=== PATIENT | female | born 1950 | race Hispanic/Latino ===

== ENCOUNTER 2019-12-21 13:13 | Emergency (ER) | payer OTHER ==
[2019-12-21 13:43] LABS: BASOPHILS % (AUTO) 0.3 % (0.0-5.0); EOSINOPHILS % (AUTO) 0.8 % (0.0-8.0); HEMATOCRIT 42.6 % (36-48); LYMPHOCYTES % (AUTO) 12.9 % (21.0-51.0); MEAN CORPUSCULAR HEMOGLOBIN 29.6 pg (27.0-33.0); MEAN CORPUSCULAR HGB CONC 33.1 g/dL (32.0-36.0); MEAN CORPUSCULAR VOLUME 89.3 fL (79-99); MONOCYTES % (AUTO) 6.1 % (3.0-13.0); NEUTROPHILS % (AUTO) 79.5 % (40.0-77.0); PLATELET COUNT (AUTO) 191 K/uL (130-400); RED BLOOD CELL COUNT(AUTO) 4.77 MIL/uL (4.00-5.50); RED CELL DISTRIBUTION WIDTH 12.8 % (11.0-15.5); WHITE BLOOD COUNT (AUTO) 11.4 K/uL (4.8-10.8)
[2019-12-21 13:52] LABS: CREATININE 0.8 mg/dL (0.5-1.5)
[2019-12-21 13:53] LABS: INR 0.89 (0.85-1.15); PARTIAL THROMBOPLASTIN TIME 23.1 SEC (26.3-35.5); PROTHROMBIN TIME 9.7 SEC (9.6-11.6)
[2019-12-21 13:57] LABS: BILIRUBIN,TOTAL 0.7 mg/dL (0.2-1.0); TOTAL PROTEIN, SERUM 7.8 g/dL (6.0-8.3)
[2019-12-21 14:17] LABS: B-TYPE NATRIURETIC PEPTIDE 102 pg/mL (0-100)
[2019-12-21 14:26] LABS: APPEARANCE,URINE Clear (CLEAR); BILIRUBIN,URINE Negative (NEGATIVE); COLOR,URINE Yellow (YELLOW); GLUCOSE, URINE (UA) Negative (NEGATIVE); KETONES,URINE Negative (NEGATIVE); LEUKOCYTE ESTERASE ,URINE Trace (NEGATIVE); NITRATE,URINE Negative (NEGATIVE); OCCULT BLOOD,URINE Negative (NEGATIVE); PROTEIN,URINE Negative (NEGATIVE)
[2019-12-21 14:52] LABS: BACTERIA,URINE Few /HPF (None Seen); MUCUS,URINE Few LPF (None Seen); RBC,URINE 0-1 /HPF (0-1); SQUAMOUS EPITHELIAL CELL,UR Few /HPF (0-2)
== END 2019-12-21 16:17 | disposition home or self-care (01) ==
LOC: EDH 13:13
DX: M79.10 Myalgia, unspecified site (principal); R06.00 Dyspnea, unspecified; F41.9 Anxiety disorder, unspecified; E78.00 Pure hypercholesterolemia, unspecified; I10 Essential (primary) hypertension
CPT/HCPCS: 36415; 71045; 80053; 81001; 82550; 83880; 85025; 85610; 85730; 93005

== ENCOUNTER 2020-05-06 19:05 | Emergency (ER) | payer OTHER ==
[2020-05-06 19:31] LABS: APPEARANCE,URINE Cloudy (CLEAR); BILIRUBIN,URINE Negative (NEGATIVE); COLOR,URINE Yellow (YELLOW); GLUCOSE, URINE (UA) Negative (NEGATIVE); KETONES,URINE Negative (NEGATIVE); LEUKOCYTE ESTERASE ,URINE Small (NEGATIVE); NITRATE,URINE Negative (NEGATIVE); OCCULT BLOOD,URINE Trace (NEGATIVE); PROTEIN,URINE Negative (NEGATIVE)
[2020-05-06 19:46] LABS: BASOPHILS % (AUTO) 0.3 % (0.0-5.0); EOSINOPHILS % (AUTO) 1.5 % (0.0-8.0); HEMATOCRIT 43.2 % (36-48); LYMPHOCYTES % (AUTO) 12.5 % (21.0-51.0); MEAN CORPUSCULAR HGB CONC 32.6 g/dL (32.0-36.0); MEAN CORPUSCULAR VOLUME 88.9 fL (79-99); NEUTROPHILS % (AUTO) 80.4 % (40.0-77.0); PLATELET COUNT (AUTO) 233 K/uL (130-400); RED BLOOD CELL COUNT(AUTO) 4.86 MIL/uL (4.00-5.50); RED CELL DISTRIBUTION WIDTH 12.9 % (11.0-15.5); WHITE BLOOD COUNT (AUTO) 11.5 K/uL (4.8-10.8)
[2020-05-06 19:48] LABS: BACTERIA,URINE Few /HPF (None Seen)
[2020-05-06 19:49] LABS: MUCUS,URINE Few LPF (None Seen); SQUAMOUS EPITHELIAL CELL,UR Few /HPF (0-2)
[2020-05-06 19:51] LABS: CALCIUM OXALATE CRYSTALS,UR Few /LPF (None Seen)
[2020-05-06 20:01] LABS: CREATININE 0.9 mg/dL (0.5-1.5); POTASSIUM 4.6 mmol/L (3.5-5.1)
[2020-05-06 20:06] LABS: ALBUMIN 4.2 g/dL (3.5-5.0); BILIRUBIN,TOTAL 0.5 mg/dL (0.2-1.0)
[2020-05-06] MEDS ORDERED: FAMOTIDINE 20MG TAB ONE (20:26)
[2020-05-06] MEDS ORDERED: METOPROLOL TARTRATE 25 MG TAB ONE (20:27)
[2020-05-06] MEDS ORDERED: LEVOFLOXACIN 500 MG TABLET ONE (20:50)
== END 2020-05-06 21:28 | disposition home or self-care (01) ==
LOC: EDH 19:05
DX: N39.0 Urinary tract infection, site not specified (principal); K59.00 Constipation, unspecified; I10 Essential (primary) hypertension; E78.00 Pure hypercholesterolemia, unspecified; E11.9 Type 2 diabetes mellitus without complications
CPT/HCPCS: 36415; 74176; 80053; 81001; 85025

== ENCOUNTER 2021-06-18 19:48 | Inpatient (IN) | payer OTHER ==
[~2021-06-18] VITALS: Ht 152.4 cm; Wt 90.3 kg
[2021-06-18 20:28] LABS: BASOPHILS % (AUTO) 0.2 % (0.0-5.0); EOSINOPHILS % (AUTO) 2.7 % (0.0-8.0); HEMATOCRIT 47.1 % (36-48); LYMPHOCYTES % (AUTO) 13.7 % (21.0-51.0); MEAN CORPUSCULAR HEMOGLOBIN 28.9 pg (27.0-33.0); MEAN CORPUSCULAR HGB CONC 32.5 g/dL (32.0-36.0); MEAN CORPUSCULAR VOLUME 88.9 fL (79-99); MONOCYTES % (AUTO) 4.7 % (3.0-13.0); NEUTROPHILS % (AUTO) 78.3 % (40.0-77.0); PLATELET COUNT (AUTO) 273 K/uL (130-400); RED CELL DISTRIBUTION WIDTH 13.5 % (11.0-15.5)
[2021-06-18 20:35] LABS: APPEARANCE,URINE CLOUDY (CLEAR); BILIRUBIN,URINE NEGATIVE (NEGATIVE); COLOR,URINE YELLOW (YELLOW); GLUCOSE, URINE (UA) NEGATIVE (NEGATIVE); KETONES,URINE 5 mg/dL (NEGATIVE); LEUKOCYTE ESTERASE ,URINE TRACE (NEGATIVE); NITRATE,URINE NEGATIVE (NEGATIVE); OCCULT BLOOD,URINE SMALL (NEGATIVE); PROTEIN,URINE NEGATIVE (NEGATIVE); UROBILINOGEN,URINE 0.2 mg/dL (0.2-1.0)
[2021-06-18 20:39] LABS: CREATININE 0.7 mg/dL (0.5-1.5); POTASSIUM 4.1 mmol/L (3.5-5.1)
[2021-06-18 20:48] LABS: ALBUMIN 4.3 g/dL (3.5-5.0); BILIRUBIN,TOTAL 0.5 mg/dL (0.2-1.0); TOTAL PROTEIN, SERUM 8.5 g/dL (6.0-8.3)
[2021-06-18 21:02] LABS: BACTERIA,URINE Few /HPF (None Seen); MUCUS,URINE Few LPF (None Seen); RBC,URINE 0-1 /HPF (0-1); SQUAMOUS EPITHELIAL CELL,UR Few /HPF (0-2)
[2021-06-18] MEDS ORDERED: PANTOPRAZOLE 40 MG/VIAL IVP ONE (22:00)
[2021-06-18] MEDS ORDERED: ONDANSETRON 4MG INJ IVP ONE (22:00)
[2021-06-18] MEDS ORDERED: 0.9%NACL 1000ML 1,000 ML IV ONE (22:00)
[2021-06-18] MEDS ORDERED: FAMOTIDINE 20MG VIAL IV ONE (22:00)
[2021-06-18] MEDS ORDERED: KETOROLAC 15MG/ML VIAL (15MG/ML) IV ONE (22:00)
[2021-06-18] MEDS ORDERED: METOCLOPRAMIDE 10 MG/2 ML VIAL IVP ONE (22:00)
[2021-06-18] MEDS ORDERED: MORPHINE 2 MG SYG ONE (22:52)
[2021-06-18] MEDS ORDERED: MORPHINE 2 MG SYG IVP ONE (23:00)
[2021-06-19] VITALS (7 sets, daily range): BP systolic 130–144; BP diastolic 64–79
[2021-06-19] MEDS ORDERED: 0.9%NACL 1000ML 1,000 ML IV ONE
[2021-06-19] MEDS ORDERED: ZOSYN 3.375GM +NS 50ML IV ONE
[2021-06-19] MEDS ORDERED: ZOSYN 3.375GM+NS 50ML 50 ML ONE (01:07)
[2021-06-19] MEDS: 0.9%NACL 1000ML 1,000 ML IV SCH ×2 (02:12→14:05)
[2021-06-19] MEDS: ZOSYN 3.375GM+NS 50ML 50 ML IV SCH ×3 (05:17→20:49)
[2021-06-19] MEDS ORDERED: 0.9%NACL 50ML 50 ML IV ONE (05:18)
[2021-06-19 05:26] LABS: PROTHROMBIN TIME 10.9 SEC (9.6-11.6)
[2021-06-19 05:27] LABS: HEMOGLOBIN A1C 6.1 % (4.0-6.0); PARTIAL THROMBOPLASTIN TIME 21.3 SEC (26.3-35.5)
[2021-06-19] MEDS: MORPHINE 2 MG SYG IV PRN (06:12)
[2021-06-19] MEDS ORDERED: PRAV20TA4 PO (06:33)
[2021-06-19] MEDS ORDERED: BAYER ASPIRIN PO (06:33)
[2021-06-19] MEDS ORDERED: OMEP20CA12 PO (06:33)
[2021-06-19] MEDS ORDERED: LOSARTAN PO (06:33)
[2021-06-19] MEDS: FAMOTIDINE 20MG VIAL IV SCH ×2 (08:44→20:45)
[2021-06-20 03:29] VITALS: BP 126/72
[2021-06-20] MEDS: 0.9%NACL 1000ML 1,000 ML IV SCH ×2 (05:00→18:16)
[2021-06-20] MEDS: ZOSYN 3.375GM+NS 50ML 50 ML IV SCH ×3 (05:00→20:08)
[2021-06-20 05:35] LABS: HEMATOCRIT 40.9 % (36-48); MEAN CORPUSCULAR HEMOGLOBIN 28.2 pg (27.0-33.0); MEAN CORPUSCULAR HGB CONC 31.1 g/dL (32.0-36.0); MEAN CORPUSCULAR VOLUME 90.9 fL (79-99); RED BLOOD CELL COUNT(AUTO) 4.5 MIL/uL (4.00-5.50); WHITE BLOOD COUNT (AUTO) 11.2 K/uL (4.8-10.8)
[2021-06-20 05:51] LABS: BILIRUBIN,TOTAL 0.9 mg/dL (0.2-1.0); CREATININE 0.8 mg/dL (0.5-1.5)
[2021-06-20] MEDS: PANTOPRAZOLE 40 MG TAB DR PO SCH (07:30)
[2021-06-20] MEDS ORDERED: IOHEXOL-350 75 ML VIAL IV ONE (08:16)
[2021-06-20] MEDS ORDERED: DIATR MEGLU/DIATRIZOATE SODIUM 30 ML BOTTLE ONE (08:16)
[2021-06-20] MEDS: ASPIRIN 81MG CHEW TAB PO SCH (09:00)
[2021-06-20] MEDS: Pravastatin Sodium 20 MG PO SCH (09:00)
[2021-06-20] MEDS: LOSARTAN 50 MG TABLET PO SCH (09:00)
[2021-06-20 12:05] VITALS: BP 117/70
[2021-06-20 15:58] VITALS: BP 115/71
[2021-06-20 18:30] VITALS: BP 133/77
[2021-06-20 19:00] VITALS: BP 132/76
[2021-06-21] VITALS (26 sets, daily range): BP systolic 100–157; BP diastolic 60–93
[2021-06-21] MEDS: ZOSYN 3.375GM+NS 50ML 50 ML IV SCH ×3 (04:24→19:42)
[2021-06-21 05:16] LABS: HEMATOCRIT 37.7 % (36-48); MEAN CORPUSCULAR HEMOGLOBIN 28.8 pg (27.0-33.0); MEAN CORPUSCULAR HGB CONC 32.1 g/dL (32.0-36.0); MEAN CORPUSCULAR VOLUME 89.8 fL (79-99); RED BLOOD CELL COUNT(AUTO) 4.2 MIL/uL (4.00-5.50); RED CELL DISTRIBUTION WIDTH 13.8 % (11.0-15.5); WHITE BLOOD COUNT (AUTO) 8.1 K/uL (4.8-10.8)
[2021-06-21 05:29] LABS: ALBUMIN 2.7 g/dL (3.5-5.0); BILIRUBIN,TOTAL 0.5 mg/dL (0.2-1.0); CREATININE 0.6 mg/dL (0.5-1.5); POTASSIUM 3.5 mmol/L (3.5-5.1); TOTAL PROTEIN, SERUM 6.9 g/dL (6.0-8.3)
[2021-06-21] MEDS: 0.9%NACL 1000ML 1,000 ML IV SCH ×3 (06:22→19:39)
[2021-06-21] MEDS: PANTOPRAZOLE 40 MG TAB DR PO SCH (06:32)
[2021-06-21] MEDS: Pravastatin Sodium 20 MG PO SCH (09:00)
[2021-06-21] MEDS: LOSARTAN 50 MG TABLET PO SCH (09:00)
[2021-06-21] MEDS: ASPIRIN 81MG CHEW TAB PO SCH (09:00)
[2021-06-21] MEDS ORDERED: PROPOFOL 10 MG/ML 20ML VIAL IV ONE (09:30)
[2021-06-21] MEDS ORDERED: LIDOCAINE HCL 400MG/20ML VIAL ONE (09:30)
[2021-06-21] MEDS ORDERED: FENTANYL CITRATE PF 50 MCG/1 ML 2ML VIAL ONE (09:30)
[2021-06-21] MEDS ORDERED: IOHEXOL-350 50ML VIAL IV ONE (09:58)
[2021-06-21] MEDS ORDERED: IPRATROPIUM/ALBUTEROL SULFATE 3 ML SOLUTION IH ONE (11:18)
[2021-06-21] MEDS: ONDANSETRON 4MG INJ IV PRN (11:48)
[2021-06-22] VITALS (7 sets, daily range): BP systolic 107–149; BP diastolic 55–81
[2021-06-22] MEDS: ZOSYN 3.375GM+NS 50ML 50 ML IV SCH ×3 (04:01→21:19)
[2021-06-22 04:55] LABS: HEMATOCRIT 35.5 % (36-48); MEAN CORPUSCULAR HEMOGLOBIN 28.1 pg (27.0-33.0); MEAN CORPUSCULAR HGB CONC 31.5 g/dL (32.0-36.0); RED BLOOD CELL COUNT(AUTO) 3.99 MIL/uL (4.00-5.50); WHITE BLOOD COUNT (AUTO) 4.6 K/uL (4.8-10.8)
[2021-06-22 05:13] LABS: ALBUMIN 2.4 g/dL (3.5-5.0); CREATININE 0.6 mg/dL (0.5-1.5); POTASSIUM 3.4 mmol/L (3.5-5.1); TOTAL PROTEIN, SERUM 6.3 g/dL (6.0-8.3)
[2021-06-22] MEDS: 0.9%NACL 1000ML 1,000 ML IV SCH ×3 (06:01→20:55)
[2021-06-22] MEDS: PANTOPRAZOLE 40 MG TAB DR PO SCH (07:30)
[2021-06-22] MEDS: Pravastatin Sodium 20 MG PO SCH (09:00)
[2021-06-22] MEDS: ASPIRIN 81MG CHEW TAB PO SCH (09:43)
[2021-06-22] MEDS: LOSARTAN 50 MG TABLET PO SCH (09:43)
[2021-06-22] MEDS: HYDROMORPHONE 1 MG INJ IVP PRN (10:02)
[2021-06-22] MEDS ORDERED: LIDOCAINE HCL-MPF 1% 2ML VIAL IV PRN (14:00)
[2021-06-23] VITALS (25 sets, daily range): BP systolic 103–157; BP diastolic 55–104
[2021-06-23] MEDS: ONDANSETRON 4MG INJ IV PRN (00:55)
[2021-06-23] MEDS: HYDROMORPHONE 1 MG INJ IVP PRN (00:56)
[2021-06-23] MEDS: POTASSIUM CHLORIDE 20MEQ/100ML 100 ML IV PRN (01:01)
[2021-06-23 04:54] LABS: BASOPHILS % (AUTO) 0.3 % (0.0-5.0); EOSINOPHILS % (AUTO) 3.9 % (0.0-8.0); HEMATOCRIT 38.5 % (36-48); LYMPHOCYTES % (AUTO) 13.4 % (21.0-51.0); MEAN CORPUSCULAR HEMOGLOBIN 28.5 pg (27.0-33.0); MEAN CORPUSCULAR HGB CONC 30.9 g/dL (32.0-36.0); MEAN CORPUSCULAR VOLUME 92.1 fL (79-99); MONOCYTES % (AUTO) 10.5 % (3.0-13.0); NEUTROPHILS % (AUTO) 71.2 % (40.0-77.0); PLATELET COUNT (AUTO) 219 K/uL (130-400); RED BLOOD CELL COUNT(AUTO) 4.18 MIL/uL (4.00-5.50); RED CELL DISTRIBUTION WIDTH 14.6 % (11.0-15.5); WHITE BLOOD COUNT (AUTO) 7.2 K/uL (4.8-10.8)
[2021-06-23] MEDS: ZOSYN 3.375GM+NS 50ML 50 ML IV SCH ×3 (04:59→21:14)
[2021-06-23] MEDS: 0.9%NACL 1000ML 1,000 ML IV SCH ×2 (05:03→16:08)
[2021-06-23 05:07] LABS: ALBUMIN 2.5 g/dL (3.5-5.0); BILIRUBIN,TOTAL 1.1 mg/dL (0.2-1.0); CREATININE 0.5 mg/dL (0.5-1.5); POTASSIUM 3.5 mmol/L (3.5-5.1); TOTAL PROTEIN, SERUM 6.5 g/dL (6.0-8.3)
[2021-06-23] MEDS: PANTOPRAZOLE 40 MG TAB DR PO SCH (06:25)
[2021-06-23] MEDS: MORPHINE 2 MG SYG IV PRN (06:44)
[2021-06-23] MEDS: Pravastatin Sodium 20 MG PO SCH (09:00)
[2021-06-23] MEDS: LOSARTAN 50 MG TABLET PO SCH (09:00)
[2021-06-23] MEDS: ASPIRIN 81MG CHEW TAB PO SCH (09:00)
[2021-06-23] MEDS ORDERED: LACTATED RINGERS 1000ML 1,000 ML IV ONE (09:42)
[2021-06-23] MEDS ORDERED: CEFAZOLIN SODIUM 1 GM VIAL ONE (10:02)
[2021-06-23] MEDS ORDERED: LIDOCAINE 1%-EPI 1:100,000 20 ML VIAL IJ ONE (10:02)
[2021-06-23] MEDS ORDERED: BUPIVACAINE/PF 0.25% 30ML VIAL IJ ONE (10:02)
[2021-06-23] MEDS ORDERED: MIDAZOLAM HCL 1 MG/ML 2ML VIAL ONE (10:13)
[2021-06-23] MEDS ORDERED: PROPOFOL 10 MG/ML 20ML VIAL IV ONE (10:15)
[2021-06-23] MEDS ORDERED: LIDOCAINE PF 100MG/5ML (2%) SYRINGE 5ML ONE (10:15)
[2021-06-23] MEDS ORDERED: ROCURONIUM 10MG/1ML SYR 10 MG/ML ML ONE (10:15)
[2021-06-23] MEDS ORDERED: PHENYLEPHRINE HCL 10 MG/ML 1ML VIAL IV ONE (10:35)
[2021-06-23] MEDS ORDERED: FENTANYL CITRATE PF 50 MCG/1 ML 2ML VIAL ONE (10:40)
[2021-06-23] MEDS ORDERED: GLYCOPYRROLATE 1 MG/5 ML SYRINGE ONE (11:33)
[2021-06-23] MEDS ORDERED: NEOSTIGMINE 5MG/5ML SYR IV ONE (11:34)
[2021-06-23] MEDS ORDERED: ONDANSETRON 4MG INJ ONE (11:34)
[2021-06-23] MEDS ORDERED: OXYCODONE/ACETAMIN 5/325MG TAB PO PRN (15:30)
[2021-06-23] MEDS: KETOROLAC 15MG/ML VIAL (15MG/ML) IV PRN (21:13)
[2021-06-24] MEDS: 0.9%NACL 1000ML 1,000 ML IV SCH ×2 (03:00→20:57)
[2021-06-24] MEDS: KETOROLAC 15MG/ML VIAL (15MG/ML) IV PRN (03:01)
[2021-06-24] MEDS: MORPHINE 2 MG SYG IV PRN (03:47)
[2021-06-24 04:03] VITALS: BP 181/69
[2021-06-24] MEDS: ONDANSETRON 4MG INJ IV PRN ×2 (04:11→20:58)
[2021-06-24 05:41] LABS: BASOPHILS % (AUTO) 0.2 % (0.0-5.0); HEMATOCRIT 39.5 % (36-48); LYMPHOCYTES % (AUTO) 16.7 % (21.0-51.0); MEAN CORPUSCULAR HEMOGLOBIN 27.9 pg (27.0-33.0); MEAN CORPUSCULAR HGB CONC 31.6 g/dL (32.0-36.0); MEAN CORPUSCULAR VOLUME 88.2 fL (79-99); MONOCYTES % (AUTO) 6.5 % (3.0-13.0); NEUTROPHILS % (AUTO) 73.4 % (40.0-77.0); PLATELET COUNT (AUTO) 225 K/uL (130-400); RED BLOOD CELL COUNT(AUTO) 4.48 MIL/uL (4.00-5.50); RED CELL DISTRIBUTION WIDTH 14.4 % (11.0-15.5)
[2021-06-24] MEDS: ZOSYN 3.375GM+NS 50ML 50 ML IV SCH ×3 (05:58→20:58)
[2021-06-24] MEDS: PANTOPRAZOLE 40 MG TAB DR PO SCH (06:01)
[2021-06-24] MEDS: METOCLOPRAMIDE 10 MG/2 ML VIAL IVP SCH ×3 (06:01→19:26)
[2021-06-24 06:02] LABS: ALBUMIN 2.4 g/dL (3.5-5.0); BILIRUBIN,TOTAL 0.9 mg/dL (0.2-1.0); CREATININE 0.5 mg/dL (0.5-1.5); POTASSIUM 3.1 mmol/L (3.5-5.1); TOTAL PROTEIN, SERUM 6.2 g/dL (6.0-8.3)
[2021-06-24] MEDS ORDERED: ACETAMINOPHEN 325 MG TAB PO PRN ×2 (07:00)
[2021-06-24 08:00] VITALS: BP 147/74
[2021-06-24] MEDS: POLYETHYLENE GLYCOL 3350 17 GM POWD.PACK PO SCH ×2 (09:00→19:33)
[2021-06-24] MEDS: Pravastatin Sodium 20 MG PO SCH (09:00)
[2021-06-24] MEDS: LOSARTAN 50 MG TABLET PO SCH (09:43)
[2021-06-24] MEDS: LACTULOSE 20 GM/30 ML UDCUP PO SCH (09:43)
[2021-06-24] MEDS: ASPIRIN 81MG CHEW TAB PO SCH (09:43)
[2021-06-24 16:00] VITALS: BP 140/76
[2021-06-24] MEDS ORDERED: BISACODYL 10 MG SUPP.RECT RC ONE ×2 (18:00→19:24)
[2021-06-24 20:00] VITALS: BP 147/82
[2021-06-24] MEDS: HYDROMORPHONE 1 MG INJ IVP PRN (23:27)
[2021-06-25] VITALS: BP 139/73
[2021-06-25 04:00] VITALS: BP 117/75
[2021-06-25] MEDS: ZOSYN 3.375GM+NS 50ML 50 ML IV SCH ×3 (04:23→23:00)
[2021-06-25] MEDS: HYDROMORPHONE 1 MG INJ IVP PRN ×2 (04:33→20:25)
[2021-06-25 04:38] LABS: BASOPHILS % (AUTO) 0.2 % (0.0-5.0); EOSINOPHILS % (AUTO) 0.1 % (0.0-8.0); HEMATOCRIT 42.2 % (36-48); LYMPHOCYTES % (AUTO) 5.5 % (21.0-51.0); MEAN CORPUSCULAR HEMOGLOBIN 28.5 pg (27.0-33.0); MONOCYTES % (AUTO) 4.7 % (3.0-13.0); NEUTROPHILS % (AUTO) 88.6 % (40.0-77.0); PLATELET COUNT (AUTO) 257 K/uL (130-400); RED BLOOD CELL COUNT(AUTO) 4.74 MIL/uL (4.00-5.50); RED CELL DISTRIBUTION WIDTH 14.7 % (11.0-15.5); WHITE BLOOD COUNT (AUTO) 15.6 K/uL (4.8-10.8)
[2021-06-25 05:07] LABS: ALBUMIN 2.4 g/dL (3.5-5.0); BILIRUBIN,TOTAL 1.8 mg/dL (0.2-1.0); TOTAL PROTEIN, SERUM 6.6 g/dL (6.0-8.3)
[2021-06-25 05:25] LABS: POTASSIUM 2.9 mmol/L (3.5-5.1)
[2021-06-25] MEDS: POTASSIUM CHLORIDE 20MEQ/100ML 100 ML IV PRN ×2 (05:47→22:58)
[2021-06-25] MEDS: METOCLOPRAMIDE 10 MG/2 ML VIAL IVP SCH ×3 (06:30→17:00)
[2021-06-25] MEDS: PANTOPRAZOLE 40 MG TAB DR PO SCH (06:30)
[2021-06-25] MEDS: LACTULOSE 20 GM/30 ML UDCUP PO SCH ×2 (06:30→11:10)
[2021-06-25 08:00] VITALS: BP 90/62
[2021-06-25] MEDS: 0.9%NACL 1000ML 1,000 ML IV SCH (08:00)
[2021-06-25] MEDS: Pravastatin Sodium 20 MG PO SCH (09:00)
[2021-06-25] MEDS: LOSARTAN 50 MG TABLET PO SCH (09:00)
[2021-06-25 09:56] LABS: ABG BASE EXCESS -2.4 mmol/L (-2.0-3.0); ABG HCO3 23.5 mmol/L (21.0-28.0); ABG OXYGEN SATURATION 95.3 % (95.0-99.0); ABG PCO2 45 mmHg (32-45)
[2021-06-25] MEDS: IPRATROPIUM/ALBUTEROL SULFATE 3 ML SOLUTION IH SCH ×5 (10:00→21:52)
[2021-06-25] MEDS: ASPIRIN 81MG CHEW TAB PO SCH (11:11)
[2021-06-25] MEDS: POLYETHYLENE GLYCOL 3350 17 GM POWD.PACK PO SCH (11:11)
[2021-06-25 12:00] VITALS: BP 104/40
[2021-06-25 16:00] VITALS: BP 126/65
[2021-06-25 19:50] VITALS: BP 153/64
[2021-06-25] MEDS: ONDANSETRON 4MG INJ IV PRN (20:25)
[2021-06-26] VITALS (8 sets, daily range): BP systolic 90–125; BP diastolic 52–68
[2021-06-26] MEDS ORDERED: NALOXONE HCL 0.4 MG/1 ML ML IVP ONE
[2021-06-26] MEDS: HYDROMORPHONE 1 MG INJ IVP PRN ×2 (01:25→21:05)
[2021-06-26] MEDS: IPRATROPIUM/ALBUTEROL SULFATE 3 ML SOLUTION IH SCH ×6 (01:48→23:30)
[2021-06-26 05:06] LABS: BASOPHILS % (AUTO) 0.4 % (0.0-5.0); LYMPHOCYTES % (AUTO) 3.4 % (21.0-51.0); MEAN CORPUSCULAR HEMOGLOBIN 28.3 pg (27.0-33.0); MEAN CORPUSCULAR HGB CONC 31.8 g/dL (32.0-36.0); MONOCYTES % (AUTO) 4.2 % (3.0-13.0); NEUTROPHILS % (AUTO) 91.1 % (40.0-77.0); PLATELET COUNT (AUTO) 262 K/uL (130-400); RED BLOOD CELL COUNT(AUTO) 4.27 MIL/uL (4.00-5.50); RED CELL DISTRIBUTION WIDTH 15.6 % (11.0-15.5); WHITE BLOOD COUNT (AUTO) 20.5 K/uL (4.8-10.8)
[2021-06-26 05:28] LABS: ALBUMIN 2.1 g/dL (3.5-5.0); CREATININE 2.8 mg/dL (0.5-1.5); POTASSIUM 3.5 mmol/L (3.5-5.1); TOTAL PROTEIN, SERUM 6.9 g/dL (6.0-8.3)
[2021-06-26] MEDS: METOCLOPRAMIDE 10 MG/2 ML VIAL IVP SCH ×3 (06:56→17:00)
[2021-06-26] MEDS: ZOSYN 3.375GM+NS 50ML 50 ML IV SCH ×3 (06:56→20:07)
[2021-06-26] MEDS: PANTOPRAZOLE 40 MG TAB DR PO SCH (06:57)
[2021-06-26] MEDS: 0.9%NACL 1000ML 1,000 ML IV SCH ×3 (07:00→20:08)
[2021-06-26] MEDS: LACTULOSE 20 GM/30 ML UDCUP PO SCH ×2 (08:00)
[2021-06-26] MEDS: LOSARTAN 50 MG TABLET PO SCH (08:21)
[2021-06-26] MEDS: Pravastatin Sodium 20 MG PO SCH (08:23)
[2021-06-26] MEDS: ASPIRIN 81MG CHEW TAB PO SCH (08:25)
[2021-06-26] MEDS: POLYETHYLENE GLYCOL 3350 17 GM POWD.PACK PO SCH (08:26)
[2021-06-26] MEDS ORDERED: LACTULOSE 20 GM/30 ML UDCUP PO SCH (11:00)
[2021-06-26] MEDS: FLUCONAZOLE 200 MG/NS 100 ML 100 ML IV SCH (11:42)
[2021-06-26] MEDS ORDERED: SODIUM CHLORIDE 3% FOR INHALATION 4 ML/AMP VIAL.NEB IH ONE (14:03)
[2021-06-26] MEDS ORDERED: METOPROLOL TARTRATE 1 MG/ML 5ML VIAL IV ONE ×3 (21:47→22:00)
[2021-06-26 22:28] LABS: ABG BASE EXCESS -2.4 mmol/L (-2.0-3.0); ABG HCO3 24.5 mmol/L (21.0-28.0); ABG OXYGEN SATURATION 96.1 % (95.0-99.0); ABG PCO2 50 mmHg (32-45)
[2021-06-26] MEDS ORDERED: 0.9%NACL 1000ML 1,000 ML IV ONE (22:30)
[2021-06-26] MEDS ORDERED: BUDESONIDE 0.5 MG/2 ML INH IH ONE (22:30)
[2021-06-26 22:33] LABS: HEMATOCRIT 35.1 % (36-48); MEAN CORPUSCULAR HEMOGLOBIN 28.5 pg (27.0-33.0); MEAN CORPUSCULAR HGB CONC 31.6 g/dL (32.0-36.0); RED BLOOD CELL COUNT(AUTO) 3.9 MIL/uL (4.00-5.50); RED CELL DISTRIBUTION WIDTH 15.9 % (11.0-15.5); WHITE BLOOD COUNT (AUTO) 19.7 K/uL (4.8-10.8)
[2021-06-26] MEDS: MEROPENEM 1 GM VIAL IVP SCH (22:46)
[2021-06-26 22:47] LABS: POTASSIUM 3.2 mmol/L (3.5-5.1)
[2021-06-26 22:51] LABS: ALBUMIN 1.8 g/dL (3.5-5.0); BILIRUBIN,TOTAL 0.9 mg/dL (0.2-1.0); MAGNESIUM 2.1 mg/dL (1.80-2.40); PHOSPHORUS 4.5 mg/dL (2.5-4.9); TOTAL PROTEIN, SERUM 6.2 g/dL (6.0-8.3)
[2021-06-26] MEDS ORDERED: HYDROMORPHONE 1 MG INJ IVP PRN (23:00)
[2021-06-26] MEDS ORDERED: METOPROLOL TARTRATE 1 MG/ML 5ML VIAL IV PRN (23:00)
[2021-06-26] MEDS ORDERED: NALOXONE HCL 0.4 MG/1 ML ML ONE (23:45)
[2021-06-27] VITALS (29 sets, daily range): BP systolic 74–145; BP diastolic 42–86
[2021-06-27] MEDS: POTASSIUM CHLORIDE 10MEQ/100ML 10 MEQ/100 ML ML IV SCH ×4 (00:23→09:30)
[2021-06-27] MEDS: IPRATROPIUM/ALBUTEROL SULFATE 3 ML SOLUTION IH SCH ×5 (02:19→22:00)
[2021-06-27 02:26] LABS: ABG BASE EXCESS -0.2 mmol/L (-2.0-3.0); ABG HCO3 26.5 mmol/L (21.0-28.0); ABG OXYGEN SATURATION 94.4 % (95.0-99.0); ABG PCO2 51 mmHg (32-45)
[2021-06-27] MEDS: LINEZOLID 600 MG/ISO-OSM 300 ML IV SCH ×2 (03:09→15:39)
[2021-06-27 04:20] LABS: BASOPHILS % (AUTO) 0.4 % (0.0-5.0); EOSINOPHILS % (AUTO) 0.4 % (0.0-8.0); HEMATOCRIT 32.6 % (36-48); LYMPHOCYTES % (AUTO) 3.2 % (21.0-51.0); MEAN CORPUSCULAR HEMOGLOBIN 28.1 pg (27.0-33.0); MEAN CORPUSCULAR HGB CONC 31.6 g/dL (32.0-36.0); MEAN CORPUSCULAR VOLUME 88.8 fL (79-99); NEUTROPHILS % (AUTO) 91.2 % (40.0-77.0); PLATELET COUNT (AUTO) 237 K/uL (130-400); RED BLOOD CELL COUNT(AUTO) 3.67 MIL/uL (4.00-5.50); RED CELL DISTRIBUTION WIDTH 15.8 % (11.0-15.5); WHITE BLOOD COUNT (AUTO) 17.6 K/uL (4.8-10.8)
[2021-06-27 04:38] LABS: ALBUMIN 1.5 g/dL (3.5-5.0); BILIRUBIN,TOTAL 0.9 mg/dL (0.2-1.0); CREATININE 4.4 mg/dL (0.5-1.5); POTASSIUM 3.2 mmol/L (3.5-5.1); TOTAL PROTEIN, SERUM 5.8 g/dL (6.0-8.3)
[2021-06-27] MEDS: PANTOPRAZOLE 40 MG/VIAL IVP SCH (07:53)
[2021-06-27] MEDS: LACTULOSE 20 GM/30 ML UDCUP PO SCH ×2 (08:00→08:47)
[2021-06-27] MEDS: ASPIRIN 81MG CHEW TAB PO SCH (08:48)
[2021-06-27] MEDS: FLUCONAZOLE 200 MG/NS 100 ML 100 ML IV SCH (08:49)
[2021-06-27] MEDS: POLYETHYLENE GLYCOL 3350 17 GM POWD.PACK PO SCH (08:49)
[2021-06-27] MEDS: Pravastatin Sodium 20 MG PO SCH (08:50)
[2021-06-27] MEDS: DIGOXIN 250 MCG/ML 2ML AMP IV SCH ×3 (11:40→20:56)
[2021-06-27] MEDS: METOPROLOL TARTRATE 1 MG/ML 5ML VIAL IV PRN ×4 (11:41→22:20)
[2021-06-27] MEDS: MEROPENEM 1 GM VIAL IVP SCH ×2 (11:41→21:15)
[2021-06-27] MEDS ORDERED: ALBUMIN (HUMAN) 5% 250 ML IV SCH (12:30)
[2021-06-27] MEDS: POTASSIUM CHLORIDE 20MEQ/100ML 100 ML IV PRN (17:29)
[2021-06-27] MEDS: 0.9%NACL 1000ML 1,000 ML IV SCH (17:36)
[2021-06-27] MEDS: BUDESONIDE 0.5 MG/2 ML INH IH SCH (20:44)
[2021-06-27] MEDS ORDERED: AMIODARONE 900MG VIAL IV ONE (22:48)
[2021-06-27] MEDS ORDERED: 0.9% NACL 500ML IV.SOLN 500 ML IV ONE (22:49)
[2021-06-27] MEDS ORDERED: AMIODARONE 900MG VIAL 360 MG in DEXTROSE 5%-WATER 200 ML IV SCH (23:00)
[2021-06-28] VITALS (48 sets, daily range): BP systolic 91–161; BP diastolic 47–93
[2021-06-28] MEDS: IPRATROPIUM/ALBUTEROL SULFATE 3 ML SOLUTION IH SCH ×3 (02:00→21:17)
[2021-06-28] MEDS: LINEZOLID 600 MG/ISO-OSM 300 ML IV SCH ×2 (02:30→17:30)
[2021-06-28] MEDS: 0.9%NACL 1000ML 1,000 ML IV SCH ×4 (02:30→22:56)
[2021-06-28 03:52] LABS: BASOPHILS % (AUTO) 0.2 % (0.0-5.0); EOSINOPHILS % (AUTO) 1.4 % (0.0-8.0); HEMATOCRIT 36.8 % (36-48); LYMPHOCYTES % (AUTO) 3.2 % (21.0-51.0); MEAN CORPUSCULAR VOLUME 90.4 fL (79-99); MONOCYTES % (AUTO) 4.8 % (3.0-13.0); NEUTROPHILS % (AUTO) 87.6 % (40.0-77.0); PLATELET COUNT (AUTO) 205 K/uL (130-400); RED BLOOD CELL COUNT(AUTO) 4.07 MIL/uL (4.00-5.50); RED CELL DISTRIBUTION WIDTH 16.1 % (11.0-15.5); WHITE BLOOD COUNT (AUTO) 17.6 K/uL (4.8-10.8)
[2021-06-28 04:14] LABS: ALBUMIN 1.6 g/dL (3.5-5.0); CREATININE 5.1 mg/dL (0.5-1.5); POTASSIUM 3.7 mmol/L (3.5-5.1); TOTAL PROTEIN, SERUM 5.8 g/dL (6.0-8.3)
[2021-06-28] MEDS ORDERED: IOHEXOL-350 50ML VIAL IV ONE ×3 (07:29→14:50)
[2021-06-28] MEDS: LACTULOSE 20 GM/30 ML UDCUP PO SCH ×2 (08:00→09:30)
[2021-06-28] MEDS: ASPIRIN 81MG CHEW TAB PO SCH (09:00)
[2021-06-28] MEDS: POLYETHYLENE GLYCOL 3350 17 GM POWD.PACK PO SCH (09:00)
[2021-06-28] MEDS: Pravastatin Sodium 20 MG PO SCH (09:00)
[2021-06-28] MEDS: PANTOPRAZOLE 40 MG/VIAL IVP SCH (09:18)
[2021-06-28] MEDS: FLUCONAZOLE 200 MG/NS 100 ML 100 ML IV SCH (09:18)
[2021-06-28] MEDS: METOPROLOL TARTRATE 1 MG/ML 5ML VIAL IV SCH ×2 (10:00→18:00)
[2021-06-28] MEDS: MEROPENEM 1 GM VIAL IVP SCH ×2 (10:30→22:52)
[2021-06-28] MEDS: DIGOXIN 250 MCG/ML 2ML AMP IV SCH (11:30)
[2021-06-28 12:31] LABS: ABG BASE EXCESS -4.2 mmol/L (-2.0-3.0); ABG HCO3 21.7 mmol/L (21.0-28.0); ABG OXYGEN SATURATION 95.8 % (95.0-99.0); ABG PCO2 43 mmHg (32-45)
[2021-06-28] MEDS ORDERED: KCL 20 MEQ ERTAB PO ONE (12:31)
[2021-06-28] MEDS ORDERED: MIDAZOLAM HCL 1 MG/ML 2ML VIAL ONE (15:33)
[2021-06-28] MEDS ORDERED: PROPOFOL 10 MG/ML 20ML VIAL IV ONE (15:37)
[2021-06-28] MEDS ORDERED: SUCCINYLCHOLINE 200MG/10ML SYR ONE (15:37)
[2021-06-28] MEDS ORDERED: EPHEDRINE SULFATE 50 MG/ML AMPULE ONE (15:51)
[2021-06-28] MEDS ORDERED: PHENYLEPHRINE HCL 10 MG/ML 1ML VIAL IV ONE (15:51)
[2021-06-28 15:56] LABS: ABG BASE EXCESS -6.4 mmol/L (-2.0-3.0); ABG OXYGEN SATURATION 88.5 % (95.0-99.0); ABG PCO2 44 mmHg (32-45)
[2021-06-28] MEDS ORDERED: ROCURONIUM 10MG/1ML SYR 10 MG/ML ML ONE (16:24)
[2021-06-28] MEDS ORDERED: FENTANYL 2500MCG+NS 250ML 250 ML IV ONE (16:49)
[2021-06-28 17:46] LABS: ABG BASE EXCESS -7.6 mmol/L (-2.0-3.0); ABG HCO3 16.5 mmol/L (21.0-28.0); ABG OXYGEN SATURATION 99.1 % (95.0-99.0); ABG PCO2 30 mmHg (32-45)
[2021-06-28] MEDS ORDERED: MIDAZOLAM 100MG-0.9% NS 100ML 100ML BAG IV ONE (19:00)
[2021-06-28] MEDS ORDERED: PHARMACY COMMUNICATION MISC SCH (19:00)
[2021-06-28] MEDS: AMIODARONE 540 MG/D5W 300ML (0.5MG/MIN) IV SCH ×2 (20:13)
[2021-06-28] MEDS: BUDESONIDE 0.5 MG/2 ML INH IH SCH (21:00)
[2021-06-28 21:03] LABS: INR 1.16 (0.85-1.15)
[2021-06-28] MEDS: PHENYLEPHRINE HCL 10 MG in 0.9% NACL 250ML 250 ML IV PRN (22:55)
[2021-06-29] VITALS (40 sets, daily range): BP systolic 85–141; BP diastolic 42–72
[2021-06-29] MEDS: IPRATROPIUM/ALBUTEROL SULFATE 3 ML SOLUTION IH SCH ×3 (02:00→10:00)
[2021-06-29] MEDS: METOPROLOL TARTRATE 1 MG/ML 5ML VIAL IV SCH ×3 (02:00→18:00)
[2021-06-29] MEDS: LINEZOLID 600 MG/ISO-OSM 300 ML IV SCH ×2 (03:52→14:19)
[2021-06-29] MEDS: 0.9%NACL 1000ML 1,000 ML IV SCH ×2 (05:03→19:42)
[2021-06-29 05:19] LABS: BASOPHILS % (AUTO) 0.3 % (0.0-5.0); EOSINOPHILS % (AUTO) 2.4 % (0.0-8.0); HEMATOCRIT 36.1 % (36-48); LYMPHOCYTES % (AUTO) 5.3 % (21.0-51.0); MEAN CORPUSCULAR HEMOGLOBIN 28.1 pg (27.0-33.0); MEAN CORPUSCULAR HGB CONC 31.3 g/dL (32.0-36.0); MEAN CORPUSCULAR VOLUME 89.8 fL (79-99); MONOCYTES % (AUTO) 7.9 % (3.0-13.0); NEUTROPHILS % (AUTO) 81.5 % (40.0-77.0); PLATELET COUNT (AUTO) 275 K/uL (130-400); RED BLOOD CELL COUNT(AUTO) 4.02 MIL/uL (4.00-5.50); RED CELL DISTRIBUTION WIDTH 16.6 % (11.0-15.5); WHITE BLOOD COUNT (AUTO) 15.2 K/uL (4.8-10.8)
[2021-06-29 05:33] LABS: ALBUMIN 1.3 g/dL (3.5-5.0); BILIRUBIN,TOTAL 0.8 mg/dL (0.2-1.0); CREATININE 4.6 mg/dL (0.5-1.5); POTASSIUM 3.9 mmol/L (3.5-5.1); TOTAL PROTEIN, SERUM 5.4 g/dL (6.0-8.3)
[2021-06-29] MEDS: BUDESONIDE 0.5 MG/2 ML INH IH SCH ×2 (06:18→18:28)
[2021-06-29 06:30] LABS: ABG HCO3 19.6 mmol/L (21.0-28.0); ABG PCO2 43 mmHg (32-45)
[2021-06-29] MEDS: PANTOPRAZOLE 40 MG/VIAL IVP SCH (06:36)
[2021-06-29] MEDS: PHENYLEPHRINE HCL 10 MG in 0.9% NACL 250ML 250 ML IV PRN ×2 (06:38→14:43)
[2021-06-29] MEDS: LACTULOSE 20 GM/30 ML UDCUP PO SCH ×2 (07:38→08:41)
[2021-06-29] MEDS: MIDAZOLAM 100MG-0.9% NS 100ML 50 ML IV PRN (07:39)
[2021-06-29] MEDS ORDERED: PHARMACY COMMUNICATION MISC SCH (08:00)
[2021-06-29] MEDS: ASPIRIN 81MG CHEW TAB PO SCH (08:41)
[2021-06-29] MEDS: POLYETHYLENE GLYCOL 3350 17 GM POWD.PACK PO SCH (08:41)
[2021-06-29] MEDS: FLUCONAZOLE 200 MG/NS 100 ML 100 ML IV SCH (08:41)
[2021-06-29] MEDS: Pravastatin Sodium 20 MG PO SCH (08:42)
[2021-06-29] MEDS ORDERED: METOCLOPRAMIDE 10 MG/2 ML VIAL IVP SCH (09:44)
[2021-06-29] MEDS: DIGOXIN 250 MCG/ML 2ML AMP IV SCH (09:48)
[2021-06-29] MEDS ORDERED: METOCLOPRAMIDE 5 MG TABLET PO SCH ×2 (10:00→11:30)
[2021-06-29] MEDS: MEROPENEM 1 GM VIAL IVP SCH ×2 (10:15→21:33)
[2021-06-29] MEDS: METOCLOPRAMIDE 10 MG/2 ML VIAL IVP SCH ×2 (11:30→16:33)
[2021-06-29] MEDS ORDERED: SODIUM BICARB 8.4% 50ML SYRINGE IVP SCH (14:00)
[2021-06-29] MEDS: HEPARIN 5,000 UNIT VIAL SQ SCH (14:20)
[2021-06-29] MEDS ORDERED: SODIUM BICARB 50MEQ 50ML VIAL IV SCH (14:30)
[2021-06-29] MEDS: SODIUM BICARB 8.4% 50ML SYRING 150 MEQ in DEXTROSE 5%-WATER 1,000 ML IVP SCH (14:35)
[2021-06-29] MEDS: FENTANYL 2500MCG+NS 250ML IV.SOLN IV SCH (18:23)
[2021-06-29] MEDS: AMIODARONE 540 MG/D5W 300ML (0.5MG/MIN) IV SCH ×2 (18:25)
[2021-06-30] VITALS (22 sets, daily range): BP systolic 93–131; BP diastolic 41–62
[2021-06-30] MEDS: LINEZOLID 600 MG/ISO-OSM 300 ML IV SCH ×2 (02:00→15:21)
[2021-06-30] MEDS: HEPARIN 5,000 UNIT VIAL SQ SCH ×2 (02:00→14:00)
[2021-06-30] MEDS: METOPROLOL TARTRATE 1 MG/ML 5ML VIAL IV SCH ×3 (02:00→18:00)
[2021-06-30] MEDS: MIDAZOLAM 100MG-0.9% NS 100ML 50 ML IV PRN (02:00)
[2021-06-30] MEDS ORDERED: PHENYLEPHRINE HCL 50 MG in 0.9% NACL 250ML 250 ML IV PRN (03:00)
[2021-06-30 04:25] LABS: BASOPHILS % (AUTO) 0.3 % (0.0-5.0); EOSINOPHILS % (AUTO) 3.7 % (0.0-8.0); LYMPHOCYTES % (AUTO) 9.9 % (21.0-51.0); MEAN CORPUSCULAR HEMOGLOBIN 29.3 pg (27.0-33.0); MEAN CORPUSCULAR HGB CONC 33.5 g/dL (32.0-36.0); MEAN CORPUSCULAR VOLUME 87.3 fL (79-99); MONOCYTES % (AUTO) 6.4 % (3.0-13.0); NEUTROPHILS % (AUTO) 74.1 % (40.0-77.0); PLATELET COUNT (AUTO) 273 K/uL (130-400); RED BLOOD CELL COUNT(AUTO) 3.55 MIL/uL (4.00-5.50); RED CELL DISTRIBUTION WIDTH 16.1 % (11.0-15.5); WHITE BLOOD COUNT (AUTO) 10.9 K/uL (4.8-10.8)
[2021-06-30 04:37] LABS: CREATININE 4.2 mg/dL (0.5-1.5); MAGNESIUM 1.8 mg/dL (1.80-2.40); PHOSPHORUS 2.9 mg/dL (2.5-4.9); POTASSIUM 3.4 mmol/L (3.5-5.1)
[2021-06-30] MEDS ORDERED: PHARMACY COMMUNICATION MISC SCH (06:00)
[2021-06-30 06:23] LABS: ABG BASE EXCESS -2.6 mmol/L (-2.0-3.0); ABG HCO3 20.8 mmol/L (21.0-28.0); ABG OXYGEN SATURATION 97.6 % (95.0-99.0); ABG PCO2 33 mmHg (32-45)
[2021-06-30] MEDS: BUDESONIDE 0.5 MG/2 ML INH IH SCH ×2 (06:25→22:28)
[2021-06-30] MEDS: PANTOPRAZOLE 40 MG/VIAL IVP SCH (06:26)
[2021-06-30] MEDS: METOCLOPRAMIDE 10 MG/2 ML VIAL IVP SCH ×3 (06:26→17:15)
[2021-06-30] MEDS: POLYETHYLENE GLYCOL 3350 17 GM POWD.PACK PO SCH (08:05)
[2021-06-30] MEDS: ASPIRIN 81MG CHEW TAB PO SCH (08:05)
[2021-06-30] MEDS: FLUCONAZOLE 200 MG/NS 100 ML 100 ML IV SCH (08:05)
[2021-06-30] MEDS: Pravastatin Sodium 20 MG PO SCH (08:06)
[2021-06-30] MEDS ORDERED: POTASSIUM CHLORIDE 20 MEQ/100 ML BAG IV SCH (09:32)
[2021-06-30] MEDS: SODIUM BICARB 8.4% 50ML SYRING 150 MEQ in DEXTROSE 5%-WATER 1,000 ML IVP SCH (09:37)
[2021-06-30] MEDS: IPRATROPIUM/ALBUTEROL SULFATE 3 ML SOLUTION IH SCH ×2 (10:00→13:59)
[2021-06-30] MEDS: MEROPENEM 1 GM VIAL IVP SCH (10:07)
[2021-06-30] MEDS: 0.9%NACL 1000ML 1,000 ML IV SCH (11:33)
[2021-06-30] MEDS: MAGNESIUM 2GM PREMIX 50ML 50 ML IV SCH (11:44)
[2021-06-30] MEDS: AMIODARONE 540 MG/D5W 300ML (0.5MG/MIN) IV SCH ×2 (12:30)
[2021-06-30] MEDS: ARTIFICAL TEARS SOL 15 ML OU SCH ×2 (15:21→21:00)
[2021-06-30] MEDS ORDERED: MULTITRACE-4 ADULT 10ML VIAL 3 ML, M.V.I. IV [ADULT] 10 ML in CLINIMIX-E 5%AA /D15%W 2... IV ONE (16:30)
[2021-06-30] MEDS: INSULIN HUMULIN R 100 UNIT/ML 3ML SQ SCH (18:00)
[2021-06-30] MEDS: IPRATROPIUM 0.5 MG/2.5 ML INH IH SCH ×2 (18:40→22:29)
[2021-06-30] MEDS ORDERED: CHLORHEXIDINE GLUCONATE 473 ML MOUTHWASH MM SCH (21:00)
[2021-07-01] VITALS (74 sets, daily range): BP systolic 72–126; BP diastolic 39–80
[2021-07-01] MEDS: MEROPENEM 1 GM VIAL IVP SCH ×3 (00:10→22:29)
[2021-07-01] MEDS: FENTANYL 2500MCG+NS 250ML IV.SOLN IV SCH (00:11)
[2021-07-01] MEDS: METOPROLOL TARTRATE 1 MG/ML 5ML VIAL IV SCH ×3 (02:00→18:00)
[2021-07-01] MEDS: ARTIFICAL TEARS SOL 15 ML OU SCH ×4 (03:16→20:09)
[2021-07-01 03:24] LABS: ABG BASE EXCESS -5.7 mmol/L (-2.0-3.0); ABG HCO3 18.6 mmol/L (21.0-28.0); ABG OXYGEN SATURATION 94.3 % (95.0-99.0); ABG PCO2 33 mmHg (32-45)
[2021-07-01] MEDS: LINEZOLID 600 MG/ISO-OSM 300 ML IV SCH ×2 (03:46→16:47)
[2021-07-01] MEDS: HEPARIN 5,000 UNIT VIAL SQ SCH ×2 (03:47→16:44)
[2021-07-01 04:02] LABS: BASOPHILS % (AUTO) 0.2 % (0.0-5.0); EOSINOPHILS % (AUTO) 3.3 % (0.0-8.0); HEMATOCRIT 29.1 % (36-48); LYMPHOCYTES % (AUTO) 9.9 % (21.0-51.0); MEAN CORPUSCULAR HEMOGLOBIN 27.9 pg (27.0-33.0); MEAN CORPUSCULAR HGB CONC 31.3 g/dL (32.0-36.0); MEAN CORPUSCULAR VOLUME 89.3 fL (79-99); PLATELET COUNT (AUTO) 216 K/uL (130-400); RED BLOOD CELL COUNT(AUTO) 3.26 MIL/uL (4.00-5.50); RED CELL DISTRIBUTION WIDTH 16.6 % (11.0-15.5); WHITE BLOOD COUNT (AUTO) 9.1 K/uL (4.8-10.8)
[2021-07-01 04:30] LABS: ALBUMIN 0.9 g/dL (3.5-5.0); BILIRUBIN,DIRECT 0.2 mg/dL (0.0-0.3); BILIRUBIN,TOTAL 0.5 mg/dL (0.2-1.0); CREATININE 3.9 mg/dL (0.5-1.5); MAGNESIUM 2.3 mg/dL (1.80-2.40); TOTAL PROTEIN, SERUM 4.8 g/dL (6.0-8.3)
[2021-07-01] MEDS: IPRATROPIUM 0.5 MG/2.5 ML INH IH SCH ×4 (06:30→23:13)
[2021-07-01] MEDS: BUDESONIDE 0.5 MG/2 ML INH IH SCH ×2 (06:30→23:13)
[2021-07-01] MEDS: INSULIN HUMULIN R 100 UNIT/ML 3ML SQ SCH ×5 (06:35→23:52)
[2021-07-01] MEDS: FLUCONAZOLE 200 MG/NS 100 ML 100 ML IV SCH (08:50)
[2021-07-01] MEDS: PANTOPRAZOLE 40 MG/VIAL IVP SCH (08:50)
[2021-07-01] MEDS: METOCLOPRAMIDE 10 MG/2 ML VIAL IVP SCH ×3 (08:50→16:59)
[2021-07-01] MEDS: ASPIRIN 81MG CHEW TAB PO SCH (09:00)
[2021-07-01] MEDS: POLYETHYLENE GLYCOL 3350 17 GM POWD.PACK PO SCH (09:00)
[2021-07-01] MEDS: Pravastatin Sodium 20 MG PO SCH (09:00)
[2021-07-01] MEDS: CHLORHEXIDINE GLUCONATE 473 ML MOUTHWASH MM SCH ×2 (09:11→20:29)
[2021-07-01] MEDS: FAT EMULSIONS 20% 250ML 250 ML IV SCH (10:36)
[2021-07-01] MEDS ORDERED: LIDOCAINE HCL 400MG/20ML VIAL ONE (16:45)
[2021-07-01] MEDS ORDERED: MULTITRACE-4 ADULT 10ML VIAL 3 ML, M.V.I. IV [ADULT] 10 ML in CLINIMIX-E 5%AA /D15%W 2... IV ONE (19:00)
[2021-07-01] MEDS ORDERED: MIDAZOLAM HCL 1 MG/ML 2ML VIAL IVP PRN (19:30)
[2021-07-01] MEDS: FENTANYL CITRATE PF 50 MCG/1 ML 2ML VIAL IVP SCH (20:56)
[2021-07-02] VITALS (70 sets, daily range): BP systolic 90–178; BP diastolic 45–75
[2021-07-02] MEDS: FENTANYL CITRATE PF 50 MCG/1 ML 2ML VIAL IVP SCH ×8 (00:15→23:40)
[2021-07-02] MEDS: METOPROLOL TARTRATE 1 MG/ML 5ML VIAL IV SCH ×3 (01:38→18:00)
[2021-07-02] MEDS: ARTIFICAL TEARS SOL 15 ML OU SCH ×4 (01:40→20:17)
[2021-07-02] MEDS: HEPARIN 5,000 UNIT VIAL SQ SCH ×2 (01:47→14:13)
[2021-07-02] MEDS: LINEZOLID 600 MG/ISO-OSM 300 ML IV SCH ×2 (02:11→15:23)
[2021-07-02 03:43] LABS: RED BLOOD CELL COUNT(AUTO) 3.29 MIL/uL (4.00-5.50); WHITE BLOOD COUNT (AUTO) 12.3 K/uL (4.8-10.8)
[2021-07-02 03:44] LABS: BASOPHILS % (AUTO) 0.4 % (0.0-5.0); EOSINOPHILS % (AUTO) 3.1 % (0.0-8.0); HEMATOCRIT 29.6 % (36-48); LYMPHOCYTES % (AUTO) 7.4 % (21.0-51.0); MEAN CORPUSCULAR HEMOGLOBIN 28.9 pg (27.0-33.0); MEAN CORPUSCULAR HGB CONC 32.1 g/dL (32.0-36.0); MONOCYTES % (AUTO) 6.5 % (3.0-13.0); NEUTROPHILS % (AUTO) 75.6 % (40.0-77.0); PLATELET COUNT (AUTO) 239 K/uL (130-400); RED CELL DISTRIBUTION WIDTH 17.2 % (11.0-15.5)
[2021-07-02 04:07] LABS: ALBUMIN 0.9 g/dL (3.5-5.0); BILIRUBIN,TOTAL 0.4 mg/dL (0.2-1.0); CREATININE 3.5 mg/dL (0.5-1.5); MAGNESIUM 2.2 mg/dL (1.80-2.40); PHOSPHORUS 4.8 mg/dL (2.5-4.9); POTASSIUM 4.1 mmol/L (3.5-5.1); TOTAL PROTEIN, SERUM 5.2 g/dL (6.0-8.3)
[2021-07-02 04:55] LABS: ABG BASE EXCESS -8.2 mmol/L (-2.0-3.0); ABG HCO3 17.2 mmol/L (21.0-28.0); ABG OXYGEN SATURATION 94.6 % (95.0-99.0); ABG PCO2 35 mmHg (32-45)
[2021-07-02] MEDS: INSULIN HUMULIN R 100 UNIT/ML 3ML SQ SCH ×4 (06:00→23:47)
[2021-07-02] MEDS: IPRATROPIUM 0.5 MG/2.5 ML INH IH SCH ×4 (06:31→23:52)
[2021-07-02] MEDS: BUDESONIDE 0.5 MG/2 ML INH IH SCH ×2 (06:31→18:50)
[2021-07-02] MEDS: ASPIRIN 81MG CHEW TAB PO SCH (08:14)
[2021-07-02] MEDS: POLYETHYLENE GLYCOL 3350 17 GM POWD.PACK PO SCH (08:14)
[2021-07-02] MEDS: METOCLOPRAMIDE 10 MG/2 ML VIAL IVP SCH ×3 (08:14→16:28)
[2021-07-02] MEDS: FLUCONAZOLE 200 MG/NS 100 ML 100 ML IV SCH (08:14)
[2021-07-02] MEDS: PANTOPRAZOLE 40 MG/VIAL IVP SCH (08:22)
[2021-07-02] MEDS: CHLORHEXIDINE GLUCONATE 473 ML MOUTHWASH MM SCH ×2 (08:23→20:17)
[2021-07-02] MEDS: Pravastatin Sodium 20 MG PO SCH (08:32)
[2021-07-02] MEDS ORDERED: MULTITRACE-4 ADULT 10ML VIAL 3 ML, M.V.I. IV [ADULT] 10 ML in CLINIMIX-E 5%AA /D15%W 2... IV NR (09:00)
[2021-07-02] MEDS: MEROPENEM 1 GM VIAL IVP SCH ×2 (11:11→21:56)
[2021-07-02] MEDS ORDERED: MULTITRACE-4 ADULT 10ML VIAL 3 ML, M.V.I. IV [ADULT] 10 ML in CLINIMIX-E 5%AA /D15%W 2... IV ONE (18:00)
[2021-07-02] MEDS ORDERED: FUROSEMIDE 40MG VIAL IV ONE (23:00)
[2021-07-03] VITALS (25 sets, daily range): BP systolic 116–182; BP diastolic 57–77
[2021-07-03] MEDS: ARTIFICAL TEARS SOL 15 ML OU SCH ×4 (01:20→20:06)
[2021-07-03] MEDS: METOPROLOL TARTRATE 1 MG/ML 5ML VIAL IV SCH ×3 (01:28→17:28)
[2021-07-03] MEDS: HEPARIN 5,000 UNIT VIAL SQ SCH ×2 (01:29→13:33)
[2021-07-03] MEDS: FENTANYL CITRATE PF 50 MCG/1 ML 2ML VIAL IVP SCH ×4 (01:30→16:00)
[2021-07-03] MEDS: LINEZOLID 600 MG/ISO-OSM 300 ML IV SCH ×2 (02:00→13:32)
[2021-07-03 03:24] LABS: BASOPHILS % (AUTO) 0.2 % (0.0-5.0); EOSINOPHILS % (AUTO) 2.3 % (0.0-8.0); HEMATOCRIT 29.4 % (36-48); LYMPHOCYTES % (AUTO) 6.7 % (21.0-51.0); MEAN CORPUSCULAR HEMOGLOBIN 28.4 pg (27.0-33.0); MEAN CORPUSCULAR HGB CONC 31.6 g/dL (32.0-36.0); MEAN CORPUSCULAR VOLUME 89.9 fL (79-99); MONOCYTES % (AUTO) 7.7 % (3.0-13.0); NEUTROPHILS % (AUTO) 78.1 % (40.0-77.0); PLATELET COUNT (AUTO) 248 K/uL (130-400); RED BLOOD CELL COUNT(AUTO) 3.27 MIL/uL (4.00-5.50); RED CELL DISTRIBUTION WIDTH 17.3 % (11.0-15.5); WHITE BLOOD COUNT (AUTO) 10.5 K/uL (4.8-10.8)
[2021-07-03 03:39] LABS: BILIRUBIN,TOTAL 0.4 mg/dL (0.2-1.0); CREATININE 2.9 mg/dL (0.5-1.5); MAGNESIUM 2.3 mg/dL (1.80-2.40); PHOSPHORUS 5.6 mg/dL (2.5-4.9); POTASSIUM 4.3 mmol/L (3.5-5.1); TOTAL PROTEIN, SERUM 5.6 g/dL (6.0-8.3)
[2021-07-03 03:49] LABS: PLATELET MORPHOLOGY PLT CLUMPS PRESENT
[2021-07-03 04:23] LABS: ABG BASE EXCESS -1.4 mmol/L (-2.0-3.0); ABG HCO3 24.1 mmol/L (21.0-28.0); ABG OXYGEN SATURATION 97.6 % (95.0-99.0); ABG PCO2 43 mmHg (32-45)
[2021-07-03] MEDS: INSULIN HUMULIN R 100 UNIT/ML 3ML SQ SCH ×3 (05:13→17:05)
[2021-07-03] MEDS: BUDESONIDE 0.5 MG/2 ML INH IH SCH ×2 (06:50→23:10)
[2021-07-03] MEDS: IPRATROPIUM 0.5 MG/2.5 ML INH IH SCH ×4 (06:50→23:10)
[2021-07-03] MEDS: POLYETHYLENE GLYCOL 3350 17 GM POWD.PACK PO SCH (08:40)
[2021-07-03] MEDS: FLUCONAZOLE 200 MG/NS 100 ML 100 ML IV SCH (08:40)
[2021-07-03] MEDS: ASPIRIN 81MG CHEW TAB PO SCH (08:41)
[2021-07-03] MEDS: Pravastatin Sodium 20 MG PO SCH (08:42)
[2021-07-03] MEDS: METOCLOPRAMIDE 10 MG/2 ML VIAL IVP SCH ×3 (08:42→16:59)
[2021-07-03] MEDS: PANTOPRAZOLE 40 MG/VIAL IVP SCH (08:42)
[2021-07-03] MEDS: CHLORHEXIDINE GLUCONATE 473 ML MOUTHWASH MM SCH ×2 (08:43→20:52)
[2021-07-03] MEDS: MEROPENEM 1 GM VIAL IVP SCH ×2 (10:05→22:37)
[2021-07-03] MEDS: FAT EMULSIONS 20% 250ML 250 ML IV SCH (10:06)
[2021-07-03] MEDS ORDERED: M.V.I. IV [ADULT] 10 ML in CLINIMIX-E 5%AA /D15%W 2000ML 2,000 ML IV ONE (20:00)
[2021-07-04] VITALS (45 sets, daily range): BP systolic 113–173; BP diastolic 55–87
[2021-07-04] MEDS: INSULIN HUMULIN R 100 UNIT/ML 3ML SQ SCH ×5 (00:21→23:38)
[2021-07-04] MEDS: METOPROLOL TARTRATE 1 MG/ML 5ML VIAL IV SCH ×3 (02:10→17:20)
[2021-07-04] MEDS: HEPARIN 5,000 UNIT VIAL SQ SCH ×2 (02:11→13:13)
[2021-07-04] MEDS: LINEZOLID 600 MG/ISO-OSM 300 ML IV SCH ×2 (02:18→14:20)
[2021-07-04] MEDS: ARTIFICAL TEARS SOL 15 ML OU SCH ×4 (02:18→20:38)
[2021-07-04 03:46] LABS: BASOPHILS % (AUTO) 0.3 % (0.0-5.0); EOSINOPHILS % (AUTO) 1.7 % (0.0-8.0); HEMATOCRIT 29.9 % (36-48); LYMPHOCYTES % (AUTO) 6.8 % (21.0-51.0); MEAN CORPUSCULAR HEMOGLOBIN 27.6 pg (27.0-33.0); MEAN CORPUSCULAR HGB CONC 31.1 g/dL (32.0-36.0); MEAN CORPUSCULAR VOLUME 88.7 fL (79-99); MONOCYTES % (AUTO) 8.2 % (3.0-13.0); NEUTROPHILS % (AUTO) 79.9 % (40.0-77.0); PLATELET COUNT (AUTO) 270 K/uL (130-400); RED BLOOD CELL COUNT(AUTO) 3.37 MIL/uL (4.00-5.50); RED CELL DISTRIBUTION WIDTH 16.7 % (11.0-15.5)
[2021-07-04 04:07] LABS: BILIRUBIN,TOTAL 0.4 mg/dL (0.2-1.0); CREATININE 2.2 mg/dL (0.5-1.5); PHOSPHORUS 5.3 mg/dL (2.5-4.9); POTASSIUM 4.6 mmol/L (3.5-5.1); TOTAL PROTEIN, SERUM 6.1 g/dL (6.0-8.3)
[2021-07-04] MEDS: IPRATROPIUM 0.5 MG/2.5 ML INH IH SCH ×4 (06:27→23:20)
[2021-07-04] MEDS: BUDESONIDE 0.5 MG/2 ML INH IH SCH ×2 (06:27→21:41)
[2021-07-04 06:36] LABS: ABG HCO3 23.6 mmol/L (21.0-28.0); ABG OXYGEN SATURATION 96.1 % (95.0-99.0); ABG PCO2 39 mmHg (32-45)
[2021-07-04] MEDS: PANTOPRAZOLE 40 MG/VIAL IVP SCH (06:42)
[2021-07-04] MEDS: METOCLOPRAMIDE 10 MG/2 ML VIAL IVP SCH (06:42)
[2021-07-04] MEDS: POLYETHYLENE GLYCOL 3350 17 GM POWD.PACK PO SCH (07:41)
[2021-07-04] MEDS: FLUCONAZOLE 200 MG/NS 100 ML 100 ML IV SCH (08:27)
[2021-07-04] MEDS: ASPIRIN 81MG CHEW TAB PO SCH (08:28)
[2021-07-04] MEDS: Pravastatin Sodium 20 MG PO SCH (08:28)
[2021-07-04] MEDS: CHLORHEXIDINE GLUCONATE 473 ML MOUTHWASH MM SCH ×2 (08:28→20:38)
[2021-07-04] MEDS: MEROPENEM 1 GM VIAL IVP SCH ×2 (09:10→23:03)
[2021-07-04] MEDS: FUROSEMIDE 40MG VIAL IV SCH ×2 (09:10→20:38)
[2021-07-04] MEDS ORDERED: POLYETHYLENE GLYCOL 3350 17 GM POWD.PACK PO PRN (15:30)
[2021-07-05] VITALS (39 sets, daily range): BP systolic 109–152; BP diastolic 39–114
[2021-07-05] MEDS: METOPROLOL TARTRATE 1 MG/ML 5ML VIAL IV SCH ×3 (02:31→17:12)
[2021-07-05] MEDS: HEPARIN 5,000 UNIT VIAL SQ SCH ×2 (02:32→16:02)
[2021-07-05] MEDS: ARTIFICAL TEARS SOL 15 ML OU SCH ×4 (02:33→20:37)
[2021-07-05] MEDS: LINEZOLID 600 MG/ISO-OSM 300 ML IV SCH ×2 (02:34→16:01)
[2021-07-05 03:40] LABS: BASOPHILS % (AUTO) 0.2 % (0.0-5.0); EOSINOPHILS % (AUTO) 1.3 % (0.0-8.0); HEMATOCRIT 29.6 % (36-48); LYMPHOCYTES % (AUTO) 5.9 % (21.0-51.0); MEAN CORPUSCULAR HEMOGLOBIN 27.4 pg (27.0-33.0); MEAN CORPUSCULAR HGB CONC 31.1 g/dL (32.0-36.0); MEAN CORPUSCULAR VOLUME 88.1 fL (79-99); MONOCYTES % (AUTO) 8.2 % (3.0-13.0); NEUTROPHILS % (AUTO) 83.5 % (40.0-77.0); PLATELET COUNT (AUTO) 277 K/uL (130-400); RED BLOOD CELL COUNT(AUTO) 3.36 MIL/uL (4.00-5.50); RED CELL DISTRIBUTION WIDTH 16.3 % (11.0-15.5); WHITE BLOOD COUNT (AUTO) 12.8 K/uL (4.8-10.8)
[2021-07-05 04:03] LABS: ALBUMIN 1.2 g/dL (3.5-5.0); BILIRUBIN,TOTAL 0.3 mg/dL (0.2-1.0); CREATININE 1.6 mg/dL (0.5-1.5); MAGNESIUM 1.8 mg/dL (1.80-2.40); PHOSPHORUS 4.8 mg/dL (2.5-4.9); POTASSIUM 4.1 mmol/L (3.5-5.1); TOTAL PROTEIN, SERUM 6.5 g/dL (6.0-8.3)
[2021-07-05 04:06] LABS: ABG BASE EXCESS 6.8 mmol/L (-2.0-3.0); ABG HCO3 31.7 mmol/L (21.0-28.0); ABG OXYGEN SATURATION 98.1 % (95.0-99.0); ABG PCO2 46 mmHg (32-45)
[2021-07-05] MEDS: PANTOPRAZOLE 40 MG/VIAL IVP SCH (06:30)
[2021-07-05] MEDS: INSULIN HUMULIN R 100 UNIT/ML 3ML SQ SCH ×3 (06:30→17:13)
[2021-07-05] MEDS: IPRATROPIUM 0.5 MG/2.5 ML INH IH SCH ×4 (06:32→23:56)
[2021-07-05] MEDS: BUDESONIDE 0.5 MG/2 ML INH IH SCH ×2 (06:33→18:44)
[2021-07-05 08:20] LABS: ABG BASE EXCESS 6.1 mmol/L (-2.0-3.0); ABG HCO3 31.5 mmol/L (21.0-28.0); ABG OXYGEN SATURATION 97.7 % (95.0-99.0); ABG PCO2 48 mmHg (32-45)
[2021-07-05] MEDS ORDERED: PERMETHRIN LOTION 1% 59ML BOTTLE TP NR (09:00)
[2021-07-05] MEDS: MAGNESIUM 2GM PREMIX 50ML 50 ML IV SCH (09:10)
[2021-07-05] MEDS: MEROPENEM 1 GM VIAL IVP SCH ×2 (09:10→22:41)
[2021-07-05] MEDS: FLUCONAZOLE 200 MG/NS 100 ML 100 ML IV SCH (09:10)
[2021-07-05] MEDS: FUROSEMIDE 40MG VIAL IV SCH ×2 (09:10→20:37)
[2021-07-05] MEDS: ASPIRIN 81MG CHEW TAB PO SCH (09:11)
[2021-07-05] MEDS: CHLORHEXIDINE GLUCONATE 473 ML MOUTHWASH MM SCH ×2 (09:11→20:37)
[2021-07-05] MEDS: Pravastatin Sodium 20 MG PO SCH (09:12)
[2021-07-05] MEDS: M.V.I. IV [ADULT] 10 ML in CLINIMIX-E 5%AA /D15%W 2000ML 2,000 ML IV ONE (19:00)
[2021-07-06] VITALS (37 sets, daily range): BP systolic 112–170; BP diastolic 54–89
[2021-07-06] MEDS: HEPARIN 5,000 UNIT VIAL SQ SCH ×2 (02:07→14:23)
[2021-07-06] MEDS: METOPROLOL TARTRATE 1 MG/ML 5ML VIAL IV SCH ×3 (02:09→18:08)
[2021-07-06] MEDS: ARTIFICAL TEARS SOL 15 ML OU SCH ×3 (02:09→14:28)
[2021-07-06] MEDS: LINEZOLID 600 MG/ISO-OSM 300 ML IV SCH ×2 (02:21→14:27)
[2021-07-06] MEDS: M.V.I. IV [ADULT] 10 ML in CLINIMIX-E 5%AA /D15%W 2000ML 2,000 ML IV ONE (02:57)
[2021-07-06 03:43] LABS: BASOPHILS % (AUTO) 0.4 % (0.0-5.0); EOSINOPHILS % (AUTO) 1.2 % (0.0-8.0); HEMATOCRIT 30.5 % (36-48); LYMPHOCYTES % (AUTO) 7.4 % (21.0-51.0); MEAN CORPUSCULAR HEMOGLOBIN 28.3 pg (27.0-33.0); MEAN CORPUSCULAR HGB CONC 32.1 g/dL (32.0-36.0); MEAN CORPUSCULAR VOLUME 88.2 fL (79-99); MONOCYTES % (AUTO) 7.7 % (3.0-13.0); NEUTROPHILS % (AUTO) 82.5 % (40.0-77.0); PLATELET COUNT (AUTO) 195 K/uL (130-400); RED BLOOD CELL COUNT(AUTO) 3.46 MIL/uL (4.00-5.50); RED CELL DISTRIBUTION WIDTH 16.1 % (11.0-15.5); WHITE BLOOD COUNT (AUTO) 12.3 K/uL (4.8-10.8)
[2021-07-06 03:59] LABS: ALBUMIN 1.3 g/dL (3.5-5.0); BILIRUBIN,TOTAL 0.5 mg/dL (0.2-1.0); CREATININE 1.3 mg/dL (0.5-1.5); MAGNESIUM 1.8 mg/dL (1.80-2.40); PHOSPHORUS 4.4 mg/dL (2.5-4.9); POTASSIUM 4.2 mmol/L (3.5-5.1)
[2021-07-06] MEDS: PANTOPRAZOLE 40 MG/VIAL IVP SCH (06:16)
[2021-07-06] MEDS: INSULIN HUMULIN R 100 UNIT/ML 3ML SQ SCH ×4 (06:18→18:00)
[2021-07-06] MEDS: BUDESONIDE 0.5 MG/2 ML INH IH SCH ×2 (06:29→18:42)
[2021-07-06] MEDS: IPRATROPIUM 0.5 MG/2.5 ML INH IH SCH ×4 (06:30→23:53)
[2021-07-06] MEDS: FUROSEMIDE 40MG VIAL IV SCH (07:48)
[2021-07-06] MEDS: FLUCONAZOLE 200 MG/NS 100 ML 100 ML IV SCH (09:05)
[2021-07-06] MEDS: CHLORHEXIDINE GLUCONATE 473 ML MOUTHWASH MM SCH (09:08)
[2021-07-06] MEDS: ASPIRIN 81MG CHEW TAB PO SCH (09:09)
[2021-07-06] MEDS: Pravastatin Sodium 20 MG PO SCH (09:09)
[2021-07-06] MEDS: MEROPENEM 1 GM VIAL IVP SCH ×2 (11:19→22:30)
[2021-07-07] VITALS (34 sets, daily range): BP systolic 104–165; BP diastolic 56–110
[2021-07-07 03:51] LABS: BASOPHILS % (AUTO) 0.3 % (0.0-5.0); EOSINOPHILS % (AUTO) 0.9 % (0.0-8.0); HEMATOCRIT 32.3 % (36-48); LYMPHOCYTES % (AUTO) 7.6 % (21.0-51.0); MEAN CORPUSCULAR HEMOGLOBIN 27.5 pg (27.0-33.0); MEAN CORPUSCULAR VOLUME 88.7 fL (79-99); MONOCYTES % (AUTO) 7.3 % (3.0-13.0); NEUTROPHILS % (AUTO) 83.1 % (40.0-77.0); PLATELET COUNT (AUTO) 309 K/uL (130-400); RED BLOOD CELL COUNT(AUTO) 3.64 MIL/uL (4.00-5.50); RED CELL DISTRIBUTION WIDTH 15.9 % (11.0-15.5); WHITE BLOOD COUNT (AUTO) 15.3 K/uL (4.8-10.8)
[2021-07-07] MEDS: METOPROLOL TARTRATE 1 MG/ML 5ML VIAL IV SCH ×3 (03:59→18:34)
[2021-07-07] MEDS: HEPARIN 5,000 UNIT VIAL SQ SCH ×2 (04:00→14:28)
[2021-07-07] MEDS: LINEZOLID 600 MG/ISO-OSM 300 ML IV SCH ×2 (04:01→14:18)
[2021-07-07 04:12] LABS: ALBUMIN 1.6 g/dL (3.5-5.0); BILIRUBIN,TOTAL 0.6 mg/dL (0.2-1.0); CREATININE 1.2 mg/dL (0.5-1.5); MAGNESIUM 1.8 mg/dL (1.80-2.40); POTASSIUM 4.2 mmol/L (3.5-5.1); TOTAL PROTEIN, SERUM 7.6 g/dL (6.0-8.3)
[2021-07-07] MEDS: PANTOPRAZOLE 40 MG/VIAL IVP SCH (06:03)
[2021-07-07] MEDS: INSULIN HUMULIN R 100 UNIT/ML 3ML SQ SCH ×4 (06:08→18:40)
[2021-07-07] MEDS: BUDESONIDE 0.5 MG/2 ML INH IH SCH ×2 (06:36→18:54)
[2021-07-07] MEDS: IPRATROPIUM 0.5 MG/2.5 ML INH IH SCH ×4 (06:36→23:31)
[2021-07-07] MEDS: FLUCONAZOLE 200 MG/NS 100 ML 100 ML IV SCH (08:41)
[2021-07-07] MEDS: ASPIRIN 81MG CHEW TAB PO SCH (08:43)
[2021-07-07] MEDS: Pravastatin Sodium 20 MG PO SCH (08:45)
[2021-07-07] MEDS ORDERED: M.V.I. IV [ADULT] 10 ML in CLINIMIX-E 5%AA /D15%W 2000ML 2,000 ML IV ONE (10:25)
[2021-07-07] MEDS: MEROPENEM 1 GM VIAL IVP SCH ×2 (10:26→20:56)
[2021-07-07] MEDS: METOCLOPRAMIDE 10 MG/2 ML VIAL IVP SCH ×2 (14:18→20:56)
[2021-07-08] VITALS (39 sets, daily range): BP systolic 122–160; BP diastolic 50–100
[2021-07-08] MEDS: INSULIN HUMULIN R 100 UNIT/ML 3ML SQ SCH ×4 (00:45→18:21)
[2021-07-08] MEDS: METOPROLOL TARTRATE 1 MG/ML 5ML VIAL IV SCH ×3 (01:06→20:51)
[2021-07-08] MEDS: HEPARIN 5,000 UNIT VIAL SQ SCH ×2 (01:07→14:54)
[2021-07-08] MEDS: LINEZOLID 600 MG/ISO-OSM 300 ML IV SCH ×2 (03:11→14:54)
[2021-07-08 04:26] LABS: BASOPHILS % (AUTO) 0.4 % (0.0-5.0); EOSINOPHILS % (AUTO) 1.7 % (0.0-8.0); HEMATOCRIT 29.5 % (36-48); LYMPHOCYTES % (AUTO) 11.3 % (21.0-51.0); MEAN CORPUSCULAR HEMOGLOBIN 28.6 pg (27.0-33.0); MEAN CORPUSCULAR HGB CONC 31.5 g/dL (32.0-36.0); MEAN CORPUSCULAR VOLUME 90.8 fL (79-99); MONOCYTES % (AUTO) 7.1 % (3.0-13.0); NEUTROPHILS % (AUTO) 79.1 % (40.0-77.0); PLATELET COUNT (AUTO) 313 K/uL (130-400); RED BLOOD CELL COUNT(AUTO) 3.25 MIL/uL (4.00-5.50); RED CELL DISTRIBUTION WIDTH 15.9 % (11.0-15.5); WHITE BLOOD COUNT (AUTO) 11.5 K/uL (4.8-10.8)
[2021-07-08 04:36] LABS: ALBUMIN 1.5 g/dL (3.5-5.0); BILIRUBIN,TOTAL 0.4 mg/dL (0.2-1.0); POTASSIUM 3.8 mmol/L (3.5-5.1); TOTAL PROTEIN, SERUM 7.3 g/dL (6.0-8.3)
[2021-07-08] MEDS: PANTOPRAZOLE 40 MG/VIAL IVP SCH (05:53)
[2021-07-08] MEDS: IPRATROPIUM 0.5 MG/2.5 ML INH IH SCH ×4 (06:43→23:41)
[2021-07-08] MEDS: BUDESONIDE 0.5 MG/2 ML INH IH SCH ×2 (06:43→18:48)
[2021-07-08] MEDS: FLUCONAZOLE 200 MG/NS 100 ML 100 ML IV SCH (09:12)
[2021-07-08] MEDS: METOCLOPRAMIDE 10 MG/2 ML VIAL IVP SCH ×3 (09:13→20:51)
[2021-07-08] MEDS: ASPIRIN 81MG CHEW TAB PO SCH (09:13)
[2021-07-08] MEDS: Pravastatin Sodium 20 MG PO SCH (09:14)
[2021-07-08] MEDS: MEROPENEM 1 GM VIAL IVP SCH ×2 (09:16→20:51)
[2021-07-08] MEDS ORDERED: M.V.I. IV [ADULT] 10 ML in CLINIMIX-E 5%AA /D15%W 2000ML 2,000 ML IV SCH (09:30)
[2021-07-09] VITALS (13 sets, daily range): BP systolic 142–165; BP diastolic 65–85
[2021-07-09] MEDS: HEPARIN 5,000 UNIT VIAL SQ SCH ×2 (02:00→20:15)
[2021-07-09] MEDS: LINEZOLID 600 MG/ISO-OSM 300 ML IV SCH ×3 (03:00→20:14)
[2021-07-09] MEDS: METOPROLOL TARTRATE 1 MG/ML 5ML VIAL IV SCH ×3 (04:00→22:00)
[2021-07-09 05:05] LABS: BASOPHILS % (AUTO) 0.4 % (0.0-5.0); EOSINOPHILS % (AUTO) 2.5 % (0.0-8.0); HEMATOCRIT 29.3 % (36-48); MEAN CORPUSCULAR HEMOGLOBIN 28.3 pg (27.0-33.0); MEAN CORPUSCULAR HGB CONC 31.1 g/dL (32.0-36.0); MONOCYTES % (AUTO) 5.3 % (3.0-13.0); NEUTROPHILS % (AUTO) 80.3 % (40.0-77.0); PLATELET COUNT (AUTO) 272 K/uL (130-400); RED BLOOD CELL COUNT(AUTO) 3.22 MIL/uL (4.00-5.50); RED CELL DISTRIBUTION WIDTH 15.7 % (11.0-15.5); WHITE BLOOD COUNT (AUTO) 10.4 K/uL (4.8-10.8)
[2021-07-09 05:18] LABS: ALBUMIN 1.5 g/dL (3.5-5.0); BILIRUBIN,TOTAL 0.4 mg/dL (0.2-1.0); CREATININE 0.9 mg/dL (0.5-1.5); POTASSIUM 4.1 mmol/L (3.5-5.1); TOTAL PROTEIN, SERUM 7.4 g/dL (6.0-8.3)
[2021-07-09] MEDS: INSULIN HUMULIN R 100 UNIT/ML 3ML SQ SCH ×4 (06:00→17:03)
[2021-07-09] MEDS: IPRATROPIUM 0.5 MG/2.5 ML INH IH SCH ×4 (06:47→23:32)
[2021-07-09] MEDS: BUDESONIDE 0.5 MG/2 ML INH IH SCH ×2 (06:48→18:50)
[2021-07-09] MEDS: METOCLOPRAMIDE 10 MG/2 ML VIAL IVP SCH ×3 (08:38→20:18)
[2021-07-09] MEDS: MEROPENEM 1 GM VIAL IVP SCH ×2 (08:38→20:16)
[2021-07-09] MEDS: PANTOPRAZOLE 40 MG/VIAL IVP SCH (08:38)
[2021-07-09] MEDS: FLUCONAZOLE 200 MG/NS 100 ML 100 ML IV SCH (08:38)
[2021-07-09] MEDS ORDERED: DIATR MEGLU/DIATRIZOATE SODIUM 30 ML BOTTLE ONE ×2 (08:49→11:08)
[2021-07-09] MEDS: Pravastatin Sodium 20 MG PO SCH (09:00)
[2021-07-09] MEDS: ASPIRIN 81MG CHEW TAB PO SCH (09:00)
[2021-07-09] MEDS ORDERED: FAT EMULSIONS 20% 250ML 250 ML IV SCH (10:30)
[2021-07-09] MEDS ORDERED: PHARMACY COMMUNICATION MISC SCH (10:30)
[2021-07-09] MEDS ORDERED: M.V.I. IV [ADULT] 10 ML in CLINIMIX-E 5%AA /D15%W 2000ML 2,000 ML IV SCH (10:30)
[2021-07-09] MEDS ORDERED: LINEZOLID 600 MG/ISO-OSM 300 ML IV ONE (10:45)
[2021-07-09] MEDS: BALSAM PERU/CASTOR OIL 60 GM TUBE TP SCH ×2 (14:19→20:15)
[2021-07-10] VITALS (10 sets, daily range): BP systolic 128–168; BP diastolic 61–83
[2021-07-10 03:40] LABS: BASOPHILS % (AUTO) 0.5 % (0.0-5.0); EOSINOPHILS % (AUTO) 3.6 % (0.0-8.0); HEMATOCRIT 29.9 % (36-48); LYMPHOCYTES % (AUTO) 9.9 % (21.0-51.0); MEAN CORPUSCULAR HEMOGLOBIN 28.5 pg (27.0-33.0); MEAN CORPUSCULAR HGB CONC 31.1 g/dL (32.0-36.0); MEAN CORPUSCULAR VOLUME 91.7 fL (79-99); MONOCYTES % (AUTO) 3.8 % (3.0-13.0); NEUTROPHILS % (AUTO) 81.7 % (40.0-77.0); PLATELET COUNT (AUTO) 279 K/uL (130-400); RED BLOOD CELL COUNT(AUTO) 3.26 MIL/uL (4.00-5.50); RED CELL DISTRIBUTION WIDTH 15.9 % (11.0-15.5); WHITE BLOOD COUNT (AUTO) 11.1 K/uL (4.8-10.8)
[2021-07-10 03:54] LABS: ALBUMIN 1.6 g/dL (3.5-5.0); BILIRUBIN,TOTAL 0.4 mg/dL (0.2-1.0); CREATININE 0.9 mg/dL (0.5-1.5); POTASSIUM 4.3 mmol/L (3.5-5.1); TOTAL PROTEIN, SERUM 7.9 g/dL (6.0-8.3)
[2021-07-10] MEDS: METOPROLOL TARTRATE 1 MG/ML 5ML VIAL IV SCH ×3 (06:00→22:12)
[2021-07-10] MEDS: INSULIN HUMULIN R 100 UNIT/ML 3ML SQ SCH ×4 (06:00→18:00)
[2021-07-10] MEDS: PANTOPRAZOLE 40 MG/VIAL IVP SCH (06:49)
[2021-07-10] MEDS: IPRATROPIUM 0.5 MG/2.5 ML INH IH SCH ×3 (07:13→18:41)
[2021-07-10] MEDS: BUDESONIDE 0.5 MG/2 ML INH IH SCH ×2 (07:13→18:41)
[2021-07-10] MEDS: METOCLOPRAMIDE 10 MG/2 ML VIAL IVP SCH ×3 (09:00→22:11)
[2021-07-10] MEDS: FLUCONAZOLE 200 MG/NS 100 ML 100 ML IV SCH (09:00)
[2021-07-10] MEDS: LINEZOLID 600 MG/ISO-OSM 300 ML IV SCH ×2 (09:00→22:11)
[2021-07-10] MEDS: MEROPENEM 1 GM VIAL IVP SCH ×2 (09:00→22:10)
[2021-07-10] MEDS: BALSAM PERU/CASTOR OIL 60 GM TUBE TP SCH ×3 (09:01→22:19)
[2021-07-10] MEDS: HEPARIN 5,000 UNIT VIAL SQ SCH ×2 (09:02→22:39)
[2021-07-10] MEDS ORDERED: FAT EMULSIONS 20% 250ML 250 ML IV SCH (10:00)
[2021-07-10] MEDS ORDERED: M.V.I. IV [ADULT] 10 ML in CLINIMIX-E 5%AA /D15%W 2000ML 2,000 ML IV SCH (10:30)
[2021-07-10] MEDS: ASPIRIN 81MG CHEW TAB PO SCH (11:34)
[2021-07-10] MEDS: Pravastatin Sodium 20 MG PO SCH (11:34)
[2021-07-11] MEDS: IPRATROPIUM 0.5 MG/2.5 ML INH IH SCH ×3 (00:04→11:11)
[2021-07-11 05:03] LABS: BASOPHILS % (AUTO) 0.3 % (0.0-5.0); EOSINOPHILS % (AUTO) 3.6 % (0.0-8.0); HEMATOCRIT 29.1 % (36-48); LYMPHOCYTES % (AUTO) 15.1 % (21.0-51.0); MEAN CORPUSCULAR HEMOGLOBIN 27.3 pg (27.0-33.0); MEAN CORPUSCULAR HGB CONC 29.2 g/dL (32.0-36.0); MEAN CORPUSCULAR VOLUME 93.6 fL (79-99); MONOCYTES % (AUTO) 4.3 % (3.0-13.0); NEUTROPHILS % (AUTO) 76.2 % (40.0-77.0); PLATELET COUNT (AUTO) 236 K/uL (130-400); RED BLOOD CELL COUNT(AUTO) 3.11 MIL/uL (4.00-5.50); RED CELL DISTRIBUTION WIDTH 15.7 % (11.0-15.5); WHITE BLOOD COUNT (AUTO) 8.7 K/uL (4.8-10.8)
[2021-07-11 05:09] VITALS: BP 132/64
[2021-07-11 05:21] LABS: ALBUMIN 1.6 g/dL (3.5-5.0); BILIRUBIN,TOTAL 0.3 mg/dL (0.2-1.0); CREATININE 0.7 mg/dL (0.5-1.5); POTASSIUM 4.5 mmol/L (3.5-5.1); TOTAL PROTEIN, SERUM 7.7 g/dL (6.0-8.3)
[2021-07-11] MEDS: METOPROLOL TARTRATE 1 MG/ML 5ML VIAL IV SCH ×2 (06:00→14:28)
[2021-07-11] MEDS: INSULIN HUMULIN R 100 UNIT/ML 3ML SQ SCH ×3 (06:00→12:00)
[2021-07-11] MEDS: BUDESONIDE 0.5 MG/2 ML INH IH SCH (06:52)
[2021-07-11 07:40] VITALS: BP 143/70
[2021-07-11] MEDS: Pravastatin Sodium 20 MG PO SCH (09:00)
[2021-07-11] MEDS: ASPIRIN 81MG CHEW TAB PO SCH (09:41)
[2021-07-11] MEDS: FLUCONAZOLE 200 MG/NS 100 ML 100 ML IV SCH (09:41)
[2021-07-11] MEDS: MEROPENEM 1 GM VIAL IVP SCH (09:42)
[2021-07-11] MEDS: METOCLOPRAMIDE 10 MG/2 ML VIAL IVP SCH ×2 (09:42→14:28)
[2021-07-11] MEDS: HEPARIN 5,000 UNIT VIAL SQ SCH (09:43)
[2021-07-11] MEDS: PANTOPRAZOLE 40 MG/VIAL IVP SCH (09:46)
[2021-07-11] MEDS: BALSAM PERU/CASTOR OIL 60 GM TUBE TP SCH (09:47)
[2021-07-11 11:40] VITALS: BP 154/68
[2021-07-11 14:28] VITALS: BP 154/68
== END 2021-07-11 16:05 | DRG 417 ==
LOC: EDH 19:48 → EDHIP 06-19 01:09 → UNDOADMOB 06-19 01:09 → OBSVTOIN 06-19 01:37 → INTOOBSV 06-19 01:37 → EDHIP 06-19 01:37 → WSH 06-19 05:33 → 3CH 06-20 18:20 → 4DH 06-26 20:30 → 2BH 06-27 11:18 → 3BH 07-10 20:03
PROVIDERS: ADMIT Internal Medicine Pulmonary Disease; ATTEND Internal Medicine Pulmonary Disease
PROC: 0FC98ZZ Extirpation of Matter from Common Bile Duct, Via Natural or Artificial Opening Endoscopic (ICD-10-PCS; 2021-06-21)
PROC: 0FT44ZZ Resection of Gallbladder, Percutaneous Endoscopic Approach (ICD-10-PCS; principal; 2021-06-23 10:00)
PROC: 5A09357 Assistance with Respiratory Ventilation, Less than 24 Consecutive Hours, Continuous Positive Airway Pressure (ICD-10-PCS; 2021-06-26)
PROC: 5A09357 Assistance with Respiratory Ventilation, Less than 24 Consecutive Hours, Continuous Positive Airway Pressure (ICD-10-PCS; 2021-06-27)
PROC: 5A1955Z Respiratory Ventilation, Greater than 96 Consecutive Hours (ICD-10-PCS; 2021-06-28)
PROC: 0BH17EZ Insertion of Endotracheal Airway into Trachea, Via Natural or Artificial Opening (ICD-10-PCS; 2021-06-28)
PROC: 02H633Z Insertion of Infusion Device into Right Atrium, Percutaneous Approach (ICD-10-PCS; 2021-06-28)
PROC: 0F798DZ Dilation of Common Bile Duct with Intraluminal Device, Via Natural or Artificial Opening Endoscopic (ICD-10-PCS; 2021-06-28)
PROC: 5A09357 Assistance with Respiratory Ventilation, Less than 24 Consecutive Hours, Continuous Positive Airway Pressure (ICD-10-PCS; 2021-06-28)
PROC: 0W9F30Z Drainage of Abdominal Wall with Drainage Device, Percutaneous Approach (ICD-10-PCS; 2021-07-01)
PROC: 5A09357 Assistance with Respiratory Ventilation, Less than 24 Consecutive Hours, Continuous Positive Airway Pressure (ICD-10-PCS; 2021-07-03)
PROC: 5A09357 Assistance with Respiratory Ventilation, Less than 24 Consecutive Hours, Continuous Positive Airway Pressure (ICD-10-PCS; 2021-07-04)
DX: K80.62 Calculus of gallbladder and bile duct with acute cholecystitis without obstruction (principal); A41.9 Sepsis, unspecified organism; R65.21 Severe sepsis with septic shock; G92.8 Other toxic encephalopathy; J18.9 Pneumonia, unspecified organism; J96.01 Acute respiratory failure with hypoxia; N39.0 Urinary tract infection, site not specified; N17.9 Acute kidney failure, unspecified; K56.609 Unspecified intestinal obstruction, unspecified as to partial versus complete obstruction; L02.211 Cutaneous abscess of abdominal wall; J95.89 Other postprocedural complications and disorders of respiratory system, not elsewhere classified; Z20.822 Contact with and (suspected) exposure to COVID-19; E78.00 Pure hypercholesterolemia, unspecified; Z90.710 Acquired absence of both cervix and uterus; K21.9 Gastro-esophageal reflux disease without esophagitis; Z82.49 Family history of ischemic heart disease and other diseases of the circulatory system; E11.9 Type 2 diabetes mellitus without complications; E78.5 Hyperlipidemia, unspecified; I10 Essential (primary) hypertension; Z80.9 Family history of malignant neoplasm, unspecified; E66.01 Morbid (severe) obesity due to excess calories; Z68.38 Body mass index [BMI] 38.0-38.9, adult; B85.0 Pediculosis due to Pediculus humanus capitis; I48.0 Paroxysmal atrial fibrillation; K82.8 Other specified diseases of gallbladder
CPT/HCPCS: 10030; 36415; 36600; 43262; 43264; 43274; 71045; 74018; 74176; 74177; 74181; 74250; 74328; 74330; 76705; 76770; 76942; 78226; 78227; 80048; 80053; 80061; 81001; 82150; 82248; 82435; 82803; 82947; 82948; 83036; 83605; 83690; 83735; 84100; 84132; 84145; 84295; 84484; 85018; 85025; 85027; 85610; 85730; 86850; 86900; 86901; 87040; 87071; 87088; 87205; 87635; 88304; 92610; 93005; 94002; 94003; 94640; 94660; 94664; 97039; A4606; A9537; C1751; C1769; C1773; C1874; C1894; C9113; G0378; J0282; J0330; J0690; J1160; J1170; J1450; J1644; J1815; J1885; J1940; J2001; J2020; J2185; J2250; J2310; J2370; J2405; J2543; J2704; J2710; J2765; J3010; J3475; J3480; J3490; J7030; J7040; J7050; J7060; J7070; J7120; P9045; Q9963; Q9967

== ENCOUNTER 2021-07-16 17:51 | Inpatient (IN) | payer OTHER ==
[~2021-07-16] VITALS: Ht 152.4 cm; Wt 70.9 kg
[~2021-07-16 17:51] MED LIST: BAYER ASPIRIN PO; LOSARTAN PO; OMEP20CA12 PO; PRAV20TA4 PO
[2021-07-16 18:34] LABS: APPEARANCE,URINE CLEAR (CLEAR); BILIRUBIN,URINE SMALL (NEGATIVE); COLOR,URINE YELLOW (YELLOW); GLUCOSE, URINE (UA) NEGATIVE (NEGATIVE); KETONES,URINE 15 mg/dL (NEGATIVE); LEUKOCYTE ESTERASE ,URINE NEGATIVE (NEGATIVE); NITRATE,URINE NEGATIVE (NEGATIVE); OCCULT BLOOD,URINE TRACE-INTACT (NEGATIVE); PROTEIN,URINE TRACE mg/dL (NEGATIVE); UROBILINOGEN,URINE 0.2 mg/dL (0.2-1.0)
[2021-07-16 18:40] LABS: BACTERIA,URINE Few /HPF (None Seen); MUCUS,URINE Few LPF (None Seen); SQUAMOUS EPITHELIAL CELL,UR Rare /HPF (0-2)
[2021-07-16 18:42] LABS: HYALINE CASTS, URINE 0-1 /LPF (0-1 /LPF); OTHER CASTS, URINE WBC CASTS 1+ /LPF (None Seen)
[2021-07-16 18:48] LABS: BASOPHILS % (AUTO) 0.3 % (0.0-5.0); EOSINOPHILS % (AUTO) 1.6 % (0.0-8.0); HEMATOCRIT 31.5 % (36-48); LYMPHOCYTES % (AUTO) 17.3 % (21.0-51.0); MEAN CORPUSCULAR HEMOGLOBIN 28.1 pg (27.0-33.0); MEAN CORPUSCULAR HGB CONC 30.5 g/dL (32.0-36.0); MEAN CORPUSCULAR VOLUME 92.1 fL (79-99); MONOCYTES % (AUTO) 8.4 % (3.0-13.0); NEUTROPHILS % (AUTO) 71.9 % (40.0-77.0); PLATELET COUNT (AUTO) 245 K/uL (130-400); RED BLOOD CELL COUNT(AUTO) 3.42 MIL/uL (4.00-5.50); RED CELL DISTRIBUTION WIDTH 15.9 % (11.0-15.5); WHITE BLOOD COUNT (AUTO) 7.4 K/uL (4.8-10.8)
[2021-07-16 19:04] LABS: CREATININE 0.8 mg/dL (0.5-1.5); POTASSIUM 4.2 mmol/L (3.5-5.1)
[2021-07-16 19:14] LABS: ALBUMIN 2.2 g/dL (3.5-5.0); BILIRUBIN,TOTAL 0.4 mg/dL (0.2-1.0); TOTAL PROTEIN, SERUM 8.5 g/dL (6.0-8.3)
[2021-07-16] MEDS ORDERED: IOHEXOL-350 75 ML VIAL IV ONE (19:28)
[2021-07-16] MEDS ORDERED: 0.9%NACL 1000ML 1,000 ML IV ONE (20:00)
[2021-07-16] MEDS ORDERED: ZOSYN 3.375GM +NS 50ML IV SCH (21:00)
[2021-07-16] MEDS ORDERED: ONDANSETRON 4MG INJ IVP PRN (22:00)
[2021-07-16] MEDS ORDERED: MORPHINE 4 MG SYG IM PRN (22:00)
[2021-07-16] MEDS: DEXTROSE 5%-LACTATED RINGERS 1,000 ML IV SCH (22:42)
[2021-07-17 02:15] VITALS: BP 125/67
[2021-07-17] MEDS: ZOSYN 3.375GM+NS 50ML 50 ML IV SCH ×4 (06:17→20:34)
[2021-07-17 06:27] LABS: MAGNESIUM 1.8 mg/dL (1.80-2.40); PHOSPHORUS 2.8 mg/dL (2.5-4.9)
[2021-07-17] MEDS ORDERED: FAMOTIDINE 20MG VIAL IV SCH (09:00)
[2021-07-17 09:52] VITALS: BP 136/71
[2021-07-17] MEDS: FAMOTIDINE 20MG VIAL IV SCH ×2 (10:43→20:33)
[2021-07-17] MEDS: DEXTROSE 5%-LACTATED RINGERS 1,000 ML IV SCH ×2 (11:20→22:31)
[2021-07-17 11:41] VITALS: BP 144/76
[2021-07-17 16:31] VITALS: BP 135/85
[2021-07-17 20:00] VITALS: BP 136/68
[2021-07-17 23:45] VITALS: BP 142/72
[2021-07-18 03:51] LABS: BASOPHILS % (AUTO) 0.6 % (0.0-5.0); EOSINOPHILS % (AUTO) 8.2 % (0.0-8.0); HEMATOCRIT 28.8 % (36-48); LYMPHOCYTES % (AUTO) 17.6 % (21.0-51.0); MEAN CORPUSCULAR HGB CONC 30.9 g/dL (32.0-36.0); MEAN CORPUSCULAR VOLUME 93.8 fL (79-99); MONOCYTES % (AUTO) 9.9 % (3.0-13.0); NEUTROPHILS % (AUTO) 63.3 % (40.0-77.0); PLATELET COUNT (AUTO) 207 K/uL (130-400); RED BLOOD CELL COUNT(AUTO) 3.07 MIL/uL (4.00-5.50); WHITE BLOOD COUNT (AUTO) 5.3 K/uL (4.8-10.8)
[2021-07-18 04:00] VITALS: BP 138/64
[2021-07-18 04:02] LABS: BILIRUBIN,TOTAL 0.3 mg/dL (0.2-1.0); CREATININE 0.7 mg/dL (0.5-1.5); MAGNESIUM 1.6 mg/dL (1.80-2.40); PHOSPHORUS 2.5 mg/dL (2.5-4.9); POTASSIUM 3.6 mmol/L (3.5-5.1); TOTAL PROTEIN, SERUM 7.4 g/dL (6.0-8.3)
[2021-07-18] MEDS: MAGNESIUM 2GM PREMIX 50ML 50 ML IV PRN (04:29)
[2021-07-18] MEDS: ZOSYN 3.375GM+NS 50ML 50 ML IV SCH ×3 (04:30→20:16)
[2021-07-18 08:00] VITALS: BP 135/69
[2021-07-18] MEDS: FAMOTIDINE 20MG VIAL IV SCH ×2 (09:08→20:16)
[2021-07-18 12:00] VITALS: BP_SYST 143; BP_SYST 160; BP_DIAS 74; BP_DIAS 81
[2021-07-18] MEDS: DEXTROSE 5%-LACTATED RINGERS 1,000 ML IV SCH (14:00)
[2021-07-18 16:00] VITALS: BP 132/69
[2021-07-18 20:00] VITALS: BP 136/72
[2021-07-19] VITALS (7 sets, daily range): BP systolic 134–163; BP diastolic 68–89
[2021-07-19] MEDS: ZOSYN 3.375GM+NS 50ML 50 ML IV SCH ×3 (03:30→22:23)
[2021-07-19] MEDS: DEXTROSE 5%-LACTATED RINGERS 1,000 ML IV SCH (03:30)
[2021-07-19 04:59] LABS: BASOPHILS % (AUTO) 0.4 % (0.0-5.0); EOSINOPHILS % (AUTO) 8.6 % (0.0-8.0); HEMATOCRIT 28.1 % (36-48); LYMPHOCYTES % (AUTO) 18.6 % (21.0-51.0); MEAN CORPUSCULAR HEMOGLOBIN 28.3 pg (27.0-33.0); MEAN CORPUSCULAR HGB CONC 30.2 g/dL (32.0-36.0); MEAN CORPUSCULAR VOLUME 93.7 fL (79-99); MONOCYTES % (AUTO) 7.8 % (3.0-13.0); NEUTROPHILS % (AUTO) 64.2 % (40.0-77.0); PLATELET COUNT (AUTO) 187 K/uL (130-400); RED CELL DISTRIBUTION WIDTH 16.3 % (11.0-15.5); WHITE BLOOD COUNT (AUTO) 4.6 K/uL (4.8-10.8)
[2021-07-19 05:20] LABS: ALBUMIN 1.9 g/dL (3.5-5.0); BILIRUBIN,TOTAL 0.3 mg/dL (0.2-1.0); CREATININE 0.6 mg/dL (0.5-1.5); MAGNESIUM 1.7 mg/dL (1.80-2.40); PHOSPHORUS 2.6 mg/dL (2.5-4.9); POTASSIUM 3.5 mmol/L (3.5-5.1); TOTAL PROTEIN, SERUM 6.9 g/dL (6.0-8.3)
[2021-07-19] MEDS: MAGNESIUM 2GM PREMIX 50ML 50 ML IV PRN (06:01)
[2021-07-19] MEDS: FAMOTIDINE 20MG VIAL IV SCH ×2 (08:56→22:23)
[2021-07-19] MEDS: DEXTROSE 5%-WATER 1,000 ML IV SCH (15:01)
[2021-07-20 03:44] VITALS: BP 152/82
[2021-07-20] MEDS: DEXTROSE 5%-WATER 1,000 ML IV SCH ×2 (03:50→22:43)
[2021-07-20 05:04] LABS: BASOPHILS % (AUTO) 0.4 % (0.0-5.0); EOSINOPHILS % (AUTO) 7.5 % (0.0-8.0); HEMATOCRIT 29.2 % (36-48); LYMPHOCYTES % (AUTO) 19.2 % (21.0-51.0); MEAN CORPUSCULAR HEMOGLOBIN 28.8 pg (27.0-33.0); MEAN CORPUSCULAR HGB CONC 30.8 g/dL (32.0-36.0); MEAN CORPUSCULAR VOLUME 93.6 fL (79-99); MONOCYTES % (AUTO) 8.1 % (3.0-13.0); NEUTROPHILS % (AUTO) 64.4 % (40.0-77.0); PLATELET COUNT (AUTO) 188 K/uL (130-400); RED BLOOD CELL COUNT(AUTO) 3.12 MIL/uL (4.00-5.50); WHITE BLOOD COUNT (AUTO) 5.5 K/uL (4.8-10.8)
[2021-07-20 05:21] LABS: BILIRUBIN,TOTAL 0.3 mg/dL (0.2-1.0); CREATININE 0.7 mg/dL (0.5-1.5); MAGNESIUM 1.9 mg/dL (1.80-2.40); PHOSPHORUS 2.6 mg/dL (2.5-4.9); POTASSIUM 3.4 mmol/L (3.5-5.1); TOTAL PROTEIN, SERUM 7.2 g/dL (6.0-8.3)
[2021-07-20] MEDS: ZOSYN 3.375GM+NS 50ML 50 ML IV SCH ×3 (05:41→20:49)
[2021-07-20 07:30] VITALS: BP 115/67
[2021-07-20] MEDS: FAMOTIDINE 20MG VIAL IV SCH ×2 (10:29→20:49)
[2021-07-20 11:00] VITALS: BP 149/78
[2021-07-20 15:30] VITALS: BP 151/76
[2021-07-20] MEDS ORDERED: MORPHINE 2 MG SYG IM PRN (18:00)
[2021-07-20 20:21] VITALS: BP 131/75
[2021-07-21 00:01] VITALS: BP 140/77
[2021-07-21 03:49] VITALS: BP 151/79
[2021-07-21 05:08] LABS: HEMATOCRIT 28.4 % (36-48); MEAN CORPUSCULAR HEMOGLOBIN 28.1 pg (27.0-33.0); MEAN CORPUSCULAR VOLUME 90.7 fL (79-99); RED BLOOD CELL COUNT(AUTO) 3.13 MIL/uL (4.00-5.50); RED CELL DISTRIBUTION WIDTH 15.7 % (11.0-15.5); WHITE BLOOD COUNT (AUTO) 5.5 K/uL (4.8-10.8)
[2021-07-21] MEDS: ZOSYN 3.375GM+NS 50ML 50 ML IV SCH ×3 (05:24→21:07)
[2021-07-21 05:31] LABS: CREATININE 0.6 mg/dL (0.5-1.5); MAGNESIUM 1.4 mg/dL (1.80-2.40); PHOSPHORUS 2.7 mg/dL (2.5-4.9); POTASSIUM 3.1 mmol/L (3.5-5.1)
[2021-07-21 07:30] VITALS: BP 149/72
[2021-07-21] MEDS: ENOXAPARIN SODIUM 40 MG/0.4 ML SYRINGE SQ SCH (10:10)
[2021-07-21] MEDS: FAMOTIDINE 20MG VIAL IV SCH ×2 (10:10→21:07)
[2021-07-21] MEDS: MAGNESIUM 2GM PREMIX 50ML 50 ML IV PRN (10:11)
[2021-07-21] MEDS: POTASSIUM CHLORIDE 20MEQ/100ML 100 ML IV PRN ×2 (10:12→12:58)
[2021-07-21 11:00] VITALS: BP 129/75
[2021-07-21] MEDS ORDERED: DIATR MEGLU/DIATRIZOATE SODIUM 30 ML BOTTLE ONE ×2 (14:12→18:59)
[2021-07-21 20:14] VITALS: BP 150/76
[2021-07-21] MEDS ORDERED: POTASSIUM CHLORIDE 20MEQ/100ML 100 ML IV PRN (20:30)
[2021-07-21] MEDS ORDERED: MAGNESIUM 2GM PREMIX 50ML 50 ML IV PRN (20:30)
[2021-07-21] MEDS: DEXTROSE 5%-WATER 1,000 ML IV SCH (22:30)
[2021-07-21 23:47] VITALS: BP 143/78
[2021-07-22 04:00] VITALS: BP 145/74
[2021-07-22] MEDS: ZOSYN 3.375GM+NS 50ML 50 ML IV SCH ×3 (05:10→22:09)
[2021-07-22] MEDS ORDERED: METOCLOPRAMIDE 10 MG/2 ML VIAL ONE (06:10)
[2021-07-22] MEDS: METOCLOPRAMIDE 10 MG/2 ML VIAL IVP SCH ×3 (06:11→17:00)
[2021-07-22 06:27] LABS: BASOPHILS % (AUTO) 0.3 % (0.0-5.0); EOSINOPHILS % (AUTO) 4.5 % (0.0-8.0); HEMATOCRIT 33.9 % (36-48); LYMPHOCYTES % (AUTO) 14.9 % (21.0-51.0); MEAN CORPUSCULAR HEMOGLOBIN 29.2 pg (27.0-33.0); MEAN CORPUSCULAR HGB CONC 32.4 g/dL (32.0-36.0); MEAN CORPUSCULAR VOLUME 89.9 fL (79-99); MONOCYTES % (AUTO) 6.1 % (3.0-13.0); NEUTROPHILS % (AUTO) 73.6 % (40.0-77.0); PLATELET COUNT (AUTO) 250 K/uL (130-400); RED BLOOD CELL COUNT(AUTO) 3.77 MIL/uL (4.00-5.50); WHITE BLOOD COUNT (AUTO) 9.6 K/uL (4.8-10.8)
[2021-07-22 06:46] LABS: ALBUMIN 2.4 g/dL (3.5-5.0); BILIRUBIN,TOTAL 0.7 mg/dL (0.2-1.0); CREATININE 0.8 mg/dL (0.5-1.5); MAGNESIUM 1.9 mg/dL (1.80-2.40); POTASSIUM 3.7 mmol/L (3.5-5.1); TOTAL PROTEIN, SERUM 8.2 g/dL (6.0-8.3)
[2021-07-22 08:00] VITALS: BP 138/88
[2021-07-22] MEDS: FAMOTIDINE 20MG VIAL IV SCH ×2 (10:30→22:09)
[2021-07-22] MEDS: ENOXAPARIN SODIUM 40 MG/0.4 ML SYRINGE SQ SCH (10:30)
[2021-07-22 12:00] VITALS: BP 135/71
[2021-07-22] MEDS: DEXTROSE 5%-WATER 1,000 ML IV SCH ×2 (13:27→22:09)
[2021-07-22 16:00] VITALS: BP 148/74
[2021-07-22 20:00] VITALS: BP 102/63
[2021-07-23] VITALS: BP 140/78
[2021-07-23 04:00] VITALS: BP 126/84
[2021-07-23] MEDS: ZOSYN 3.375GM+NS 50ML 50 ML IV SCH ×3 (05:01→20:41)
[2021-07-23 05:13] LABS: BASOPHILS % (AUTO) 0.4 % (0.0-5.0); EOSINOPHILS % (AUTO) 3.9 % (0.0-8.0); LYMPHOCYTES % (AUTO) 16.6 % (21.0-51.0); MEAN CORPUSCULAR HEMOGLOBIN 28.1 pg (27.0-33.0); MEAN CORPUSCULAR HGB CONC 31.6 g/dL (32.0-36.0); MEAN CORPUSCULAR VOLUME 88.9 fL (79-99); MONOCYTES % (AUTO) 8.2 % (3.0-13.0); NEUTROPHILS % (AUTO) 70.4 % (40.0-77.0); PLATELET COUNT (AUTO) 196 K/uL (130-400); RED CELL DISTRIBUTION WIDTH 15.7 % (11.0-15.5); WHITE BLOOD COUNT (AUTO) 7.6 K/uL (4.8-10.8)
[2021-07-23 05:24] LABS: ALBUMIN 2.2 g/dL (3.5-5.0); BILIRUBIN,TOTAL 0.6 mg/dL (0.2-1.0); CREATININE 0.7 mg/dL (0.5-1.5); POTASSIUM 3.2 mmol/L (3.5-5.1); TOTAL PROTEIN, SERUM 7.7 g/dL (6.0-8.3)
[2021-07-23 08:00] VITALS: BP 136/76
[2021-07-23] MEDS: DEXTROSE 5%-WATER 1,000 ML IV SCH ×2 (09:24→22:18)
[2021-07-23] MEDS: METOCLOPRAMIDE 10 MG/2 ML VIAL IVP SCH ×3 (09:24→19:53)
[2021-07-23] MEDS: FAMOTIDINE 20MG VIAL IV SCH ×2 (09:24→20:41)
[2021-07-23] MEDS: ENOXAPARIN SODIUM 40 MG/0.4 ML SYRINGE SQ SCH (09:25)
[2021-07-23] MEDS: MAGNESIUM 2GM PREMIX 50ML 50 ML IV PRN (09:26)
[2021-07-23 12:00] VITALS: BP 116/73
[2021-07-23] MEDS ORDERED: BISACODYL 10 MG SUPP.RECT RC SCH (12:00)
[2021-07-23] MEDS: POTASSIUM CHLORIDE 20MEQ/100ML 100 ML IV PRN ×2 (13:14→19:50)
[2021-07-23 16:00] VITALS: BP 134/71
[2021-07-23 20:00] VITALS: BP 129/64
[2021-07-24] VITALS (7 sets, daily range): BP systolic 125–152; BP diastolic 68–76
[2021-07-24] MEDS: ZOSYN 3.375GM+NS 50ML 50 ML IV SCH ×3 (05:00→21:24)
[2021-07-24 05:21] LABS: BASOPHILS % (AUTO) 0.5 % (0.0-5.0); EOSINOPHILS % (AUTO) 5.5 % (0.0-8.0); HEMATOCRIT 28.7 % (36-48); LYMPHOCYTES % (AUTO) 19.5 % (21.0-51.0); MEAN CORPUSCULAR HEMOGLOBIN 28.9 pg (27.0-33.0); MEAN CORPUSCULAR HGB CONC 33.1 g/dL (32.0-36.0); MEAN CORPUSCULAR VOLUME 87.2 fL (79-99); NEUTROPHILS % (AUTO) 66.8 % (40.0-77.0); PLATELET COUNT (AUTO) 192 K/uL (130-400); RED BLOOD CELL COUNT(AUTO) 3.29 MIL/uL (4.00-5.50); RED CELL DISTRIBUTION WIDTH 15.6 % (11.0-15.5); WHITE BLOOD COUNT (AUTO) 5.7 K/uL (4.8-10.8)
[2021-07-24 05:34] LABS: BILIRUBIN,TOTAL 0.5 mg/dL (0.2-1.0); CREATININE 0.6 mg/dL (0.5-1.5); POTASSIUM 3.3 mmol/L (3.5-5.1); TOTAL PROTEIN, SERUM 7.2 g/dL (6.0-8.3)
[2021-07-24] MEDS: FAMOTIDINE 20MG VIAL IV SCH ×2 (08:46→21:24)
[2021-07-24] MEDS: ENOXAPARIN SODIUM 40 MG/0.4 ML SYRINGE SQ SCH (08:46)
[2021-07-24] MEDS: METOCLOPRAMIDE 10 MG/2 ML VIAL IVP SCH ×3 (08:49→16:41)
[2021-07-24] MEDS: POTASSIUM CHLORIDE 20MEQ/100ML 100 ML IV PRN (16:41)
[2021-07-25 03:27] VITALS: BP 120/73
[2021-07-25] MEDS: ZOSYN 3.375GM+NS 50ML 50 ML IV SCH ×3 (05:42→21:15)
[2021-07-25 06:17] LABS: BASOPHILS % (AUTO) 0.4 % (0.0-5.0); EOSINOPHILS % (AUTO) 5.6 % (0.0-8.0); HEMATOCRIT 30.1 % (36-48); LYMPHOCYTES % (AUTO) 22.4 % (21.0-51.0); MEAN CORPUSCULAR HEMOGLOBIN 28.1 pg (27.0-33.0); MEAN CORPUSCULAR HGB CONC 31.9 g/dL (32.0-36.0); MONOCYTES % (AUTO) 9.1 % (3.0-13.0); NEUTROPHILS % (AUTO) 61.9 % (40.0-77.0); PLATELET COUNT (AUTO) 206 K/uL (130-400); RED BLOOD CELL COUNT(AUTO) 3.42 MIL/uL (4.00-5.50); RED CELL DISTRIBUTION WIDTH 15.8 % (11.0-15.5); WHITE BLOOD COUNT (AUTO) 5.2 K/uL (4.8-10.8)
[2021-07-25 06:35] LABS: ALBUMIN 2.2 g/dL (3.5-5.0); BILIRUBIN,TOTAL 0.4 mg/dL (0.2-1.0); CREATININE 0.6 mg/dL (0.5-1.5); POTASSIUM 3.4 mmol/L (3.5-5.1); TOTAL PROTEIN, SERUM 7.4 g/dL (6.0-8.3)
[2021-07-25 07:30] VITALS: BP 128/75
[2021-07-25] MEDS: FAMOTIDINE 20MG VIAL IV SCH ×2 (08:21→21:15)
[2021-07-25] MEDS: METOCLOPRAMIDE 10 MG/2 ML VIAL IVP SCH ×3 (08:22→17:02)
[2021-07-25] MEDS: ENOXAPARIN SODIUM 40 MG/0.4 ML SYRINGE SQ SCH (08:23)
[2021-07-25 11:00] VITALS: BP 144/84
[2021-07-25] MEDS: DEXTROSE 5 %-0.45 % NACL 1,000 ML IV SCH (13:06)
[2021-07-25 16:00] VITALS: BP 124/86
[2021-07-25] MEDS: POTASSIUM CHLORIDE 20MEQ/100ML 100 ML IV PRN (17:33)
[2021-07-25 19:30] VITALS: BP 131/72
[2021-07-26] VITALS: BP 131/70
[2021-07-26 04:00] VITALS: BP 133/75
[2021-07-26] MEDS: ZOSYN 3.375GM+NS 50ML 50 ML IV SCH ×3 (05:14→20:47)
[2021-07-26 05:38] LABS: HEMATOCRIT 27.6 % (36-48); MEAN CORPUSCULAR HEMOGLOBIN 28.7 pg (27.0-33.0); MEAN CORPUSCULAR HGB CONC 32.2 g/dL (32.0-36.0); RED BLOOD CELL COUNT(AUTO) 3.1 MIL/uL (4.00-5.50); WHITE BLOOD COUNT (AUTO) 4.5 K/uL (4.8-10.8)
[2021-07-26 05:48] LABS: CREATININE 0.5 mg/dL (0.5-1.5); MAGNESIUM 1.4 mg/dL (1.80-2.40); POTASSIUM 3.2 mmol/L (3.5-5.1)
[2021-07-26] MEDS: FAMOTIDINE 20MG VIAL IV SCH ×2 (07:53→20:47)
[2021-07-26] MEDS: METOCLOPRAMIDE 10 MG/2 ML VIAL IVP SCH ×3 (07:53→16:17)
[2021-07-26] MEDS: ENOXAPARIN SODIUM 40 MG/0.4 ML SYRINGE SQ SCH (07:53)
[2021-07-26] MEDS: POTASSIUM CHLORIDE 20MEQ/100ML 100 ML IV PRN ×2 (07:54→16:17)
[2021-07-26 08:00] VITALS: BP 129/68
[2021-07-26] MEDS: DEXTROSE 5 %-0.45 % NACL 1,000 ML IV SCH (11:34)
[2021-07-26 11:44] VITALS: BP 136/75
[2021-07-26 16:00] VITALS: BP 122/64
[2021-07-26 19:30] VITALS: BP 126/60
[2021-07-27 00:21] VITALS: BP 108/75
[2021-07-27 04:51] VITALS: BP 135/69
[2021-07-27] MEDS: ZOSYN 3.375GM+NS 50ML 50 ML IV SCH ×2 (05:01→12:21)
[2021-07-27] MEDS: DEXTROSE 5 %-0.45 % NACL 1,000 ML IV SCH ×2 (05:10→14:59)
[2021-07-27 05:46] LABS: HEMATOCRIT 28.8 % (36-48); MEAN CORPUSCULAR HEMOGLOBIN 29.2 pg (27.0-33.0); MEAN CORPUSCULAR HGB CONC 32.3 g/dL (32.0-36.0); MEAN CORPUSCULAR VOLUME 90.6 fL (79-99); RED BLOOD CELL COUNT(AUTO) 3.18 MIL/uL (4.00-5.50); WHITE BLOOD COUNT (AUTO) 5.4 K/uL (4.8-10.8)
[2021-07-27 06:05] LABS: CREATININE 0.6 mg/dL (0.5-1.5); MAGNESIUM 1.3 mg/dL (1.80-2.40); POTASSIUM 3.6 mmol/L (3.5-5.1)
[2021-07-27 08:00] VITALS: BP 138/77
[2021-07-27] MEDS: METOCLOPRAMIDE 10 MG/2 ML VIAL IVP SCH ×2 (09:14→12:21)
[2021-07-27] MEDS: FAMOTIDINE 20MG VIAL IV SCH (09:14)
[2021-07-27] MEDS: ENOXAPARIN SODIUM 40 MG/0.4 ML SYRINGE SQ SCH (09:15)
[2021-07-27 12:00] VITALS: BP 131/76
[2021-07-27 16:00] VITALS: BP 124/72
== END 2021-07-27 19:40 | DRG 871 ==
LOC: EDH 17:51 → EDHIP 21:38 → OBSVTOIN 21:38 → 3CH 07-17 01:43
PROVIDERS: ADMIT Internal Medicine; ATTEND Internal Medicine
DX: A41.9 Sepsis, unspecified organism (principal); J18.9 Pneumonia, unspecified organism; K85.90 Acute pancreatitis without necrosis or infection, unspecified; K56.609 Unspecified intestinal obstruction, unspecified as to partial versus complete obstruction; K80.00 Calculus of gallbladder with acute cholecystitis without obstruction; E87.0 Hyperosmolality and hypernatremia; N17.9 Acute kidney failure, unspecified; E86.0 Dehydration; E78.00 Pure hypercholesterolemia, unspecified; K21.9 Gastro-esophageal reflux disease without esophagitis; E11.22 Type 2 diabetes mellitus with diabetic chronic kidney disease; E78.5 Hyperlipidemia, unspecified; I12.9 Hypertensive chronic kidney disease with stage 1 through stage 4 chronic kidney disease, or unspecified chronic kidney disease; Z90.710 Acquired absence of both cervix and uterus; Z90.49 Acquired absence of other specified parts of digestive tract; Z82.49 Family history of ischemic heart disease and other diseases of the circulatory system; N18.9 Chronic kidney disease, unspecified; Y95 Nosocomial condition; R74.01 Elevation of levels of liver transaminase levels; I48.91 Unspecified atrial fibrillation; Z87.440 Personal history of urinary (tract) infections
CPT/HCPCS: 36415; 74018; 74177; 74250; 80048; 80053; 81001; 82308; 82948; 83690; 83735; 84100; 84145; 84478; 84484; 85025; 85027; 86900; 86901; 87040; 93005; 97039; G0378; J1650; J2543; J2765; J3475; J3480; J3490; J7042; J7070; Q9963; Q9967

== ENCOUNTER 2021-10-20 19:45 | Inpatient (IN) | payer OTHER, MEDICARE ==
[~2021-10-20] VITALS: Ht 152.4 cm; Wt 63.2 kg
[~2021-10-20 19:45] MED LIST changes: +ASPI-1005 PO; +ATOR10 PO; +ENOX40DI8 SQ; +LOSA50TA64 PO; +METO10L IVP; +PANT40TA PO; +SERT25TA PO; +VANC750F2 IV; +[UNRECOGNIZED DRUG - CODE] IV
[2021-10-20 22:49] VITALS: BP 118/67
[2021-10-20] MEDS ORDERED: DEXTROSE 50%-WATER 50 ML DISP.SYRIN IV ONE (22:50)
[2021-10-21] MEDS ORDERED: GLUCAGON 1MG KIT 1 MG ML IM PRN (01:30)
[2021-10-21 03:21] VITALS: BP 129/75
[2021-10-21] MEDS ORDERED: [UNRECOGNIZED DRUG - CODE] IV (03:52)
[2021-10-21] MEDS ORDERED: FURO20TA4 PO (03:52)
[2021-10-21] MEDS ORDERED: INSLAN SQ (03:52)
[2021-10-21] MEDS ORDERED: IPRA0.2S54 IH (03:52)
[2021-10-21] MEDS ORDERED: PIPE3.379 IV (03:52)
[2021-10-21] MEDS ORDERED: [UNRECOGNIZED DRUG - CODE] IV (03:52)
[2021-10-21] MEDS ORDERED: INSREG SQ (03:52)
[2021-10-21] MEDS ORDERED: ACET120S39 RC (03:52)
[2021-10-21] MEDS ORDERED: ACET650O3 PO (03:52)
[2021-10-21] MEDS ORDERED: ALPR0.255 PO (03:52)
[2021-10-21] MEDS ORDERED: MICA100V IV (03:52)
[2021-10-21] MEDS ORDERED: BALS60OI TP (03:52)
[2021-10-21] MEDS ORDERED: DEXT-24 IV (03:52)
[2021-10-21] MEDS ORDERED: PANT40VI IV (03:52)
[2021-10-21] MEDS ORDERED: DIGO0.12 PO (03:52)
[2021-10-21] MEDS: DEXTROSE 50%-WATER 50 ML DISP.SYRIN IV PRN ×3 (05:17→08:35)
[2021-10-21] MEDS ORDERED: DEXTROSE 10%-WATER 1,000 ML IV ONE (05:26)
[2021-10-21] MEDS ORDERED: DEXTROSE 10%-WATER 1,000 ML IV SCH (05:30)
[2021-10-21 07:54] LABS: HEMATOCRIT 22.6 % (36-48); MEAN CORPUSCULAR HEMOGLOBIN 30.2 pg (27.0-33.0); MEAN CORPUSCULAR HGB CONC 30.1 g/dL (32.0-36.0); MEAN CORPUSCULAR VOLUME 100.4 fL (79-99); PLATELET COUNT (AUTO) 184 K/uL (130-400); RED BLOOD CELL COUNT(AUTO) 2.25 MIL/uL (4.00-5.50); RED CELL DISTRIBUTION WIDTH 19.1 % (11.0-15.5); WHITE BLOOD COUNT (AUTO) 4.9 K/uL (4.8-10.8)
[2021-10-21 08:00] VITALS: BP 156/75
[2021-10-21 08:15] LABS: ALBUMIN 1.1 g/dL (3.5-5.0); CREATININE 0.4 mg/dL (0.5-1.5); MAGNESIUM 1.7 mg/dL (1.80-2.40); POTASSIUM 3.4 mmol/L (3.5-5.1); TOTAL PROTEIN, SERUM 4.8 g/dL (6.0-8.3)
[2021-10-21] MEDS ORDERED: ALTEPLASE 2MG VIAL 2 MG/VIAL VIAL IVCATH SCH (09:00)
[2021-10-21] MEDS ORDERED: PHARMACY COMMUNICATION MISC SCH (09:00)
[2021-10-21] MEDS ORDERED: CLINIMIX-E 5%AA /D15%W 2000ML 2,000 ML IV NR (09:33)
[2021-10-21] MEDS: FAT EMULSIONS 20% 250ML 250 ML IV SCH (10:20)
[2021-10-21] MEDS: AA 5 %/CALCIUM/LYTES/DEXT 20 % 1,000 ML IV NR (10:22)
[2021-10-21 12:00] VITALS: BP 156/75
[2021-10-21 15:17] LABS: HEMATOCRIT 26.6 % (36-48)
[2021-10-21 16:00] VITALS: BP 142/58
[2021-10-21] MEDS ORDERED: [UNRECOGNIZED DRUG - OTHER] IV SCH (17:00)
[2021-10-21] MEDS ORDERED: [UNRECOGNIZED DRUG - OTHER] IV SCH (17:00)
[2021-10-21] MEDS ORDERED: [UNRECOGNIZED DRUG - OTHER] IV SCH (17:00)
[2021-10-21] MEDS ORDERED: PHOSPHO IV SCH (17:00)
[2021-10-21] MEDS ORDERED: [UNRECOGNIZED DRUG - OTHER] IV SCH (17:00)
[2021-10-21] MEDS ORDERED: OLIVE IV SCH (17:00)
[2021-10-21] MEDS ORDERED: WATER IV SCH (17:00)
[2021-10-21] MEDS ORDERED: PIPERACILLIN TAZO DEXTROSE ISO IV SCH (17:00)
[2021-10-21] MEDS ORDERED: SOY IV SCH (17:00)
[2021-10-21] MEDS ORDERED: DEXTROSE 50% IV SCH (17:00)
[2021-10-21] MEDS ORDERED: ALPRAZOLAM 0.25 MG TABLET PO PRN (17:00)
[2021-10-21] MEDS ORDERED: DEXTROSE IV SCH (17:00)
[2021-10-21] MEDS ORDERED: ACETAMINOPHEN 120 MG SUPPOSITORY RC PRN (17:00)
[2021-10-21] MEDS ORDERED: AMINO ACIDS IV SCH (17:00)
[2021-10-21] MEDS ORDERED: FAT EMULSION IV SCH (17:00)
[2021-10-21] MEDS ORDERED: ACETAMINOPHEN 325 MG TAB PO PRN (17:00)
[2021-10-21] MEDS: IPRATROPIUM 0.5 MG/2.5 ML INH IH SCH ×2 (17:18→23:22)
[2021-10-21] MEDS ORDERED: 0.9%NACL 50ML 50 ML IV ONE (17:52)
[2021-10-21] MEDS: ZOSYN 3.375GM+NS 50ML 50 ML IV SCH (18:05)
[2021-10-21 20:00] VITALS: BP 135/69
[2021-10-21] MEDS: PANTOPRAZOLE 40 MG/VIAL IV SCH (20:12)
[2021-10-21] MEDS: ACETAMINOPHEN 650 MG SUPPOSITORY RC PRN (20:13)
[2021-10-22] VITALS: BP 130/71
[2021-10-22] MEDS: ZOSYN 3.375GM+NS 50ML 50 ML IV SCH ×3 (01:05→16:11)
[2021-10-22 04:16] VITALS: BP 131/68
[2021-10-22 04:50] LABS: HEMATOCRIT 25.4 % (36-48); MEAN CORPUSCULAR HEMOGLOBIN 29.5 pg (27.0-33.0); MEAN CORPUSCULAR HGB CONC 30.3 g/dL (32.0-36.0); MEAN CORPUSCULAR VOLUME 97.3 fL (79-99); NUCLEATED RED BLOOD CELLS 0.5 % (0.0-0.19); RED BLOOD CELL COUNT(AUTO) 2.61 MIL/uL (4.00-5.50); WHITE BLOOD COUNT (AUTO) 4.4 K/uL (4.8-10.8)
[2021-10-22 05:11] LABS: INR 0.96 (0.85-1.15); PROTHROMBIN TIME 10.5 SEC (9.6-11.6)
[2021-10-22 05:12] LABS: PARTIAL THROMBOPLASTIN TIME 23.6 SEC (26.3-35.5)
[2021-10-22] MEDS: IPRATROPIUM 0.5 MG/2.5 ML INH IH SCH ×4 (06:53→23:44)
[2021-10-22 07:08] LABS: ALBUMIN 1.1 g/dL (3.5-5.0); CREATININE 0.4 mg/dL (0.5-1.5); MAGNESIUM 1.5 mg/dL (1.80-2.40); POTASSIUM 3.7 mmol/L (3.5-5.1); TOTAL PROTEIN, SERUM 4.8 g/dL (6.0-8.3)
[2021-10-22 07:42] VITALS: BP 132/95
[2021-10-22] MEDS: BALSAM PERU/CASTOR OIL 60 GM TUBE TP SCH (07:58)
[2021-10-22] MEDS: MAGNESIUM 2GM PREMIX 50ML 50 ML IV PRN (08:44)
[2021-10-22] MEDS: PANTOPRAZOLE 40 MG/VIAL IV SCH ×2 (08:45→21:16)
[2021-10-22] MEDS: POTASSIUM CHLORIDE 20MEQ/100ML 100 ML IV PRN (08:45)
[2021-10-22] MEDS ORDERED: MICAFUNGIN SODIUM 100 MG IV SCH (09:00)
[2021-10-22] MEDS: FAT EMULSIONS 20% 250ML 250 ML IV SCH (09:43)
[2021-10-22] MEDS: MICAFUNGIN 100MG+NS 100ML 100 ML IV SCH (09:43)
[2021-10-22] MEDS: AA 5 %/CALCIUM/LYTES/DEXT 20 % 1,000 ML IV NR (10:18)
[2021-10-22 11:19] VITALS: BP 143/66
[2021-10-22] MEDS ORDERED: DIATR MEGLU/DIATRIZOATE SODIUM 30 ML BOTTLE ONE (12:01)
[2021-10-22] MEDS: INSULIN HUMULIN R 100 UNIT/ML 3ML SQ SCH ×2 (12:20→18:29)
[2021-10-22] MEDS: FUROSEMIDE 20MG VIAL IV SCH (12:31)
[2021-10-22] MEDS ORDERED: IOHEXOL 350 MG/ML 100ML INFUS..BTL IV ONE (14:06)
[2021-10-22 14:34] LABS: CHOLESTEROL 127 mg/dL (<200); HDL CHOLESTEROL 10 mg/dL (35-85); LDL DIRECT 77 mg/dL (0-99); TRIGLYCERIDES 218 mg/dL (30-200)
[2021-10-22 15:44] VITALS: BP 143/91
[2021-10-22 20:00] VITALS: BP 118/65
[2021-10-23] VITALS (7 sets, daily range): BP systolic 114–137; BP diastolic 60–80
[2021-10-23] MEDS: ZOSYN 3.375GM+NS 50ML 50 ML IV SCH ×3 (01:14→17:42)
[2021-10-23] MEDS: FUROSEMIDE 20MG VIAL IV SCH ×2 (01:14→17:42)
[2021-10-23] MEDS: POTASSIUM CHLORIDE 20MEQ/100ML 100 ML IV PRN (02:32)
[2021-10-23] MEDS: DEXTROSE 50%-WATER 50 ML DISP.SYRIN IV PRN (05:21)
[2021-10-23 05:54] LABS: HEMATOCRIT 28.3 % (36-48); MEAN CORPUSCULAR HEMOGLOBIN 29.2 pg (27.0-33.0); MEAN CORPUSCULAR HGB CONC 31.4 g/dL (32.0-36.0); MEAN CORPUSCULAR VOLUME 92.8 fL (79-99); RED BLOOD CELL COUNT(AUTO) 3.05 MIL/uL (4.00-5.50); RED CELL DISTRIBUTION WIDTH 19.9 % (11.0-15.5); WHITE BLOOD COUNT (AUTO) 4.5 K/uL (4.8-10.8)
[2021-10-23] MEDS: INSULIN HUMULIN R 100 UNIT/ML 3ML SQ SCH ×3 (06:00→17:55)
[2021-10-23 06:19] LABS: ALBUMIN 1.2 g/dL (3.5-5.0); CREATININE 0.4 mg/dL (0.5-1.5); MAGNESIUM 1.5 mg/dL (1.80-2.40); PHOSPHORUS 3.5 mg/dL (2.5-4.9); POTASSIUM 3.7 mmol/L (3.5-5.1); TOTAL PROTEIN, SERUM 5.1 g/dL (6.0-8.3)
[2021-10-23] MEDS: IPRATROPIUM 0.5 MG/2.5 ML INH IH SCH ×4 (06:30→23:44)
[2021-10-23] MEDS: FAT EMULSIONS 20% 250ML 250 ML IV SCH (08:04)
[2021-10-23] MEDS: PANTOPRAZOLE 40 MG/VIAL IV SCH ×2 (08:04→21:15)
[2021-10-23] MEDS: MICAFUNGIN 100MG+NS 100ML 100 ML IV SCH (08:04)
[2021-10-23] MEDS: MAGNESIUM 2GM PREMIX 50ML 50 ML IV PRN (08:05)
[2021-10-23] MEDS: AA 5 %/CALCIUM/LYTES/DEXT 20 % 1,000 ML IV NR (08:24)
[2021-10-23] MEDS ORDERED: CLINIMIX-E 5%AA /D15%W 2000ML 2,000 ML IV SCH (20:00)
[2021-10-24] MEDS: FUROSEMIDE 20MG VIAL IV SCH ×2 (00:18→12:41)
[2021-10-24] MEDS: ZOSYN 3.375GM+NS 50ML 50 ML IV SCH ×3 (00:26→17:06)
[2021-10-24 03:46] VITALS: BP 128/47
[2021-10-24] MEDS: INSULIN HUMULIN R 100 UNIT/ML 3ML SQ SCH ×4 (05:10→18:00)
[2021-10-24] MEDS: IPRATROPIUM 0.5 MG/2.5 ML INH IH SCH ×3 (06:21→18:29)
[2021-10-24 08:00] VITALS: BP 123/75
[2021-10-24] MEDS: PANTOPRAZOLE 40 MG/VIAL IV SCH ×2 (08:31→21:41)
[2021-10-24] MEDS: MICAFUNGIN 100MG+NS 100ML 100 ML IV SCH (08:31)
[2021-10-24] MEDS: FAT EMULSIONS 20% 250ML 250 ML IV SCH (08:31)
[2021-10-24 09:18] LABS: HEMATOCRIT 27.7 % (36-48); MEAN CORPUSCULAR HEMOGLOBIN 29.8 pg (27.0-33.0); MEAN CORPUSCULAR HGB CONC 31.8 g/dL (32.0-36.0); MEAN CORPUSCULAR VOLUME 93.9 fL (79-99); RED BLOOD CELL COUNT(AUTO) 2.95 MIL/uL (4.00-5.50); RED CELL DISTRIBUTION WIDTH 18.7 % (11.0-15.5); WHITE BLOOD COUNT (AUTO) 4.9 K/uL (4.8-10.8)
[2021-10-24 09:45] LABS: ALBUMIN 1.2 g/dL (3.5-5.0); CREATININE 0.4 mg/dL (0.5-1.5); POTASSIUM 3.3 mmol/L (3.5-5.1); TOTAL PROTEIN, SERUM 5.2 g/dL (6.0-8.3)
[2021-10-24 12:00] VITALS: BP 127/81
[2021-10-24 16:00] VITALS: BP 133/71
[2021-10-24] MEDS ORDERED: CLINIMIX-E 5%AA /D15%W 2000ML 2,000 ML IV SCH (18:00)
[2021-10-24] MEDS: POTASSIUM CHLORIDE 20MEQ/100ML 100 ML IV PRN (18:43)
[2021-10-24 19:33] VITALS: BP 128/66
[2021-10-25 00:28] VITALS: BP 143/72
[2021-10-25] MEDS ORDERED: 0.9%NACL 50ML 50 ML IV ONE ×2 (01:18→16:20)
[2021-10-25] MEDS: ZOSYN 3.375GM+NS 50ML 50 ML IV SCH ×3 (01:35→16:23)
[2021-10-25] MEDS: INSULIN HUMULIN R 100 UNIT/ML 3ML SQ SCH ×4 (01:46→16:29)
[2021-10-25 04:38] VITALS: BP 139/76
[2021-10-25 04:40] LABS: BASOPHILS % (AUTO) 0.4 % (0.0-5.0); EOSINOPHILS % (AUTO) 0.4 % (0.0-8.0); LYMPHOCYTES % (AUTO) 8.6 % (21.0-51.0); MEAN CORPUSCULAR HEMOGLOBIN 29.2 pg (27.0-33.0); MEAN CORPUSCULAR HGB CONC 31.1 g/dL (32.0-36.0); MEAN CORPUSCULAR VOLUME 93.8 fL (79-99); MONOCYTES % (AUTO) 4.5 % (3.0-13.0); PLATELET COUNT (AUTO) 168 K/uL (130-400); RED BLOOD CELL COUNT(AUTO) 2.88 MIL/uL (4.00-5.50); WHITE BLOOD COUNT (AUTO) 5.1 K/uL (4.8-10.8)
[2021-10-25 04:52] LABS: CREATININE 0.4 mg/dL (0.5-1.5); POTASSIUM 3.6 mmol/L (3.5-5.1)
[2021-10-25] MEDS: IPRATROPIUM 0.5 MG/2.5 ML INH IH SCH ×5 (06:20→23:18)
[2021-10-25 06:42] VITALS: BP 134/77
[2021-10-25] MEDS: PANTOPRAZOLE 40 MG/VIAL IV SCH ×2 (08:19→20:12)
[2021-10-25] MEDS: MICAFUNGIN 100MG+NS 100ML 100 ML IV SCH (08:20)
[2021-10-25] MEDS: POTASSIUM CHLORIDE 20MEQ/100ML 100 ML IV PRN (08:21)
[2021-10-25] MEDS: FAT EMULSIONS 20% 250ML 250 ML IV SCH (08:21)
[2021-10-25 12:00] VITALS: BP 128/72
[2021-10-25] MEDS ORDERED: CLINIMIX-E 5%AA /D15%W 2000ML 2,000 ML IV SCH (15:00)
[2021-10-25 16:39] VITALS: BP 138/62
[2021-10-25 20:47] VITALS: BP 140/75
[2021-10-26] VITALS (7 sets, daily range): BP systolic 133–154; BP diastolic 57–84
[2021-10-26] MEDS: ZOSYN 3.375GM+NS 50ML 50 ML IV SCH ×3 (01:11→17:28)
[2021-10-26] MEDS: INSULIN HUMULIN R 100 UNIT/ML 3ML SQ SCH ×4 (01:12→17:33)
[2021-10-26 04:06] LABS: BASOPHILS % (AUTO) 0.2 % (0.0-5.0); EOSINOPHILS % (AUTO) 0.6 % (0.0-8.0); HEMATOCRIT 26.4 % (36-48); LYMPHOCYTES % (AUTO) 8.8 % (21.0-51.0); MEAN CORPUSCULAR HEMOGLOBIN 29.3 pg (27.0-33.0); MEAN CORPUSCULAR HGB CONC 31.1 g/dL (32.0-36.0); MEAN CORPUSCULAR VOLUME 94.3 fL (79-99); MONOCYTES % (AUTO) 4.4 % (3.0-13.0); NEUTROPHILS % (AUTO) 83.3 % (40.0-77.0); PLATELET COUNT (AUTO) 171 K/uL (130-400); RED CELL DISTRIBUTION WIDTH 17.8 % (11.0-15.5); WHITE BLOOD COUNT (AUTO) 5.2 K/uL (4.8-10.8)
[2021-10-26 04:19] LABS: CREATININE 0.4 mg/dL (0.5-1.5); MAGNESIUM 1.7 mg/dL (1.80-2.40); POTASSIUM 3.9 mmol/L (3.5-5.1)
[2021-10-26] MEDS: MAGNESIUM 2GM PREMIX 50ML 50 ML IV PRN (04:43)
[2021-10-26] MEDS: IPRATROPIUM 0.5 MG/2.5 ML INH IH SCH ×4 (06:27→23:22)
[2021-10-26] MEDS: PANTOPRAZOLE 40 MG/VIAL IV SCH ×2 (09:45→20:57)
[2021-10-26] MEDS: MICAFUNGIN 100MG+NS 100ML 100 ML IV SCH (09:48)
[2021-10-26] MEDS: FAT EMULSIONS 20% 250ML 250 ML IV SCH (09:49)
[2021-10-26] MEDS ORDERED: CLINIMIX-E 5%AA /D15%W 2000ML 2,000 ML IV SCH (16:00)
[2021-10-26 16:33] LABS: CHOLESTEROL 139 mg/dL (<200); HDL CHOLESTEROL 16 mg/dL (35-85); LDL DIRECT 88 mg/dL (0-99); TRIGLYCERIDES 206 mg/dL (30-200)
[2021-10-26] MEDS: OCTREOTIDE ACETATE 100 MCG/ML AMP SQ SCH (20:57)
[2021-10-27] MEDS: ZOSYN 3.375GM+NS 50ML 50 ML IV SCH ×3 (01:00→16:37)
[2021-10-27] MEDS: INSULIN HUMULIN R 100 UNIT/ML 3ML SQ SCH ×4 (01:02→17:15)
[2021-10-27 04:48] VITALS: BP 142/58
[2021-10-27 05:18] LABS: BASOPHILS % (AUTO) 0.4 % (0.0-5.0); EOSINOPHILS % (AUTO) 0.6 % (0.0-8.0); LYMPHOCYTES % (AUTO) 7.7 % (21.0-51.0); MEAN CORPUSCULAR HEMOGLOBIN 29.2 pg (27.0-33.0); MEAN CORPUSCULAR HGB CONC 30.7 g/dL (32.0-36.0); MEAN CORPUSCULAR VOLUME 95.1 fL (79-99); MONOCYTES % (AUTO) 2.8 % (3.0-13.0); NEUTROPHILS % (AUTO) 83.4 % (40.0-77.0); PLATELET COUNT (AUTO) 214 K/uL (130-400); RED BLOOD CELL COUNT(AUTO) 3.05 MIL/uL (4.00-5.50); RED CELL DISTRIBUTION WIDTH 17.3 % (11.0-15.5); WHITE BLOOD COUNT (AUTO) 4.9 K/uL (4.8-10.8)
[2021-10-27 05:58] LABS: CREATININE 0.5 mg/dL (0.5-1.5); POTASSIUM 4.2 mmol/L (3.5-5.1)
[2021-10-27] MEDS: IPRATROPIUM 0.5 MG/2.5 ML INH IH SCH ×4 (06:28→23:50)
[2021-10-27 08:00] VITALS: BP 151/87
[2021-10-27] MEDS ORDERED: ONDANSETRON 4MG INJ IVP PRN (08:00)
[2021-10-27] MEDS: MICAFUNGIN 100MG+NS 100ML 100 ML IV SCH (08:25)
[2021-10-27] MEDS: PANTOPRAZOLE 40 MG/VIAL IV SCH ×2 (08:25→20:39)
[2021-10-27] MEDS: FAT EMULSIONS 20% 250ML 250 ML IV SCH (08:25)
[2021-10-27] MEDS: KETOROLAC 15MG/ML VIAL (15MG/ML) IM PRN ×2 (08:26→20:55)
[2021-10-27] MEDS: OCTREOTIDE ACETATE 100 MCG/ML AMP SQ SCH ×3 (08:27→20:40)
[2021-10-27 11:27] VITALS: BP_SYST 111
[2021-10-27] MEDS ORDERED: COMPOUND IV REFRIGERATED 1 EACH IVSOLN MISC PRN (15:30)
[2021-10-27 16:00] VITALS: BP 83/97
[2021-10-27] MEDS ORDERED: CLINIMIX-E 5%AA /D15%W 2000ML 2,000 ML IV ONE (16:00)
[2021-10-27] MEDS ORDERED: BENZOCAINE/MENTH/CETYLPYRD CL 1 EACH LOZENGE MM PRN (17:00)
[2021-10-27 20:02] VITALS: BP 128/64
[2021-10-27 23:51] VITALS: BP 127/74
[2021-10-28] MEDS: ZOSYN 3.375GM+NS 50ML 50 ML IV SCH ×3 (01:29→17:39)
[2021-10-28] MEDS: INSULIN HUMULIN R 100 UNIT/ML 3ML SQ SCH ×3 (01:36→18:04)
[2021-10-28 04:33] VITALS: BP 144/74
[2021-10-28] MEDS: IPRATROPIUM 0.5 MG/2.5 ML INH IH SCH ×4 (06:22→23:02)
[2021-10-28 08:00] VITALS: BP 169/83
[2021-10-28] MEDS: FLUCONAZOLE 200 MG/NS 100 ML 100 ML IV SCH (09:31)
[2021-10-28] MEDS: PANTOPRAZOLE 40 MG/VIAL IV SCH ×2 (09:31→21:12)
[2021-10-28] MEDS: OCTREOTIDE ACETATE 100 MCG/ML AMP SQ SCH ×3 (09:38→21:13)
[2021-10-28 11:41] VITALS: BP 132/54
[2021-10-28] MEDS: FAT EMULSIONS 20% 250ML 250 ML IV SCH (15:01)
[2021-10-28 16:00] VITALS: BP 153/73
[2021-10-28] MEDS ORDERED: M.V.I. IV [ADULT] 10 ML, MULTITRACE-4 ADULT 10ML VIAL 3 ML in CLINIMIX-E 5%AA /D15%W 2... IV SCH (18:00)
[2021-10-28 20:00] VITALS: BP 143/75
[2021-10-29] VITALS: BP 133/79
[2021-10-29] MEDS: INSULIN HUMULIN R 100 UNIT/ML 3ML SQ SCH ×4 (00:19→18:09)
[2021-10-29] MEDS: ZOSYN 3.375GM+NS 50ML 50 ML IV SCH ×3 (01:00→16:36)
[2021-10-29 04:00] VITALS: BP 130/76
[2021-10-29] MEDS: IPRATROPIUM 0.5 MG/2.5 ML INH IH SCH ×4 (06:29→23:23)
[2021-10-29 08:00] VITALS: BP 132/72
[2021-10-29] MEDS: OCTREOTIDE ACETATE 100 MCG/ML AMP SQ SCH ×3 (09:36→21:11)
[2021-10-29] MEDS: PANTOPRAZOLE 40 MG/VIAL IV SCH ×2 (09:36→21:11)
[2021-10-29] MEDS: FLUCONAZOLE 200 MG/NS 100 ML 100 ML IV SCH (09:36)
[2021-10-29] MEDS ORDERED: FAT EMULSIONS 20% 250ML 250 ML IV SCH (10:00)
[2021-10-29 11:19] VITALS: BP 140/73
[2021-10-29 16:00] VITALS: BP 154/79
[2021-10-29] MEDS ORDERED: M.V.I. IV [ADULT] 10 ML, MULTITRACE-4 ADULT 10ML VIAL 3 ML in CLINIMIX-E 5%AA /D15%W 2... IV SCH (19:30)
[2021-10-29 20:00] VITALS: BP 140/72
[2021-10-30] VITALS (7 sets, daily range): BP systolic 92–150; BP diastolic 45–77
[2021-10-30] MEDS: INSULIN HUMULIN R 100 UNIT/ML 3ML SQ SCH ×3 (00:55→12:57)
[2021-10-30] MEDS: ZOSYN 3.375GM+NS 50ML 50 ML IV SCH ×3 (01:01→16:23)
[2021-10-30 05:24] LABS: MEAN CORPUSCULAR HEMOGLOBIN 29.4 pg (27.0-33.0); MEAN CORPUSCULAR HGB CONC 28.2 g/dL (32.0-36.0); MEAN CORPUSCULAR VOLUME 104.1 fL (79-99); NUCLEATED RED BLOOD CELLS 0.7 % (0.0-0.19); PLATELET COUNT (AUTO) 221 K/uL (130-400); RED BLOOD CELL COUNT(AUTO) 2.69 MIL/uL (4.00-5.50)
[2021-10-30 06:19] LABS: CREATININE 0.4 mg/dL (0.5-1.5); MAGNESIUM 1.4 mg/dL (1.80-2.40); POTASSIUM 4.6 mmol/L (3.5-5.1)
[2021-10-30] MEDS: IPRATROPIUM 0.5 MG/2.5 ML INH IH SCH ×4 (06:51→23:25)
[2021-10-30] MEDS: KETOROLAC 15MG/ML VIAL (15MG/ML) IM PRN (07:58)
[2021-10-30] MEDS: PANTOPRAZOLE 40 MG/VIAL IV SCH ×2 (07:59→21:14)
[2021-10-30] MEDS: FLUCONAZOLE 200 MG/NS 100 ML 100 ML IV SCH (07:59)
[2021-10-30] MEDS: OCTREOTIDE ACETATE 100 MCG/ML AMP SQ SCH ×3 (08:54→21:15)
[2021-10-30] MEDS ORDERED: M.V.I. IV [ADULT] 10 ML, MULTITRACE-4 ADULT 10ML VIAL 3 ML in CLINIMIX-E 5%AA /D15%W 2... IV SCH (12:00)
[2021-10-30] MEDS ORDERED: INSULIN HUMULIN R 100 UNIT/ML 3ML SQ SCH (16:30)
[2021-10-31] MEDS: ZOSYN 3.375GM+NS 50ML 50 ML IV SCH ×3 (00:02→23:05)
[2021-10-31 03:31] VITALS: BP 108/61
[2021-10-31] MEDS: IPRATROPIUM 0.5 MG/2.5 ML INH IH SCH (06:20)
[2021-10-31] MEDS: INSULIN HUMULIN R 100 UNIT/ML 3ML SQ SCH ×5 (06:20→23:18)
[2021-10-31 07:15] VITALS: BP 118/59
[2021-10-31] MEDS: PANTOPRAZOLE 40 MG/VIAL IV SCH ×2 (08:35→23:04)
[2021-10-31] MEDS: FLUCONAZOLE 200 MG/NS 100 ML 100 ML IV SCH (08:35)
[2021-10-31] MEDS: KETOROLAC 15MG/ML VIAL (15MG/ML) IM PRN (09:56)
[2021-10-31 11:15] VITALS: BP 124/59
[2021-10-31 12:22] LABS: HEMATOCRIT 22.5 % (36-48); MEAN CORPUSCULAR HEMOGLOBIN 29.5 pg (27.0-33.0); MEAN CORPUSCULAR HGB CONC 30.7 g/dL (32.0-36.0); MEAN CORPUSCULAR VOLUME 96.2 fL (79-99); NUCLEATED RED BLOOD CELLS 0.5 % (0.0-0.19); RED BLOOD CELL COUNT(AUTO) 2.34 MIL/uL (4.00-5.50); RED CELL DISTRIBUTION WIDTH 17.5 % (11.0-15.5); WHITE BLOOD COUNT (AUTO) 5.7 K/uL (4.8-10.8)
[2021-10-31 13:24] LABS: ALBUMIN 1.1 g/dL (3.5-5.0); CREATININE 0.4 mg/dL (0.5-1.5); MAGNESIUM 1.4 mg/dL (1.80-2.40); PHOSPHORUS 3.1 mg/dL (2.5-4.9); POTASSIUM 4.3 mmol/L (3.5-5.1)
[2021-10-31] MEDS: OCTREOTIDE ACETATE 100 MCG/ML AMP SQ SCH ×2 (15:14→23:05)
[2021-10-31 15:20] VITALS: BP 133/68
[2021-10-31] MEDS ORDERED: M.V.I. IV [ADULT] 10 ML, MULTITRACE-4 ADULT 10ML VIAL 3 ML in CLINIMIX-E 5%AA /D15%W 2... IV SCH (16:00)
[2021-10-31] MEDS: MAGNESIUM 2GM PREMIX 50ML 50 ML IV SCH (18:14)
[2021-10-31 20:35] VITALS: BP 114/59
[2021-10-31 23:26] VITALS: BP_SYST 109; BP_SYST 129; BP_DIAS 64; BP_DIAS 80
[2021-11-01 04:29] VITALS: BP 135/65
[2021-11-01] MEDS: ZOSYN 3.375GM+NS 50ML 50 ML IV SCH ×3 (05:59→21:50)
[2021-11-01] MEDS: OCTREOTIDE ACETATE 100 MCG/ML AMP SQ SCH ×3 (06:11→21:50)
[2021-11-01] MEDS: BALSAM PERU/CASTOR OIL 60 GM TUBE TP SCH (06:11)
[2021-11-01] MEDS: INSULIN HUMULIN R 100 UNIT/ML 3ML SQ SCH ×3 (06:19→17:22)
[2021-11-01 06:28] LABS: HEMATOCRIT 23.3 % (36-48); MEAN CORPUSCULAR HGB CONC 30.9 g/dL (32.0-36.0); RED BLOOD CELL COUNT(AUTO) 2.48 MIL/uL (4.00-5.50); RED CELL DISTRIBUTION WIDTH 17.4 % (11.0-15.5)
[2021-11-01 06:40] LABS: CREATININE 0.4 mg/dL (0.5-1.5); MAGNESIUM 1.7 mg/dL (1.80-2.40); POTASSIUM 4.3 mmol/L (3.5-5.1)
[2021-11-01 07:05] VITALS: BP 136/69
[2021-11-01] MEDS: FLUCONAZOLE 200 MG/NS 100 ML 100 ML IV SCH (09:09)
[2021-11-01] MEDS: PANTOPRAZOLE 40 MG/VIAL IV SCH ×2 (09:09→21:50)
[2021-11-01 12:00] VITALS: BP 99/43
[2021-11-01] MEDS ORDERED: FUROSEMIDE 40MG VIAL IV SCH (12:00)
[2021-11-01] MEDS: MAGNESIUM 2GM PREMIX 50ML 50 ML IV SCH ×2 (13:04→21:51)
[2021-11-01] MEDS: IPRATROPIUM 0.5 MG/2.5 ML INH IH PRN ×3 (13:56→23:08)
[2021-11-01 15:15] VITALS: BP 123/67
[2021-11-01] MEDS ORDERED: M.V.I. IV [ADULT] 10 ML, MULTITRACE-4 ADULT 10ML VIAL 3 ML in CLINIMIX-E 5%AA /D15%W 2... IV SCH (17:30)
[2021-11-01] MEDS: ACETYLCYSTEINE 10% 100MG/ML 4ML VIAL IH SCH ×2 (18:47→23:08)
[2021-11-01 20:26] VITALS: BP 116/64
[2021-11-02 00:02] VITALS: BP 114/66
[2021-11-02] MEDS: INSULIN HUMULIN R 100 UNIT/ML 3ML SQ SCH ×4 (02:09→18:19)
[2021-11-02 04:51] VITALS: BP 126/66
[2021-11-02 05:44] LABS: CREATININE 0.4 mg/dL (0.5-1.5); MAGNESIUM 2.4 mg/dL (1.80-2.40); POTASSIUM 3.6 mmol/L (3.5-5.1)
[2021-11-02] MEDS: OCTREOTIDE ACETATE 100 MCG/ML AMP SQ SCH ×3 (05:45→22:43)
[2021-11-02] MEDS: ZOSYN 3.375GM+NS 50ML 50 ML IV SCH ×3 (05:46→22:33)
[2021-11-02] MEDS: ACETYLCYSTEINE 10% 100MG/ML 4ML VIAL IH SCH ×4 (06:11→23:16)
[2021-11-02] MEDS: IPRATROPIUM 0.5 MG/2.5 ML INH IH PRN ×4 (06:12→23:16)
[2021-11-02 08:00] VITALS: BP 111/57
[2021-11-02] MEDS: PANTOPRAZOLE 40 MG/VIAL IV SCH ×2 (08:19→22:33)
[2021-11-02] MEDS: FLUCONAZOLE 200 MG/NS 100 ML 100 ML IV SCH (08:19)
[2021-11-02 12:00] VITALS: BP 107/47
[2021-11-02] MEDS: FUROSEMIDE 20MG VIAL IV SCH ×2 (12:34→22:41)
[2021-11-02] MEDS: POTASSIUM CHLORIDE 20MEQ/100ML 100 ML IV PRN (12:44)
[2021-11-02 15:01] LABS: CHOLESTEROL 132 mg/dL (<200); HDL CHOLESTEROL 8 mg/dL (35-85); LDL DIRECT 54 mg/dL (0-99); TRIGLYCERIDES 324 mg/dL (30-200)
[2021-11-02 16:00] VITALS: BP 124/54
[2021-11-02] MEDS ORDERED: M.V.I. IV [ADULT] 10 ML, MULTITRACE-4 ADULT 10ML VIAL 3 ML in CLINIMIX-E 5%AA /D15%W 2... IV SCH (19:00)
[2021-11-02 20:00] VITALS: BP 127/75
[2021-11-03 00:15] VITALS: BP 119/60
[2021-11-03] MEDS: BALSAM PERU/CASTOR OIL 60 GM TUBE TP SCH (00:30)
[2021-11-03 04:09] VITALS: BP 116/67
[2021-11-03 05:15] LABS: CREATININE 0.5 mg/dL (0.5-1.5); MAGNESIUM 1.6 mg/dL (1.80-2.40); POTASSIUM 4.5 mmol/L (3.5-5.1)
[2021-11-03 05:27] LABS: HEMATOCRIT 30.5 % (36-48); MEAN CORPUSCULAR HEMOGLOBIN 29.5 pg (27.0-33.0); MEAN CORPUSCULAR HGB CONC 31.5 g/dL (32.0-36.0); MEAN CORPUSCULAR VOLUME 93.8 fL (79-99); RED BLOOD CELL COUNT(AUTO) 3.25 MIL/uL (4.00-5.50); RED CELL DISTRIBUTION WIDTH 17.3 % (11.0-15.5); WHITE BLOOD COUNT (AUTO) 6.9 K/uL (4.8-10.8)
[2021-11-03] MEDS: ACETYLCYSTEINE 10% 100MG/ML 4ML VIAL IH SCH ×4 (06:16→23:20)
[2021-11-03] MEDS: IPRATROPIUM 0.5 MG/2.5 ML INH IH PRN ×4 (06:17→23:20)
[2021-11-03] MEDS: ZOSYN 3.375GM+NS 50ML 50 ML IV SCH ×3 (06:33→20:07)
[2021-11-03] MEDS: OCTREOTIDE ACETATE 100 MCG/ML AMP SQ SCH ×3 (06:36→20:07)
[2021-11-03] MEDS: INSULIN HUMULIN R 100 UNIT/ML 3ML SQ SCH ×4 (06:36→18:37)
[2021-11-03 08:00] VITALS: BP 132/77
[2021-11-03] MEDS: FLUCONAZOLE 200 MG/NS 100 ML 100 ML IV SCH (09:29)
[2021-11-03] MEDS: PANTOPRAZOLE 40 MG/VIAL IV SCH ×2 (09:30→20:07)
[2021-11-03] MEDS: FAT EMULSIONS 20% 250ML 250 ML IV SCH (11:31)
[2021-11-03] MEDS: FUROSEMIDE 20MG VIAL IV SCH ×2 (11:32→23:32)
[2021-11-03] MEDS: MAGNESIUM 2GM PREMIX 50ML 50 ML IV SCH (11:40)
[2021-11-03 11:46] VITALS: BP 135/72
[2021-11-03] MEDS: HYDROMORPHONE 0.5 MG SYG (0.5MG/0.5ML) IVP PRN (14:43)
[2021-11-03 16:00] VITALS: BP 113/64
[2021-11-03 20:30] VITALS: BP 111/61
[2021-11-04 00:14] VITALS: BP 122/56
[2021-11-04] MEDS: INSULIN HUMULIN R 100 UNIT/ML 3ML SQ SCH ×4 (00:43→18:29)
[2021-11-04 04:52] VITALS: BP 116/55
[2021-11-04] MEDS: OCTREOTIDE ACETATE 100 MCG/ML AMP SQ SCH ×3 (05:38→21:24)
[2021-11-04] MEDS: ZOSYN 3.375GM+NS 50ML 50 ML IV SCH ×2 (05:38→14:00)
[2021-11-04] MEDS: IPRATROPIUM 0.5 MG/2.5 ML INH IH PRN ×2 (06:44→11:38)
[2021-11-04] MEDS: ACETYLCYSTEINE 10% 100MG/ML 4ML VIAL IH SCH ×2 (06:44→11:38)
[2021-11-04 08:00] VITALS: BP 144/72
[2021-11-04] MEDS: FLUCONAZOLE 200 MG/NS 100 ML 100 ML IV SCH (08:07)
[2021-11-04] MEDS: PANTOPRAZOLE 40 MG/VIAL IV SCH ×2 (08:07→21:20)
[2021-11-04] MEDS: HYDROMORPHONE 0.5 MG SYG (0.5MG/0.5ML) IVP PRN (08:08)
[2021-11-04] MEDS ORDERED: CLINIMIX-E 5%AA /D15%W 2000ML 2,000 ML IV NR (09:00)
[2021-11-04] MEDS: METOPROLOL TARTRATE 1 MG/ML 5ML VIAL IV SCH ×3 (09:19→19:55)
[2021-11-04] MEDS ORDERED: METOPROLOL TARTRATE 1 MG/ML 5ML VIAL IV PRN (09:30)
[2021-11-04] MEDS ORDERED: METOPROLOL TARTRATE 1 MG/ML 5ML VIAL IV ONE (09:30)
[2021-11-04] MEDS ORDERED: DILTIAZEM 25MG INJ IVP SCH ×2 (10:00→10:02)
[2021-11-04] MEDS ORDERED: DILTIAZEM 125 MG/25 ML INJ 125 MG in 0.9%NACL 100ML 100 ML IV SCH (10:00)
[2021-11-04] MEDS ORDERED: FAT EMULSIONS 20% 250ML 250 ML IV SCH (10:00)
[2021-11-04 10:04] LABS: HEMATOCRIT 29.2 % (36-48); MEAN CORPUSCULAR HEMOGLOBIN 29.7 pg (27.0-33.0); MEAN CORPUSCULAR HGB CONC 32.2 g/dL (32.0-36.0); MEAN CORPUSCULAR VOLUME 92.4 fL (79-99); RED BLOOD CELL COUNT(AUTO) 3.16 MIL/uL (4.00-5.50); RED CELL DISTRIBUTION WIDTH 17.3 % (11.0-15.5); WHITE BLOOD COUNT (AUTO) 7.3 K/uL (4.8-10.8)
[2021-11-04 10:27] LABS: CREATININE 0.4 mg/dL (0.5-1.5); MAGNESIUM 1.7 mg/dL (1.80-2.40); POTASSIUM 3.6 mmol/L (3.5-5.1); THYROID STIMULATING HORMONE 2.82 uIU/mL (0.36-3.74)
[2021-11-04 10:30] VITALS: BP 99/59
[2021-11-04] MEDS ORDERED: M.V.I. IV [ADULT] 10 ML, MULTITRACE-4 ADULT 10ML VIAL 3 ML in CLINIMIX-E 5%AA /D15%W 2... IV NR (10:30)
[2021-11-04] MEDS: FUROSEMIDE 20MG VIAL IV SCH ×2 (11:27→22:46)
[2021-11-04] MEDS: ENOXAPARIN SODIUM 60 MG/0.6 ML SQ SCH ×2 (12:28→21:21)
[2021-11-04 16:00] VITALS: BP 84/50
[2021-11-04 20:44] VITALS: BP 91/48
[2021-11-04] MEDS: POTASSIUM CHLORIDE 20MEQ/100ML 100 ML IV PRN (22:47)
[2021-11-05] VITALS (7 sets, daily range): BP systolic 99–120; BP diastolic 47–63
[2021-11-05] MEDS: INSULIN HUMULIN R 100 UNIT/ML 3ML SQ SCH ×5 (00:23→23:33)
[2021-11-05] MEDS: METOPROLOL TARTRATE 1 MG/ML 5ML VIAL IV SCH ×4 (03:07→21:00)
[2021-11-05] MEDS: OCTREOTIDE ACETATE 100 MCG/ML AMP SQ SCH ×3 (06:59→23:07)
[2021-11-05] MEDS: ENOXAPARIN SODIUM 60 MG/0.6 ML SQ SCH ×2 (07:57→20:59)
[2021-11-05] MEDS: FLUCONAZOLE 200 MG/NS 100 ML 100 ML IV SCH (07:58)
[2021-11-05] MEDS: PANTOPRAZOLE 40 MG/VIAL IV SCH ×2 (07:58→20:55)
[2021-11-05] MEDS: FAT EMULSIONS 20% 250ML 250 ML IV SCH (09:46)
[2021-11-05] MEDS ORDERED: ALTEPLASE 2MG VIAL 2 MG/VIAL VIAL IVCATH ONE ×3 (11:00→23:30)
[2021-11-05] MEDS: FUROSEMIDE 20MG VIAL IV SCH ×2 (11:29→23:22)
[2021-11-05] MEDS ORDERED: IOHEXOL 350 MG/ML 100ML INFUS..BTL IV ONE (18:03)
[2021-11-05] MEDS ORDERED: MULTITRACE IV ONE (21:00)
[2021-11-05] MEDS ORDERED: [UNRECOGNIZED DRUG - OTHER] IV ONE (21:00)
[2021-11-05] MEDS ORDERED: CLINIMIX E IV ONE (21:00)
[2021-11-06] MEDS: ACETAMINOPHEN 650 MG SUPPOSITORY RC PRN (02:43)
[2021-11-06 04:00] VITALS: BP 93/53
[2021-11-06] MEDS: METOPROLOL TARTRATE 1 MG/ML 5ML VIAL IV SCH ×4 (04:06→20:38)
[2021-11-06 04:51] LABS: HEMATOCRIT 26.9 % (36-48); MEAN CORPUSCULAR HEMOGLOBIN 28.9 pg (27.0-33.0); MEAN CORPUSCULAR HGB CONC 31.2 g/dL (32.0-36.0); MEAN CORPUSCULAR VOLUME 92.4 fL (79-99); NUCLEATED RED BLOOD CELLS 0.5 % (0.0-0.19); PLATELET COUNT (AUTO) 190 K/uL (130-400); RED BLOOD CELL COUNT(AUTO) 2.91 MIL/uL (4.00-5.50); RED CELL DISTRIBUTION WIDTH 17.1 % (11.0-15.5); WHITE BLOOD COUNT (AUTO) 5.6 K/uL (4.8-10.8)
[2021-11-06] MEDS: ZOSYN 3.375GM +NS 50ML IV SCH ×3 (04:51→20:34)
[2021-11-06 05:08] LABS: CREATININE 0.5 mg/dL (0.5-1.5); MAGNESIUM 1.6 mg/dL (1.80-2.40); POTASSIUM 3.7 mmol/L (3.5-5.1)
[2021-11-06 05:14] VITALS: BP 105/64
[2021-11-06 05:34] LABS: LYMPHOCYTES % (MANUAL) 11 % (22-44); MAN.DIFF COMMENT-IMPRESSION MANUAL DIFFERENTIAL; SEGMENTED NEUTROPHILS % 89 % (40-70)
[2021-11-06 05:35] LABS: PLATELET MORPHOLOGY COMMENT ADEQUATE
[2021-11-06] MEDS: OCTREOTIDE ACETATE 100 MCG/ML AMP SQ SCH ×3 (05:38→21:21)
[2021-11-06] MEDS: INSULIN HUMULIN R 100 UNIT/ML 3ML SQ SCH ×3 (05:38→16:48)
[2021-11-06] MEDS: POTASSIUM CHLORIDE 20MEQ/100ML 100 ML IV PRN (05:39)
[2021-11-06] MEDS: MAGNESIUM 2GM PREMIX 50ML 50 ML IV SCH (05:40)
[2021-11-06] MEDS: HYDROMORPHONE 0.5 MG SYG (0.5MG/0.5ML) IVP PRN (05:49)
[2021-11-06] MEDS ORDERED: METOPROLOL TARTRATE 1 MG/ML 5ML VIAL IV PRN (07:30)
[2021-11-06] MEDS: FLUCONAZOLE 200 MG/NS 100 ML 100 ML IV SCH (09:09)
[2021-11-06] MEDS: ENOXAPARIN SODIUM 60 MG/0.6 ML SQ SCH ×2 (09:10→20:34)
[2021-11-06] MEDS: PANTOPRAZOLE 40 MG/VIAL IV SCH ×2 (09:10→20:34)
[2021-11-06 11:43] VITALS: BP 111/63
[2021-11-06] MEDS: FUROSEMIDE 20MG VIAL IV SCH ×2 (12:13→23:42)
[2021-11-06 16:01] VITALS: BP 101/65
[2021-11-06 19:35] VITALS: BP 122/62
[2021-11-07] VITALS (7 sets, daily range): BP systolic 91–135; BP diastolic 50–68
[2021-11-07] MEDS: INSULIN HUMULIN R 100 UNIT/ML 3ML SQ SCH ×4 (00:42→17:21)
[2021-11-07] MEDS: HYDROMORPHONE 0.5 MG SYG (0.5MG/0.5ML) IVP PRN ×2 (01:47→22:09)
[2021-11-07] MEDS: ZOSYN 3.375GM +NS 50ML IV SCH ×3 (03:19→22:07)
[2021-11-07] MEDS: METOPROLOL TARTRATE 1 MG/ML 5ML VIAL IV SCH ×4 (03:27→22:09)
[2021-11-07] MEDS: DEXTROSE 10%-WATER 1,000 ML IV PRN (03:42)
[2021-11-07 04:10] LABS: BASOPHILS % (AUTO) 0.5 % (0.0-5.0); EOSINOPHILS % (AUTO) 0.7 % (0.0-8.0); HEMATOCRIT 29.1 % (36-48); LYMPHOCYTES % (AUTO) 11.5 % (21.0-51.0); MEAN CORPUSCULAR HEMOGLOBIN 28.5 pg (27.0-33.0); MEAN CORPUSCULAR HGB CONC 30.2 g/dL (32.0-36.0); MEAN CORPUSCULAR VOLUME 94.2 fL (79-99); MONOCYTES % (AUTO) 6.2 % (3.0-13.0); NEUTROPHILS % (AUTO) 76.4 % (40.0-77.0); PLATELET COUNT (AUTO) 184 K/uL (130-400); RED BLOOD CELL COUNT(AUTO) 3.09 MIL/uL (4.00-5.50); RED CELL DISTRIBUTION WIDTH 17.4 % (11.0-15.5)
[2021-11-07 04:18] LABS: CREATININE 0.6 mg/dL (0.5-1.5); POTASSIUM 3.9 mmol/L (3.5-5.1)
[2021-11-07] MEDS: OCTREOTIDE ACETATE 100 MCG/ML AMP SQ SCH ×3 (06:15→22:09)
[2021-11-07] MEDS: FLUCONAZOLE 200 MG/NS 100 ML 100 ML IV SCH (08:08)
[2021-11-07] MEDS: PANTOPRAZOLE 40 MG/VIAL IV SCH ×2 (08:09→22:07)
[2021-11-07] MEDS: ENOXAPARIN SODIUM 60 MG/0.6 ML SQ SCH ×2 (08:10→21:00)
[2021-11-07] MEDS ORDERED: M.V.I. IV [ADULT] 10 ML, MULTITRACE-4 ADULT 10ML VIAL 3 ML in CLINIMIX-E 5%AA /D15%W 2... IV NR (09:00)
[2021-11-07] MEDS ORDERED: PHARMACY COMMUNICATION MISC SCH (09:45)
[2021-11-07] MEDS: M.V.I. IV [ADULT] 10 ML, MULTITRACE-4 ADULT 10ML VIAL 3 ML in CLINIMIX-E4.25%AA/D5+LYT2... IV SCH (12:16)
[2021-11-07] MEDS: FUROSEMIDE 20MG VIAL IV SCH ×2 (12:16→23:30)
[2021-11-08] MEDS: INSULIN HUMULIN R 100 UNIT/ML 3ML SQ SCH ×4 (01:49→17:20)
[2021-11-08 04:19] LABS: BASOPHILS % (AUTO) 0.4 % (0.0-5.0); EOSINOPHILS % (AUTO) 0.5 % (0.0-8.0); HEMATOCRIT 24.5 % (36-48); MEAN CORPUSCULAR HEMOGLOBIN 28.8 pg (27.0-33.0); MEAN CORPUSCULAR VOLUME 92.8 fL (79-99); MONOCYTES % (AUTO) 5.8 % (3.0-13.0); NEUTROPHILS % (AUTO) 80.6 % (40.0-77.0); PLATELET COUNT (AUTO) 192 K/uL (130-400); RED BLOOD CELL COUNT(AUTO) 2.64 MIL/uL (4.00-5.50); RED CELL DISTRIBUTION WIDTH 16.8 % (11.0-15.5); WHITE BLOOD COUNT (AUTO) 7.6 K/uL (4.8-10.8)
[2021-11-08 04:39] LABS: CREATININE 0.5 mg/dL (0.5-1.5); POTASSIUM 4.4 mmol/L (3.5-5.1)
[2021-11-08 04:40] VITALS: BP 134/72
[2021-11-08] MEDS: OCTREOTIDE ACETATE 100 MCG/ML AMP SQ SCH ×3 (05:14→21:15)
[2021-11-08] MEDS: ZOSYN 3.375GM +NS 50ML IV SCH ×3 (05:15→21:15)
[2021-11-08] MEDS: METOPROLOL TARTRATE 1 MG/ML 5ML VIAL IV SCH ×4 (05:15→21:15)
[2021-11-08 06:38] VITALS: BP 115/68
[2021-11-08] MEDS: FLUCONAZOLE 200 MG/NS 100 ML 100 ML IV SCH (09:59)
[2021-11-08] MEDS: FAT EMULSIONS 20% 250ML 250 ML IV SCH (09:59)
[2021-11-08] MEDS: PANTOPRAZOLE 40 MG/VIAL IV SCH ×2 (09:59→21:15)
[2021-11-08] MEDS ORDERED: PHARMACY COMMUNICATION MISC SCH (11:30)
[2021-11-08 12:05] VITALS: BP 109/62
[2021-11-08] MEDS: FUROSEMIDE 20MG VIAL IV SCH (12:17)
[2021-11-08] MEDS: MICAFUNGIN 100MG+NS 100ML 100 ML IV SCH (12:22)
[2021-11-08] MEDS: M.V.I. IV [ADULT] 10 ML, MULTITRACE-4 ADULT 10ML VIAL 3 ML in CLINIMIX-E4.25%AA/D5+LYT2... IV SCH (12:23)
[2021-11-08 15:52] VITALS: BP 108/53
[2021-11-08 19:56] VITALS: BP 100/53
[2021-11-08] MEDS: ALPRAZOLAM 0.25 MG TABLET PO SCH (20:50)
[2021-11-08] MEDS: DULOXETINE HCL 30 MG CAP PO SCH (20:50)
[2021-11-08] MEDS ORDERED: 0.9%NACL 50ML 50 ML IV ONE (20:57)
[2021-11-08 23:54] VITALS: BP_DIAS 56
[2021-11-09] MEDS: INSULIN HUMULIN R 100 UNIT/ML 3ML SQ SCH ×4 (00:33→18:00)
[2021-11-09] MEDS: METOPROLOL TARTRATE 1 MG/ML 5ML VIAL IV SCH ×4 (03:29→20:34)
[2021-11-09 03:41] LABS: BASOPHILS % (AUTO) 0.3 % (0.0-5.0); EOSINOPHILS % (AUTO) 1.1 % (0.0-8.0); HEMATOCRIT 24.6 % (36-48); LYMPHOCYTES % (AUTO) 9.4 % (21.0-51.0); MEAN CORPUSCULAR HEMOGLOBIN 28.9 pg (27.0-33.0); MEAN CORPUSCULAR HGB CONC 31.3 g/dL (32.0-36.0); MEAN CORPUSCULAR VOLUME 92.5 fL (79-99); MONOCYTES % (AUTO) 5.1 % (3.0-13.0); NEUTROPHILS % (AUTO) 77.9 % (40.0-77.0); NUCLEATED RED BLOOD CELLS 0.2 % (0.0-0.19); PLATELET COUNT (AUTO) 235 K/uL (130-400); RED BLOOD CELL COUNT(AUTO) 2.66 MIL/uL (4.00-5.50); RED CELL DISTRIBUTION WIDTH 16.8 % (11.0-15.5); WHITE BLOOD COUNT (AUTO) 10.2 K/uL (4.8-10.8)
[2021-11-09 03:54] VITALS: BP 117/60
[2021-11-09 03:58] LABS: CREATININE 0.5 mg/dL (0.5-1.5); POTASSIUM 3.8 mmol/L (3.5-5.1)
[2021-11-09] MEDS: OCTREOTIDE ACETATE 100 MCG/ML AMP SQ SCH ×3 (05:26→20:33)
[2021-11-09] MEDS: ZOSYN 3.375GM +NS 50ML IV SCH ×3 (05:26→20:32)
[2021-11-09 08:34] VITALS: BP 113/61
[2021-11-09] MEDS: ALPRAZOLAM 0.25 MG TABLET PO SCH ×2 (09:00→20:24)
[2021-11-09] MEDS: FAT EMULSIONS 20% 250ML 250 ML IV SCH (10:00)
[2021-11-09] MEDS: PANTOPRAZOLE 40 MG/VIAL IV SCH ×2 (10:30→20:32)
[2021-11-09] MEDS: M.V.I. IV [ADULT] 10 ML, MULTITRACE-4 ADULT 10ML VIAL 3 ML in CLINIMIX-E4.25%AA/D5+LYT2... IV SCH (10:40)
[2021-11-09 12:02] VITALS: BP 104/57
[2021-11-09] MEDS: MICAFUNGIN 100MG+NS 100ML 100 ML IV SCH (12:04)
[2021-11-09] MEDS: FUROSEMIDE 20MG VIAL IV SCH ×3 (12:05→20:32)
[2021-11-09 12:51] LABS: CHOLESTEROL 141 mg/dL (<200); HDL CHOLESTEROL 8 mg/dL (35-85); LDL DIRECT 77 mg/dL (0-99); TRIGLYCERIDES 322 mg/dL (30-200)
[2021-11-09] MEDS: FLUCONAZOLE 400 MG/NS 200 ML 200 ML IV SCH (14:01)
[2021-11-09 16:00] VITALS: BP 86/46
[2021-11-09] MEDS ORDERED: 0.9%NACL 1000ML 1,000 ML IV ONE (17:11)
[2021-11-09] MEDS ORDERED: 0.9%NACL 1000ML 1,000 ML IV SCH (17:30)
[2021-11-09] MEDS ORDERED: 0.9%NACL 1000ML 500 ML IV SCH (17:45)
[2021-11-09 19:30] VITALS: BP 101/58
[2021-11-09] MEDS: DULOXETINE HCL 30 MG CAP PO SCH (20:33)
[2021-11-09 23:41] VITALS: BP 106/57
[2021-11-10] MEDS: DEXTROSE 10%-WATER 1,000 ML IV PRN (00:41)
[2021-11-10] MEDS: METOPROLOL TARTRATE 1 MG/ML 5ML VIAL IV SCH ×4 (03:30→21:10)
[2021-11-10 03:31] LABS: BASOPHILS % (AUTO) 0.2 % (0.0-5.0); EOSINOPHILS % (AUTO) 1.3 % (0.0-8.0); HEMATOCRIT 23.9 % (36-48); LYMPHOCYTES % (AUTO) 8.8 % (21.0-51.0); MEAN CORPUSCULAR HEMOGLOBIN 28.7 pg (27.0-33.0); MEAN CORPUSCULAR HGB CONC 30.5 g/dL (32.0-36.0); MEAN CORPUSCULAR VOLUME 94.1 fL (79-99); MONOCYTES % (AUTO) 5.7 % (3.0-13.0); NEUTROPHILS % (AUTO) 78.9 % (40.0-77.0); NUCLEATED RED BLOOD CELLS 0.2 % (0.0-0.19); PLATELET COUNT (AUTO) 248 K/uL (130-400); RED BLOOD CELL COUNT(AUTO) 2.54 MIL/uL (4.00-5.50); RED CELL DISTRIBUTION WIDTH 17.1 % (11.0-15.5); WHITE BLOOD COUNT (AUTO) 8.9 K/uL (4.8-10.8)
[2021-11-10 03:43] LABS: CREATININE 0.5 mg/dL (0.5-1.5); POTASSIUM 3.7 mmol/L (3.5-5.1)
[2021-11-10] MEDS: ZOSYN 3.375GM +NS 50ML IV SCH ×3 (03:49→21:08)
[2021-11-10 03:55] VITALS: BP 121/55
[2021-11-10] MEDS: INSULIN HUMULIN R 100 UNIT/ML 3ML SQ SCH ×4 (06:00→16:32)
[2021-11-10] MEDS: OCTREOTIDE ACETATE 100 MCG/ML AMP SQ SCH ×3 (06:13→21:11)
[2021-11-10 07:20] VITALS: BP 106/55
[2021-11-10] MEDS ORDERED: DIATR MEGLU/DIATRIZOATE SODIUM 30 ML BOTTLE ONE (07:56)
[2021-11-10] MEDS: FAT EMULSIONS 20% 250ML 250 ML IV SCH (08:41)
[2021-11-10] MEDS: ALPRAZOLAM 0.25 MG TABLET PO SCH ×2 (08:41→21:00)
[2021-11-10] MEDS: PANTOPRAZOLE 40 MG/VIAL IV SCH ×2 (08:45→21:11)
[2021-11-10 10:53] LABS: INR 0.94 (0.85-1.15); PROTHROMBIN TIME 10.3 SEC (9.6-11.6)
[2021-11-10] MEDS ORDERED: M.V.I. IV [ADULT] 10 ML, MULTITRACE-4 ADULT 10ML VIAL 3 ML in CLINIMIX-E 5%AA /D15%W 2... IV SCH (11:00)
[2021-11-10 11:05] VITALS: BP 118/65
[2021-11-10] MEDS: FUROSEMIDE 20MG VIAL IV SCH (11:27)
[2021-11-10] MEDS ORDERED: GLYCOPYRROLATE 1 MG/5 ML SYRINGE ONE (13:26)
[2021-11-10] MEDS ORDERED: DEXAMETHASONE SOD PHOSPHATE 10MG/ML 1ML VIAL ONE (13:26)
[2021-11-10] MEDS ORDERED: PROPOFOL 10 MG/ML 20ML VIAL IV ONE (13:26)
[2021-11-10] MEDS ORDERED: LIDOCAINE PF 100MG/5ML (2%) SYRINGE 5ML ONE (13:26)
[2021-11-10] MEDS ORDERED: SUCCINYLCHOLINE CHLORIDE 20 MG/ML 10 ML VIAL ONE (13:26)
[2021-11-10] MEDS ORDERED: MIDAZOLAM HCL 1 MG/ML 2ML VIAL ONE (13:27)
[2021-11-10] MEDS ORDERED: ROCURONIUM 10MG/1ML SYR 10 MG/ML ML ONE (13:27)
[2021-11-10] MEDS ORDERED: ONDANSETRON 4MG INJ ONE (13:27)
[2021-11-10] MEDS ORDERED: NEOSTIGMINE 5MG/5ML SYR IV ONE (13:27)
[2021-11-10] MEDS ORDERED: FENTANYL CITRATE PF 50 MCG/1 ML 2ML VIAL ONE (13:27)
[2021-11-10] MEDS: FLUCONAZOLE 400 MG/NS 200 ML 200 ML IV SCH (14:07)
[2021-11-10 16:00] VITALS: BP 110/53
[2021-11-10 19:28] VITALS: BP 88/44
[2021-11-10] MEDS: DULOXETINE HCL 30 MG CAP PO SCH (21:00)
[2021-11-10] MEDS ORDERED: M.V.I. IV [ADULT] 10 ML, MULTITRACE-4 ADULT 10ML VIAL 3 ML in CLINIMIX-E 5%AA /D15%W 2... IV ONE (22:00)
[2021-11-10] MEDS ORDERED: M.V.I. IV [ADULT] 10 ML, MULTITRACE-4 ADULT 10ML VIAL 3 ML in CLINIMIX-E4.25%AA/D5+LYT2... IV ONE (22:00)
[2021-11-10 23:43] VITALS: BP 123/69
[2021-11-11] MEDS: FUROSEMIDE 20MG VIAL IV SCH ×2 (00:15→12:08)
[2021-11-11] MEDS: INSULIN HUMULIN R 100 UNIT/ML 3ML SQ SCH ×4 (00:38→17:57)
[2021-11-11 03:55] LABS: ALBUMIN 1.2 g/dL (3.5-5.0); CREATININE 0.5 mg/dL (0.5-1.5); POTASSIUM 3.9 mmol/L (3.5-5.1)
[2021-11-11 04:03] VITALS: BP 118/58
[2021-11-11] MEDS: METOPROLOL TARTRATE 1 MG/ML 5ML VIAL IV SCH ×4 (04:42→21:54)
[2021-11-11] MEDS: ZOSYN 3.375GM +NS 50ML IV SCH ×3 (04:42→20:57)
[2021-11-11] MEDS: OCTREOTIDE ACETATE 100 MCG/ML AMP SQ SCH ×3 (04:59→21:55)
[2021-11-11 06:25] LABS: BASOPHILS % (AUTO) 0.5 % (0.0-5.0); EOSINOPHILS % (AUTO) 1.3 % (0.0-8.0); LYMPHOCYTES % (AUTO) 9.3 % (21.0-51.0); MEAN CORPUSCULAR HEMOGLOBIN 28.7 pg (27.0-33.0); MEAN CORPUSCULAR HGB CONC 30.4 g/dL (32.0-36.0); MEAN CORPUSCULAR VOLUME 94.5 fL (79-99); MONOCYTES % (AUTO) 6.2 % (3.0-13.0); NEUTROPHILS % (AUTO) 77.1 % (40.0-77.0); NUCLEATED RED BLOOD CELLS 0.3 % (0.0-0.19); PLATELET COUNT (AUTO) 315 K/uL (130-400); RED BLOOD CELL COUNT(AUTO) 2.75 MIL/uL (4.00-5.50); RED CELL DISTRIBUTION WIDTH 17.5 % (11.0-15.5); WHITE BLOOD COUNT (AUTO) 10.6 K/uL (4.8-10.8)
[2021-11-11 07:06] VITALS: BP 120/64
[2021-11-11] MEDS: PANTOPRAZOLE 40 MG/VIAL IV SCH ×2 (07:42→21:03)
[2021-11-11] MEDS: ALPRAZOLAM 0.25 MG TABLET PO SCH ×2 (08:47→20:54)
[2021-11-11] MEDS: FAT EMULSIONS 20% 250ML 250 ML IV SCH (10:26)
[2021-11-11 11:29] VITALS: BP 121/54
[2021-11-11] MEDS: FLUCONAZOLE 400 MG/NS 200 ML 200 ML IV SCH (14:09)
[2021-11-11 15:27] VITALS: BP 135/79
[2021-11-11 19:43] VITALS: BP 112/72
[2021-11-11] MEDS ORDERED: M.V.I. IV [ADULT] 10 ML in CLINIMIX-E4.25%AA/D5+LYT2000ML 2,000 ML IV SCH (20:00)
[2021-11-11] MEDS: DULOXETINE HCL 30 MG CAP PO SCH (20:54)
[2021-11-12] VITALS (8 sets, daily range): BP systolic 110–137; BP diastolic 55–75
[2021-11-12] MEDS: FUROSEMIDE 20MG VIAL IV SCH ×2 (00:29→11:47)
[2021-11-12] MEDS: INSULIN HUMULIN R 100 UNIT/ML 3ML SQ SCH ×4 (01:53→17:21)
[2021-11-12 04:02] LABS: BASOPHILS % (AUTO) 0.5 % (0.0-5.0); EOSINOPHILS % (AUTO) 1.8 % (0.0-8.0); LYMPHOCYTES % (AUTO) 11.3 % (21.0-51.0); MEAN CORPUSCULAR HEMOGLOBIN 28.8 pg (27.0-33.0); MEAN CORPUSCULAR HGB CONC 30.8 g/dL (32.0-36.0); MEAN CORPUSCULAR VOLUME 93.6 fL (79-99); MONOCYTES % (AUTO) 5.8 % (3.0-13.0); NEUTROPHILS % (AUTO) 74.1 % (40.0-77.0); NUCLEATED RED BLOOD CELLS 0.3 % (0.0-0.19); PLATELET COUNT (AUTO) 317 K/uL (130-400); RED BLOOD CELL COUNT(AUTO) 2.67 MIL/uL (4.00-5.50); RED CELL DISTRIBUTION WIDTH 17.6 % (11.0-15.5); WHITE BLOOD COUNT (AUTO) 10.1 K/uL (4.8-10.8)
[2021-11-12 04:17] LABS: ALBUMIN 1.2 g/dL (3.5-5.0); CREATININE 0.6 mg/dL (0.5-1.5); POTASSIUM 3.2 mmol/L (3.5-5.1); TOTAL PROTEIN, SERUM 5.7 g/dL (6.0-8.3)
[2021-11-12] MEDS: ZOSYN 3.375GM +NS 50ML IV SCH ×3 (04:29→20:55)
[2021-11-12] MEDS: METOPROLOL TARTRATE 1 MG/ML 5ML VIAL IV SCH ×4 (04:35→21:05)
[2021-11-12] MEDS: POTASSIUM CHLORIDE 20MEQ/100ML 100 ML IV PRN (04:44)
[2021-11-12] MEDS: OCTREOTIDE ACETATE 100 MCG/ML AMP SQ SCH ×3 (06:01→21:04)
[2021-11-12] MEDS: PANTOPRAZOLE 40 MG/VIAL IV SCH ×2 (08:32→20:55)
[2021-11-12] MEDS: ALPRAZOLAM 0.25 MG TABLET PO SCH ×2 (08:38→20:56)
[2021-11-12] MEDS: BALSAM PERU/CASTOR OIL 60 GM TUBE TP SCH (12:10)
[2021-11-12] MEDS: FLUCONAZOLE 400 MG/NS 200 ML 200 ML IV SCH (14:21)
[2021-11-12] MEDS ORDERED: IOHEXOL 350 MG/ML 100ML INFUS..BTL IV ONE (17:28)
[2021-11-12] MEDS: DULOXETINE HCL 30 MG CAP PO SCH (20:56)
[2021-11-12] MEDS: ACETAMINOPHEN 650 MG SUPPOSITORY RC PRN (20:57)
[2021-11-13] VITALS (24 sets, daily range): BP systolic 90–143; BP diastolic 33–75
[2021-11-13] MEDS: FUROSEMIDE 20MG VIAL IV SCH ×2 (01:12→14:45)
[2021-11-13] MEDS: INSULIN HUMULIN R 100 UNIT/ML 3ML SQ SCH ×4 (01:16→18:00)
[2021-11-13] MEDS: ZOSYN 3.375GM +NS 50ML IV SCH ×3 (03:30→21:30)
[2021-11-13] MEDS: METOPROLOL TARTRATE 1 MG/ML 5ML VIAL IV SCH ×4 (03:40→21:51)
[2021-11-13 03:49] LABS: BASOPHILS % (AUTO) 0.4 % (0.0-5.0); EOSINOPHILS % (AUTO) 2.4 % (0.0-8.0); LYMPHOCYTES % (AUTO) 9.7 % (21.0-51.0); MEAN CORPUSCULAR HGB CONC 31.2 g/dL (32.0-36.0); MEAN CORPUSCULAR VOLUME 92.9 fL (79-99); NEUTROPHILS % (AUTO) 76.1 % (40.0-77.0); PLATELET COUNT (AUTO) 331 K/uL (130-400); RED BLOOD CELL COUNT(AUTO) 2.69 MIL/uL (4.00-5.50); RED CELL DISTRIBUTION WIDTH 17.6 % (11.0-15.5); WHITE BLOOD COUNT (AUTO) 9.7 K/uL (4.8-10.8)
[2021-11-13 04:02] LABS: ALBUMIN 1.2 g/dL (3.5-5.0); CREATININE 0.5 mg/dL (0.5-1.5); POTASSIUM 3.3 mmol/L (3.5-5.1); TOTAL PROTEIN, SERUM 5.6 g/dL (6.0-8.3)
[2021-11-13] MEDS: OCTREOTIDE ACETATE 100 MCG/ML AMP SQ SCH ×3 (06:16→21:37)
[2021-11-13] MEDS: POTASSIUM CHLORIDE 20MEQ/100ML 100 ML IV PRN ×2 (06:16→08:40)
[2021-11-13] MEDS: ALPRAZOLAM 0.25 MG TABLET PO SCH ×2 (08:39→21:30)
[2021-11-13] MEDS: PANTOPRAZOLE 40 MG/VIAL IV SCH ×2 (08:39→21:30)
[2021-11-13] MEDS ORDERED: KETAMINE 50MG/ML SYRINGE 50 MG/ML DISP.SYRIN IV ONE (10:26)
[2021-11-13] MEDS ORDERED: PROPOFOL 10 MG/ML 20ML VIAL IV ONE (10:27)
[2021-11-13] MEDS ORDERED: ROCURONIUM 10MG/1ML SYR 10 MG/ML ML ONE (10:36)
[2021-11-13] MEDS ORDERED: BUPIVACAINE/PF 0.25% 30ML VIAL IJ ONE (11:13)
[2021-11-13] MEDS ORDERED: M.V.I. IV [ADULT] 10 ML in CLINIMIX-E4.25%AA/D5+LYT2000ML 2,000 ML IV SCH (14:00)
[2021-11-13] MEDS: FLUCONAZOLE 400 MG/NS 200 ML 200 ML IV SCH (14:46)
[2021-11-13] MEDS: DULOXETINE HCL 30 MG CAP PO SCH (21:00)
[2021-11-14] MEDS: FUROSEMIDE 20MG VIAL IV SCH ×3 (00:05→22:21)
[2021-11-14 00:11] VITALS: BP 106/55
[2021-11-14] MEDS: INSULIN HUMULIN R 100 UNIT/ML 3ML SQ SCH ×5 (00:47→23:47)
[2021-11-14] MEDS: METOPROLOL TARTRATE 1 MG/ML 5ML VIAL IV SCH ×4 (03:44→22:20)
[2021-11-14] MEDS: ZOSYN 3.375GM +NS 50ML IV SCH (03:44)
[2021-11-14 03:46] VITALS: BP 113/64
[2021-11-14 03:47] LABS: HEMATOCRIT 31.1 % (36-48); MEAN CORPUSCULAR HEMOGLOBIN 28.9 pg (27.0-33.0); MEAN CORPUSCULAR HGB CONC 31.5 g/dL (32.0-36.0); MEAN CORPUSCULAR VOLUME 91.7 fL (79-99); RED BLOOD CELL COUNT(AUTO) 3.39 MIL/uL (4.00-5.50); RED CELL DISTRIBUTION WIDTH 17.9 % (11.0-15.5); WHITE BLOOD COUNT (AUTO) 11.7 K/uL (4.8-10.8)
[2021-11-14 04:00] LABS: ALBUMIN 1.2 g/dL (3.5-5.0); CREATININE 0.5 mg/dL (0.5-1.5); PHOSPHORUS 3.4 mg/dL (2.5-4.9); POTASSIUM 3.4 mmol/L (3.5-5.1); TOTAL PROTEIN, SERUM 5.8 g/dL (6.0-8.3)
[2021-11-14] MEDS: OCTREOTIDE ACETATE 100 MCG/ML AMP SQ SCH ×3 (05:15→22:13)
[2021-11-14] MEDS: POTASSIUM CHLORIDE 20MEQ/100ML 100 ML IV PRN ×2 (06:29→09:19)
[2021-11-14 08:00] VITALS: BP 108/59
[2021-11-14] MEDS: PANTOPRAZOLE 40 MG/VIAL IV SCH ×2 (09:18→22:12)
[2021-11-14] MEDS: LEVOFLOXACIN 500 MG/D5W 100 ML 100 ML IV SCH (09:18)
[2021-11-14] MEDS: ALPRAZOLAM 0.25 MG TABLET PO SCH ×2 (09:18→22:12)
[2021-11-14 12:00] VITALS: BP 110/68
[2021-11-14] MEDS: FLUCONAZOLE 400 MG/NS 200 ML 200 ML IV SCH (14:03)
[2021-11-14 16:00] VITALS: BP 108/61
[2021-11-14] MEDS ORDERED: M.V.I. IV [ADULT] 10 ML in CLINIMIX-E4.25%AA/D5+LYT2000ML 2,000 ML IV SCH (16:00)
[2021-11-14 19:00] VITALS: BP 96/52
[2021-11-14] MEDS: DULOXETINE HCL 30 MG CAP PO SCH (21:00)
[2021-11-15] VITALS: BP 129/70
[2021-11-15 03:00] VITALS: BP 120/72
[2021-11-15] MEDS: METOPROLOL TARTRATE 1 MG/ML 5ML VIAL IV SCH ×4 (03:35→21:30)
[2021-11-15] MEDS: INSULIN HUMULIN R 100 UNIT/ML 3ML SQ SCH ×4 (05:58→23:45)
[2021-11-15] MEDS: OCTREOTIDE ACETATE 100 MCG/ML AMP SQ SCH ×3 (06:38→21:23)
[2021-11-15 07:00] VITALS: BP 124/65
[2021-11-15 07:47] LABS: HEMATOCRIT 30.7 % (36-48); MEAN CORPUSCULAR HGB CONC 32.2 g/dL (32.0-36.0); RED BLOOD CELL COUNT(AUTO) 3.41 MIL/uL (4.00-5.50); RED CELL DISTRIBUTION WIDTH 17.2 % (11.0-15.5); WHITE BLOOD COUNT (AUTO) 11.3 K/uL (4.8-10.8)
[2021-11-15 08:03] LABS: ALBUMIN 1.3 g/dL (3.5-5.0); CREATININE 0.5 mg/dL (0.5-1.5); MAGNESIUM 1.7 mg/dL (1.80-2.40); POTASSIUM 4.2 mmol/L (3.5-5.1); TOTAL PROTEIN, SERUM 5.8 g/dL (6.0-8.3)
[2021-11-15] MEDS: PANTOPRAZOLE 40 MG/VIAL IV SCH ×2 (09:25→21:22)
[2021-11-15] MEDS: ALPRAZOLAM 0.25 MG TABLET PO SCH ×2 (09:25→21:22)
[2021-11-15] MEDS: LEVOFLOXACIN 500 MG/D5W 100 ML 100 ML IV SCH (09:26)
[2021-11-15 11:00] VITALS: BP 130/77
[2021-11-15] MEDS ORDERED: VANCOMYCIN PROTOCOL PER PHARMACY IV SCH (13:00)
[2021-11-15] MEDS: FUROSEMIDE 20MG VIAL IV SCH ×2 (13:54→23:42)
[2021-11-15] MEDS: VANCOMYCIN 1G/250ML KIT 250 ML IV SCH (13:55)
[2021-11-15] MEDS: FLUCONAZOLE 400 MG/NS 200 ML 200 ML IV SCH (13:55)
[2021-11-15 16:00] VITALS: BP 112/67
[2021-11-15 19:00] VITALS: BP 119/73
[2021-11-15] MEDS ORDERED: CLINIMIX-E4.25%AA/D5+LYT2000ML 2,000 ML IV SCH (20:00)
[2021-11-15] MEDS: DULOXETINE HCL 30 MG CAP PO SCH (21:23)
[2021-11-16] VITALS (7 sets, daily range): BP systolic 117–147; BP diastolic 63–80
[2021-11-16] MEDS: VANCOMYCIN 1G/250ML KIT 250 ML IV SCH ×2 (01:08→13:59)
[2021-11-16] MEDS: METOPROLOL TARTRATE 1 MG/ML 5ML VIAL IV SCH ×4 (03:25→21:43)
[2021-11-16 04:24] LABS: BASOPHILS % (AUTO) 0.4 % (0.0-5.0); HEMATOCRIT 32.2 % (36-48); LYMPHOCYTES % (AUTO) 7.1 % (21.0-51.0); MEAN CORPUSCULAR HEMOGLOBIN 28.5 pg (27.0-33.0); MEAN CORPUSCULAR HGB CONC 31.4 g/dL (32.0-36.0); MEAN CORPUSCULAR VOLUME 90.7 fL (79-99); MONOCYTES % (AUTO) 4.4 % (3.0-13.0); PLATELET COUNT (AUTO) 353 K/uL (130-400); RED BLOOD CELL COUNT(AUTO) 3.55 MIL/uL (4.00-5.50); RED CELL DISTRIBUTION WIDTH 16.9 % (11.0-15.5); WHITE BLOOD COUNT (AUTO) 13.7 K/uL (4.8-10.8)
[2021-11-16 04:43] LABS: ALBUMIN 1.3 g/dL (3.5-5.0); CREATININE 0.5 mg/dL (0.5-1.5); TOTAL PROTEIN, SERUM 6.2 g/dL (6.0-8.3)
[2021-11-16] MEDS: OCTREOTIDE ACETATE 100 MCG/ML AMP SQ SCH ×3 (06:00→21:40)
[2021-11-16] MEDS: INSULIN HUMULIN R 100 UNIT/ML 3ML SQ SCH ×3 (06:41→17:33)
[2021-11-16] MEDS: ALPRAZOLAM 0.25 MG TABLET PO SCH ×2 (09:40→21:40)
[2021-11-16] MEDS: LEVOFLOXACIN 500 MG/D5W 100 ML 100 ML IV SCH (09:40)
[2021-11-16] MEDS: DULOXETINE HCL 30 MG CAP PO SCH ×2 (09:40→21:40)
[2021-11-16] MEDS: PANTOPRAZOLE 40 MG/VIAL IV SCH ×2 (09:40→21:40)
[2021-11-16] MEDS: FUROSEMIDE 20MG VIAL IV SCH (09:51)
[2021-11-16] MEDS ORDERED: FAT EMULSIONS 20% 250ML 250 ML IV SCH (10:00)
[2021-11-16] MEDS ORDERED: 0.9% NACL 250ML 250 ML ONE (13:58)
[2021-11-16] MEDS: FLUCONAZOLE 400 MG/NS 200 ML 200 ML IV SCH (14:01)
[2021-11-16 16:07] LABS: CHOLESTEROL 159 mg/dL (<200); HDL CHOLESTEROL 16 mg/dL (35-85); LDL DIRECT 92 mg/dL (0-99); TRIGLYCERIDES 297 mg/dL (30-200)
[2021-11-16] MEDS ORDERED: M.V.I. IV [ADULT] 10 ML in CLINIMIX-E4.25%AA/D5+LYT2000ML 2,000 ML IV SCH (18:00)
[2021-11-17] MEDS: VANCOMYCIN 1G/250ML KIT 250 ML IV SCH ×2 (00:33→13:00)
[2021-11-17] MEDS: BENZONATATE 100 MG CAPSULE PO PRN (00:33)
[2021-11-17] MEDS: INSULIN HUMULIN R 100 UNIT/ML 3ML SQ SCH ×4 (00:35→17:39)
[2021-11-17 03:31] VITALS: BP 123/65
[2021-11-17] MEDS: METOPROLOL TARTRATE 1 MG/ML 5ML VIAL IV SCH ×4 (03:31→21:19)
[2021-11-17 03:43] LABS: BASOPHILS % (AUTO) 0.4 % (0.0-5.0); EOSINOPHILS % (AUTO) 1.7 % (0.0-8.0); HEMATOCRIT 29.1 % (36-48); LYMPHOCYTES % (AUTO) 7.1 % (21.0-51.0); MEAN CORPUSCULAR HEMOGLOBIN 28.8 pg (27.0-33.0); MEAN CORPUSCULAR HGB CONC 32.3 g/dL (32.0-36.0); MEAN CORPUSCULAR VOLUME 89.3 fL (79-99); MONOCYTES % (AUTO) 5.5 % (3.0-13.0); NEUTROPHILS % (AUTO) 82.8 % (40.0-77.0); PLATELET COUNT (AUTO) 271 K/uL (130-400); RED BLOOD CELL COUNT(AUTO) 3.26 MIL/uL (4.00-5.50); RED CELL DISTRIBUTION WIDTH 16.3 % (11.0-15.5)
[2021-11-17 04:01] LABS: ALBUMIN 1.2 g/dL (3.5-5.0); CREATININE 0.4 mg/dL (0.5-1.5); MAGNESIUM 1.7 mg/dL (1.80-2.40); POTASSIUM 4.3 mmol/L (3.5-5.1); TOTAL PROTEIN, SERUM 5.8 g/dL (6.0-8.3)
[2021-11-17] MEDS: MAGNESIUM 2GM PREMIX 50ML 50 ML IV SCH (05:22)
[2021-11-17] MEDS: OCTREOTIDE ACETATE 100 MCG/ML AMP SQ SCH ×3 (06:00→21:19)
[2021-11-17 07:05] VITALS: BP 114/57
[2021-11-17] MEDS: LEVOFLOXACIN 500 MG/D5W 100 ML 100 ML IV SCH (08:20)
[2021-11-17] MEDS: PANTOPRAZOLE 40 MG/VIAL IV SCH ×2 (08:20→21:17)
[2021-11-17] MEDS: ALPRAZOLAM 0.25 MG TABLET PO SCH ×2 (08:21→21:17)
[2021-11-17] MEDS: DULOXETINE HCL 30 MG CAP PO SCH ×2 (08:21→21:18)
[2021-11-17 11:10] VITALS: BP 119/59
[2021-11-17] MEDS: FLUCONAZOLE 400 MG/NS 200 ML 200 ML IV SCH (14:50)
[2021-11-17 15:00] VITALS: BP 116/69
[2021-11-17] MEDS ORDERED: M.V.I. IV [ADULT] 10 ML, MULTITRACE-4 ADULT 10ML VIAL 3 ML in CLINIMIX-E4.25%AA/D5+LYT2... IV SCH (17:30)
[2021-11-17 18:45] VITALS: BP 129/62
[2021-11-17] MEDS ORDERED: 0.9%NACL 10ML VIAL ONE (19:41)
[2021-11-17 23:08] VITALS: BP 141/66
[2021-11-18] MEDS: VANCOMYCIN 1G/250ML KIT 250 ML IV SCH ×2 (00:20→11:54)
[2021-11-18] MEDS: INSULIN HUMULIN R 100 UNIT/ML 3ML SQ SCH ×4 (00:26→16:02)
[2021-11-18 02:58] VITALS: BP 130/76
[2021-11-18] MEDS: METOPROLOL TARTRATE 1 MG/ML 5ML VIAL IV SCH ×3 (03:08→14:22)
[2021-11-18 03:36] LABS: HEMATOCRIT 28.2 % (36-48); MEAN CORPUSCULAR HEMOGLOBIN 29.4 pg (27.0-33.0); MEAN CORPUSCULAR VOLUME 89.2 fL (79-99); RED BLOOD CELL COUNT(AUTO) 3.16 MIL/uL (4.00-5.50); RED CELL DISTRIBUTION WIDTH 16.1 % (11.0-15.5); WHITE BLOOD COUNT (AUTO) 13.1 K/uL (4.8-10.8)
[2021-11-18 03:43] LABS: CREATININE 0.5 mg/dL (0.5-1.5); PHOSPHORUS 4.3 mg/dL (2.5-4.9); POTASSIUM 4.8 mmol/L (3.5-5.1)
[2021-11-18 06:32] VITALS: BP 138/74
[2021-11-18] MEDS: OCTREOTIDE ACETATE 100 MCG/ML AMP SQ SCH ×3 (06:40→21:47)
[2021-11-18] MEDS: PANTOPRAZOLE 40 MG/VIAL IV SCH ×2 (08:21→20:41)
[2021-11-18] MEDS: DULOXETINE HCL 30 MG CAP PO SCH ×2 (08:21→20:41)
[2021-11-18] MEDS: ALPRAZOLAM 0.25 MG TABLET PO SCH ×2 (08:21→20:41)
[2021-11-18] MEDS: LEVOFLOXACIN 500 MG/D5W 100 ML 100 ML IV SCH (08:21)
[2021-11-18] MEDS ORDERED: FAT EMULSIONS 20% 250ML 250 ML IV SCH (10:00)
[2021-11-18 11:06] VITALS: BP 135/72
[2021-11-18] MEDS: FLUCONAZOLE 400 MG/NS 200 ML 200 ML IV SCH (13:58)
[2021-11-18 14:23] VITALS: BP 131/64
[2021-11-18 15:30] VITALS: BP 99/49
[2021-11-18] MEDS ORDERED: M.V.I. IV [ADULT] 10 ML, MULTITRACE-4 ADULT 10ML VIAL 3 ML in CLINIMIX-E4.25%AA/D5+LYT2... IV ONE (17:00)
[2021-11-18 20:00] VITALS: BP 131/72
[2021-11-19] VITALS: BP 119/70
[2021-11-19] MEDS: VANCOMYCIN 1G/250ML KIT 250 ML IV SCH ×2 (00:48→13:10)
[2021-11-19 03:35] LABS: HEMATOCRIT 27.2 % (36-48); MEAN CORPUSCULAR HGB CONC 32.7 g/dL (32.0-36.0); MEAN CORPUSCULAR VOLUME 88.6 fL (79-99); RED BLOOD CELL COUNT(AUTO) 3.07 MIL/uL (4.00-5.50); RED CELL DISTRIBUTION WIDTH 15.9 % (11.0-15.5); WHITE BLOOD COUNT (AUTO) 11.2 K/uL (4.8-10.8)
[2021-11-19 03:47] LABS: ALBUMIN 1.1 g/dL (3.5-5.0); CREATININE 0.4 mg/dL (0.5-1.5); MAGNESIUM 1.7 mg/dL (1.80-2.40); PHOSPHORUS 4.3 mg/dL (2.5-4.9); POTASSIUM 4.7 mmol/L (3.5-5.1); TOTAL PROTEIN, SERUM 5.5 g/dL (6.0-8.3)
[2021-11-19 04:00] VITALS: BP 126/69
[2021-11-19] MEDS: OCTREOTIDE ACETATE 100 MCG/ML AMP SQ SCH ×3 (05:59→21:03)
[2021-11-19] MEDS: MAGNESIUM 2GM PREMIX 50ML 50 ML IV SCH (06:00)
[2021-11-19] MEDS: INSULIN HUMULIN R 100 UNIT/ML 3ML SQ SCH ×4 (06:00→17:02)
[2021-11-19] MEDS ORDERED: DIATR MEGLU/DIATRIZOATE SODIUM 30 ML BOTTLE ONE (07:42)
[2021-11-19 08:00] VITALS: BP 144/71
[2021-11-19] MEDS: LEVOFLOXACIN 500 MG/D5W 100 ML 100 ML IV SCH (08:38)
[2021-11-19] MEDS: ALPRAZOLAM 0.25 MG TABLET PO SCH ×2 (08:39→21:03)
[2021-11-19] MEDS: DULOXETINE HCL 30 MG CAP PO SCH ×2 (08:40→21:03)
[2021-11-19] MEDS: PANTOPRAZOLE 40 MG/VIAL IV SCH ×2 (08:40→21:03)
[2021-11-19 12:03] VITALS: BP 118/68
[2021-11-19] MEDS ORDERED: IOHEXOL 350 MG/ML 100ML INFUS..BTL IV ONE (12:21)
[2021-11-19] MEDS: FLUCONAZOLE 400 MG/NS 200 ML 200 ML IV SCH (13:10)
[2021-11-19 15:54] VITALS: BP 128/70
[2021-11-19] MEDS ORDERED: M.V.I. IV [ADULT] 10 ML, MULTITRACE-4 ADULT 10ML VIAL 3 ML in CLINIMIX-E4.25%AA/D5+LYT2... IV ONE (18:00)
[2021-11-19 20:00] VITALS: BP 126/49
[2021-11-19] MEDS ORDERED: 0.9%NACL 10ML VIAL ONE (20:54)
[2021-11-20] VITALS (15 sets, daily range): BP systolic 116–154; BP diastolic 58–82
[2021-11-20] MEDS: VANCOMYCIN 1G/250ML KIT 250 ML IV SCH ×2 (00:38→12:38)
[2021-11-20 04:21] LABS: HEMATOCRIT 28.1 % (36-48); MEAN CORPUSCULAR HEMOGLOBIN 28.7 pg (27.0-33.0); MEAN CORPUSCULAR VOLUME 89.5 fL (79-99); RED BLOOD CELL COUNT(AUTO) 3.14 MIL/uL (4.00-5.50); RED CELL DISTRIBUTION WIDTH 16.2 % (11.0-15.5); WHITE BLOOD COUNT (AUTO) 9.2 K/uL (4.8-10.8)
[2021-11-20 04:35] LABS: CREATININE 0.5 mg/dL (0.5-1.5); PHOSPHORUS 5.1 mg/dL (2.5-4.9); POTASSIUM 4.6 mmol/L (3.5-5.1)
[2021-11-20] MEDS: INSULIN HUMULIN R 100 UNIT/ML 3ML SQ SCH ×5 (05:20→23:53)
[2021-11-20] MEDS: OCTREOTIDE ACETATE 100 MCG/ML AMP SQ SCH ×3 (05:36→22:02)
[2021-11-20 08:15] LABS: INR 0.94 (0.85-1.15); PROTHROMBIN TIME 10.3 SEC (9.6-11.6)
[2021-11-20 08:16] LABS: PARTIAL THROMBOPLASTIN TIME 25.4 SEC (26.3-35.5)
[2021-11-20] MEDS: LEVOFLOXACIN 500 MG/D5W 100 ML 100 ML IV SCH (09:15)
[2021-11-20] MEDS: DULOXETINE HCL 30 MG CAP PO SCH ×2 (09:16→20:14)
[2021-11-20] MEDS: ALPRAZOLAM 0.25 MG TABLET PO SCH ×2 (09:16→20:14)
[2021-11-20] MEDS: PANTOPRAZOLE 40 MG/VIAL IV SCH (09:16)
[2021-11-20] MEDS: FLUCONAZOLE 400 MG/NS 200 ML 200 ML IV SCH (12:35)
[2021-11-20] MEDS ORDERED: FENTANYL CITRATE PF 50 MCG/1 ML 2ML VIAL ONE (13:28)
[2021-11-20] MEDS ORDERED: M.V.I. IV [ADULT] 10 ML, MULTITRACE-4 ADULT 10ML VIAL 3 ML in CLINIMIX-E4.25%AA/D5+LYT2... IV ONE (19:00)
[2021-11-21] MEDS: VANCOMYCIN 1G/250ML KIT 250 ML IV SCH ×2 (01:01→13:00)
[2021-11-21 03:24] VITALS: BP 119/55
[2021-11-21 03:24] LABS: HEMATOCRIT 28.1 % (36-48); MEAN CORPUSCULAR HEMOGLOBIN 29.2 pg (27.0-33.0); MEAN CORPUSCULAR HGB CONC 33.1 g/dL (32.0-36.0); MEAN CORPUSCULAR VOLUME 88.4 fL (79-99); RED BLOOD CELL COUNT(AUTO) 3.18 MIL/uL (4.00-5.50); RED CELL DISTRIBUTION WIDTH 16.2 % (11.0-15.5); WHITE BLOOD COUNT (AUTO) 9.7 K/uL (4.8-10.8)
[2021-11-21 03:38] LABS: ALBUMIN 1.2 g/dL (3.5-5.0); CREATININE 0.5 mg/dL (0.5-1.5); MAGNESIUM 1.7 mg/dL (1.80-2.40); POTASSIUM 4.8 mmol/L (3.5-5.1); TOTAL PROTEIN, SERUM 5.8 g/dL (6.0-8.3)
[2021-11-21] MEDS: INSULIN HUMULIN R 100 UNIT/ML 3ML SQ SCH ×3 (05:25→18:28)
[2021-11-21] MEDS: OCTREOTIDE ACETATE 100 MCG/ML AMP SQ SCH ×3 (05:31→22:11)
[2021-11-21] MEDS: MAGNESIUM 2GM PREMIX 50ML 50 ML IV SCH (05:32)
[2021-11-21 08:43] VITALS: BP 112/61
[2021-11-21] MEDS: LEVOFLOXACIN 500 MG/D5W 100 ML 100 ML IV SCH (09:41)
[2021-11-21] MEDS: ALPRAZOLAM 0.25 MG TABLET PO SCH ×2 (09:41→20:12)
[2021-11-21] MEDS: DULOXETINE HCL 30 MG CAP PO SCH ×2 (09:41→20:12)
[2021-11-21 12:23] VITALS: BP 116/66
[2021-11-21] MEDS ORDERED: PHARMACY COMMUNICATION MISC SCH (14:30)
[2021-11-21] MEDS: FLUCONAZOLE 400 MG/NS 200 ML 200 ML IV SCH (14:41)
[2021-11-21 16:05] VITALS: BP 120/62
[2021-11-21] MEDS ORDERED: M.V.I. IV [ADULT] 10 ML, MULTITRACE-4 ADULT 10ML VIAL 3 ML in CLINIMIX-E4.25%AA/D5+LYT2... IV ONE (18:30)
[2021-11-21 20:00] VITALS: BP 122/71
[2021-11-22] VITALS (7 sets, daily range): BP systolic 112–136; BP diastolic 65–96
[2021-11-22 03:30] LABS: BASOPHILS % (AUTO) 0.3 % (0.0-5.0); EOSINOPHILS % (AUTO) 1.7 % (0.0-8.0); HEMATOCRIT 26.5 % (36-48); LYMPHOCYTES % (AUTO) 11.6 % (21.0-51.0); MEAN CORPUSCULAR HEMOGLOBIN 28.3 pg (27.0-33.0); MEAN CORPUSCULAR HGB CONC 32.5 g/dL (32.0-36.0); MEAN CORPUSCULAR VOLUME 87.2 fL (79-99); MONOCYTES % (AUTO) 9.1 % (3.0-13.0); NEUTROPHILS % (AUTO) 75.2 % (40.0-77.0); PLATELET COUNT (AUTO) 335 K/uL (130-400); RED BLOOD CELL COUNT(AUTO) 3.04 MIL/uL (4.00-5.50); WHITE BLOOD COUNT (AUTO) 9.5 K/uL (4.8-10.8)
[2021-11-22 03:47] LABS: CREATININE 0.5 mg/dL (0.5-1.5); POTASSIUM 4.7 mmol/L (3.5-5.1)
[2021-11-22] MEDS: OCTREOTIDE ACETATE 100 MCG/ML AMP SQ SCH ×3 (05:45→22:57)
[2021-11-22] MEDS: VANCOMYCIN 1G/250ML KIT 250 ML IV SCH (05:45)
[2021-11-22] MEDS: INSULIN HUMULIN R 100 UNIT/ML 3ML SQ SCH ×5 (06:00→22:00)
[2021-11-22] MEDS: DULOXETINE HCL 30 MG CAP PO SCH ×2 (07:49→20:13)
[2021-11-22] MEDS: ALPRAZOLAM 0.25 MG TABLET PO SCH ×2 (07:50→20:13)
[2021-11-22] MEDS: LEVOFLOXACIN 500 MG/D5W 100 ML 100 ML IV SCH (07:50)
[2021-11-22] MEDS: BENZONATATE 100 MG CAPSULE PO PRN (07:50)
[2021-11-22] MEDS: FLUCONAZOLE 400 MG/NS 200 ML 200 ML IV SCH (16:02)
[2021-11-22] MEDS ORDERED: M.V.I. IV [ADULT] 10 ML, MULTITRACE-4 ADULT 10ML VIAL 3 ML in CLINIMIX-E4.25%AA/D5+LYT2... IV ONE (18:30)
[2021-11-23 03:39] VITALS: BP 125/68
[2021-11-23 04:35] LABS: BASOPHILS % (AUTO) 0.4 % (0.0-5.0); HEMATOCRIT 28.5 % (36-48); LYMPHOCYTES % (AUTO) 8.4 % (21.0-51.0); MEAN CORPUSCULAR HEMOGLOBIN 28.6 pg (27.0-33.0); MEAN CORPUSCULAR HGB CONC 31.9 g/dL (32.0-36.0); MEAN CORPUSCULAR VOLUME 89.6 fL (79-99); NEUTROPHILS % (AUTO) 79.3 % (40.0-77.0); PLATELET COUNT (AUTO) 342 K/uL (130-400); RED BLOOD CELL COUNT(AUTO) 3.18 MIL/uL (4.00-5.50); RED CELL DISTRIBUTION WIDTH 15.9 % (11.0-15.5); WHITE BLOOD COUNT (AUTO) 9.2 K/uL (4.8-10.8)
[2021-11-23 04:50] LABS: CREATININE 0.5 mg/dL (0.5-1.5); POTASSIUM 4.8 mmol/L (3.5-5.1)
[2021-11-23] MEDS: VANCOMYCIN 1G/250ML KIT 250 ML IV SCH (07:10)
[2021-11-23] MEDS: INSULIN HUMULIN R 100 UNIT/ML 3ML SQ SCH ×4 (07:30→21:00)
[2021-11-23] MEDS: OCTREOTIDE ACETATE 100 MCG/ML AMP SQ SCH ×3 (07:49→21:15)
[2021-11-23 08:00] VITALS: BP 156/77
[2021-11-23] MEDS: DULOXETINE HCL 30 MG CAP PO SCH ×2 (08:51→21:15)
[2021-11-23] MEDS: ALPRAZOLAM 0.25 MG TABLET PO SCH ×2 (08:51→21:15)
[2021-11-23] MEDS: LEVOFLOXACIN 500 MG/D5W 100 ML 100 ML IV SCH (08:53)
[2021-11-23] MEDS ORDERED: FAT EMULSIONS 20% 250ML 250 ML IV SCH (10:00)
[2021-11-23 12:00] VITALS: BP 109/62
[2021-11-23] MEDS: FLUCONAZOLE 400 MG/NS 200 ML 200 ML IV SCH (14:37)
[2021-11-23 15:39] VITALS: BP 112/54
[2021-11-23] MEDS ORDERED: M.V.I. IV [ADULT] 10 ML, MULTITRACE-4 ADULT 10ML VIAL 3 ML in CLINIMIX-E4.25%AA/D5+LYT2... IV SCH (16:00)
[2021-11-23 20:04] VITALS: BP 152/98
[2021-11-24 00:23] VITALS: BP 140/71
[2021-11-24 04:52] VITALS: BP 137/77
[2021-11-24] MEDS: OCTREOTIDE ACETATE 100 MCG/ML AMP SQ SCH ×3 (05:40→22:21)
[2021-11-24] MEDS: INSULIN HUMULIN R 100 UNIT/ML 3ML SQ SCH ×4 (05:40→21:00)
[2021-11-24] MEDS: VANCOMYCIN 1G/250ML KIT 250 ML IV SCH (06:00)
[2021-11-24 06:57] LABS: BASOPHILS % (AUTO) 0.6 % (0.0-5.0); EOSINOPHILS % (AUTO) 2.1 % (0.0-8.0); HEMATOCRIT 27.5 % (36-48); LYMPHOCYTES % (AUTO) 9.5 % (21.0-51.0); MEAN CORPUSCULAR HEMOGLOBIN 28.3 pg (27.0-33.0); MEAN CORPUSCULAR VOLUME 88.4 fL (79-99); MONOCYTES % (AUTO) 6.6 % (3.0-13.0); NEUTROPHILS % (AUTO) 78.1 % (40.0-77.0); PLATELET COUNT (AUTO) 282 K/uL (130-400); RED BLOOD CELL COUNT(AUTO) 3.11 MIL/uL (4.00-5.50); RED CELL DISTRIBUTION WIDTH 15.8 % (11.0-15.5); WHITE BLOOD COUNT (AUTO) 10.9 K/uL (4.8-10.8)
[2021-11-24 08:00] VITALS: BP 108/61
[2021-11-24 08:12] LABS: CREATININE 0.5 mg/dL (0.5-1.5); MAGNESIUM 1.7 mg/dL (1.80-2.40); POTASSIUM 4.7 mmol/L (3.5-5.1)
[2021-11-24] MEDS: ALPRAZOLAM 0.25 MG TABLET PO SCH ×2 (09:01→22:21)
[2021-11-24] MEDS: DULOXETINE HCL 30 MG CAP PO SCH ×2 (09:01→22:21)
[2021-11-24] MEDS: LEVOFLOXACIN 500 MG/D5W 100 ML 100 ML IV SCH (09:01)
[2021-11-24] MEDS ORDERED: VANCOMYCIN 1G/250ML KIT 250 ML IV SCH (09:08)
[2021-11-24 12:00] VITALS: BP 116/67
[2021-11-24] MEDS: FLUCONAZOLE 400 MG/NS 200 ML 200 ML IV SCH (15:01)
[2021-11-24] MEDS: MAGNESIUM 2GM PREMIX 50ML 50 ML IV SCH (15:02)
[2021-11-24 16:00] VITALS: BP 120/62
[2021-11-24 20:00] VITALS: BP 127/68
[2021-11-24] MEDS ORDERED: PHARMACY COMMUNICATION MISC SCH (23:45)
[2021-11-25] VITALS (7 sets, daily range): BP systolic 103–151; BP diastolic 51–77
[2021-11-25] MEDS: VANCOMYCIN 1G/250ML KIT 250 ML IV SCH (05:18)
[2021-11-25] MEDS: OCTREOTIDE ACETATE 100 MCG/ML AMP SQ SCH ×2 (05:18→13:57)
[2021-11-25 05:31] LABS: MEAN CORPUSCULAR HEMOGLOBIN 28.7 pg (27.0-33.0); MEAN CORPUSCULAR HGB CONC 32.5 g/dL (32.0-36.0); MEAN CORPUSCULAR VOLUME 88.3 fL (79-99); RED BLOOD CELL COUNT(AUTO) 3.17 MIL/uL (4.00-5.50); RED CELL DISTRIBUTION WIDTH 15.8 % (11.0-15.5); WHITE BLOOD COUNT (AUTO) 10.5 K/uL (4.8-10.8)
[2021-11-25 05:49] LABS: ALBUMIN 1.3 g/dL (3.5-5.0); CREATININE 0.4 mg/dL (0.5-1.5); MAGNESIUM 2.1 mg/dL (1.80-2.40); POTASSIUM 5.1 mmol/L (3.5-5.1); TOTAL PROTEIN, SERUM 6.1 g/dL (6.0-8.3)
[2021-11-25] MEDS: INSULIN HUMULIN R 100 UNIT/ML 3ML SQ SCH ×4 (06:19→21:00)
[2021-11-25] MEDS ORDERED: M.V.I. IV [ADULT] 10 ML, MULTITRACE-4 ADULT 10ML VIAL 3 ML in CLINIMIX-E4.25%AA/D5+LYT2... IV SCH ×2 (06:30→17:30)
[2021-11-25] MEDS: FAT EMULSIONS 20% 250ML 250 ML IV SCH (09:17)
[2021-11-25] MEDS: DULOXETINE HCL 30 MG CAP PO SCH ×2 (09:17→21:14)
[2021-11-25] MEDS: LEVOFLOXACIN 500 MG/D5W 100 ML 100 ML IV SCH (09:17)
[2021-11-25] MEDS: ALPRAZOLAM 0.25 MG TABLET PO SCH ×2 (09:17→21:14)
[2021-11-25] MEDS: FLUCONAZOLE 400 MG/NS 200 ML 200 ML IV SCH (13:57)
[2021-11-26 04:24] VITALS: BP 116/68
[2021-11-26] MEDS: VANCOMYCIN 1G/250ML KIT 250 ML IV SCH (05:46)
[2021-11-26] MEDS: INSULIN HUMULIN R 100 UNIT/ML 3ML SQ SCH ×4 (07:30→21:00)
[2021-11-26 08:00] VITALS: BP 123/63
[2021-11-26] MEDS: LEVOFLOXACIN 500 MG/D5W 100 ML 100 ML IV SCH (09:04)
[2021-11-26] MEDS: ALPRAZOLAM 0.25 MG TABLET PO SCH ×2 (09:04→21:04)
[2021-11-26] MEDS: DULOXETINE HCL 30 MG CAP PO SCH ×2 (09:04→21:04)
[2021-11-26 11:44] VITALS: BP 121/71
[2021-11-26] MEDS: FLUCONAZOLE 400 MG/NS 200 ML 200 ML IV SCH (14:11)
[2021-11-26 16:00] VITALS: BP 124/67
[2021-11-26] MEDS ORDERED: M.V.I. IV [ADULT] 10 ML, MULTITRACE-4 ADULT 10ML VIAL 3 ML in CLINIMIX-E4.25%AA/D5+LYT2... IV SCH (18:30)
[2021-11-26] MEDS ORDERED: [UNRECOGNIZED DRUG - NUTRITION] IV SCH (19:30)
[2021-11-26 20:34] VITALS: BP 117/53
[2021-11-27 00:57] VITALS: BP 109/52
[2021-11-27 04:38] VITALS: BP 114/65
[2021-11-27 05:32] LABS: HEMATOCRIT 26.1 % (36-48); MEAN CORPUSCULAR HEMOGLOBIN 28.5 pg (27.0-33.0); MEAN CORPUSCULAR HGB CONC 32.6 g/dL (32.0-36.0); MEAN CORPUSCULAR VOLUME 87.6 fL (79-99); RED BLOOD CELL COUNT(AUTO) 2.98 MIL/uL (4.00-5.50); RED CELL DISTRIBUTION WIDTH 15.7 % (11.0-15.5); WHITE BLOOD COUNT (AUTO) 12.8 K/uL (4.8-10.8)
[2021-11-27 05:56] LABS: ALBUMIN 1.3 g/dL (3.5-5.0); CREATININE 0.5 mg/dL (0.5-1.5); MAGNESIUM 1.6 mg/dL (1.80-2.40); POTASSIUM 4.6 mmol/L (3.5-5.1)
[2021-11-27] MEDS: INSULIN HUMULIN R 100 UNIT/ML 3ML SQ SCH ×4 (06:26→21:00)
[2021-11-27] MEDS: VANCOMYCIN 1G/250ML KIT 250 ML IV SCH (06:29)
[2021-11-27 07:51] VITALS: BP 112/63
[2021-11-27] MEDS: DULOXETINE HCL 30 MG CAP PO SCH ×2 (08:52→21:42)
[2021-11-27] MEDS: LEVOFLOXACIN 500 MG/D5W 100 ML 100 ML IV SCH (08:52)
[2021-11-27] MEDS: ALPRAZOLAM 0.25 MG TABLET PO SCH ×2 (08:52→21:37)
[2021-11-27 11:00] VITALS: BP 121/62
[2021-11-27] MEDS: FLUCONAZOLE 400 MG/NS 200 ML 200 ML IV SCH (14:51)
[2021-11-27 16:00] VITALS: BP 121/55
[2021-11-27] MEDS: LOPERAMIDE HCL 2 MG CAP PO SCH ×2 (17:43→21:36)
[2021-11-27 19:57] VITALS: BP 102/57
[2021-11-27] MEDS ORDERED: [UNRECOGNIZED DRUG - NUTRITION] IV SCH (20:00)
[2021-11-27] MEDS: ACETAMINOPHEN WITH CODEINE 1 TAB TAB PO SCH (21:37)
[2021-11-27] MEDS: PSYLLIUM SEED 1 EACH PACKET PO SCH (21:42)
[2021-11-27] MEDS: GUAIFENESIN-DM 200/20 MG 10 ML PO PRN (22:27)
[2021-11-27] MEDS: ONDANSETRON 4MG INJ IVP PRN (23:32)
[2021-11-28 00:25] VITALS: BP 103/52
[2021-11-28 04:27] VITALS: BP 104/54
[2021-11-28 05:01] LABS: HEMATOCRIT 26.3 % (36-48); MEAN CORPUSCULAR HEMOGLOBIN 27.9 pg (27.0-33.0); MEAN CORPUSCULAR HGB CONC 31.9 g/dL (32.0-36.0); MEAN CORPUSCULAR VOLUME 87.4 fL (79-99); RED BLOOD CELL COUNT(AUTO) 3.01 MIL/uL (4.00-5.50); RED CELL DISTRIBUTION WIDTH 15.8 % (11.0-15.5); WHITE BLOOD COUNT (AUTO) 18.6 K/uL (4.8-10.8)
[2021-11-28 05:25] LABS: ALBUMIN 1.3 g/dL (3.5-5.0); CREATININE 0.6 mg/dL (0.5-1.5); MAGNESIUM 1.7 mg/dL (1.80-2.40); POTASSIUM 5.5 mmol/L (3.5-5.1)
[2021-11-28] MEDS: VANCOMYCIN 1G/250ML KIT 250 ML IV SCH (06:14)
[2021-11-28] MEDS: INSULIN HUMULIN R 100 UNIT/ML 3ML SQ SCH ×4 (06:16→20:39)
[2021-11-28 08:00] VITALS: BP 102/50
[2021-11-28] MEDS: DULOXETINE HCL 30 MG CAP PO SCH ×3 (09:12→21:38)
[2021-11-28] MEDS: PANTOPRAZOLE 40 MG TAB DR PO SCH (09:12)
[2021-11-28] MEDS: LOPERAMIDE HCL 2 MG CAP PO SCH ×5 (09:12→21:39)
[2021-11-28] MEDS: ALPRAZOLAM 0.25 MG TABLET PO SCH ×3 (09:13→21:38)
[2021-11-28] MEDS: PSYLLIUM SEED 1 EACH PACKET PO SCH ×3 (09:13→21:39)
[2021-11-28] MEDS: ACETAMINOPHEN WITH CODEINE 1 TAB TAB PO SCH ×3 (09:13→21:38)
[2021-11-28] MEDS ORDERED: PHARMACY COMMUNICATION MISC SCH (11:30)
[2021-11-28] MEDS: FLUCONAZOLE 400 MG/NS 200 ML 200 ML IV SCH (12:43)
[2021-11-28 13:00] VITALS: BP 105/54
[2021-11-28] MEDS ORDERED: DEXTROSE 50%-WATER 50 ML DISP.SYRIN IV SCH (13:30)
[2021-11-28] MEDS ORDERED: SODIUM BICARB 50MEQ 50ML VIAL IV SCH (13:30)
[2021-11-28] MEDS ORDERED: INSULIN HUMULIN R 100 UNIT/ML 3ML IV SCH (13:30)
[2021-11-28] MEDS: MEROPENEM 1 GM VIAL IVP SCH ×2 (15:08→22:36)
[2021-11-28 16:00] VITALS: BP 96/50
[2021-11-28 19:00] VITALS: BP 125/61
[2021-11-28] MEDS ORDERED: MULTITRACE-4 ADULT 10ML VIAL 3 ML, M.V.I. IV [ADULT] 10 ML in CLINIMIX-E4.25%AA/D5+LYT2... IV SCH (20:00)
[2021-11-28] MEDS: BALSAM PERU/CASTOR OIL 60 GM TUBE TP SCH (21:39)
[2021-11-29] VITALS (7 sets, daily range): BP systolic 102–134; BP diastolic 49–68
[2021-11-29 04:22] LABS: BASOPHILS % (AUTO) 0.7 % (0.0-5.0); EOSINOPHILS % (AUTO) 1.9 % (0.0-8.0); HEMATOCRIT 23.3 % (36-48); MEAN CORPUSCULAR HEMOGLOBIN 28.3 pg (27.0-33.0); MEAN CORPUSCULAR HGB CONC 32.2 g/dL (32.0-36.0); MEAN CORPUSCULAR VOLUME 87.9 fL (79-99); NEUTROPHILS % (AUTO) 75.3 % (40.0-77.0); PLATELET COUNT (AUTO) 401 K/uL (130-400); RED BLOOD CELL COUNT(AUTO) 2.65 MIL/uL (4.00-5.50); RED CELL DISTRIBUTION WIDTH 15.8 % (11.0-15.5); WHITE BLOOD COUNT (AUTO) 15.6 K/uL (4.8-10.8)
[2021-11-29 04:26] LABS: ALBUMIN 1.3 g/dL (3.5-5.0); CREATININE 0.6 mg/dL (0.5-1.5); POTASSIUM 5.2 mmol/L (3.5-5.1); TOTAL PROTEIN, SERUM 5.8 g/dL (6.0-8.3)
[2021-11-29] MEDS: INSULIN HUMULIN R 100 UNIT/ML 3ML SQ SCH ×2 (05:50→11:30)
[2021-11-29] MEDS: MEROPENEM 1 GM VIAL IVP SCH ×3 (06:01→22:38)
[2021-11-29] MEDS: VANCOMYCIN 1G/250ML KIT 250 ML IV SCH (06:01)
[2021-11-29] MEDS ORDERED: ALBUTEROL 0.042% 1.25MG/3ML IH SCH ×2 (07:30→10:30)
[2021-11-29] MEDS ORDERED: SODIUM BICARB 50MEQ 50ML VIAL IV SCH ×2 (07:30→19:30)
[2021-11-29] MEDS ORDERED: INSULIN HUMULIN R 100 UNIT/ML 3ML IV ONE ×2 (07:30→19:30)
[2021-11-29] MEDS ORDERED: DEXTROSE 50%-WATER 50 ML DISP.SYRIN IV ONE ×2 (07:30→19:30)
[2021-11-29] MEDS ORDERED: ALBUTEROL 0.083% 2.5 MG/3 ML INH IH ONE (10:03)
[2021-11-29] MEDS: ALPRAZOLAM 0.25 MG TABLET PO SCH ×2 (10:04→20:43)
[2021-11-29] MEDS: PANTOPRAZOLE 40 MG TAB DR PO SCH (10:04)
[2021-11-29] MEDS: PSYLLIUM SEED 1 EACH PACKET PO SCH ×2 (10:04→20:43)
[2021-11-29] MEDS: LOPERAMIDE HCL 2 MG CAP PO SCH ×4 (10:04→20:43)
[2021-11-29] MEDS: DULOXETINE HCL 30 MG CAP PO SCH ×2 (10:05→20:43)
[2021-11-29] MEDS: BALSAM PERU/CASTOR OIL 60 GM TUBE TP SCH ×3 (10:05→20:44)
[2021-11-29] MEDS: ACETAMINOPHEN WITH CODEINE 1 TAB TAB PO SCH ×2 (10:05→20:42)
[2021-11-29] MEDS ORDERED: ALBUTEROL 0.083% 2.5 MG/3 ML INH IH SCH (10:30)
[2021-11-29] MEDS: FLUCONAZOLE 400 MG/NS 200 ML 200 ML IV SCH (14:25)
[2021-11-29 16:24] LABS: CREATININE 0.6 mg/dL (0.5-1.5); POTASSIUM 5.6 mmol/L (3.5-5.1)
[2021-11-29] MEDS ORDERED: CALCIUM GLUC 1GM/10ML VIAL ONE (18:50)
[2021-11-29] MEDS ORDERED: CALCIUM GLUC 1GM/10ML VIAL IV ONE (19:00)
[2021-11-29] MEDS ORDERED: CALCIUM GLUC 1GM 1 GM in 0.9%NACL 100ML 100 ML IV ONE (19:30)
[2021-11-29] MEDS ORDERED: MULTITRACE-4 ADULT 10ML VIAL 3 ML, M.V.I. IV [ADULT] 10 ML in CLINIMIX-E4.25%AA/D5+LYT2... IV SCH (20:00)
[2021-11-30] VITALS (7 sets, daily range): BP systolic 91–122; BP diastolic 51–60
[2021-11-30] MEDS ORDERED: PHARMACY COMMUNICATION MISC SCH
[2021-11-30] MEDS ORDERED: 0.9% NACL 250ML 250 ML ONE (05:43)
[2021-11-30] MEDS: VANCOMYCIN 1G/250ML KIT 250 ML IV SCH (05:48)
[2021-11-30] MEDS: MEROPENEM 1 GM VIAL IVP SCH ×3 (05:48→22:30)
[2021-11-30 06:24] LABS: BASOPHILS % (AUTO) 0.4 % (0.0-5.0); EOSINOPHILS % (AUTO) 2.2 % (0.0-8.0); HEMATOCRIT 24.6 % (36-48); LYMPHOCYTES % (AUTO) 7.6 % (21.0-51.0); MEAN CORPUSCULAR HEMOGLOBIN 28.2 pg (27.0-33.0); MEAN CORPUSCULAR HGB CONC 31.3 g/dL (32.0-36.0); MEAN CORPUSCULAR VOLUME 90.1 fL (79-99); MONOCYTES % (AUTO) 8.4 % (3.0-13.0); NEUTROPHILS % (AUTO) 74.7 % (40.0-77.0); PLATELET COUNT (AUTO) 396 K/uL (130-400); RED BLOOD CELL COUNT(AUTO) 2.73 MIL/uL (4.00-5.50); RED CELL DISTRIBUTION WIDTH 15.9 % (11.0-15.5); WHITE BLOOD COUNT (AUTO) 14.9 K/uL (4.8-10.8)
[2021-11-30 06:30] LABS: ALBUMIN 1.3 g/dL (3.5-5.0); CREATININE 0.6 mg/dL (0.5-1.5); POTASSIUM 5.2 mmol/L (3.5-5.1); TOTAL PROTEIN, SERUM 5.6 g/dL (6.0-8.3)
[2021-11-30] MEDS: PANTOPRAZOLE 40 MG TAB DR PO SCH (08:29)
[2021-11-30] MEDS: ACETAMINOPHEN WITH CODEINE 1 TAB TAB PO SCH ×2 (08:29→20:11)
[2021-11-30] MEDS: ALPRAZOLAM 0.25 MG TABLET PO SCH ×2 (08:29→20:11)
[2021-11-30] MEDS: DULOXETINE HCL 30 MG CAP PO SCH ×2 (08:29→20:11)
[2021-11-30] MEDS: BALSAM PERU/CASTOR OIL 60 GM TUBE TP SCH ×3 (08:30→20:27)
[2021-11-30] MEDS: PSYLLIUM SEED 1 EACH PACKET PO SCH (08:30)
[2021-11-30] MEDS: LOPERAMIDE HCL 2 MG CAP PO SCH (08:30)
[2021-11-30] MEDS: FAT EMULSIONS 20% 250ML 250 ML IV SCH ×2 (09:40→09:56)
[2021-11-30] MEDS ORDERED: [UNRECOGNIZED DRUG - OTHER] IV SCH ×6 (10:00)
[2021-11-30] MEDS ORDERED: MAGNESIUM SULFATE IV SCH ×6 (10:00)
[2021-11-30] MEDS ORDERED: SODIUM CL IV SCH ×6 (10:00)
[2021-11-30] MEDS: INSULIN HUMULIN R 100 UNIT/ML 3ML SQ SCH ×3 (11:08→20:38)
[2021-11-30] MEDS: FLUCONAZOLE 400 MG/NS 200 ML 200 ML IV SCH (13:07)
[2021-11-30] MEDS: MAGNESIUM 2GM PREMIX 50ML 50 ML IV SCH (13:12)
[2021-12-01] VITALS (7 sets, daily range): BP systolic 103–124; BP diastolic 47–69
[2021-12-01] MEDS ORDERED: LIDOCAINE HCL-MPF 1% 2ML VIAL IV PRN (05:30)
[2021-12-01] MEDS ORDERED: MAGNESIUM 2GM PREMIX 50ML 50 ML IV PRN (05:30)
[2021-12-01] MEDS ORDERED: KCL 20 MEQ ERTAB PO PRN (05:30)
[2021-12-01] MEDS ORDERED: POTASSIUM CHLORIDE 10% ELIXIR 20 MEQ/15 ML UDCUP PO PRN (05:30)
[2021-12-01] MEDS ORDERED: POTASSIUM CHLORIDE 20MEQ/100ML 100 ML IV PRN (05:30)
[2021-12-01] MEDS: MEROPENEM 1 GM VIAL IVP SCH ×3 (05:51→22:30)
[2021-12-01] MEDS: INSULIN HUMULIN R 100 UNIT/ML 3ML SQ SCH ×4 (05:53→20:57)
[2021-12-01 06:50] LABS: BASOPHILS % (AUTO) 0.5 % (0.0-5.0); EOSINOPHILS % (AUTO) 3.1 % (0.0-8.0); HEMATOCRIT 25.1 % (36-48); MEAN CORPUSCULAR HEMOGLOBIN 28.4 pg (27.0-33.0); MEAN CORPUSCULAR HGB CONC 31.5 g/dL (32.0-36.0); MEAN CORPUSCULAR VOLUME 90.3 fL (79-99); MONOCYTES % (AUTO) 6.9 % (3.0-13.0); NEUTROPHILS % (AUTO) 75.5 % (40.0-77.0); PLATELET COUNT (AUTO) 354 K/uL (130-400); RED BLOOD CELL COUNT(AUTO) 2.78 MIL/uL (4.00-5.50); RED CELL DISTRIBUTION WIDTH 15.9 % (11.0-15.5); WHITE BLOOD COUNT (AUTO) 13.2 K/uL (4.8-10.8)
[2021-12-01 08:00] LABS: ALBUMIN 1.2 g/dL (3.5-5.0); CREATININE 0.6 mg/dL (0.5-1.5); MAGNESIUM 2.4 mg/dL (1.80-2.40); PHOSPHORUS 2.6 mg/dL (2.5-4.9); POTASSIUM 3.9 mmol/L (3.5-5.1); TOTAL PROTEIN, SERUM 5.7 g/dL (6.0-8.3)
[2021-12-01] MEDS: BALSAM PERU/CASTOR OIL 60 GM TUBE TP SCH ×3 (08:04→21:00)
[2021-12-01] MEDS: PANTOPRAZOLE 40 MG TAB DR PO SCH (08:04)
[2021-12-01] MEDS: DULOXETINE HCL 30 MG CAP PO SCH ×2 (08:04→21:00)
[2021-12-01] MEDS: ACETAMINOPHEN WITH CODEINE 1 TAB TAB PO SCH ×2 (08:04→21:00)
[2021-12-01] MEDS: ALPRAZOLAM 0.25 MG TABLET PO SCH ×2 (08:04→21:00)
[2021-12-01] MEDS: VANCOMYCIN 1G/250ML KIT 250 ML IV SCH (08:41)
[2021-12-01] MEDS ORDERED: VANCOMYCIN 1G/250ML KIT 250 ML IV SCH (09:00)
[2021-12-01] MEDS ORDERED: ENOXAPARIN SODIUM 30 MG/0.3 ML SQ SCH (09:00)
[2021-12-01] MEDS: MAGNESIUM SULFATE IV SCH ×6 (11:07)
[2021-12-01] MEDS: SODIUM CL IV SCH ×6 (11:07)
[2021-12-01] MEDS: [UNRECOGNIZED DRUG - OTHER] IV SCH ×6 (11:07)
[2021-12-01] MEDS: FLUCONAZOLE 400 MG/NS 200 ML 200 ML IV SCH (13:16)
[2021-12-02 03:48] VITALS: BP 94/47
[2021-12-02 04:09] LABS: BASOPHILS % (AUTO) 0.5 % (0.0-5.0); EOSINOPHILS % (AUTO) 2.3 % (0.0-8.0); HEMATOCRIT 25.3 % (36-48); LYMPHOCYTES % (AUTO) 8.3 % (21.0-51.0); MEAN CORPUSCULAR HGB CONC 31.2 g/dL (32.0-36.0); MEAN CORPUSCULAR VOLUME 89.7 fL (79-99); MONOCYTES % (AUTO) 6.7 % (3.0-13.0); NEUTROPHILS % (AUTO) 76.4 % (40.0-77.0); PLATELET COUNT (AUTO) 380 K/uL (130-400); RED BLOOD CELL COUNT(AUTO) 2.82 MIL/uL (4.00-5.50); RED CELL DISTRIBUTION WIDTH 15.9 % (11.0-15.5); WHITE BLOOD COUNT (AUTO) 14.5 K/uL (4.8-10.8)
[2021-12-02 04:33] LABS: ALBUMIN 1.2 g/dL (3.5-5.0); CREATININE 0.4 mg/dL (0.5-1.5); MAGNESIUM 2.2 mg/dL (1.80-2.40); POTASSIUM 3.4 mmol/L (3.5-5.1); TOTAL PROTEIN, SERUM 5.7 g/dL (6.0-8.3)
[2021-12-02] MEDS: MEROPENEM 1 GM VIAL IVP SCH ×3 (05:26→21:45)
[2021-12-02] MEDS: INSULIN HUMULIN R 100 UNIT/ML 3ML SQ SCH ×4 (07:18→21:00)
[2021-12-02 07:51] VITALS: BP 100/57
[2021-12-02] MEDS: M.V.I. IV [ADULT] 10 ML, MULTITRACE-4 ADULT 10ML VIAL 3 ML in CLINIMIX-E4.25%AA/D5+LYT2... IV NR (08:02)
[2021-12-02] MEDS: PANTOPRAZOLE 40 MG TAB DR PO SCH (08:03)
[2021-12-02] MEDS: ALPRAZOLAM 0.25 MG TABLET PO SCH ×2 (08:03→21:45)
[2021-12-02] MEDS: VANCOMYCIN 1G/250ML KIT 250 ML IV SCH (08:03)
[2021-12-02] MEDS: DULOXETINE HCL 30 MG CAP PO SCH ×2 (08:03→21:45)
[2021-12-02] MEDS: ACETAMINOPHEN WITH CODEINE 1 TAB TAB PO SCH ×2 (08:03→21:45)
[2021-12-02] MEDS: [UNRECOGNIZED DRUG - OTHER] IV SCH ×6 (08:04)
[2021-12-02] MEDS: SODIUM CL IV SCH ×6 (08:04)
[2021-12-02] MEDS: BALSAM PERU/CASTOR OIL 60 GM TUBE TP SCH ×3 (08:04→22:08)
[2021-12-02] MEDS: MAGNESIUM SULFATE IV SCH ×6 (08:04)
[2021-12-02] MEDS ORDERED: 0.9%NACL 1000ML 909 ML IV ONE (09:30)
[2021-12-02 10:33] LABS: APPEARANCE,URINE CLEAR (CLEAR); BILIRUBIN,URINE NEGATIVE (NEGATIVE); COLOR,URINE YELLOW (YELLOW); GLUCOSE, URINE (UA) NEGATIVE (NEGATIVE); KETONES,URINE NEGATIVE (NEGATIVE); LEUKOCYTE ESTERASE ,URINE NEGATIVE (NEGATIVE); NITRATE,URINE NEGATIVE (NEGATIVE); OCCULT BLOOD,URINE NEGATIVE (NEGATIVE); PROTEIN,URINE TRACE mg/dL (NEGATIVE); UROBILINOGEN,URINE 0.2 mg/dL (0.2-1.0)
[2021-12-02 11:41] LABS: BACTERIA,URINE Rare /HPF (None Seen); RBC,URINE 0-1 /HPF (0-1); SQUAMOUS EPITHELIAL CELL,UR Rare /HPF (0-2)
[2021-12-02 12:00] VITALS: BP 101/43
[2021-12-02] MEDS: FLUCONAZOLE 400 MG/NS 200 ML 200 ML IV SCH (13:36)
[2021-12-02 16:00] VITALS: BP 101/57
[2021-12-02 19:37] VITALS: BP 111/63
[2021-12-02 23:50] VITALS: BP 115/59
[2021-12-03 03:28] VITALS: BP 102/58
[2021-12-03 04:03] LABS: BASOPHILS % (AUTO) 0.5 % (0.0-5.0); HEMATOCRIT 23.2 % (36-48); LYMPHOCYTES % (AUTO) 8.8 % (21.0-51.0); MEAN CORPUSCULAR HGB CONC 31.5 g/dL (32.0-36.0); MEAN CORPUSCULAR VOLUME 88.9 fL (79-99); MONOCYTES % (AUTO) 5.3 % (3.0-13.0); NEUTROPHILS % (AUTO) 75.7 % (40.0-77.0); PLATELET COUNT (AUTO) 346 K/uL (130-400); RED BLOOD CELL COUNT(AUTO) 2.61 MIL/uL (4.00-5.50); RED CELL DISTRIBUTION WIDTH 15.9 % (11.0-15.5); WHITE BLOOD COUNT (AUTO) 13.2 K/uL (4.8-10.8)
[2021-12-03 04:15] LABS: ALBUMIN 1.1 g/dL (3.5-5.0); CREATININE 0.4 mg/dL (0.5-1.5); MAGNESIUM 1.9 mg/dL (1.80-2.40); PHOSPHORUS 3.4 mg/dL (2.5-4.9); POTASSIUM 4.2 mmol/L (3.5-5.1); TOTAL PROTEIN, SERUM 5.4 g/dL (6.0-8.3)
[2021-12-03] MEDS: MEROPENEM 1 GM VIAL IVP SCH (05:45)
[2021-12-03] MEDS: INSULIN HUMULIN R 100 UNIT/ML 3ML SQ SCH ×3 (06:15→21:00)
[2021-12-03] MEDS: ACETAMINOPHEN WITH CODEINE 1 TAB TAB PO SCH ×4 (06:37→21:03)
[2021-12-03 07:38] VITALS: BP 120/71
[2021-12-03] MEDS: DULOXETINE HCL 30 MG CAP PO SCH ×2 (08:42→21:03)
[2021-12-03] MEDS: PANTOPRAZOLE 40 MG TAB DR PO SCH (08:42)
[2021-12-03] MEDS: ALPRAZOLAM 0.25 MG TABLET PO SCH ×2 (08:42→21:03)
[2021-12-03] MEDS: VANCOMYCIN 1G/250ML KIT 250 ML IV SCH (08:42)
[2021-12-03] MEDS: BALSAM PERU/CASTOR OIL 60 GM TUBE TP SCH ×3 (08:43→21:04)
[2021-12-03] MEDS: M.V.I. IV [ADULT] 10 ML, MULTITRACE-4 ADULT 10ML VIAL 3 ML in CLINIMIX-E4.25%AA/D5+LYT2... IV NR (10:28)
[2021-12-03] MEDS ORDERED: DIATR MEGLU/DIATRIZOATE SODIUM 30 ML BOTTLE ONE (11:24)
[2021-12-03 12:00] VITALS: BP 113/57
[2021-12-03] MEDS: FLUCONAZOLE 400 MG/NS 200 ML 200 ML IV SCH (13:23)
[2021-12-03] MEDS: CEFTAZIDIME PENTAHYDRATE 1 GM/VIAL IVP SCH ×3 (13:23→21:03)
[2021-12-03] MEDS ORDERED: IOHEXOL 350 MG/ML 100ML INFUS..BTL IV ONE (15:22)
[2021-12-03 16:00] VITALS: BP 130/59
[2021-12-03] MEDS: 0.9%NACL 1000ML 1,000 ML IV SCH (16:03)
[2021-12-03 20:00] VITALS: BP 104/59
[2021-12-03 23:47] VITALS: BP 111/69
[2021-12-04 04:00] VITALS: BP 124/63
[2021-12-04] MEDS ORDERED: DEXTROSE 50%-WATER 50 ML DISP.SYRIN IV ONE ×2 (04:33→05:00)
[2021-12-04 05:28] LABS: BASOPHILS % (AUTO) 0.4 % (0.0-5.0); EOSINOPHILS % (AUTO) 2.5 % (0.0-8.0); LYMPHOCYTES % (AUTO) 8.9 % (21.0-51.0); MEAN CORPUSCULAR HEMOGLOBIN 27.7 pg (27.0-33.0); MEAN CORPUSCULAR HGB CONC 30.8 g/dL (32.0-36.0); MEAN CORPUSCULAR VOLUME 89.9 fL (79-99); MONOCYTES % (AUTO) 5.1 % (3.0-13.0); PLATELET COUNT (AUTO) 386 K/uL (130-400); RED BLOOD CELL COUNT(AUTO) 2.67 MIL/uL (4.00-5.50); RED CELL DISTRIBUTION WIDTH 16.2 % (11.0-15.5); WHITE BLOOD COUNT (AUTO) 10.2 K/uL (4.8-10.8)
[2021-12-04 05:54] LABS: CREATININE 0.4 mg/dL (0.5-1.5); MAGNESIUM 1.7 mg/dL (1.80-2.40); POTASSIUM 4.2 mmol/L (3.5-5.1)
[2021-12-04] MEDS: CEFTAZIDIME PENTAHYDRATE 1 GM/VIAL IVP SCH ×3 (06:08→22:09)
[2021-12-04] MEDS: INSULIN HUMULIN R 100 UNIT/ML 3ML SQ SCH ×4 (07:30→20:54)
[2021-12-04 08:09] VITALS: BP 125/54
[2021-12-04] MEDS: VANCOMYCIN 1G/250ML KIT 250 ML IV SCH (08:36)
[2021-12-04] MEDS: DULOXETINE HCL 30 MG CAP PO SCH ×2 (09:00→20:01)
[2021-12-04] MEDS: PANTOPRAZOLE 40 MG TAB DR PO SCH (09:00)
[2021-12-04] MEDS: ACETAMINOPHEN WITH CODEINE 1 TAB TAB PO SCH (09:00)
[2021-12-04] MEDS: ALPRAZOLAM 0.25 MG TABLET PO SCH (09:00)
[2021-12-04 12:13] VITALS: BP 137/66
[2021-12-04] MEDS: M.V.I. IV [ADULT] 10 ML, MULTITRACE-4 ADULT 10ML VIAL 3 ML in CLINIMIX-E4.25%AA/D5+LYT2... IV NR (13:05)
[2021-12-04] MEDS: BALSAM PERU/CASTOR OIL 60 GM TUBE TP SCH ×3 (13:25→20:07)
[2021-12-04] MEDS: FLUCONAZOLE 400 MG/NS 200 ML 200 ML IV SCH (13:25)
[2021-12-04] MEDS: 0.9%NACL 1000ML 1,000 ML IV SCH (13:25)
[2021-12-04] MEDS ORDERED: LORAZEPAM 2 MG/ML 1 ML VIAL IVP PRN (16:30)
[2021-12-04 16:51] VITALS: BP 136/66
[2021-12-04 18:58] VITALS: BP 113/68
[2021-12-04] MEDS: PANTOPRAZOLE 40 MG/VIAL IVP SCH (20:01)
[2021-12-04] MEDS: HYDROMORPHONE 0.5 MG SYG (0.5MG/0.5ML) IVP PRN (20:02)
[2021-12-04 23:32] VITALS: BP 116/66
[2021-12-05 03:23] VITALS: BP 144/68
[2021-12-05 03:47] LABS: BASOPHILS % (AUTO) 0.3 % (0.0-5.0); LYMPHOCYTES % (AUTO) 9.7 % (21.0-51.0); MEAN CORPUSCULAR HGB CONC 31.3 g/dL (32.0-36.0); MEAN CORPUSCULAR VOLUME 89.6 fL (79-99); MONOCYTES % (AUTO) 5.5 % (3.0-13.0); NEUTROPHILS % (AUTO) 77.9 % (40.0-77.0); PLATELET COUNT (AUTO) 446 K/uL (130-400); RED BLOOD CELL COUNT(AUTO) 2.68 MIL/uL (4.00-5.50); RED CELL DISTRIBUTION WIDTH 16.2 % (11.0-15.5); WHITE BLOOD COUNT (AUTO) 9.5 K/uL (4.8-10.8)
[2021-12-05 03:59] LABS: CREATININE 0.3 mg/dL (0.5-1.5); POTASSIUM 4.2 mmol/L (3.5-5.1)
[2021-12-05] MEDS: 0.9%NACL 1000ML 1,000 ML IV SCH (06:16)
[2021-12-05] MEDS: CEFTAZIDIME PENTAHYDRATE 1 GM/VIAL IVP SCH ×3 (06:16→22:03)
[2021-12-05] MEDS: INSULIN HUMULIN R 100 UNIT/ML 3ML SQ SCH ×4 (06:31→21:00)
[2021-12-05] MEDS: DULOXETINE HCL 30 MG CAP PO SCH ×2 (07:46→21:00)
[2021-12-05] MEDS: PANTOPRAZOLE 40 MG/VIAL IVP SCH ×2 (07:46→22:03)
[2021-12-05] MEDS: BALSAM PERU/CASTOR OIL 60 GM TUBE TP SCH ×3 (07:46→22:03)
[2021-12-05 08:45] VITALS: BP 133/74
[2021-12-05] MEDS: VANCOMYCIN 1G/250ML KIT 250 ML IV SCH (10:01)
[2021-12-05] MEDS: M.V.I. IV [ADULT] 10 ML, MULTITRACE-4 ADULT 10ML VIAL 3 ML in CLINIMIX-E4.25%AA/D5+LYT2... IV NR (11:16)
[2021-12-05 12:16] VITALS: BP 146/66
[2021-12-05] MEDS: FLUCONAZOLE 400 MG/NS 200 ML 200 ML IV SCH (12:54)
[2021-12-05 16:36] VITALS: BP 144/67
[2021-12-05 19:02] VITALS: BP 136/74
[2021-12-06] MEDS: 0.9%NACL 1000ML 1,000 ML IV SCH ×2 (01:56→22:35)
[2021-12-06 03:44] VITALS: BP 132/69
[2021-12-06 03:47] LABS: BASOPHILS % (AUTO) 0.3 % (0.0-5.0); EOSINOPHILS % (AUTO) 1.6 % (0.0-8.0); HEMATOCRIT 22.8 % (36-48); LYMPHOCYTES % (AUTO) 10.1 % (21.0-51.0); MEAN CORPUSCULAR HEMOGLOBIN 28.1 pg (27.0-33.0); MEAN CORPUSCULAR HGB CONC 32.5 g/dL (32.0-36.0); MEAN CORPUSCULAR VOLUME 86.7 fL (79-99); MONOCYTES % (AUTO) 4.8 % (3.0-13.0); PLATELET COUNT (AUTO) 423 K/uL (130-400); RED BLOOD CELL COUNT(AUTO) 2.63 MIL/uL (4.00-5.50); WHITE BLOOD COUNT (AUTO) 10.1 K/uL (4.8-10.8)
[2021-12-06 03:58] LABS: CREATININE 0.4 mg/dL (0.5-1.5); POTASSIUM 4.3 mmol/L (3.5-5.1)
[2021-12-06] MEDS: CEFTAZIDIME PENTAHYDRATE 1 GM/VIAL IVP SCH ×3 (05:09→21:48)
[2021-12-06] MEDS: INSULIN HUMULIN R 100 UNIT/ML 3ML SQ SCH ×4 (05:36→20:43)
[2021-12-06] MEDS: DULOXETINE HCL 30 MG CAP PO SCH ×2 (07:03→21:00)
[2021-12-06] MEDS: VANCOMYCIN 1G/250ML KIT 250 ML IV SCH (07:12)
[2021-12-06] MEDS: PANTOPRAZOLE 40 MG/VIAL IVP SCH ×2 (07:12→21:48)
[2021-12-06] MEDS: BALSAM PERU/CASTOR OIL 60 GM TUBE TP SCH ×3 (07:13→21:49)
[2021-12-06 08:41] VITALS: BP 139/75
[2021-12-06] MEDS: M.V.I. IV [ADULT] 10 ML, MULTITRACE-4 ADULT 10ML VIAL 3 ML in CLINIMIX-E4.25%AA/D5+LYT2... IV NR (09:38)
[2021-12-06 12:40] VITALS: BP 126/73
[2021-12-06] MEDS: FLUCONAZOLE 400 MG/NS 200 ML 200 ML IV SCH (13:11)
[2021-12-06 16:44] VITALS: BP 123/71
[2021-12-06 19:43] VITALS: BP 142/82
[2021-12-06 23:18] VITALS: BP 131/77
[2021-12-07] VITALS (24 sets, daily range): BP systolic 84–166; BP diastolic 42–105
[2021-12-07] MEDS: INSULIN HUMULIN R 100 UNIT/ML 3ML SQ SCH ×4 (06:05→21:00)
[2021-12-07] MEDS: CEFTAZIDIME PENTAHYDRATE 1 GM/VIAL IVP SCH ×3 (06:25→22:10)
[2021-12-07] MEDS: DULOXETINE HCL 30 MG CAP PO SCH ×2 (09:00→20:01)
[2021-12-07] MEDS: VANCOMYCIN 1G/250ML KIT 250 ML IV SCH (09:58)
[2021-12-07] MEDS: PANTOPRAZOLE 40 MG/VIAL IVP SCH ×2 (09:58→20:01)
[2021-12-07] MEDS: BALSAM PERU/CASTOR OIL 60 GM TUBE TP SCH ×3 (09:59→21:08)
[2021-12-07] MEDS: FAT EMULSIONS 20% 250ML 250 ML IV SCH (09:59)
[2021-12-07] MEDS: M.V.I. IV [ADULT] 10 ML, MULTITRACE-4 ADULT 10ML VIAL 3 ML in CLINIMIX-E4.25%AA/D5+LYT2... IV NR (11:46)
[2021-12-07] MEDS: HYDROMORPHONE 0.5 MG SYG (0.5MG/0.5ML) IVP PRN ×2 (11:53→13:17)
[2021-12-07] MEDS ORDERED: M.V.I. IV [ADULT] 10 ML, MULTITRACE-4 ADULT 10ML VIAL 3 ML in CLINIMIX-E4.25%AA/D5+LYT2... IV ONE (13:00)
[2021-12-07] MEDS: FLUCONAZOLE 400 MG/NS 200 ML 200 ML IV SCH (13:51)
[2021-12-07] MEDS: 0.9%NACL 1000ML 1,000 ML IV SCH (14:30)
[2021-12-07] MEDS ORDERED: PROPOFOL 10 MG/ML 20ML VIAL IV ONE (15:58)
[2021-12-07] MEDS ORDERED: ROCURONIUM 10MG/1ML SYR 10 MG/ML ML ONE ×2 (15:58→17:08)
[2021-12-07] MEDS ORDERED: FENTANYL CITRATE PF 50 MCG/1 ML 2ML VIAL ONE (15:58)
[2021-12-07] MEDS ORDERED: CEFAZOLIN SODIUM 1 GM VIAL ONE (16:28)
[2021-12-07] MEDS ORDERED: EPHEDRINE SULFATE 50 MG/ML AMPULE ONE (16:30)
[2021-12-07] MEDS ORDERED: PROPOFOL 1000 MG/100 ML 100 ML IV STA (17:36)
[2021-12-07] MEDS ORDERED: PROPOFOL 1000 MG/100 ML 100 ML IV ONE (17:39)
[2021-12-07] MEDS ORDERED: FENTANYL 2500MCG+NS 250ML IV.SOLN IV SCH (18:30)
[2021-12-07 18:43] LABS: ABG BASE EXCESS -5.8 mmol/L (-2.0-3.0); ABG HCO3 20.9 mmol/L (21.0-28.0); ABG OXYGEN SATURATION 98.8 % (95.0-99.0); ABG PCO2 47 mmHg (32-45)
[2021-12-07] MEDS ORDERED: SODIUM BICARB 50MEQ 50ML VIAL IV ONE (19:00)
[2021-12-08] VITALS (84 sets, daily range): BP systolic 77–144; BP diastolic 44–80
[2021-12-08] MEDS ORDERED: PROPOFOL 1000 MG/100 ML 100 ML IV ONE ×2 (00:08→12:28)
[2021-12-08 03:46] LABS: ABG BASE EXCESS 0.7 mmol/L (-2.0-3.0); ABG HCO3 22.9 mmol/L (21.0-28.0); ABG OXYGEN SATURATION 99.6 % (95.0-99.0); ABG PCO2 31 mmHg (32-45)
[2021-12-08 04:36] LABS: BASOPHILS % (AUTO) 0.3 % (0.0-5.0); EOSINOPHILS % (AUTO) 2.7 % (0.0-8.0); HEMATOCRIT 22.2 % (36-48); LYMPHOCYTES % (AUTO) 12.9 % (21.0-51.0); MEAN CORPUSCULAR HEMOGLOBIN 28.2 pg (27.0-33.0); MEAN CORPUSCULAR VOLUME 88.1 fL (79-99); MONOCYTES % (AUTO) 6.4 % (3.0-13.0); NEUTROPHILS % (AUTO) 74.6 % (40.0-77.0); PLATELET COUNT (AUTO) 397 K/uL (130-400); RED BLOOD CELL COUNT(AUTO) 2.52 MIL/uL (4.00-5.50); RED CELL DISTRIBUTION WIDTH 16.1 % (11.0-15.5); WHITE BLOOD COUNT (AUTO) 9.8 K/uL (4.8-10.8)
[2021-12-08 05:00] LABS: ALBUMIN 1.2 g/dL (3.5-5.0); CREATININE 0.3 mg/dL (0.5-1.5); POTASSIUM 4.3 mmol/L (3.5-5.1); TOTAL PROTEIN, SERUM 5.1 g/dL (6.0-8.3)
[2021-12-08] MEDS: CEFTAZIDIME PENTAHYDRATE 1 GM/VIAL IVP SCH ×3 (06:21→22:41)
[2021-12-08] MEDS: INSULIN HUMULIN R 100 UNIT/ML 3ML SQ SCH ×4 (06:21→20:18)
[2021-12-08] MEDS: DULOXETINE HCL 30 MG CAP PO SCH ×2 (09:00→20:18)
[2021-12-08] MEDS: PANTOPRAZOLE 40 MG/VIAL IVP SCH ×2 (09:09→20:18)
[2021-12-08] MEDS: VANCOMYCIN 1G/250ML KIT 250 ML IV SCH ×2 (09:09→09:21)
[2021-12-08] MEDS: BALSAM PERU/CASTOR OIL 60 GM TUBE TP SCH ×3 (09:10→20:18)
[2021-12-08] MEDS ORDERED: M.V.I. IV [ADULT] 10 ML, MULTITRACE-4 ADULT 10ML VIAL 3 ML in CLINIMIX-E4.25%AA/D5+LYT2... IV ONE (14:00)
[2021-12-08] MEDS: OCTREOTIDE ACETATE 100 MCG/ML AMP IV SCH ×2 (14:00→20:19)
[2021-12-08] MEDS: FLUCONAZOLE 400 MG/NS 200 ML 200 ML IV SCH (15:27)
[2021-12-08] MEDS: OCTREOTIDE ACETATE 200 MCG/ML 5 ML VIAL IV SCH ×2 (16:04→20:19)
[2021-12-08] MEDS: 0.9%NACL 1000ML 1,000 ML IV SCH (18:20)
[2021-12-08] MEDS ORDERED: ACETAMINOPHEN 325 MG TAB PO PRN (20:00)
[2021-12-08] MEDS ORDERED: IPRATROPIUM 0.5 MG/2.5 ML INH IH PRN (20:00)
[2021-12-08] MEDS ORDERED: VANCOMYCIN 1.25 GM/250 ML BAG 250 ML IV SCH (21:00)
[2021-12-09] VITALS (27 sets, daily range): BP systolic 102–147; BP diastolic 49–76
[2021-12-09] MEDS ORDERED: SODIUM CHLORIDE 3% FOR INHALATION 4 ML/AMP VIAL.NEB IH SCH
[2021-12-09 04:09] LABS: BASOPHILS % (AUTO) 0.4 % (0.0-5.0); EOSINOPHILS % (AUTO) 2.9 % (0.0-8.0); HEMATOCRIT 24.9 % (36-48); LYMPHOCYTES % (AUTO) 11.1 % (21.0-51.0); MEAN CORPUSCULAR HEMOGLOBIN 27.6 pg (27.0-33.0); MEAN CORPUSCULAR HGB CONC 30.9 g/dL (32.0-36.0); MEAN CORPUSCULAR VOLUME 89.2 fL (79-99); MONOCYTES % (AUTO) 6.7 % (3.0-13.0); NEUTROPHILS % (AUTO) 77.3 % (40.0-77.0); PLATELET COUNT (AUTO) 386 K/uL (130-400); RED BLOOD CELL COUNT(AUTO) 2.79 MIL/uL (4.00-5.50); RED CELL DISTRIBUTION WIDTH 16.3 % (11.0-15.5)
[2021-12-09 04:31] LABS: ALBUMIN 1.3 g/dL (3.5-5.0); CREATININE 0.4 mg/dL (0.5-1.5); POTASSIUM 4.9 mmol/L (3.5-5.1); TOTAL PROTEIN, SERUM 5.6 g/dL (6.0-8.3)
[2021-12-09] MEDS: OCTREOTIDE ACETATE 100 MCG/ML AMP IV SCH (06:00)
[2021-12-09] MEDS: OCTREOTIDE ACETATE 200 MCG/ML 5 ML VIAL IV SCH ×2 (06:24→21:11)
[2021-12-09] MEDS: CEFTAZIDIME PENTAHYDRATE 1 GM/VIAL IVP SCH ×3 (06:24→21:11)
[2021-12-09] MEDS: INSULIN HUMULIN R 100 UNIT/ML 3ML SQ SCH ×4 (06:25→20:50)
[2021-12-09] MEDS: PANTOPRAZOLE 40 MG/VIAL IVP SCH ×2 (08:51→21:11)
[2021-12-09] MEDS: VANCOMYCIN 1G/250ML KIT 250 ML IV SCH (08:51)
[2021-12-09] MEDS: BALSAM PERU/CASTOR OIL 60 GM TUBE TP SCH ×3 (08:52→21:19)
[2021-12-09] MEDS: DULOXETINE HCL 30 MG CAP PO SCH ×2 (08:52→21:11)
[2021-12-09] MEDS ORDERED: M.V.I. IV [ADULT] 10 ML, MULTITRACE-4 ADULT 10ML VIAL 3 ML in CLINIMIX-E4.25%AA/D5+LYT2... IV SCH (11:00)
[2021-12-09] MEDS: 0.9%NACL 1000ML 1,000 ML IV SCH (13:12)
[2021-12-09] MEDS: HYDROMORPHONE 0.5 MG SYG (0.5MG/0.5ML) IVP PRN (13:18)
[2021-12-09] MEDS: HONEY 1 APPL/ML TUBE TP SCH (17:41)
[2021-12-09] MEDS: ONDANSETRON 4MG INJ IVP PRN (21:50)
[2021-12-10] VITALS (24 sets, daily range): BP systolic 121–167; BP diastolic 52–84
[2021-12-10 04:40] LABS: BASOPHILS % (AUTO) 0.3 % (0.0-5.0); HEMATOCRIT 21.8 % (36-48); LYMPHOCYTES % (AUTO) 10.8 % (21.0-51.0); MEAN CORPUSCULAR VOLUME 87.9 fL (79-99); MONOCYTES % (AUTO) 6.1 % (3.0-13.0); NEUTROPHILS % (AUTO) 79.8 % (40.0-77.0); PLATELET COUNT (AUTO) 396 K/uL (130-400); RED BLOOD CELL COUNT(AUTO) 2.48 MIL/uL (4.00-5.50); RED CELL DISTRIBUTION WIDTH 16.2 % (11.0-15.5); WHITE BLOOD COUNT (AUTO) 9.3 K/uL (4.8-10.8)
[2021-12-10 05:12] LABS: ALBUMIN 1.2 g/dL (3.5-5.0); CREATININE 0.3 mg/dL (0.5-1.5); POTASSIUM 4.7 mmol/L (3.5-5.1); TOTAL PROTEIN, SERUM 5.4 g/dL (6.0-8.3)
[2021-12-10] MEDS: INSULIN HUMULIN R 100 UNIT/ML 3ML SQ SCH ×4 (06:35→20:14)
[2021-12-10] MEDS: CEFTAZIDIME PENTAHYDRATE 1 GM/VIAL IVP SCH ×3 (06:39→21:30)
[2021-12-10] MEDS: OCTREOTIDE ACETATE 200 MCG/ML 5 ML VIAL IV SCH ×3 (06:39→21:30)
[2021-12-10] MEDS: 0.9%NACL 1000ML 1,000 ML IV SCH (08:03)
[2021-12-10] MEDS: ONDANSETRON 4MG INJ IVP PRN (08:49)
[2021-12-10] MEDS: PANTOPRAZOLE 40 MG/VIAL IVP SCH ×2 (08:50→20:43)
[2021-12-10] MEDS: DULOXETINE HCL 30 MG CAP PO SCH ×2 (08:50→20:44)
[2021-12-10] MEDS: HONEY 1 APPL/ML TUBE TP SCH (08:51)
[2021-12-10] MEDS: BALSAM PERU/CASTOR OIL 60 GM TUBE TP SCH ×3 (08:52→20:47)
[2021-12-10] MEDS: VANCOMYCIN 1G/250ML KIT 250 ML IV SCH (10:03)
[2021-12-10] MEDS ORDERED: CLINIMIX-E4.25%AA/D5+LYT2000ML 2,000 ML IV SCH (12:30)
[2021-12-10] MEDS: FUROSEMIDE 40MG VIAL IV SCH (20:43)
[2021-12-11] VITALS (22 sets, daily range): BP systolic 122–156; BP diastolic 56–86
[2021-12-11 04:19] LABS: BASOPHILS % (AUTO) 0.2 % (0.0-5.0); EOSINOPHILS % (AUTO) 2.2 % (0.0-8.0); HEMATOCRIT 23.7 % (36-48); LYMPHOCYTES % (AUTO) 14.2 % (21.0-51.0); MEAN CORPUSCULAR HEMOGLOBIN 28.3 pg (27.0-33.0); MEAN CORPUSCULAR HGB CONC 32.1 g/dL (32.0-36.0); MEAN CORPUSCULAR VOLUME 88.1 fL (79-99); MONOCYTES % (AUTO) 6.6 % (3.0-13.0); NEUTROPHILS % (AUTO) 76.2 % (40.0-77.0); PLATELET COUNT (AUTO) 412 K/uL (130-400); RED BLOOD CELL COUNT(AUTO) 2.69 MIL/uL (4.00-5.50); RED CELL DISTRIBUTION WIDTH 16.5 % (11.0-15.5); WHITE BLOOD COUNT (AUTO) 8.2 K/uL (4.8-10.8)
[2021-12-11 04:44] LABS: ALBUMIN 1.4 g/dL (3.5-5.0); CREATININE 0.4 mg/dL (0.5-1.5); POTASSIUM 4.4 mmol/L (3.5-5.1); TOTAL PROTEIN, SERUM 5.8 g/dL (6.0-8.3)
[2021-12-11] MEDS: INSULIN HUMULIN R 100 UNIT/ML 3ML SQ SCH ×4 (06:26→20:18)
[2021-12-11] MEDS: FUROSEMIDE 40MG VIAL IV SCH ×2 (06:34→17:16)
[2021-12-11] MEDS: OCTREOTIDE ACETATE 200 MCG/ML 5 ML VIAL IV SCH ×3 (06:34→21:33)
[2021-12-11] MEDS: CEFTAZIDIME PENTAHYDRATE 1 GM/VIAL IVP SCH ×3 (06:34→21:34)
[2021-12-11] MEDS: DULOXETINE HCL 30 MG CAP PO SCH ×2 (07:35→20:18)
[2021-12-11] MEDS: VANCOMYCIN 1G/250ML KIT 250 ML IV SCH (08:22)
[2021-12-11] MEDS: PANTOPRAZOLE 40 MG/VIAL IVP SCH ×2 (08:22→21:34)
[2021-12-11] MEDS: HONEY 1 APPL/ML TUBE TP SCH (08:24)
[2021-12-11] MEDS: BALSAM PERU/CASTOR OIL 60 GM TUBE TP SCH ×3 (08:24→21:37)
[2021-12-11] MEDS ORDERED: M.V.I. IV [ADULT] 10 ML, MULTITRACE-4 ADULT 10ML VIAL 3 ML in CLINIMIX-E4.25%AA/D5+LYT2... IV SCH (13:00)
[2021-12-11] MEDS ORDERED: SODIUM CHLORIDE 3% FOR INHALATION 4 ML/AMP VIAL.NEB IH PRN (13:00)
[2021-12-12] VITALS (25 sets, daily range): BP systolic 67–167; BP diastolic 33–109
[2021-12-12 04:03] LABS: BASOPHILS % (AUTO) 0.4 % (0.0-5.0); HEMATOCRIT 23.6 % (36-48); LYMPHOCYTES % (AUTO) 12.8 % (21.0-51.0); MEAN CORPUSCULAR HEMOGLOBIN 28.6 pg (27.0-33.0); MEAN CORPUSCULAR HGB CONC 33.5 g/dL (32.0-36.0); MEAN CORPUSCULAR VOLUME 85.5 fL (79-99); MONOCYTES % (AUTO) 7.5 % (3.0-13.0); NEUTROPHILS % (AUTO) 76.7 % (40.0-77.0); PLATELET COUNT (AUTO) 420 K/uL (130-400); RED BLOOD CELL COUNT(AUTO) 2.76 MIL/uL (4.00-5.50); RED CELL DISTRIBUTION WIDTH 16.2 % (11.0-15.5); WHITE BLOOD COUNT (AUTO) 7.9 K/uL (4.8-10.8)
[2021-12-12 04:14] LABS: ALBUMIN 1.4 g/dL (3.5-5.0); CREATININE 0.5 mg/dL (0.5-1.5); POTASSIUM 4.4 mmol/L (3.5-5.1); TOTAL PROTEIN, SERUM 5.8 g/dL (6.0-8.3)
[2021-12-12] MEDS: OCTREOTIDE ACETATE 200 MCG/ML 5 ML VIAL IV SCH ×3 (05:24→21:38)
[2021-12-12] MEDS: FUROSEMIDE 40MG VIAL IV SCH (05:25)
[2021-12-12] MEDS: CEFTAZIDIME PENTAHYDRATE 1 GM/VIAL IVP SCH ×3 (05:25→21:23)
[2021-12-12] MEDS: INSULIN HUMULIN R 100 UNIT/ML 3ML SQ SCH ×4 (06:47→21:00)
[2021-12-12] MEDS: ONDANSETRON 4MG INJ IVP PRN (08:04)
[2021-12-12] MEDS: DULOXETINE HCL 30 MG CAP PO SCH ×2 (08:11→21:00)
[2021-12-12] MEDS: PANTOPRAZOLE 40 MG/VIAL IVP SCH ×2 (09:14→20:20)
[2021-12-12] MEDS: HONEY 1 APPL/ML TUBE TP SCH (09:15)
[2021-12-12] MEDS: BALSAM PERU/CASTOR OIL 60 GM TUBE TP SCH ×2 (09:15→14:22)
[2021-12-12] MEDS: VANCOMYCIN 1G/250ML KIT 250 ML IV SCH (09:15)
[2021-12-12] MEDS ORDERED: ACETAMINOPHEN 650 MG SUPPOSITORY RC ONE (16:38)
[2021-12-12] MEDS ORDERED: M.V.I. IV [ADULT] 10 ML, MULTITRACE-4 ADULT 10ML VIAL 3 ML in CLINIMIX-E4.25%AA/D5+LYT2... IV SCH (17:00)
[2021-12-12] MEDS: MEROPENEM 1 GM VIAL IVP SCH (17:55)
[2021-12-12] MEDS: KETOROLAC 15MG/ML VIAL (15MG/ML) IV PRN (20:21)
[2021-12-12] MEDS: METOPROLOL TARTRATE 1 MG/ML 5ML VIAL IV PRN (20:24)
[2021-12-12] MEDS: ACETAMINOPHEN 650 MG SUPPOSITORY RC PRN (21:25)
[2021-12-12] MEDS ORDERED: 0.9%NACL 1000ML 909 ML IV ONE (22:00)
[2021-12-12] MEDS ORDERED: 0.9%NACL 1000ML 1,000 ML IV ONE (22:02)
[2021-12-13] VITALS (32 sets, daily range): BP systolic 56–154; BP diastolic 21–79
[2021-12-13] MEDS: NOREPINEPHRIN 4MG/NS 250ML 250 ML IV SCH (01:25)
[2021-12-13] MEDS: BALSAM PERU/CASTOR OIL 60 GM TUBE TP SCH ×4 (01:26→21:40)
[2021-12-13 03:36] LABS: BASOPHILS % (AUTO) 0.2 % (0.0-5.0); HEMATOCRIT 24.8 % (36-48); LYMPHOCYTES % (AUTO) 1.3 % (21.0-51.0); MEAN CORPUSCULAR HEMOGLOBIN 28.4 pg (27.0-33.0); MEAN CORPUSCULAR HGB CONC 32.7 g/dL (32.0-36.0); NEUTROPHILS % (AUTO) 95.5 % (40.0-77.0); PLATELET COUNT (AUTO) 339 K/uL (130-400); RED BLOOD CELL COUNT(AUTO) 2.85 MIL/uL (4.00-5.50); RED CELL DISTRIBUTION WIDTH 16.7 % (11.0-15.5); WHITE BLOOD COUNT (AUTO) 15.1 K/uL (4.8-10.8)
[2021-12-13 03:52] LABS: ALBUMIN 1.4 g/dL (3.5-5.0); CREATININE 0.7 mg/dL (0.5-1.5); POTASSIUM 4.6 mmol/L (3.5-5.1); TOTAL PROTEIN, SERUM 5.7 g/dL (6.0-8.3)
[2021-12-13] MEDS: MEROPENEM 1 GM VIAL IVP SCH (05:45)
[2021-12-13] MEDS: CEFTAZIDIME PENTAHYDRATE 1 GM/VIAL IVP SCH ×3 (05:46→21:39)
[2021-12-13] MEDS: INSULIN HUMULIN R 100 UNIT/ML 3ML SQ SCH ×4 (06:47→21:00)
[2021-12-13] MEDS: OCTREOTIDE ACETATE 200 MCG/ML 5 ML VIAL IV SCH ×3 (07:15→21:39)
[2021-12-13] MEDS ORDERED: FUROSEMIDE 40MG VIAL IV SCH (09:00)
[2021-12-13] MEDS: DULOXETINE HCL 30 MG CAP PO SCH ×2 (09:00→21:00)
[2021-12-13] MEDS: VANCOMYCIN 1G/250ML KIT 250 ML IV SCH (09:24)
[2021-12-13] MEDS: PANTOPRAZOLE 40 MG/VIAL IVP SCH ×2 (09:24→21:39)
[2021-12-13] MEDS: ACETAMINOPHEN 650 MG SUPPOSITORY RC PRN ×2 (09:26→14:47)
[2021-12-13] MEDS: KETOROLAC 15MG/ML VIAL (15MG/ML) IV PRN (10:35)
[2021-12-13] MEDS: HONEY 1 APPL/ML TUBE TP SCH (11:22)
[2021-12-13] MEDS ORDERED: 0.9%NACL 1000ML 1,000 ML IV ONE (11:30)
[2021-12-13] MEDS ORDERED: M.V.I. IV [ADULT] 10 ML, MULTITRACE-4 ADULT 10ML VIAL 3 ML in CLINIMIX-E4.25%AA/D5+LYT2... IV SCH (12:30)
[2021-12-13] MEDS ORDERED: COMPOUND IV REFRIGERATED 1 EACH MISC ONE (21:36)
[2021-12-13] MEDS ORDERED: IOHEXOL 350 MG/ML 100ML INFUS..BTL IV ONE (21:36)
[2021-12-14] VITALS (21 sets, daily range): BP systolic 83–140; BP diastolic 32–81
[2021-12-14] MEDS: ACETAMINOPHEN 650 MG SUPPOSITORY RC PRN ×3 (00:44→19:38)
[2021-12-14] MEDS: ONDANSETRON 4MG INJ IVP PRN (03:48)
[2021-12-14 03:50] LABS: BASOPHILS % (AUTO) 0.3 % (0.0-5.0); HEMATOCRIT 21.8 % (36-48); MEAN CORPUSCULAR HEMOGLOBIN 28.2 pg (27.0-33.0); MEAN CORPUSCULAR HGB CONC 32.1 g/dL (32.0-36.0); MEAN CORPUSCULAR VOLUME 87.9 fL (79-99); MONOCYTES % (AUTO) 2.7 % (3.0-13.0); NEUTROPHILS % (AUTO) 92.5 % (40.0-77.0); NUCLEATED RED BLOOD CELLS 0.4 % (0.0-0.19); PLATELET COUNT (AUTO) 200 K/uL (130-400); RED BLOOD CELL COUNT(AUTO) 2.48 MIL/uL (4.00-5.50); RED CELL DISTRIBUTION WIDTH 16.9 % (11.0-15.5); WHITE BLOOD COUNT (AUTO) 9.3 K/uL (4.8-10.8)
[2021-12-14 04:09] LABS: ALBUMIN 1.2 g/dL (3.5-5.0); CREATININE 0.7 mg/dL (0.5-1.5); POTASSIUM 4.3 mmol/L (3.5-5.1); TOTAL PROTEIN, SERUM 5.2 g/dL (6.0-8.3)
[2021-12-14] MEDS: INSULIN HUMULIN R 100 UNIT/ML 3ML SQ SCH ×4 (04:40→20:36)
[2021-12-14] MEDS: CEFTAZIDIME PENTAHYDRATE 1 GM/VIAL IVP SCH ×3 (05:24→21:09)
[2021-12-14] MEDS: OCTREOTIDE ACETATE 200 MCG/ML 5 ML VIAL IV SCH ×3 (05:25→21:31)
[2021-12-14] MEDS: DULOXETINE HCL 30 MG CAP PO SCH ×2 (08:47→20:55)
[2021-12-14] MEDS: PANTOPRAZOLE 40 MG/VIAL IVP SCH ×2 (08:47→20:36)
[2021-12-14] MEDS: VANCOMYCIN 1G/250ML KIT 250 ML IV SCH (08:47)
[2021-12-14] MEDS: FAT EMULSIONS 20% 250ML 250 ML IV SCH (08:48)
[2021-12-14] MEDS: HONEY 1 APPL/ML TUBE TP SCH (08:48)
[2021-12-14] MEDS: BALSAM PERU/CASTOR OIL 60 GM TUBE TP SCH ×3 (08:48→21:09)
[2021-12-14] MEDS ORDERED: FLUCONAZOLE 400 MG/NS 200 ML 200 ML IV SCH (09:00)
[2021-12-14] MEDS ORDERED: M.V.I. IV [ADULT] 10 ML, MULTITRACE-4 ADULT 10ML VIAL 3 ML in CLINIMIX-E4.25%AA/D5+LYT2... IV SCH (12:00)
[2021-12-14] MEDS ORDERED: PHARMACY COMMUNICATION MISC SCH (13:00)
[2021-12-14] MEDS: MICAFUNGIN 100MG+NS 100ML 100 ML IV SCH ×2 (13:00→17:49)
[2021-12-14 18:08] LABS: HEMATOCRIT 23.6 % (36-48)
[2021-12-14] MEDS: FENTANYL 25 MCG/HR PATCH TD SCH (18:20)
[2021-12-14] MEDS: GUAIFENESIN-DM 200/20 MG 10 ML PO PRN (20:55)
[2021-12-15] VITALS (26 sets, daily range): BP systolic 94–147; BP diastolic 45–82
[2021-12-15 04:03] LABS: BASOPHILS % (AUTO) 0.2 % (0.0-5.0); EOSINOPHILS % (AUTO) 0.6 % (0.0-8.0); LYMPHOCYTES % (AUTO) 8.8 % (21.0-51.0); MEAN CORPUSCULAR HGB CONC 31.6 g/dL (32.0-36.0); MEAN CORPUSCULAR VOLUME 88.8 fL (79-99); MONOCYTES % (AUTO) 6.7 % (3.0-13.0); NEUTROPHILS % (AUTO) 82.9 % (40.0-77.0); PLATELET COUNT (AUTO) 136 K/uL (130-400); RED BLOOD CELL COUNT(AUTO) 2.32 MIL/uL (4.00-5.50); RED CELL DISTRIBUTION WIDTH 17.1 % (11.0-15.5); WHITE BLOOD COUNT (AUTO) 4.8 K/uL (4.8-10.8)
[2021-12-15 04:07] LABS: HEMATOCRIT 20.6 % (36-48)
[2021-12-15 04:17] LABS: ALBUMIN 1.2 g/dL (3.5-5.0); CREATININE 0.6 mg/dL (0.5-1.5); MAGNESIUM 1.7 mg/dL (1.80-2.40); POTASSIUM 3.9 mmol/L (3.5-5.1)
[2021-12-15] MEDS: CEFTAZIDIME PENTAHYDRATE 1 GM/VIAL IVP SCH ×3 (06:34→21:54)
[2021-12-15] MEDS: OCTREOTIDE ACETATE 200 MCG/ML 5 ML VIAL IV SCH ×3 (06:34→21:55)
[2021-12-15] MEDS: INSULIN HUMULIN R 100 UNIT/ML 3ML SQ SCH ×4 (06:37→21:00)
[2021-12-15] MEDS: DULOXETINE HCL 30 MG CAP PO SCH (09:00)
[2021-12-15] MEDS: PANTOPRAZOLE 40 MG/VIAL IVP SCH ×2 (09:05→21:01)
[2021-12-15] MEDS: HONEY 1 APPL/ML TUBE TP SCH (09:06)
[2021-12-15] MEDS: VANCOMYCIN 1G/250ML KIT 250 ML IV SCH (09:06)
[2021-12-15] MEDS: BALSAM PERU/CASTOR OIL 60 GM TUBE TP SCH ×3 (09:07→21:57)
[2021-12-15 15:00] LABS: HEMATOCRIT 25.6 % (36-48)
[2021-12-15] MEDS ORDERED: M.V.I. IV [ADULT] 10 ML, MULTITRACE-4 ADULT 10ML VIAL 3 ML in CLINIMIX-E4.25%AA/D5+LYT2... IV SCH (18:00)
[2021-12-16] VITALS (59 sets, daily range): BP systolic 77–140; BP diastolic 36–75
[2021-12-16] MEDS: ACETAMINOPHEN 650 MG SUPPOSITORY RC PRN (04:17)
[2021-12-16] MEDS: METOPROLOL TARTRATE 1 MG/ML 5ML VIAL IV PRN (04:26)
[2021-12-16] MEDS ORDERED: 0.9% NACL 500ML IV.SOLN 500 ML IV STA (06:02)
[2021-12-16] MEDS ORDERED: ALBUMIN (HUMAN) 25% 100 ML IV SCH (06:05)
[2021-12-16] MEDS: OCTREOTIDE ACETATE 200 MCG/ML 5 ML VIAL IV SCH ×3 (06:28→21:59)
[2021-12-16] MEDS: CEFTAZIDIME PENTAHYDRATE 1 GM/VIAL IVP SCH ×3 (06:28→22:00)
[2021-12-16] MEDS: INSULIN HUMULIN R 100 UNIT/ML 3ML SQ SCH ×4 (06:57→20:35)
[2021-12-16 07:42] LABS: BASOPHILS % (AUTO) 0.4 % (0.0-5.0); EOSINOPHILS % (AUTO) 1.2 % (0.0-8.0); HEMATOCRIT 26.1 % (36-48); LYMPHOCYTES % (AUTO) 13.7 % (21.0-51.0); MEAN CORPUSCULAR VOLUME 87.9 fL (79-99); MONOCYTES % (AUTO) 6.9 % (3.0-13.0); NEUTROPHILS % (AUTO) 76.8 % (40.0-77.0); PLATELET COUNT (AUTO) 76 K/uL (130-400); RED BLOOD CELL COUNT(AUTO) 2.97 MIL/uL (4.00-5.50); RED CELL DISTRIBUTION WIDTH 16.3 % (11.0-15.5)
[2021-12-16 08:09] LABS: CREATININE 0.5 mg/dL (0.5-1.5); POTASSIUM 4.3 mmol/L (3.5-5.1)
[2021-12-16] MEDS: NOREPINEPHRIN 4MG/NS 250ML 250 ML IV SCH (08:18)
[2021-12-16] MEDS: VANCOMYCIN 1G/250ML KIT 250 ML IV SCH (08:42)
[2021-12-16] MEDS: PANTOPRAZOLE 40 MG/VIAL IVP SCH ×2 (08:42→20:27)
[2021-12-16] MEDS: HONEY 1 APPL/ML TUBE TP SCH (08:43)
[2021-12-16] MEDS: BALSAM PERU/CASTOR OIL 60 GM TUBE TP SCH ×3 (08:43→20:27)
[2021-12-16] MEDS: MICAFUNGIN 100MG+NS 100ML 100 ML IV SCH (12:55)
[2021-12-16] MEDS ORDERED: M.V.I. IV [ADULT] 10 ML, MULTITRACE-4 ADULT 10ML VIAL 3 ML in CLINIMIX-E 5%AA /D15%W 2... IV ONE (20:00)
[2021-12-17] VITALS (24 sets, daily range): BP systolic 84–143; BP diastolic 45–77
[2021-12-17 04:27] LABS: BASOPHILS % (AUTO) 0.5 % (0.0-5.0); EOSINOPHILS % (AUTO) 3.2 % (0.0-8.0); HEMATOCRIT 27.1 % (36-48); LYMPHOCYTES % (AUTO) 15.5 % (21.0-51.0); MEAN CORPUSCULAR HEMOGLOBIN 28.4 pg (27.0-33.0); MEAN CORPUSCULAR HGB CONC 32.1 g/dL (32.0-36.0); MEAN CORPUSCULAR VOLUME 88.6 fL (79-99); MONOCYTES % (AUTO) 5.6 % (3.0-13.0); NEUTROPHILS % (AUTO) 73.4 % (40.0-77.0); PLATELET COUNT (AUTO) 55 K/uL (130-400); RED BLOOD CELL COUNT(AUTO) 3.06 MIL/uL (4.00-5.50); RED CELL DISTRIBUTION WIDTH 16.6 % (11.0-15.5); WHITE BLOOD COUNT (AUTO) 4.4 K/uL (4.8-10.8)
[2021-12-17 04:42] LABS: CREATININE 0.5 mg/dL (0.5-1.5)
[2021-12-17] MEDS: OCTREOTIDE ACETATE 200 MCG/ML 5 ML VIAL IV SCH ×3 (05:49→22:05)
[2021-12-17] MEDS: CEFTAZIDIME PENTAHYDRATE 1 GM/VIAL IVP SCH (05:49)
[2021-12-17] MEDS: INSULIN HUMULIN R 100 UNIT/ML 3ML SQ SCH ×4 (05:57→21:00)
[2021-12-17] MEDS ORDERED: PHARMACY COMMUNICATION MISC SCH ×2 (08:30→15:30)
[2021-12-17] MEDS: BALSAM PERU/CASTOR OIL 60 GM TUBE TP SCH ×3 (08:52→21:12)
[2021-12-17] MEDS: PANTOPRAZOLE 40 MG/VIAL IVP SCH ×2 (08:52→21:11)
[2021-12-17] MEDS: HONEY 1 APPL/ML TUBE TP SCH (08:52)
[2021-12-17] MEDS ORDERED: 0.9%NACL 100ML 100 ML ONE ×2 (09:25→20:56)
[2021-12-17] MEDS: VANCOMYCIN 500MG+NS 100ML 100 ML IV SCH ×2 (09:27→21:10)
[2021-12-17] MEDS: MICAFUNGIN 100MG+NS 100ML 100 ML IV SCH (12:09)
[2021-12-17] MEDS: METOPROLOL TARTRATE 1 MG/ML 5ML VIAL IV PRN (12:19)
[2021-12-17] MEDS: CEFTAZIDIME PENTAHYDRATE 2 GM/VIAL IVP SCH ×2 (16:55→22:04)
[2021-12-17] MEDS: FENTANYL 25 MCG/HR PATCH TD SCH (17:01)
[2021-12-17] MEDS ORDERED: M.V.I. IV [ADULT] 10 ML, MULTITRACE-4 ADULT 10ML VIAL 3 ML in CLINIMIX-E 5%AA /D15%W 2... IV ONE (20:00)
[2021-12-17] MEDS ORDERED: CEFTAZIDIME PENTAHYDRATE 1 GM/VIAL ONE (21:51)
[2021-12-18] VITALS (66 sets, daily range): BP systolic 77–175; BP diastolic 30–89
[2021-12-18 04:10] LABS: BASOPHILS % (AUTO) 0.4 % (0.0-5.0); EOSINOPHILS % (AUTO) 4.2 % (0.0-8.0); HEMATOCRIT 27.6 % (36-48); MEAN CORPUSCULAR HEMOGLOBIN 28.3 pg (27.0-33.0); MEAN CORPUSCULAR HGB CONC 32.2 g/dL (32.0-36.0); MEAN CORPUSCULAR VOLUME 87.9 fL (79-99); MONOCYTES % (AUTO) 6.9 % (3.0-13.0); NEUTROPHILS % (AUTO) 75.3 % (40.0-77.0); PLATELET COUNT (AUTO) 56 K/uL (130-400); RED BLOOD CELL COUNT(AUTO) 3.14 MIL/uL (4.00-5.50); RED CELL DISTRIBUTION WIDTH 16.7 % (11.0-15.5); WHITE BLOOD COUNT (AUTO) 5.5 K/uL (4.8-10.8)
[2021-12-18 04:27] LABS: CREATININE 0.4 mg/dL (0.5-1.5)
[2021-12-18] MEDS: OCTREOTIDE ACETATE 200 MCG/ML 5 ML VIAL IV SCH ×3 (06:03→21:32)
[2021-12-18] MEDS: CEFTAZIDIME PENTAHYDRATE 2 GM/VIAL IVP SCH ×3 (06:03→21:31)
[2021-12-18] MEDS: INSULIN HUMULIN R 100 UNIT/ML 3ML SQ SCH ×4 (06:06→21:00)
[2021-12-18] MEDS: METOPROLOL TARTRATE 1 MG/ML 5ML VIAL IV PRN ×2 (06:48→11:29)
[2021-12-18] MEDS ORDERED: 0.9%NACL 100ML 100 ML ONE (09:02)
[2021-12-18] MEDS: PANTOPRAZOLE 40 MG/VIAL IVP SCH ×2 (09:04→21:31)
[2021-12-18] MEDS: VANCOMYCIN 500MG+NS 100ML 100 ML IV SCH ×2 (09:04→21:32)
[2021-12-18] MEDS: BALSAM PERU/CASTOR OIL 60 GM TUBE TP SCH ×3 (09:05→21:34)
[2021-12-18] MEDS: HONEY 1 APPL/ML TUBE TP SCH (09:05)
[2021-12-18] MEDS: ACETAMINOPHEN 650 MG SUPPOSITORY RC PRN (09:15)
[2021-12-18] MEDS ORDERED: 0.9%NACL 1000ML 1,000 ML IV ONE (11:37)
[2021-12-18] MEDS ORDERED: DEXTROSE 10%-WATER 1,000 ML IV ONE (11:54)
[2021-12-18] MEDS: DEXTROSE 10%-WATER 1,000 ML IV SCH (12:00)
[2021-12-18] MEDS ORDERED: AMIODARONE 150MG VIAL 150 MG in DEXTROSE 5%-WATER 100 ML IV SCH (12:00)
[2021-12-18] MEDS ORDERED: PHENYLEPHRINE HCL 50 MG in 0.9% NACL 250ML 250 ML IV PRN (12:00)
[2021-12-18] MEDS ORDERED: AMIODARONE 900MG VIAL 360 MG in DEXTROSE 5%-WATER 200 ML IV SCH (12:00)
[2021-12-18] MEDS ORDERED: AMIODARONE 900MG VIAL 540 MG in DEXTROSE 5%-WATER 300 ML IV SCH (12:00)
[2021-12-18] MEDS ORDERED: 0.9%NACL 1000ML 909 ML IV ONE (12:00)
[2021-12-18 12:39] LABS: ABG HCO3 23.4 mmol/L (21.0-28.0); ABG OXYGEN SATURATION 97.6 % (95.0-99.0); ABG PCO2 42 mmHg (32-45)
[2021-12-18] MEDS ORDERED: 0.9% NACL 250ML 250 ML ONE (13:58)
[2021-12-18] MEDS: MICAFUNGIN 100MG+NS 100ML 100 ML IV SCH (14:06)
[2021-12-18] MEDS ORDERED: M.V.I. IV [ADULT] 10 ML in CLINIMIX-E4.25%AA/D5+LYT2000ML 2,000 ML IV SCH (16:30)
[2021-12-18] MEDS ORDERED: M.V.I. IV [ADULT] 10 ML, MULTITRACE-4 ADULT 10ML VIAL 3 ML in CLINIMIX-E 5%AA /D15%W 2... IV ONE (18:00)
[2021-12-18] MEDS: PHENYLEPHRINE HCL 10/NS 250ML IV PRN ×2 (22:53)
[2021-12-19] VITALS (86 sets, daily range): BP systolic 82–140; BP diastolic 32–109
[2021-12-19] MEDS: DEXTROSE 10%-WATER 1,000 ML IV SCH ×2 (00:03→11:28)
[2021-12-19] MEDS: PHENYLEPHRINE HCL 10/NS 250ML IV PRN ×4 (03:40→08:45)
[2021-12-19 04:39] LABS: BASOPHILS % (AUTO) 0.3 % (0.0-5.0); EOSINOPHILS % (AUTO) 4.2 % (0.0-8.0); LYMPHOCYTES % (AUTO) 18.2 % (21.0-51.0); MEAN CORPUSCULAR HEMOGLOBIN 28.3 pg (27.0-33.0); MEAN CORPUSCULAR HGB CONC 31.1 g/dL (32.0-36.0); MEAN CORPUSCULAR VOLUME 90.9 fL (79-99); MONOCYTES % (AUTO) 7.7 % (3.0-13.0); NEUTROPHILS % (AUTO) 65.7 % (40.0-77.0); PLATELET COUNT (AUTO) 77 K/uL (130-400); RED BLOOD CELL COUNT(AUTO) 2.97 MIL/uL (4.00-5.50); RED CELL DISTRIBUTION WIDTH 17.1 % (11.0-15.5); WHITE BLOOD COUNT (AUTO) 9.2 K/uL (4.8-10.8)
[2021-12-19 04:54] LABS: ALBUMIN 1.4 g/dL (3.5-5.0); CREATININE 0.4 mg/dL (0.5-1.5); POTASSIUM 4.3 mmol/L (3.5-5.1); TOTAL PROTEIN, SERUM 4.8 g/dL (6.0-8.3)
[2021-12-19] MEDS: INSULIN HUMULIN R 100 UNIT/ML 3ML SQ SCH ×3 (06:42→18:00)
[2021-12-19] MEDS: CEFTAZIDIME PENTAHYDRATE 2 GM/VIAL IVP SCH ×3 (06:57→21:45)
[2021-12-19] MEDS: OCTREOTIDE ACETATE 200 MCG/ML 5 ML VIAL IV SCH ×3 (06:58→21:05)
[2021-12-19 08:00] LABS: INR 1.27 (0.85-1.15); PROTHROMBIN TIME 13.7 SEC (9.6-11.6)
[2021-12-19 08:02] LABS: PARTIAL THROMBOPLASTIN TIME 37.5 SEC (26.3-35.5)
[2021-12-19] MEDS: PANTOPRAZOLE 40 MG/VIAL IVP SCH ×2 (08:37→21:04)
[2021-12-19] MEDS: VANCOMYCIN 500MG+NS 100ML 100 ML IV SCH ×2 (08:37→21:05)
[2021-12-19] MEDS: HONEY 1 APPL/ML TUBE TP SCH (08:41)
[2021-12-19] MEDS: BALSAM PERU/CASTOR OIL 60 GM TUBE TP SCH ×3 (08:41→21:06)
[2021-12-19] MEDS: ONDANSETRON 4MG INJ IVP PRN (10:14)
[2021-12-19] MEDS: MICAFUNGIN 100MG+NS 100ML 100 ML IV SCH (12:14)
[2021-12-19] MEDS ORDERED: M.V.I. IV [ADULT] 10 ML, MULTITRACE-4 ADULT 10ML VIAL 3 ML in CLINIMIX-E 5%AA /D15%W 2... IV ONE (15:00)
[2021-12-19] MEDS ORDERED: 0.9%NACL 100ML 100 ML ONE (20:18)
[2021-12-20] VITALS (34 sets, daily range): BP systolic 84–139; BP diastolic 36–71
[2021-12-20] MEDS: DEXTROSE 10%-WATER 1,000 ML IV SCH ×2 (00:09→11:47)
[2021-12-20] MEDS: INSULIN HUMULIN R 100 UNIT/ML 3ML SQ SCH ×4 (00:26→17:26)
[2021-12-20 03:50] LABS: BASOPHILS % (AUTO) 0.2 % (0.0-5.0); EOSINOPHILS % (AUTO) 5.3 % (0.0-8.0); HEMATOCRIT 26.6 % (36-48); LYMPHOCYTES % (AUTO) 17.9 % (21.0-51.0); MEAN CORPUSCULAR HEMOGLOBIN 27.8 pg (27.0-33.0); MEAN CORPUSCULAR HGB CONC 30.8 g/dL (32.0-36.0); MEAN CORPUSCULAR VOLUME 90.2 fL (79-99); MONOCYTES % (AUTO) 9.1 % (3.0-13.0); NEUTROPHILS % (AUTO) 63.9 % (40.0-77.0); PLATELET COUNT (AUTO) 84 K/uL (130-400); RED BLOOD CELL COUNT(AUTO) 2.95 MIL/uL (4.00-5.50); RED CELL DISTRIBUTION WIDTH 17.1 % (11.0-15.5); WHITE BLOOD COUNT (AUTO) 5.3 K/uL (4.8-10.8)
[2021-12-20 04:03] LABS: ALBUMIN 1.4 g/dL (3.5-5.0); CREATININE 0.4 mg/dL (0.5-1.5); POTASSIUM 4.2 mmol/L (3.5-5.1)
[2021-12-20] MEDS: OCTREOTIDE ACETATE 200 MCG/ML 5 ML VIAL IV SCH ×3 (06:47→21:38)
[2021-12-20] MEDS: CEFTAZIDIME PENTAHYDRATE 2 GM/VIAL IVP SCH ×3 (06:48→21:39)
[2021-12-20] MEDS ORDERED: 0.9%NACL 100ML 100 ML ONE ×2 (08:25→20:10)
[2021-12-20] MEDS: VANCOMYCIN 500MG+NS 100ML 100 ML IV SCH ×2 (09:01→20:38)
[2021-12-20] MEDS: HONEY 1 APPL/ML TUBE TP SCH (09:02)
[2021-12-20] MEDS: BALSAM PERU/CASTOR OIL 60 GM TUBE TP SCH ×3 (09:02→21:41)
[2021-12-20] MEDS: PANTOPRAZOLE 40 MG/VIAL IVP SCH ×2 (09:03→20:38)
[2021-12-20] MEDS: MICAFUNGIN 100MG+NS 100ML 100 ML IV SCH (13:01)
[2021-12-20] MEDS ORDERED: M.V.I. IV [ADULT] 10 ML, MULTITRACE-4 ADULT 10ML VIAL 3 ML in CLINIMIX-E 5%AA /D15%W 2... IV ONE (18:00)
[2021-12-21] VITALS (17 sets, daily range): BP systolic 121–148; BP diastolic 57–81
[2021-12-21] MEDS: INSULIN HUMULIN R 100 UNIT/ML 3ML SQ SCH ×4 (00:14→18:00)
[2021-12-21] MEDS: DEXTROSE 10%-WATER 1,000 ML IV SCH ×2 (00:15→11:05)
[2021-12-21 04:08] LABS: BASOPHILS % (AUTO) 0.3 % (0.0-5.0); EOSINOPHILS % (AUTO) 5.3 % (0.0-8.0); HEMATOCRIT 26.9 % (36-48); LYMPHOCYTES % (AUTO) 18.7 % (21.0-51.0); MEAN CORPUSCULAR HEMOGLOBIN 28.1 pg (27.0-33.0); MEAN CORPUSCULAR HGB CONC 31.6 g/dL (32.0-36.0); MEAN CORPUSCULAR VOLUME 89.1 fL (79-99); MONOCYTES % (AUTO) 8.7 % (3.0-13.0); PLATELET COUNT (AUTO) 108 K/uL (130-400); RED BLOOD CELL COUNT(AUTO) 3.02 MIL/uL (4.00-5.50); RED CELL DISTRIBUTION WIDTH 17.1 % (11.0-15.5); WHITE BLOOD COUNT (AUTO) 6.2 K/uL (4.8-10.8)
[2021-12-21 04:38] LABS: ALBUMIN 1.3 g/dL (3.5-5.0); CREATININE 0.4 mg/dL (0.5-1.5); POTASSIUM 4.2 mmol/L (3.5-5.1); TOTAL PROTEIN, SERUM 4.9 g/dL (6.0-8.3)
[2021-12-21] MEDS: CEFTAZIDIME PENTAHYDRATE 2 GM/VIAL IVP SCH (06:44)
[2021-12-21] MEDS: OCTREOTIDE ACETATE 200 MCG/ML 5 ML VIAL IV SCH ×3 (06:45→22:30)
[2021-12-21] MEDS: VANCOMYCIN 500MG+NS 100ML 100 ML IV SCH ×2 (08:26→22:22)
[2021-12-21] MEDS: PANTOPRAZOLE 40 MG/VIAL IVP SCH ×2 (08:26→22:24)
[2021-12-21] MEDS: BALSAM PERU/CASTOR OIL 60 GM TUBE TP SCH ×3 (08:31→22:26)
[2021-12-21] MEDS: HONEY 1 APPL/ML TUBE TP SCH (08:32)
[2021-12-21] MEDS: FAT EMULSIONS 20% 250ML 250 ML IV SCH (09:45)
[2021-12-21] MEDS: MICAFUNGIN 100MG+NS 100ML 100 ML IV SCH (12:44)
[2021-12-21] MEDS: CEFTAZIDIME PENTAHYDRATE 1 GM/VIAL IVP SCH (13:59)
[2021-12-21] MEDS ORDERED: M.V.I. IV [ADULT] 10 ML, MULTITRACE-4 ADULT 10ML VIAL 3 ML in CLINIMIX-E 5%AA /D15%W 2... IV ONE (19:00)
[2021-12-21] MEDS ORDERED: [UNRECOGNIZED DRUG - MIXTURE] IV ONE (19:00)
[2021-12-21] MEDS ORDERED: 0.9%NACL 100ML 100 ML ONE (22:12)
[2021-12-22 00:12] VITALS: BP_SYST 128; BP_SYST 150; BP_DIAS 69; BP_DIAS 78
[2021-12-22] MEDS: DEXTROSE 10%-WATER 1,000 ML IV SCH ×3 (00:21→23:57)
[2021-12-22] MEDS: CEFTAZIDIME PENTAHYDRATE 1 GM/VIAL IVP SCH ×4 (00:22→22:37)
[2021-12-22 03:47] LABS: BASOPHILS % (AUTO) 0.3 % (0.0-5.0); EOSINOPHILS % (AUTO) 3.4 % (0.0-8.0); HEMATOCRIT 29.2 % (36-48); LYMPHOCYTES % (AUTO) 12.8 % (21.0-51.0); MEAN CORPUSCULAR HGB CONC 31.5 g/dL (32.0-36.0); MONOCYTES % (AUTO) 6.7 % (3.0-13.0); NEUTROPHILS % (AUTO) 72.2 % (40.0-77.0); PLATELET COUNT (AUTO) 143 K/uL (130-400); RED BLOOD CELL COUNT(AUTO) 3.28 MIL/uL (4.00-5.50); RED CELL DISTRIBUTION WIDTH 17.2 % (11.0-15.5); WHITE BLOOD COUNT (AUTO) 10.4 K/uL (4.8-10.8)
[2021-12-22 04:01] LABS: ALBUMIN 1.3 g/dL (3.5-5.0); CREATININE 0.4 mg/dL (0.5-1.5); POTASSIUM 4.4 mmol/L (3.5-5.1); TOTAL PROTEIN, SERUM 5.3 g/dL (6.0-8.3)
[2021-12-22] MEDS: INSULIN HUMULIN R 100 UNIT/ML 3ML SQ SCH ×5 (06:33→23:57)
[2021-12-22 07:00] VITALS: BP 153/72
[2021-12-22] MEDS: PANTOPRAZOLE 40 MG/VIAL IVP SCH ×2 (09:10→22:36)
[2021-12-22] MEDS: VANCOMYCIN 500MG+NS 100ML 100 ML IV SCH ×2 (09:11→22:36)
[2021-12-22] MEDS: BALSAM PERU/CASTOR OIL 60 GM TUBE TP SCH ×3 (09:18→22:37)
[2021-12-22] MEDS: HONEY 1 APPL/ML TUBE TP SCH (09:19)
[2021-12-22 11:00] VITALS: BP 140/80
[2021-12-22] MEDS ORDERED: COMPOUND IV REFRIGERATED 1 EACH IVSOLN MISC PRN (12:00)
[2021-12-22] MEDS: MICAFUNGIN 100MG+NS 100ML 100 ML IV SCH (12:16)
[2021-12-22] MEDS: OCTREOTIDE ACETATE 200 MCG/ML 5 ML VIAL IV SCH ×2 (13:32→22:36)
[2021-12-22 16:00] VITALS: BP 162/92
[2021-12-22] MEDS ORDERED: M.V.I. IV [ADULT] 10 ML, MULTITRACE-4 ADULT 10ML VIAL 3 ML in CLINIMIX-E 5%AA /D15%W 2... IV ONE (17:00)
[2021-12-22 19:12] VITALS: BP 150/78
[2021-12-22] MEDS ORDERED: 0.9%NACL 100ML 100 ML ONE (22:43)
[2021-12-23 00:12] VITALS: BP 142/76
[2021-12-23 03:12] VITALS: BP 132/63
[2021-12-23] MEDS: INSULIN HUMULIN R 100 UNIT/ML 3ML SQ SCH ×3 (06:00→16:57)
[2021-12-23] MEDS: OCTREOTIDE ACETATE 200 MCG/ML 5 ML VIAL IV SCH ×3 (06:00→21:20)
[2021-12-23] MEDS: CEFTAZIDIME PENTAHYDRATE 1 GM/VIAL IVP SCH ×3 (06:54→21:19)
[2021-12-23 08:00] VITALS: BP 162/87
[2021-12-23] MEDS ORDERED: 0.9%NACL 100ML 100 ML ONE (08:41)
[2021-12-23] MEDS: BALSAM PERU/CASTOR OIL 60 GM TUBE TP SCH ×3 (08:47→21:21)
[2021-12-23] MEDS: PANTOPRAZOLE 40 MG/VIAL IVP SCH ×2 (08:47→21:19)
[2021-12-23] MEDS: HONEY 1 APPL/ML TUBE TP SCH (08:47)
[2021-12-23] MEDS: VANCOMYCIN 500MG+NS 100ML 100 ML IV SCH ×2 (10:43→21:19)
[2021-12-23 11:48] VITALS: BP 139/76
[2021-12-23] MEDS: DEXTROSE 10%-WATER 1,000 ML IV SCH (12:23)
[2021-12-23] MEDS: MICAFUNGIN 100MG+NS 100ML 100 ML IV SCH (12:28)
[2021-12-23 16:06] VITALS: BP 159/81
[2021-12-23] MEDS ORDERED: M.V.I. IV [ADULT] 10 ML, MULTITRACE-4 ADULT 10ML VIAL 3 ML in CLINIMIX-E 5%AA /D15%W 2... IV SCH (18:00)
[2021-12-23 19:49] VITALS: BP 147/74
[2021-12-24] VITALS (7 sets, daily range): BP systolic 117–144; BP diastolic 62–78
[2021-12-24] MEDS: DEXTROSE 10%-WATER 1,000 ML IV SCH ×2 (00:33→12:36)
[2021-12-24] MEDS: INSULIN HUMULIN R 100 UNIT/ML 3ML SQ SCH ×5 (01:00→23:59)
[2021-12-24] MEDS: CEFTAZIDIME PENTAHYDRATE 1 GM/VIAL IVP SCH ×3 (06:10→22:54)
[2021-12-24] MEDS: OCTREOTIDE ACETATE 200 MCG/ML 5 ML VIAL IV SCH ×3 (06:10→22:54)
[2021-12-24] MEDS: PANTOPRAZOLE 40 MG/VIAL IVP SCH ×2 (09:10→20:32)
[2021-12-24] MEDS: HONEY 1 APPL/ML TUBE TP SCH (09:10)
[2021-12-24] MEDS: BALSAM PERU/CASTOR OIL 60 GM TUBE TP SCH ×3 (09:11→20:35)
[2021-12-24] MEDS: VANCOMYCIN 500MG+NS 100ML 100 ML IV SCH ×2 (09:25→20:32)
[2021-12-24] MEDS: MICAFUNGIN 100MG+NS 100ML 100 ML IV SCH (13:16)
[2021-12-24] MEDS ORDERED: M.V.I. IV [ADULT] 10 ML, MULTITRACE-4 ADULT 10ML VIAL 3 ML in CLINIMIX-E 5%AA /D15%W 2... IV SCH (19:00)
[2021-12-25] MEDS: DEXTROSE 10%-WATER 1,000 ML IV SCH (00:39)
[2021-12-25 03:47] LABS: HEMATOCRIT 28.9 % (36-48); MEAN CORPUSCULAR HEMOGLOBIN 28.4 pg (27.0-33.0); MEAN CORPUSCULAR HGB CONC 31.8 g/dL (32.0-36.0); MEAN CORPUSCULAR VOLUME 89.2 fL (79-99); RED BLOOD CELL COUNT(AUTO) 3.24 MIL/uL (4.00-5.50); RED CELL DISTRIBUTION WIDTH 18.1 % (11.0-15.5); WHITE BLOOD COUNT (AUTO) 11.9 K/uL (4.8-10.8)
[2021-12-25 04:15] VITALS: BP 19/76
[2021-12-25 04:26] LABS: ALBUMIN 1.3 g/dL (3.5-5.0); CREATININE 0.4 mg/dL (0.5-1.5); MAGNESIUM 1.4 mg/dL (1.80-2.40); POTASSIUM 4.8 mmol/L (3.5-5.1); TOTAL PROTEIN, SERUM 5.4 g/dL (6.0-8.3)
[2021-12-25] MEDS: OCTREOTIDE ACETATE 200 MCG/ML 5 ML VIAL IV SCH (06:00)
[2021-12-25] MEDS: INSULIN HUMULIN R 100 UNIT/ML 3ML SQ SCH ×3 (06:00→18:00)
[2021-12-25] MEDS: CEFTAZIDIME PENTAHYDRATE 1 GM/VIAL IVP SCH ×3 (06:12→22:14)
[2021-12-25 07:00] VITALS: BP 133/61
[2021-12-25] MEDS ORDERED: 0.9% NACL 250ML 250 ML ONE (08:21)
[2021-12-25] MEDS: PANTOPRAZOLE 40 MG/VIAL IVP SCH ×2 (08:22→20:53)
[2021-12-25] MEDS: VANCOMYCIN 500MG+NS 100ML 100 ML IV SCH ×2 (08:22→20:54)
[2021-12-25] MEDS: BALSAM PERU/CASTOR OIL 60 GM TUBE TP SCH ×3 (08:24→20:57)
[2021-12-25] MEDS: HONEY 1 APPL/ML TUBE TP SCH (08:24)
[2021-12-25] MEDS ORDERED: M.V.I. IV [ADULT] 10 ML, MULTITRACE-4 ADULT 10ML VIAL 3 ML in CLINIMIX-E 5%AA /D15%W 2... IV SCH (10:30)
[2021-12-25 11:00] VITALS: BP 149/76
[2021-12-25] MEDS: MICAFUNGIN 100MG+NS 100ML 100 ML IV SCH (13:24)
[2021-12-25 16:00] VITALS: BP 139/76
[2021-12-25 19:06] VITALS: BP 146/73
[2021-12-25] MEDS: OCTREOTIDE ACETATE 100 MCG/ML AMP IVP SCH (22:14)
[2021-12-26 00:06] VITALS: BP 120/65
[2021-12-26 03:09] VITALS: BP 118/68
[2021-12-26] MEDS: OCTREOTIDE ACETATE 100 MCG/ML AMP IVP SCH ×3 (05:37→21:21)
[2021-12-26] MEDS: CEFTAZIDIME PENTAHYDRATE 1 GM/VIAL IVP SCH ×3 (05:37→21:21)
[2021-12-26] MEDS: INSULIN HUMULIN R 100 UNIT/ML 3ML SQ SCH ×4 (06:00→19:35)
[2021-12-26 07:00] VITALS: BP 137/83
[2021-12-26] MEDS: VANCOMYCIN 500MG+NS 100ML 100 ML IV SCH ×2 (09:22→21:21)
[2021-12-26] MEDS: PANTOPRAZOLE 40 MG/VIAL IVP SCH ×2 (09:22→21:21)
[2021-12-26] MEDS: HONEY 1 APPL/ML TUBE TP SCH (09:23)
[2021-12-26] MEDS: BALSAM PERU/CASTOR OIL 60 GM TUBE TP SCH ×3 (09:23→21:21)
[2021-12-26 11:00] VITALS: BP 97/67
[2021-12-26] MEDS ORDERED: M.V.I. IV [ADULT] 10 ML, MULTITRACE-4 ADULT 10ML VIAL 3 ML in CLINIMIX-E 5%AA /D15%W 2... IV SCH (12:30)
[2021-12-26] MEDS: MICAFUNGIN 100MG+NS 100ML 100 ML IV SCH (12:38)
[2021-12-26 14:36] LABS: CREATININE 0.4 mg/dL (0.5-1.5); POTASSIUM 4.7 mmol/L (3.5-5.1)
[2021-12-26 14:43] LABS: ALBUMIN 1.3 g/dL (3.5-5.0); MAGNESIUM 1.5 mg/dL (1.80-2.40); TOTAL PROTEIN, SERUM 5.7 g/dL (6.0-8.3)
[2021-12-26] MEDS ORDERED: MAGNESIUM 2GM PREMIX 50ML 50 ML IV PRN (15:00)
[2021-12-26 16:00] VITALS: BP 118/73
[2021-12-26] MEDS: MAGNESIUM 2GM PREMIX 50ML 50 ML IV PRN (17:27)
[2021-12-26 19:06] VITALS: BP 138/77
[2021-12-27 00:09] VITALS: BP_SYST 119; BP_DIAS 53; BP_DIAS 74
[2021-12-27 03:12] VITALS: BP 119/65
[2021-12-27 04:20] LABS: BASOPHILS % (AUTO) 0.2 % (0.0-5.0); EOSINOPHILS % (AUTO) 2.5 % (0.0-8.0); LYMPHOCYTES % (AUTO) 14.3 % (21.0-51.0); MEAN CORPUSCULAR HGB CONC 31.4 g/dL (32.0-36.0); MEAN CORPUSCULAR VOLUME 92.4 fL (79-99); MONOCYTES % (AUTO) 8.5 % (3.0-13.0); NEUTROPHILS % (AUTO) 73.7 % (40.0-77.0); PLATELET COUNT (AUTO) 222 K/uL (130-400); RED BLOOD CELL COUNT(AUTO) 3.14 MIL/uL (4.00-5.50); RED CELL DISTRIBUTION WIDTH 18.8 % (11.0-15.5); WHITE BLOOD COUNT (AUTO) 8.2 K/uL (4.8-10.8)
[2021-12-27 04:37] LABS: ALBUMIN 1.2 g/dL (3.5-5.0); CREATININE 0.5 mg/dL (0.5-1.5); MAGNESIUM 2.1 mg/dL (1.80-2.40); POTASSIUM 5.9 mmol/L (3.5-5.1); TOTAL PROTEIN, SERUM 5.3 g/dL (6.0-8.3)
[2021-12-27 05:02] LABS: B-TYPE NATRIURETIC PEPTIDE 60 pg/mL (0-100)
[2021-12-27] MEDS: INSULIN HUMULIN R 100 UNIT/ML 3ML SQ SCH ×5 (06:00→17:59)
[2021-12-27] MEDS: CEFTAZIDIME PENTAHYDRATE 1 GM/VIAL IVP SCH ×3 (06:02→21:27)
[2021-12-27 08:00] VITALS: BP 124/73
[2021-12-27] MEDS: OCTREOTIDE ACETATE 100 MCG/ML AMP IVP SCH ×3 (09:13→21:27)
[2021-12-27] MEDS: HONEY 1 APPL/ML TUBE TP SCH (09:24)
[2021-12-27] MEDS: BALSAM PERU/CASTOR OIL 60 GM TUBE TP SCH ×3 (09:24→21:25)
[2021-12-27] MEDS: PANTOPRAZOLE 40 MG/VIAL IVP SCH ×2 (09:24→21:26)
[2021-12-27] MEDS: VANCOMYCIN 500MG+NS 100ML 100 ML IV SCH ×2 (09:25→21:26)
[2021-12-27] MEDS ORDERED: DEXTROSE 50%-WATER 50 ML DISP.SYRIN IV PRN (09:30)
[2021-12-27] MEDS ORDERED: INSULIN HUMULIN R 100 UNIT/ML 3ML IV PRN (09:30)
[2021-12-27] MEDS ORDERED: ALBUTEROL 0.083% 2.5 MG/3 ML INH IH PRN (09:30)
[2021-12-27] MEDS ORDERED: CALCIUM GLUC 1GM 1 GM in 0.9%NACL 100ML 100 ML IV PRN (09:30)
[2021-12-27 09:57] LABS: CREATININE 0.6 mg/dL (0.5-1.5); POTASSIUM 5.7 mmol/L (3.5-5.1)
[2021-12-27] MEDS ORDERED: FAT EMULSIONS 20% 250ML 250 ML IV SCH (10:00)
[2021-12-27] MEDS ORDERED: M.V.I. IV [ADULT] 10 ML, MULTITRACE-4 ADULT 10ML VIAL 3 ML in CLINIMIX-E 5%AA /D15%W 2... IV SCH (12:00)
[2021-12-27 12:31] VITALS: BP 116/57
[2021-12-27] MEDS: MICAFUNGIN 100MG+NS 100ML 100 ML IV SCH (13:11)
[2021-12-27 16:00] VITALS: BP 138/79
[2021-12-27 19:12] VITALS: BP 132/57
[2021-12-27] MEDS ORDERED: 0.9%NACL 100ML 100 ML ONE (21:15)
[2021-12-28] VITALS (7 sets, daily range): BP systolic 109–155; BP diastolic 60–89
[2021-12-28 04:28] LABS: BASOPHILS % (AUTO) 0.5 % (0.0-5.0); EOSINOPHILS % (AUTO) 2.4 % (0.0-8.0); HEMATOCRIT 27.6 % (36-48); LYMPHOCYTES % (AUTO) 15.1 % (21.0-51.0); MEAN CORPUSCULAR HEMOGLOBIN 28.8 pg (27.0-33.0); MEAN CORPUSCULAR HGB CONC 31.9 g/dL (32.0-36.0); MEAN CORPUSCULAR VOLUME 90.2 fL (79-99); MONOCYTES % (AUTO) 8.8 % (3.0-13.0); NEUTROPHILS % (AUTO) 72.5 % (40.0-77.0); PLATELET COUNT (AUTO) 227 K/uL (130-400); RED BLOOD CELL COUNT(AUTO) 3.06 MIL/uL (4.00-5.50); RED CELL DISTRIBUTION WIDTH 18.6 % (11.0-15.5); WHITE BLOOD COUNT (AUTO) 8.8 K/uL (4.8-10.8)
[2021-12-28 04:47] LABS: ALBUMIN 1.3 g/dL (3.5-5.0); CREATININE 0.4 mg/dL (0.5-1.5); MAGNESIUM 1.6 mg/dL (1.80-2.40); POTASSIUM 4.6 mmol/L (3.5-5.1); TOTAL PROTEIN, SERUM 5.5 g/dL (6.0-8.3)
[2021-12-28] MEDS: INSULIN HUMULIN R 100 UNIT/ML 3ML SQ SCH ×4 (06:00→17:24)
[2021-12-28] MEDS: OCTREOTIDE ACETATE 100 MCG/ML AMP IVP SCH ×3 (06:00→22:00)
[2021-12-28] MEDS: MAGNESIUM 2GM PREMIX 50ML 50 ML IV PRN (06:07)
[2021-12-28] MEDS: CEFTAZIDIME PENTAHYDRATE 1 GM/VIAL IVP SCH ×3 (06:07→22:25)
[2021-12-28] MEDS: PANTOPRAZOLE 40 MG/VIAL IVP SCH ×2 (09:11→22:25)
[2021-12-28] MEDS: VANCOMYCIN 500MG+NS 100ML 100 ML IV SCH ×2 (09:11→22:24)
[2021-12-28] MEDS: BALSAM PERU/CASTOR OIL 60 GM TUBE TP SCH ×2 (09:12→14:24)
[2021-12-28] MEDS: HONEY 1 APPL/ML TUBE TP SCH (09:12)
[2021-12-28] MEDS: FAT EMULSIONS 20% 250ML 250 ML IV SCH (09:24)
[2021-12-28] MEDS ORDERED: M.V.I. IV [ADULT] 10 ML in CLINIMIX-E 5%AA /D15%W 2000ML 2,000 ML IV SCH (09:30)
[2021-12-28] MEDS: MICAFUNGIN 100MG+NS 100ML 100 ML IV SCH (12:42)
[2021-12-29 03:44] VITALS: BP 134/69
[2021-12-29] MEDS: INSULIN HUMULIN R 100 UNIT/ML 3ML SQ SCH ×4 (05:43→16:10)
[2021-12-29] MEDS: OCTREOTIDE ACETATE 100 MCG/ML AMP IVP SCH ×3 (06:00→21:11)
[2021-12-29] MEDS: CEFTAZIDIME PENTAHYDRATE 1 GM/VIAL IVP SCH ×3 (06:46→21:10)
[2021-12-29] MEDS ORDERED: 0.9%NACL 100ML 100 ML ONE (07:53)
[2021-12-29 08:00] VITALS: BP 128/73
[2021-12-29] MEDS: VANCOMYCIN 500MG+NS 100ML 100 ML IV SCH ×2 (09:03→21:39)
[2021-12-29] MEDS: PANTOPRAZOLE 40 MG/VIAL IVP SCH ×2 (09:03→21:10)
[2021-12-29] MEDS: HONEY 1 APPL/ML TUBE TP SCH (09:05)
[2021-12-29] MEDS ORDERED: M.V.I. IV [ADULT] 10 ML in CLINIMIX-E 5%AA /D15%W 2000ML 2,000 ML IV SCH (10:30)
[2021-12-29 12:00] VITALS: BP 125/72
[2021-12-29] MEDS: MICAFUNGIN 100MG+NS 100ML 100 ML IV SCH (13:08)
[2021-12-29 16:00] VITALS: BP 121/68
[2021-12-29 19:47] VITALS: BP 120/59
[2021-12-29 23:36] VITALS: BP 126/71
[2021-12-30 03:45] VITALS: BP 135/65
[2021-12-30] MEDS: CEFTAZIDIME PENTAHYDRATE 1 GM/VIAL IVP SCH ×3 (05:54→21:13)
[2021-12-30] MEDS: OCTREOTIDE ACETATE 100 MCG/ML AMP IVP SCH ×2 (05:55→15:29)
[2021-12-30] MEDS: INSULIN HUMULIN R 100 UNIT/ML 3ML SQ SCH ×2 (06:00)
[2021-12-30 08:45] VITALS: BP 128/64
[2021-12-30] MEDS ORDERED: 0.9%NACL 100ML 100 ML ONE (10:10)
[2021-12-30] MEDS: PANTOPRAZOLE 40 MG/VIAL IVP SCH ×2 (11:16→21:14)
[2021-12-30] MEDS: FAT EMULSIONS 20% 250ML 250 ML IV SCH (11:16)
[2021-12-30] MEDS: VANCOMYCIN 500MG+NS 100ML 100 ML IV SCH ×2 (11:16→21:14)
[2021-12-30] MEDS: HONEY 1 APPL/ML TUBE TP SCH (11:17)
[2021-12-30 12:36] VITALS: BP 127/73
[2021-12-30] MEDS: MICAFUNGIN 100MG+NS 100ML 100 ML IV SCH (15:29)
[2021-12-30 16:39] VITALS: BP 135/66
[2021-12-30] MEDS ORDERED: [UNRECOGNIZED DRUG - NUTRITION] IV ONE (18:00)
[2021-12-30 19:09] VITALS: BP 131/72
[2021-12-30 19:21] VITALS: BP 129/69
[2021-12-30] MEDS: OCTREOTIDE ACETATE 100 MCG/ML AMP SQ SCH (21:14)
[2021-12-31 00:09] VITALS: BP 127/67
[2021-12-31 03:09] VITALS: BP 126/67
[2021-12-31 03:33] LABS: HEMATOCRIT 29.1 % (36-48); MEAN CORPUSCULAR HEMOGLOBIN 28.7 pg (27.0-33.0); MEAN CORPUSCULAR HGB CONC 31.6 g/dL (32.0-36.0); MEAN CORPUSCULAR VOLUME 90.7 fL (79-99); RED BLOOD CELL COUNT(AUTO) 3.21 MIL/uL (4.00-5.50); RED CELL DISTRIBUTION WIDTH 18.6 % (11.0-15.5); WHITE BLOOD COUNT (AUTO) 7.3 K/uL (4.8-10.8)
[2021-12-31 04:09] LABS: ALBUMIN 1.3 g/dL (3.5-5.0); BILIRUBIN,DIRECT 0.6 mg/dL (0.0-0.3); CREATININE 0.5 mg/dL (0.5-1.5); MAGNESIUM 1.4 mg/dL (1.80-2.40); POTASSIUM 4.3 mmol/L (3.5-5.1); TOTAL PROTEIN, SERUM 5.8 g/dL (6.0-8.3)
[2021-12-31] MEDS: CEFTAZIDIME PENTAHYDRATE 1 GM/VIAL IVP SCH ×3 (05:06→22:31)
[2021-12-31] MEDS: MAGNESIUM 2GM PREMIX 50ML 50 ML IV PRN (05:06)
[2021-12-31] MEDS: OCTREOTIDE ACETATE 100 MCG/ML AMP SQ SCH ×3 (05:07→22:31)
[2021-12-31 08:44] VITALS: BP 131/71
[2021-12-31] MEDS: PANTOPRAZOLE 40 MG/VIAL IVP SCH ×2 (09:49→20:14)
[2021-12-31] MEDS: 0.9%NACL 1000ML 1,000 ML IV SCH (09:51)
[2021-12-31] MEDS: HONEY 1 APPL/ML TUBE TP SCH (09:52)
[2021-12-31 12:25] VITALS: BP 128/63
[2021-12-31] MEDS: MICAFUNGIN 100MG+NS 100ML 100 ML IV SCH (14:20)
[2021-12-31 16:02] VITALS: BP 133/63
[2021-12-31] MEDS ORDERED: M.V.I. IV [ADULT] 10 ML in CLINIMIX-E 5%AA /D15%W 2000ML 2,000 ML IV SCH (18:30)
[2021-12-31 19:12] VITALS: BP 121/68
[2021-12-31] MEDS ORDERED: VANCOMYCIN 1G VIAL IVPB ONE (23:00)
[2021-12-31] MEDS ORDERED: VANCOMYCIN 1G/250ML KIT 250 ML IV ONE (23:00)
[2021-12-31] MEDS ORDERED: VANCOMYCIN PROTOCOL PER PHARMACY IV SCH (23:00)
[2022-01-01] VITALS (7 sets, daily range): BP systolic 120–143; BP diastolic 62–79
[2022-01-01 04:31] LABS: ALBUMIN 1.3 g/dL (3.5-5.0); CREATININE 0.4 mg/dL (0.5-1.5); MAGNESIUM 1.6 mg/dL (1.80-2.40); PHOSPHORUS 2.8 mg/dL (2.5-4.9); POTASSIUM 4.2 mmol/L (3.5-5.1); TOTAL PROTEIN, SERUM 5.8 g/dL (6.0-8.3)
[2022-01-01] MEDS: MAGNESIUM 2GM PREMIX 50ML 50 ML IV PRN (05:09)
[2022-01-01] MEDS: OCTREOTIDE ACETATE 100 MCG/ML AMP SQ SCH ×3 (06:02→22:11)
[2022-01-01] MEDS: CEFTAZIDIME PENTAHYDRATE 1 GM/VIAL IVP SCH ×3 (06:02→22:11)
[2022-01-01] MEDS: 0.9%NACL 1000ML 1,000 ML IV SCH (06:07)
[2022-01-01] MEDS: HONEY 1 APPL/ML TUBE TP SCH (10:05)
[2022-01-01] MEDS: PANTOPRAZOLE 40 MG/VIAL IVP SCH ×2 (10:05→20:19)
[2022-01-01] MEDS: FAT EMULSIONS 20% 250ML 250 ML IV SCH (10:05)
[2022-01-01] MEDS: MICAFUNGIN 100MG+NS 100ML 100 ML IV SCH (12:24)
[2022-01-01] MEDS ORDERED: M.V.I. IV [ADULT] 10 ML in CLINIMIX-E 5%AA /D15%W 2000ML 2,000 ML IV SCH (19:00)
[2022-01-01] MEDS ORDERED: M.V.I. IV [ADULT] 10 ML in CLINIMIX-E 5%AA /D15%W 2000ML 2,000 ML IV ONE (19:30)
[2022-01-01] MEDS: VANCOMYCIN 1G/250ML KIT 250 ML IV SCH (20:19)
[2022-01-02] MEDS: 0.9%NACL 1000ML 1,000 ML IV SCH ×2 (02:25→22:12)
[2022-01-02 03:25] VITALS: BP 141/66
[2022-01-02 04:02] LABS: HEMATOCRIT 27.7 % (36-48); MEAN CORPUSCULAR HEMOGLOBIN 28.5 pg (27.0-33.0); MEAN CORPUSCULAR HGB CONC 30.7 g/dL (32.0-36.0); RED BLOOD CELL COUNT(AUTO) 2.98 MIL/uL (4.00-5.50); RED CELL DISTRIBUTION WIDTH 18.8 % (11.0-15.5); WHITE BLOOD COUNT (AUTO) 5.2 K/uL (4.8-10.8)
[2022-01-02 04:09] LABS: CREATININE 0.4 mg/dL (0.5-1.5); MAGNESIUM 1.7 mg/dL (1.80-2.40)
[2022-01-02] MEDS: CEFTAZIDIME PENTAHYDRATE 1 GM/VIAL IVP SCH ×3 (06:10→22:12)
[2022-01-02] MEDS: OCTREOTIDE ACETATE 100 MCG/ML AMP SQ SCH ×3 (06:10→22:12)
[2022-01-02] MEDS: MAGNESIUM 2GM PREMIX 50ML 50 ML IV PRN (06:13)
[2022-01-02 07:57] VITALS: BP 146/61
[2022-01-02] MEDS: PANTOPRAZOLE 40 MG/VIAL IVP SCH ×2 (09:28→20:03)
[2022-01-02] MEDS: HONEY 1 APPL/ML TUBE TP SCH (09:29)
[2022-01-02 11:31] VITALS: BP 130/75
[2022-01-02] MEDS: MICAFUNGIN 100MG+NS 100ML 100 ML IV SCH (12:28)
[2022-01-02] MEDS: M.V.I. IV [ADULT] 10 ML in CLINIMIX-E 5%AA /D15%W 2000ML 2,000 ML IV NR (13:10)
[2022-01-02 16:08] VITALS: BP 134/81
[2022-01-02] MEDS: VANCOMYCIN 1G/250ML KIT 250 ML IV SCH (20:03)
[2022-01-02 20:13] VITALS: BP 108/65
[2022-01-02 23:11] VITALS: BP 144/76
[2022-01-03 04:32] VITALS: BP 130/75
[2022-01-03] MEDS: OCTREOTIDE ACETATE 100 MCG/ML AMP SQ SCH ×3 (05:30→21:22)
[2022-01-03] MEDS: CEFTAZIDIME PENTAHYDRATE 1 GM/VIAL IVP SCH ×3 (05:30→21:22)
[2022-01-03] MEDS: PANTOPRAZOLE 40 MG/VIAL IVP SCH (07:47)
[2022-01-03] MEDS: HONEY 1 APPL/ML TUBE TP SCH (07:47)
[2022-01-03 08:46] VITALS: BP 128/71
[2022-01-03] MEDS: M.V.I. IV [ADULT] 10 ML in CLINIMIX-E 5%AA /D15%W 2000ML 2,000 ML IV NR (11:43)
[2022-01-03] MEDS: MICAFUNGIN 100MG+NS 100ML 100 ML IV SCH (12:03)
[2022-01-03 12:19] VITALS: BP 158/80
[2022-01-03] MEDS: ALPRAZOLAM 0.25 MG TABLET PO PRN (12:48)
[2022-01-03] MEDS: 0.9%NACL 1000ML 1,000 ML IV SCH (14:12)
[2022-01-03 16:49] VITALS: BP 143/79
[2022-01-03 19:30] VITALS: BP 144/93
[2022-01-04] VITALS (7 sets, daily range): BP systolic 110–143; BP diastolic 57–76
[2022-01-04] MEDS: OCTREOTIDE ACETATE 100 MCG/ML AMP SQ SCH ×3 (05:36→21:08)
[2022-01-04] MEDS: CEFTAZIDIME PENTAHYDRATE 1 GM/VIAL IVP SCH (05:36)
[2022-01-04 06:18] LABS: HEMATOCRIT 29.6 % (36-48); MEAN CORPUSCULAR HEMOGLOBIN 29.3 pg (27.0-33.0); MEAN CORPUSCULAR HGB CONC 31.8 g/dL (32.0-36.0); MEAN CORPUSCULAR VOLUME 92.2 fL (79-99); PLATELET COUNT (AUTO) 197 K/uL (130-400); RED BLOOD CELL COUNT(AUTO) 3.21 MIL/uL (4.00-5.50); RED CELL DISTRIBUTION WIDTH 18.7 % (11.0-15.5); WHITE BLOOD COUNT (AUTO) 5.5 K/uL (4.8-10.8)
[2022-01-04 06:25] LABS: CREATININE 0.4 mg/dL (0.5-1.5); POTASSIUM 4.5 mmol/L (3.5-5.1)
[2022-01-04] MEDS: 0.9%NACL 1000ML 1,000 ML IV SCH (10:22)
[2022-01-04] MEDS: FAT EMULSIONS 20% 250ML 250 ML IV SCH (10:31)
[2022-01-04] MEDS: HONEY 1 APPL/ML TUBE TP SCH (10:38)
[2022-01-04] MEDS ORDERED: M.V.I. IV [ADULT] 10 ML, MULTITRACE-4 ADULT 10ML VIAL 3 ML in CLINIMIX-E 5%AA /D15%W 2... IV ONE (13:00)
[2022-01-04] MEDS: MICAFUNGIN 100MG+NS 100ML 100 ML IV SCH (13:43)
[2022-01-04 14:03] LABS: APPEARANCE,URINE CLOUDY (CLEAR); BILIRUBIN,URINE NEGATIVE (NEGATIVE); COLOR,URINE LIGHT-ORANGE (YELLOW); GLUCOSE, URINE (UA) NEGATIVE (NEGATIVE); KETONES,URINE NEGATIVE (NEGATIVE); LEUKOCYTE ESTERASE ,URINE 500 Leu/uL (NEGATIVE); NITRATE,URINE NEGATIVE (NEGATIVE); OCCULT BLOOD,URINE LARGE (NEGATIVE); PROTEIN,URINE 70 mg/dL (NEGATIVE); UROBILINOGEN,URINE 0.2 mg/dL (0.2-1.0)
[2022-01-04 14:23] LABS: BACTERIA,URINE FEW /HPF (None Seen); MUCUS,URINE RARE LPF (None Seen); OTHER CASTS, URINE 5 /LPF (None Seen); RBC,URINE TNTC /HPF (0-1); WBC,URINE TNTC /HPF (0-1); YEAST,URINE BUDDING MOD /HPF (None Seen)
[2022-01-04] MEDS ORDERED: HYDROMORPHONE 0.5 MG SYG (0.5MG/0.5ML) IVP ONE (19:30)
[2022-01-04] MEDS ORDERED: FAMOTIDINE 20MG VIAL IV ONE (21:02)
[2022-01-04] MEDS: VANCOMYCIN 1G/250ML KIT 250 ML IV SCH (21:10)
[2022-01-05 03:50] VITALS: BP 135/73
[2022-01-05] MEDS: OCTREOTIDE ACETATE 100 MCG/ML AMP SQ SCH ×3 (05:39→21:05)
[2022-01-05 08:00] VITALS: BP 139/54
[2022-01-05] MEDS: 0.9%NACL 1000ML 1,000 ML IV SCH (10:02)
[2022-01-05] MEDS: HONEY 1 APPL/ML TUBE TP SCH (10:02)
[2022-01-05 12:09] VITALS: BP 144/76
[2022-01-05] MEDS: MICAFUNGIN 100MG+NS 100ML 100 ML IV SCH (14:01)
[2022-01-05 16:00] VITALS: BP 144/69
[2022-01-05] MEDS ORDERED: DEXTROSE 10%-WATER 1,000 ML IV ONE (19:40)
[2022-01-05 20:00] VITALS: BP 126/82
[2022-01-05] MEDS: VANCOMYCIN 1G/250ML KIT 250 ML IV SCH (21:00)
[2022-01-05 23:41] VITALS: BP 130/67
[2022-01-06 03:41] VITALS: BP 121/65
[2022-01-06] MEDS: OCTREOTIDE ACETATE 100 MCG/ML AMP SQ SCH ×3 (05:06→21:59)
[2022-01-06] MEDS: 0.9%NACL 1000ML 1,000 ML IV SCH (06:00)
[2022-01-06 08:00] VITALS: BP 148/74
[2022-01-06] MEDS: FAMOTIDINE 20MG VIAL IV SCH ×2 (08:04→21:59)
[2022-01-06] MEDS: M.V.I. IV [ADULT] 10 ML, MULTITRACE-4 ADULT 10ML VIAL 3 ML in CLINIMIX-E 5%AA /D15%W 2... IV SCH (08:35)
[2022-01-06 11:55] VITALS: BP 172/94
[2022-01-06] MEDS: FAT EMULSIONS 20% 250ML 250 ML IV SCH (12:11)
[2022-01-06] MEDS: MICAFUNGIN 100MG+NS 100ML 100 ML IV SCH (12:12)
[2022-01-06] MEDS: HONEY 1 APPL/ML TUBE TP SCH (12:12)
[2022-01-06] MEDS ORDERED: HYDROMORPHONE 0.5 MG SYG (0.5MG/0.5ML) IVP SCH (15:37)
[2022-01-06 16:00] VITALS: BP 146/70
[2022-01-06 20:00] VITALS: BP 119/59
[2022-01-06] MEDS ORDERED: VANCOMYCIN 1G/250ML KIT 250 ML IV ONE (21:55)
[2022-01-06] MEDS: VANCOMYCIN 1G/250ML KIT 250 ML IV SCH (21:59)
[2022-01-07] VITALS: BP 159/63
[2022-01-07] MEDS: ACETAMINOPHEN 650 MG SUPPOSITORY RC PRN (03:52)
[2022-01-07 04:00] VITALS: BP 128/64
[2022-01-07] MEDS: OCTREOTIDE ACETATE 100 MCG/ML AMP SQ SCH ×3 (05:37→21:57)
[2022-01-07] MEDS: M.V.I. IV [ADULT] 10 ML, MULTITRACE-4 ADULT 10ML VIAL 3 ML in CLINIMIX-E 5%AA /D15%W 2... IV SCH (07:30)
[2022-01-07 08:00] VITALS: BP 128/70
[2022-01-07] MEDS: FAMOTIDINE 20MG VIAL IV SCH ×2 (09:02→20:19)
[2022-01-07] MEDS: HONEY 1 APPL/ML TUBE TP SCH (09:06)
[2022-01-07] MEDS ORDERED: M.V.I. IV [ADULT] 10 ML, MULTITRACE-4 ADULT 10ML VIAL 3 ML in CLINIMIX-E 5%AA /D15%W 2... IV SCH (09:30)
[2022-01-07] MEDS: FAT EMULSIONS 20% 250ML 250 ML IV SCH (10:00)
[2022-01-07 12:00] VITALS: BP 142/92
[2022-01-07] MEDS: MICAFUNGIN 100MG+NS 100ML 100 ML IV SCH (13:09)
[2022-01-07 16:00] VITALS: BP 135/77
[2022-01-07 20:40] VITALS: BP 131/72
[2022-01-07] MEDS: VANCOMYCIN 1G/250ML KIT 250 ML IV SCH (21:56)
[2022-01-07] MEDS: ALPRAZOLAM 0.25 MG TABLET PO PRN (21:57)
[2022-01-08 00:01] VITALS: BP 133/72
[2022-01-08 03:42] LABS: BASOPHILS % (AUTO) 0.5 % (0.0-5.0); EOSINOPHILS % (AUTO) 5.2 % (0.0-8.0); LYMPHOCYTES % (AUTO) 19.3 % (21.0-51.0); MEAN CORPUSCULAR HEMOGLOBIN 29.3 pg (27.0-33.0); MEAN CORPUSCULAR HGB CONC 32.1 g/dL (32.0-36.0); MEAN CORPUSCULAR VOLUME 91.2 fL (79-99); MONOCYTES % (AUTO) 9.3 % (3.0-13.0); NEUTROPHILS % (AUTO) 64.9 % (40.0-77.0); PLATELET COUNT (AUTO) 197 K/uL (130-400); RED BLOOD CELL COUNT(AUTO) 3.07 MIL/uL (4.00-5.50); RED CELL DISTRIBUTION WIDTH 18.7 % (11.0-15.5)
[2022-01-08 03:59] LABS: ALBUMIN 1.2 g/dL (3.5-5.0); CREATININE 0.4 mg/dL (0.5-1.5); POTASSIUM 4.1 mmol/L (3.5-5.1); TOTAL PROTEIN, SERUM 5.5 g/dL (6.0-8.3)
[2022-01-08 04:00] VITALS: BP 121/73
[2022-01-08] MEDS: OCTREOTIDE ACETATE 100 MCG/ML AMP SQ SCH ×3 (05:43→21:32)
[2022-01-08 08:30] VITALS: BP 135/72
[2022-01-08] MEDS: FAT EMULSIONS 20% 250ML 250 ML IV SCH (10:07)
[2022-01-08] MEDS: HYDROMORPHONE 0.5 MG SYG (0.5MG/0.5ML) IVP PRN (10:08)
[2022-01-08] MEDS: FAMOTIDINE 20MG VIAL IV SCH ×2 (10:08→21:32)
[2022-01-08] MEDS: HONEY 1 APPL/ML TUBE TP SCH (10:08)
[2022-01-08 11:55] VITALS: BP 144/73
[2022-01-08] MEDS: MICAFUNGIN 100MG+NS 100ML 100 ML IV SCH (12:28)
[2022-01-08] MEDS ORDERED: M.V.I. IV [ADULT] 10 ML, MULTITRACE-4 ADULT 10ML VIAL 3 ML in CLINIMIX-E 5%AA /D15%W 2... IV SCH (13:00)
[2022-01-08 16:19] VITALS: BP 133/66
[2022-01-08 20:19] VITALS: BP 134/73
[2022-01-08] MEDS: VANCOMYCIN 1G/250ML KIT 250 ML IV SCH (21:29)
[2022-01-09 00:43] VITALS: BP 140/75
[2022-01-09 04:39] VITALS: BP 145/72
[2022-01-09] MEDS: OCTREOTIDE ACETATE 100 MCG/ML AMP SQ SCH ×3 (06:35→21:59)
[2022-01-09 07:00] VITALS: BP 139/76
[2022-01-09] MEDS: FAMOTIDINE 20MG VIAL IV SCH ×2 (10:59→20:09)
[2022-01-09] MEDS: FAT EMULSIONS 20% 250ML 250 ML IV SCH (10:59)
[2022-01-09 11:00] VITALS: BP 126/65
[2022-01-09] MEDS: MICAFUNGIN 100MG+NS 100ML 100 ML IV SCH (15:06)
[2022-01-09] MEDS: HYDROMORPHONE 0.5 MG SYG (0.5MG/0.5ML) IVP PRN (15:56)
[2022-01-09] MEDS: M.V.I. IV [ADULT] 10 ML, MULTITRACE-4 ADULT 10ML VIAL 3 ML in CLINIMIX-E 5%AA /D15%W 2... IV SCH (15:58)
[2022-01-09 16:00] VITALS: BP 144/87
[2022-01-09 19:09] VITALS: BP 143/73
[2022-01-09] MEDS: VANCOMYCIN 1G/250ML KIT 250 ML IV SCH (20:09)
[2022-01-10 00:06] VITALS: BP 138/72
[2022-01-10 03:06] VITALS: BP 132/77
[2022-01-10] MEDS: OCTREOTIDE ACETATE 100 MCG/ML AMP SQ SCH ×3 (06:37→21:02)
[2022-01-10 07:00] VITALS: BP 137/66
[2022-01-10] MEDS: M.V.I. IV [ADULT] 10 ML, MULTITRACE-4 ADULT 10ML VIAL 3 ML in CLINIMIX-E 5%AA /D15%W 2... IV SCH (08:00)
[2022-01-10] MEDS: FAT EMULSIONS 20% 250ML 250 ML IV SCH (09:06)
[2022-01-10] MEDS: HYDROMORPHONE 0.5 MG SYG (0.5MG/0.5ML) IVP PRN (09:06)
[2022-01-10] MEDS: FAMOTIDINE 20MG VIAL IV SCH ×2 (09:06→20:50)
[2022-01-10] MEDS ORDERED: M.V.I. IV [ADULT] 10 ML, MULTITRACE-4 ADULT 10ML VIAL 3 ML in CLINIMIX-E 5%AA /D15%W 2... IV SCH (10:30)
[2022-01-10 11:00] VITALS: BP 151/71
[2022-01-10] MEDS: MICAFUNGIN 100MG+NS 100ML 100 ML IV SCH (13:20)
[2022-01-10 16:00] VITALS: BP 146/80
[2022-01-10] MEDS: ONDANSETRON 4MG INJ IVP PRN (18:52)
[2022-01-10 19:09] VITALS: BP_SYST 146; BP_DIAS 69; BP_DIAS 77
[2022-01-10] MEDS ORDERED: 0.9% NACL 250ML 250 ML ONE (20:37)
[2022-01-10] MEDS: VANCOMYCIN 1G/250ML KIT 250 ML IV SCH (20:50)
[2022-01-10] MEDS: ALPRAZOLAM 0.25 MG TABLET PO PRN ×2 (21:02→21:50)
[2022-01-11] VITALS (7 sets, daily range): BP systolic 121–139; BP diastolic 65–88
[2022-01-11] MEDS: OCTREOTIDE ACETATE 100 MCG/ML AMP SQ SCH ×3 (05:54→22:16)
[2022-01-11] MEDS: FAMOTIDINE 20MG VIAL IV SCH ×2 (07:26→22:16)
[2022-01-11] MEDS: FAT EMULSIONS 20% 250ML 250 ML IV SCH (14:07)
[2022-01-11] MEDS: M.V.I. IV [ADULT] 10 ML, MULTITRACE-4 ADULT 10ML VIAL 3 ML in CLINIMIX-E 5%AA /D15%W 2... IV SCH (14:10)
[2022-01-11] MEDS: MICAFUNGIN 100MG+NS 100ML 100 ML IV SCH (14:10)
[2022-01-11] MEDS: VANCOMYCIN 1G/250ML KIT 250 ML IV SCH (22:16)
[2022-01-12] MEDS: HYDROMORPHONE 0.5 MG SYG (0.5MG/0.5ML) IVP PRN (00:59)
[2022-01-12 04:22] VITALS: BP 138/57
[2022-01-12 04:23] LABS: HEMATOCRIT 28.3 % (36-48); MEAN CORPUSCULAR HEMOGLOBIN 29.8 pg (27.0-33.0); MEAN CORPUSCULAR HGB CONC 32.9 g/dL (32.0-36.0); MEAN CORPUSCULAR VOLUME 90.7 fL (79-99); RED BLOOD CELL COUNT(AUTO) 3.12 MIL/uL (4.00-5.50); RED CELL DISTRIBUTION WIDTH 17.8 % (11.0-15.5); WHITE BLOOD COUNT (AUTO) 8.2 K/uL (4.8-10.8)
[2022-01-12 05:40] LABS: CREATININE 0.4 mg/dL (0.5-1.5); POTASSIUM 4.2 mmol/L (3.5-5.1)
[2022-01-12] MEDS: OCTREOTIDE ACETATE 100 MCG/ML AMP SQ SCH ×3 (05:42→21:21)
[2022-01-12 05:43] LABS: ALBUMIN 1.3 g/dL (3.5-5.0); BILIRUBIN,DIRECT 0.6 mg/dL (0.0-0.3); MAGNESIUM 1.4 mg/dL (1.80-2.40); PHOSPHORUS 3.9 mg/dL (2.5-4.9); TOTAL PROTEIN, SERUM 5.6 g/dL (6.0-8.3)
[2022-01-12 07:39] VITALS: BP 128/66
[2022-01-12] MEDS: FAMOTIDINE 20MG VIAL IV SCH ×2 (10:37→21:21)
[2022-01-12] MEDS: FAT EMULSIONS 20% 250ML 250 ML IV SCH (10:37)
[2022-01-12] MEDS: MAGNESIUM 2GM PREMIX 50ML 50 ML IV PRN (10:38)
[2022-01-12] MEDS: M.V.I. IV [ADULT] 10 ML, MULTITRACE-4 ADULT 10ML VIAL 3 ML in CLINIMIX-E 5%AA /D15%W 2... IV SCH ×2 (11:00→13:00)
[2022-01-12 12:06] VITALS: BP 143/64
[2022-01-12] MEDS: MICAFUNGIN 100MG+NS 100ML 100 ML IV SCH (13:29)
[2022-01-12] MEDS: 0.9%NACL 1000ML 1,000 ML IV SCH (13:29)
[2022-01-12 16:59] VITALS: BP_SYST 110; BP_SYST 144; BP_SYST 148; BP_SYST 98; BP_DIAS 62; BP_DIAS 68; BP_DIAS 71; BP_DIAS 82
[2022-01-12 19:00] VITALS: BP 137/80
[2022-01-12] MEDS: VANCOMYCIN 1G/250ML KIT 250 ML IV SCH (21:21)
[2022-01-12] MEDS ORDERED: PHARMACY COMMUNICATION MISC SCH (21:30)
[2022-01-12 23:25] VITALS: BP 132/59
[2022-01-13 03:16] VITALS: BP 121/61
[2022-01-13] MEDS: OCTREOTIDE ACETATE 100 MCG/ML AMP SQ SCH ×3 (06:33→22:57)
[2022-01-13 07:39] VITALS: BP 121/62
[2022-01-13] MEDS: FAMOTIDINE 20MG VIAL IV SCH ×2 (10:27→21:18)
[2022-01-13] MEDS: FAT EMULSIONS 20% 250ML 250 ML IV SCH (10:28)
[2022-01-13] MEDS: 0.9%NACL 1000ML 1,000 ML IV SCH (10:29)
[2022-01-13 11:05] VITALS: BP 144/82
[2022-01-13] MEDS: M.V.I. IV [ADULT] 10 ML, MULTITRACE-4 ADULT 10ML VIAL 3 ML in CLINIMIX-E 5%AA /D15%W 2... IV SCH (13:00)
[2022-01-13] MEDS ORDERED: FAT EMULSIONS 20% 250ML 250 ML IV SCH (14:31)
[2022-01-13 16:00] VITALS: BP 136/89
[2022-01-13] MEDS: M.V.I. IV [ADULT] 10 ML, MULTITRACE-4 ADULT 10ML VIAL 3 ML in CLINIMIX-E 5%AA /D15%W 2... IV NR (16:37)
[2022-01-13] MEDS: MICAFUNGIN 100MG+NS 100ML 100 ML IV SCH (18:26)
[2022-01-13 19:12] VITALS: BP 135/76
[2022-01-13] MEDS ORDERED: 0.9% NACL 250ML 250 ML ONE (20:06)
[2022-01-13] MEDS: VANCOMYCIN 1.25 GM/250 ML BAG 250 ML IV SCH (21:19)
[2022-01-14 00:12] VITALS: BP 119/77
[2022-01-14 03:12] VITALS: BP 122/63
[2022-01-14] MEDS: 0.9%NACL 1000ML 1,000 ML IV SCH (05:49)
[2022-01-14] MEDS: OCTREOTIDE ACETATE 100 MCG/ML AMP SQ SCH ×3 (05:49→20:46)
[2022-01-14 07:00] VITALS: BP 134/73
[2022-01-14] MEDS: FAMOTIDINE 20MG VIAL IV SCH ×2 (10:21→20:45)
[2022-01-14] MEDS: FAT EMULSIONS 20% 250ML 250 ML IV SCH (10:37)
[2022-01-14 11:00] VITALS: BP 133/74
[2022-01-14 16:00] VITALS: BP 141/69
[2022-01-14] MEDS: MICAFUNGIN 100MG+NS 100ML 100 ML IV SCH (17:36)
[2022-01-14 19:12] VITALS: BP 137/75
[2022-01-14] MEDS: M.V.I. IV [ADULT] 10 ML, MULTITRACE-4 ADULT 10ML VIAL 3 ML in CLINIMIX-E 5%AA /D15%W 2... IV NR (19:32)
[2022-01-14] MEDS: VANCOMYCIN 1.25 GM/250 ML BAG 250 ML IV SCH (20:46)
[2022-01-15 00:12] VITALS: BP 152/78
[2022-01-15] MEDS: 0.9%NACL 1000ML 1,000 ML IV SCH ×2 (02:24→20:00)
[2022-01-15 03:12] VITALS: BP 153/75
[2022-01-15 04:33] LABS: HEMATOCRIT 29.2 % (36-48); MEAN CORPUSCULAR HEMOGLOBIN 29.6 pg (27.0-33.0); MEAN CORPUSCULAR HGB CONC 32.2 g/dL (32.0-36.0); MEAN CORPUSCULAR VOLUME 91.8 fL (79-99); RED BLOOD CELL COUNT(AUTO) 3.18 MIL/uL (4.00-5.50); RED CELL DISTRIBUTION WIDTH 17.8 % (11.0-15.5); WHITE BLOOD COUNT (AUTO) 7.9 K/uL (4.8-10.8)
[2022-01-15 04:40] LABS: CREATININE 0.5 mg/dL (0.5-1.5); MAGNESIUM 1.5 mg/dL (1.80-2.40); PHOSPHORUS 4.2 mg/dL (2.5-4.9); POTASSIUM 3.8 mmol/L (3.5-5.1)
[2022-01-15] MEDS: OCTREOTIDE ACETATE 100 MCG/ML AMP SQ SCH ×3 (05:38→21:32)
[2022-01-15 08:50] VITALS: BP 158/74
[2022-01-15] MEDS: FAMOTIDINE 20MG VIAL IV SCH ×2 (09:15→21:32)
[2022-01-15] MEDS: FAT EMULSIONS 20% 250ML 250 ML IV SCH (09:15)
[2022-01-15 12:08] VITALS: BP 142/76
[2022-01-15] MEDS: M.V.I. IV [ADULT] 10 ML, MULTITRACE-4 ADULT 10ML VIAL 3 ML in CLINIMIX-E 5%AA /D15%W 2... IV NR (15:24)
[2022-01-15 16:08] VITALS: BP 155/82
[2022-01-15 19:27] VITALS: BP 146/94
[2022-01-16] VITALS (7 sets, daily range): BP systolic 128–150; BP diastolic 49–76
[2022-01-16] MEDS: OCTREOTIDE ACETATE 100 MCG/ML AMP SQ SCH ×3 (05:51→21:44)
[2022-01-16] MEDS: FAMOTIDINE 20MG VIAL IV SCH ×2 (08:00→21:44)
[2022-01-16] MEDS: FAT EMULSIONS 20% 250ML 250 ML IV SCH (08:00)
[2022-01-16] MEDS: M.V.I. IV [ADULT] 10 ML, MULTITRACE-4 ADULT 10ML VIAL 3 ML in CLINIMIX-E 5%AA /D15%W 2... IV NR (09:00)
[2022-01-16] MEDS ORDERED: M.V.I. IV [ADULT] 10 ML in CLINIMIX-E 5%AA /D15%W 2000ML 2,000 ML IV ONE (15:00)
[2022-01-17 04:10] VITALS: BP 135/72
[2022-01-17] MEDS: OCTREOTIDE ACETATE 100 MCG/ML AMP SQ SCH ×3 (06:44→20:53)
[2022-01-17] MEDS: FAMOTIDINE 20MG VIAL IV SCH ×2 (07:45→20:53)
[2022-01-17 08:53] VITALS: BP 146/65
[2022-01-17 12:57] VITALS: BP 134/72
[2022-01-17 16:41] VITALS: BP 146/72
[2022-01-17 19:29] VITALS: BP 141/65
[2022-01-17] MEDS: ALPRAZOLAM 0.25 MG TABLET PO PRN (21:31)
[2022-01-17 23:31] VITALS: BP 153/85
[2022-01-18] VITALS (9 sets, daily range): BP systolic 103–141; BP diastolic 69–82
[2022-01-18] MEDS: ONDANSETRON 4MG INJ IVP PRN ×2 (03:51→22:00)
[2022-01-18 04:07] LABS: MEAN CORPUSCULAR HGB CONC 32.3 g/dL (32.0-36.0); MEAN CORPUSCULAR VOLUME 92.9 fL (79-99); RED BLOOD CELL COUNT(AUTO) 3.23 MIL/uL (4.00-5.50); RED CELL DISTRIBUTION WIDTH 17.7 % (11.0-15.5); WHITE BLOOD COUNT (AUTO) 7.8 K/uL (4.8-10.8)
[2022-01-18 04:14] LABS: CREATININE 0.5 mg/dL (0.5-1.5); MAGNESIUM 1.5 mg/dL (1.80-2.40); PHOSPHORUS 3.4 mg/dL (2.5-4.9); POTASSIUM 4.2 mmol/L (3.5-5.1)
[2022-01-18] MEDS: OCTREOTIDE ACETATE 100 MCG/ML AMP SQ SCH ×3 (05:44→22:27)
[2022-01-18] MEDS: MAGNESIUM 2GM PREMIX 50ML 50 ML IV PRN (05:44)
[2022-01-18] MEDS: FAMOTIDINE 20MG VIAL IV SCH ×2 (07:50→20:14)
[2022-01-18] MEDS: FAT EMULSIONS 20% 250ML 250 ML IV SCH (07:54)
[2022-01-18] MEDS ORDERED: AMIODARONE 900MG VIAL 150 MG in DEXTROSE 5%-WATER 100 ML IV SCH (11:30)
[2022-01-18] MEDS ORDERED: AMIODARONE 900MG VIAL 360 MG in DEXTROSE 5%-WATER 200 ML IV SCH (11:30)
[2022-01-18] MEDS: ALPRAZOLAM 0.25 MG TABLET PO PRN (17:03)
[2022-01-18] MEDS: AMIODARONE 900MG VIAL 540 MG in DEXTROSE 5%-WATER 300 ML IV SCH (18:34)
[2022-01-18] MEDS ORDERED: M.V.I. IV [ADULT] 10 ML in CLINIMIX-E4.25%AA/D5+LYT2000ML 2,000 ML IV ONE (18:50)
[2022-01-18] MEDS ORDERED: [UNRECOGNIZED DRUG - NUTRITION] IV ONE (20:00)
[2022-01-19 03:40] VITALS: BP 117/68
[2022-01-19 03:57] LABS: ALBUMIN 1.7 g/dL (3.5-5.0); BILIRUBIN,DIRECT 2.2 mg/dL (0.0-0.3); TOTAL PROTEIN, SERUM 6.5 g/dL (6.0-8.3)
[2022-01-19] MEDS: OCTREOTIDE ACETATE 100 MCG/ML AMP SQ SCH ×3 (06:41→20:49)
[2022-01-19 07:00] VITALS: BP 142/78
[2022-01-19] MEDS: FAMOTIDINE 20MG VIAL IV SCH ×2 (09:22→20:49)
[2022-01-19 11:00] VITALS: BP 123/73
[2022-01-19 16:00] VITALS: BP 120/69
[2022-01-19] MEDS: ALPRAZOLAM 0.25 MG TABLET PO PRN (17:03)
[2022-01-19] MEDS: AMIODARONE 200 MG TABLET PO SCH (20:48)
[2022-01-19] MEDS ORDERED: APIXABAN 5 MG TABLET PO SCH (21:00)
[2022-01-19 23:41] VITALS: BP 130/70
[2022-01-20] MEDS: AMIODARONE 900MG VIAL 540 MG in DEXTROSE 5%-WATER 300 ML IV SCH (01:24)
[2022-01-20 03:33] VITALS: BP 116/67
[2022-01-20] MEDS ORDERED: SIMETHICONE 80 MG TAB.CHEW PO PRN (04:30)
[2022-01-20] MEDS: OCTREOTIDE ACETATE 100 MCG/ML AMP SQ SCH ×3 (06:12→21:09)
[2022-01-20 08:00] VITALS: BP 124/63
[2022-01-20] MEDS: CEFEPIME HCL 2 GM VIAL IVP SCH ×2 (09:47→21:00)
[2022-01-20] MEDS: FAMOTIDINE 20MG VIAL IV SCH ×2 (09:47→21:00)
[2022-01-20] MEDS: FAT EMULSIONS 20% 250ML 250 ML IV SCH (09:47)
[2022-01-20] MEDS: AMIODARONE 200 MG TABLET PO SCH ×2 (09:48→20:59)
[2022-01-20] MEDS ORDERED: METOPROLOL TARTRATE 1 MG/ML 5ML VIAL IV ONE (11:08)
[2022-01-20] MEDS: MAGNESIUM 2GM PREMIX 50ML 50 ML IV PRN (11:09)
[2022-01-20] MEDS ORDERED: ACETAMINOPHEN 500 MG TABLET PO STA (11:10)
[2022-01-20 11:15] VITALS: BP 123/68
[2022-01-20 11:17] VITALS: BP 113/62
[2022-01-20] MEDS: ACETAMINOPHEN 650 MG SUPPOSITORY RC PRN (11:21)
[2022-01-20] MEDS ORDERED: METOPROLOL TARTRATE 1 MG/ML 5ML VIAL IV PRN (11:30)
[2022-01-20] MEDS ORDERED: [UNRECOGNIZED DRUG - NUTRITION] IV SCH (12:00)
[2022-01-20] MEDS: MEROPENEM 1 GM VIAL IVP SCH ×2 (14:14→21:09)
[2022-01-20 16:00] VITALS: BP 87/87
[2022-01-20 20:14] VITALS: BP 90/47
[2022-01-21 00:04] VITALS: BP 92/44
[2022-01-21] MEDS: ALPRAZOLAM 0.25 MG TABLET PO PRN (03:01)
[2022-01-21] MEDS: ACETAMINOPHEN 500 MG TABLET PO PRN ×2 (03:01→23:14)
[2022-01-21 03:59] VITALS: BP 71/48
[2022-01-21 04:38] LABS: BASOPHILS % (AUTO) 0.3 % (0.0-5.0); EOSINOPHILS % (AUTO) 2.4 % (0.0-8.0); LYMPHOCYTES % (AUTO) 8.6 % (21.0-51.0); MEAN CORPUSCULAR HEMOGLOBIN 29.7 pg (27.0-33.0); MEAN CORPUSCULAR HGB CONC 32.4 g/dL (32.0-36.0); MEAN CORPUSCULAR VOLUME 91.5 fL (79-99); MONOCYTES % (AUTO) 8.9 % (3.0-13.0); NEUTROPHILS % (AUTO) 78.8 % (40.0-77.0); PLATELET COUNT (AUTO) 107 K/uL (130-400); RED BLOOD CELL COUNT(AUTO) 3.17 MIL/uL (4.00-5.50); RED CELL DISTRIBUTION WIDTH 17.2 % (11.0-15.5); WHITE BLOOD COUNT (AUTO) 6.7 K/uL (4.8-10.8)
[2022-01-21 04:56] LABS: ALBUMIN 1.3 g/dL (3.5-5.0); CREATININE 0.7 mg/dL (0.5-1.5); MAGNESIUM 2.3 mg/dL (1.80-2.40); PHOSPHORUS 3.5 mg/dL (2.5-4.9); TOTAL PROTEIN, SERUM 5.7 g/dL (6.0-8.3)
[2022-01-21] MEDS ORDERED: AMIODARONE 900MG VIAL 150 MG in DEXTROSE 5%-WATER 100 ML IV SCH (05:00)
[2022-01-21] MEDS ORDERED: DIGOXIN 250MCG TABLET PO ONE (05:00)
[2022-01-21] MEDS ORDERED: AMIODARONE 900MG VIAL 360 MG in DEXTROSE 5%-WATER 200 ML IV SCH (05:10)
[2022-01-21] MEDS ORDERED: AMIODARONE 150MG VIAL 150 MG in DEXTROSE 5%-WATER 100 ML IV SCH (06:30)
[2022-01-21] MEDS ORDERED: PHARMACY COMMUNICATION MISC SCH (06:30)
[2022-01-21] MEDS: MEROPENEM 1 GM VIAL IVP SCH ×2 (06:33→13:26)
[2022-01-21] MEDS: OCTREOTIDE ACETATE 100 MCG/ML AMP SQ SCH ×3 (06:33→21:40)
[2022-01-21] MEDS: AMIODARONE 360MG/200ML D5W(1MG/MIN) IV SCH ×2 (07:33)
[2022-01-21 08:30] VITALS: BP 94/56
[2022-01-21] MEDS: AMIODARONE 200 MG TABLET PO SCH ×2 (09:00→21:00)
[2022-01-21] MEDS: CEFEPIME HCL 2 GM VIAL IVP SCH (09:35)
[2022-01-21] MEDS: FAMOTIDINE 20MG VIAL IV SCH ×2 (09:35→21:40)
[2022-01-21] MEDS ORDERED: AMIODARONE 900MG VIAL 540 MG in DEXTROSE 5%-WATER 300 ML IV SCH (11:10)
[2022-01-21] MEDS ORDERED: DIGOXIN 250MCG TABLET PO SCH (11:20)
[2022-01-21 12:19] VITALS: BP 101/57
[2022-01-21] MEDS: AMIODARONE 540 MG/D5W 300ML (0.5MG/MIN) IV SCH ×2 (13:54)
[2022-01-21] MEDS: LEVOFLOXACIN 750 MG/D5W 150ML BAG IVPB SCH (14:19)
[2022-01-21 16:30] VITALS: BP 89/47
[2022-01-21 20:29] VITALS: BP 113/47
[2022-01-21] MEDS: ENOXAPARIN SODIUM 60 MG/0.6 ML SQ SCH (21:40)
[2022-01-22 00:35] VITALS: BP 112/47
[2022-01-22] MEDS: ALPRAZOLAM 0.25 MG TABLET PO PRN (04:04)
[2022-01-22 04:49] VITALS: BP 83/51
[2022-01-22] MEDS: OCTREOTIDE ACETATE 100 MCG/ML AMP SQ SCH ×3 (06:26→21:05)
[2022-01-22 08:00] VITALS: BP_SYST 165; BP_SYST 83; BP_DIAS 100; BP_DIAS 61
[2022-01-22 09:12] LABS: HEMATOCRIT 27.6 % (36-48); MEAN CORPUSCULAR HEMOGLOBIN 29.9 pg (27.0-33.0); MEAN CORPUSCULAR VOLUME 90.8 fL (79-99); PLATELET COUNT (AUTO) 87 K/uL (130-400); RED BLOOD CELL COUNT(AUTO) 3.04 MIL/uL (4.00-5.50); WHITE BLOOD COUNT (AUTO) 7.2 K/uL (4.8-10.8)
[2022-01-22 09:26] LABS: CREATININE 0.8 mg/dL (0.5-1.5); POTASSIUM 3.9 mmol/L (3.5-5.1)
[2022-01-22 10:17] LABS: BAND NEUTROPHILS % (MANUAL) 3 % (0-2); EOSINOPHILS % (MANUAL) 1 % (1-6); LYMPHOCYTES % (MANUAL) 13 % (22-44); MAN.DIFF COMMENT-IMPRESSION MANUAL DIFFERENTIAL; MONOCYTES % (MANUAL) 4 % (2-9); SEGMENTED NEUTROPHILS % 79 % (40-70)
[2022-01-22 10:18] LABS: PLATELET MORPHOLOGY COMMENT DECREASED
[2022-01-22] MEDS: AMIODARONE 150MG VIAL 150 MG in DEXTROSE 5%-WATER 100 ML IV SCH (11:09)
[2022-01-22] MEDS: FAMOTIDINE 20MG VIAL IV SCH ×2 (11:09→19:54)
[2022-01-22] MEDS: DIGOXIN 125 MCG TABLET PO SCH (11:10)
[2022-01-22] MEDS: ENOXAPARIN SODIUM 60 MG/0.6 ML SQ SCH ×2 (11:12→19:53)
[2022-01-22] MEDS: AMIODARONE 360MG/200ML D5W(1MG/MIN) IV SCH ×2 (11:21)
[2022-01-22] MEDS: FAT EMULSIONS 20% 250ML 250 ML IV SCH (11:22)
[2022-01-22 11:30] VITALS: BP 93/57
[2022-01-22] MEDS: LEVOFLOXACIN 750 MG/D5W 150ML BAG IVPB SCH (13:22)
[2022-01-22 16:00] VITALS: BP 97/69
[2022-01-22] MEDS ORDERED: M.V.I. IV [ADULT] 10 ML in CLINIMIX-E 5%AA /D15%W 2000ML 2,000 ML IV SCH (19:00)
[2022-01-22 19:09] VITALS: BP 119/71
[2022-01-22] MEDS: METOPROLOL TARTRATE 25 MG TAB PO SCH (19:54)
[2022-01-23 00:09] VITALS: BP 102/53
[2022-01-23 03:09] VITALS: BP 95/56
[2022-01-23] MEDS: OCTREOTIDE ACETATE 100 MCG/ML AMP SQ SCH ×3 (05:17→21:35)
[2022-01-23 07:00] VITALS: BP 95/52
[2022-01-23] MEDS: METOPROLOL TARTRATE 25 MG TAB PO SCH ×2 (09:38→21:00)
[2022-01-23] MEDS: FAMOTIDINE 20MG VIAL IV SCH ×2 (09:39→21:35)
[2022-01-23] MEDS: ENOXAPARIN SODIUM 60 MG/0.6 ML SQ SCH ×2 (09:39→21:35)
[2022-01-23] MEDS: AMIODARONE 540 MG/D5W 300ML (0.5MG/MIN) IV SCH ×2 (09:41)
[2022-01-23] MEDS: DIGOXIN 125 MCG TABLET PO SCH (09:49)
[2022-01-23 11:00] VITALS: BP 106/51
[2022-01-23] MEDS: ACETAMINOPHEN 500 MG TABLET PO PRN (11:23)
[2022-01-23] MEDS: ALPRAZOLAM 0.25 MG TABLET PO PRN (11:23)
[2022-01-23] MEDS: INSULIN HUMULIN R 100 UNIT/ML 3ML SQ SCH ×3 (11:53→21:00)
[2022-01-23] MEDS: LEVOFLOXACIN 750 MG/D5W 150ML BAG IVPB SCH (14:51)
[2022-01-23] MEDS: GABAPENTIN 100 MG CAPSULE PO SCH ×2 (14:51→21:00)
[2022-01-23 16:00] VITALS: BP 95/46
[2022-01-23] MEDS ORDERED: M.V.I. IV [ADULT] 10 ML in CLINIMIX-E 5%AA /D15%W 2000ML 2,000 ML IV SCH (19:00)
[2022-01-23 19:12] VITALS: BP 97/57
[2022-01-23] MEDS ORDERED: PHARMACY COMMUNICATION MISC SCH (19:30)
[2022-01-24 00:12] VITALS: BP 95/55
[2022-01-24 03:12] VITALS: BP 107/54
[2022-01-24] MEDS: AMIODARONE 540 MG/D5W 300ML (0.5MG/MIN) IV SCH ×2 (03:40)
[2022-01-24 04:52] LABS: BASOPHILS % (AUTO) 0.2 % (0.0-5.0); EOSINOPHILS % (AUTO) 0.6 % (0.0-8.0); HEMATOCRIT 26.8 % (36-48); LYMPHOCYTES % (AUTO) 7.2 % (21.0-51.0); MEAN CORPUSCULAR HEMOGLOBIN 30.2 pg (27.0-33.0); MEAN CORPUSCULAR HGB CONC 33.2 g/dL (32.0-36.0); MEAN CORPUSCULAR VOLUME 90.8 fL (79-99); MONOCYTES % (AUTO) 4.5 % (3.0-13.0); NEUTROPHILS % (AUTO) 85.5 % (40.0-77.0); PLATELET COUNT (AUTO) 99 K/uL (130-400); RED BLOOD CELL COUNT(AUTO) 2.95 MIL/uL (4.00-5.50); RED CELL DISTRIBUTION WIDTH 16.7 % (11.0-15.5); WHITE BLOOD COUNT (AUTO) 9.3 K/uL (4.8-10.8)
[2022-01-24 05:09] LABS: CREATININE 0.7 mg/dL (0.5-1.5); POTASSIUM 4.6 mmol/L (3.5-5.1)
[2022-01-24] MEDS: OCTREOTIDE ACETATE 100 MCG/ML AMP SQ SCH ×3 (05:49→21:37)
[2022-01-24] MEDS: INSULIN HUMULIN R 100 UNIT/ML 3ML SQ SCH ×4 (06:56→21:00)
[2022-01-24 07:00] VITALS: BP 92/45
[2022-01-24] MEDS: DIGOXIN 125 MCG TABLET PO SCH (08:29)
[2022-01-24] MEDS: GABAPENTIN 100 MG CAPSULE PO SCH ×3 (08:29→21:00)
[2022-01-24] MEDS: METOPROLOL TARTRATE 25 MG TAB PO SCH ×2 (08:29→21:00)
[2022-01-24 08:53] LABS: HEMATOCRIT 25.9 % (36-48); MEAN CORPUSCULAR HEMOGLOBIN 30.2 pg (27.0-33.0); MEAN CORPUSCULAR HGB CONC 33.6 g/dL (32.0-36.0); MEAN CORPUSCULAR VOLUME 89.9 fL (79-99); PLATELET COUNT (AUTO) 97 K/uL (130-400); RED BLOOD CELL COUNT(AUTO) 2.88 MIL/uL (4.00-5.50); RED CELL DISTRIBUTION WIDTH 16.7 % (11.0-15.5); WHITE BLOOD COUNT (AUTO) 9.3 K/uL (4.8-10.8)
[2022-01-24] MEDS: 0.9%NACL 1000ML 1,000 ML IV SCH (08:59)
[2022-01-24] MEDS: FAMOTIDINE 20MG VIAL IV SCH ×2 (08:59→21:32)
[2022-01-24] MEDS: ENOXAPARIN SODIUM 60 MG/0.6 ML SQ SCH ×2 (09:00→21:34)
[2022-01-24 09:02] LABS: CREATININE 0.7 mg/dL (0.5-1.5); POTASSIUM 4.4 mmol/L (3.5-5.1)
[2022-01-24 09:55] LABS: BAND NEUTROPHILS % (MANUAL) 1 % (0-2); EOSINOPHILS % (MANUAL) 1 % (1-6); LYMPHOCYTES % (MANUAL) 6 % (22-44); MAN.DIFF COMMENT-IMPRESSION MANUAL DIFFERENTIAL; MONOCYTES % (MANUAL) 5 % (2-9); SEGMENTED NEUTROPHILS % 87 % (40-70)
[2022-01-24 09:56] LABS: PLATELET MORPHOLOGY COMMENT SLIGHTLY DECREASED
[2022-01-24] MEDS ORDERED: SODIUM CHLORIDE 3% FOR INHALATION 4 ML/AMP VIAL.NEB IH ONE ×2 (10:52→23:36)
[2022-01-24 11:00] VITALS: BP 94/57
[2022-01-24] MEDS: FLUCONAZOLE 400 MG/NS 200 ML 200 ML IV SCH (13:20)
[2022-01-24] MEDS: LEVOFLOXACIN 750 MG/D5W 150ML BAG IVPB SCH (15:12)
[2022-01-24 16:00] VITALS: BP 93/42
[2022-01-24] MEDS ORDERED: DEXTROSE 10%-WATER 1,000 ML IV SCH (17:30)
[2022-01-24 19:12] VITALS: BP 104/53
[2022-01-24] MEDS: AMIODARONE 150MG VIAL 150 MG in DEXTROSE 5%-WATER 100 ML IV SCH (19:51)
[2022-01-25] VITALS (8 sets, daily range): BP systolic 81–111; BP diastolic 44–59
[2022-01-25 04:00] LABS: BASOPHILS % (AUTO) 0.3 % (0.0-5.0); EOSINOPHILS % (AUTO) 1.9 % (0.0-8.0); HEMATOCRIT 23.3 % (36-48); LYMPHOCYTES % (AUTO) 13.5 % (21.0-51.0); MEAN CORPUSCULAR HEMOGLOBIN 30.2 pg (27.0-33.0); MEAN CORPUSCULAR HGB CONC 32.6 g/dL (32.0-36.0); MEAN CORPUSCULAR VOLUME 92.5 fL (79-99); MONOCYTES % (AUTO) 6.6 % (3.0-13.0); NEUTROPHILS % (AUTO) 72.3 % (40.0-77.0); PLATELET COUNT (AUTO) 92 K/uL (130-400); RED BLOOD CELL COUNT(AUTO) 2.52 MIL/uL (4.00-5.50); RED CELL DISTRIBUTION WIDTH 16.8 % (11.0-15.5); WHITE BLOOD COUNT (AUTO) 7.3 K/uL (4.8-10.8)
[2022-01-25 04:24] LABS: CREATININE 0.7 mg/dL (0.5-1.5); POTASSIUM 4.1 mmol/L (3.5-5.1)
[2022-01-25] MEDS: OCTREOTIDE ACETATE 100 MCG/ML AMP SQ SCH ×3 (05:50→22:56)
[2022-01-25] MEDS: INSULIN HUMULIN R 100 UNIT/ML 3ML SQ SCH ×4 (07:30→20:39)
[2022-01-25] MEDS: 0.9%NACL 1000ML 1,000 ML IV SCH (08:00)
[2022-01-25] MEDS: GABAPENTIN 100 MG CAPSULE PO SCH ×3 (08:07→22:56)
[2022-01-25] MEDS: DIGOXIN 125 MCG TABLET PO SCH (08:08)
[2022-01-25] MEDS: METOPROLOL TARTRATE 25 MG TAB PO SCH ×2 (08:08→22:56)
[2022-01-25] MEDS: ENOXAPARIN SODIUM 60 MG/0.6 ML SQ SCH ×2 (09:00→22:55)
[2022-01-25] MEDS: FAMOTIDINE 20MG VIAL IV SCH ×2 (09:32→22:56)
[2022-01-25] MEDS: FLUCONAZOLE 400 MG/NS 200 ML 200 ML IV SCH (12:42)
[2022-01-25] MEDS ORDERED: SODIUM CHLORIDE 3% FOR INHALATION 4 ML/AMP VIAL.NEB IH ONE (14:08)
[2022-01-25] MEDS: LEVOFLOXACIN 750 MG/D5W 150ML BAG IVPB SCH (15:15)
[2022-01-25] MEDS ORDERED: INSULIN GLARGINE 100 UNITS/ML 10 ML VIAL SQ SCH (21:00)
[2022-01-26] MEDS: 0.9%NACL 1000ML 1,000 ML IV SCH ×2 (01:03→21:49)
[2022-01-26 03:42] VITALS: BP 100/52
[2022-01-26 04:49] LABS: HEMATOCRIT 23.5 % (36-48); MEAN CORPUSCULAR HEMOGLOBIN 30.5 pg (27.0-33.0); MEAN CORPUSCULAR HGB CONC 33.2 g/dL (32.0-36.0); MEAN CORPUSCULAR VOLUME 91.8 fL (79-99); PLATELET COUNT (AUTO) 132 K/uL (130-400); RED BLOOD CELL COUNT(AUTO) 2.56 MIL/uL (4.00-5.50); RED CELL DISTRIBUTION WIDTH 17.2 % (11.0-15.5); WHITE BLOOD COUNT (AUTO) 8.5 K/uL (4.8-10.8)
[2022-01-26 05:28] LABS: CREATININE 0.5 mg/dL (0.5-1.5)
[2022-01-26] MEDS: INSULIN HUMULIN R 100 UNIT/ML 3ML SQ SCH ×4 (06:27→23:50)
[2022-01-26] MEDS: OCTREOTIDE ACETATE 100 MCG/ML AMP SQ SCH ×3 (07:07→21:01)
[2022-01-26 07:29] VITALS: BP 91/50
[2022-01-26 07:44] LABS: EOSINOPHILS % (MANUAL) 2 % (1-6); LYMPHOCYTES % (MANUAL) 9 % (22-44); MAN.DIFF COMMENT-IMPRESSION MANUAL DIFFERENTIAL; MONOCYTES % (MANUAL) 8 % (2-9); PLATELET MORPHOLOGY COMMENT ADEQUATE; SEGMENTED NEUTROPHILS % 81 % (40-70)
[2022-01-26] MEDS: DIGOXIN 125 MCG TABLET PO SCH (07:49)
[2022-01-26] MEDS: METOPROLOL TARTRATE 25 MG TAB PO SCH (07:49)
[2022-01-26] MEDS: GABAPENTIN 100 MG CAPSULE PO SCH (07:50)
[2022-01-26] MEDS: FAMOTIDINE 20MG VIAL IV SCH ×2 (07:53→21:00)
[2022-01-26] MEDS: ENOXAPARIN SODIUM 60 MG/0.6 ML SQ SCH ×2 (07:53→21:01)
[2022-01-26 10:58] VITALS: BP 103/58
[2022-01-26] MEDS: FLUCONAZOLE 400 MG/NS 200 ML 200 ML IV SCH (11:07)
[2022-01-26] MEDS: LEVOFLOXACIN 750 MG/D5W 150ML BAG IVPB SCH (13:08)
[2022-01-26 16:17] VITALS: BP 99/56
[2022-01-26] MEDS ORDERED: PHARMACY COMMUNICATION MISC SCH (16:30)
[2022-01-26] MEDS: AMIODARONE 540 MG/D5W 300ML (0.5MG/MIN) IV SCH ×2 (16:39)
[2022-01-26] MEDS ORDERED: M.V.I. IV [ADULT] 10 ML in CLINIMIX-E4.25%AA/D5+LYT2000ML 2,000 ML IV SCH (17:30)
[2022-01-26 19:53] VITALS: BP 139/57
[2022-01-26] MEDS ORDERED: AMIODARONE 200 MG TABLET PO SCH (21:00)
[2022-01-26] MEDS: ACETAMINOPHEN 650 MG SUPPOSITORY RC PRN (21:51)
[2022-01-26] MEDS: METRONIDAZOLE 500MG/100ML BAG 100 ML IVPB SCH (22:36)
[2022-01-26 23:39] VITALS: BP 134/61
[2022-01-27 04:12] LABS: BASOPHILS % (AUTO) 0.3 % (0.0-5.0); EOSINOPHILS % (AUTO) 1.8 % (0.0-8.0); LYMPHOCYTES % (AUTO) 16.2 % (21.0-51.0); MEAN CORPUSCULAR HEMOGLOBIN 30.2 pg (27.0-33.0); MEAN CORPUSCULAR HGB CONC 31.7 g/dL (32.0-36.0); MONOCYTES % (AUTO) 6.2 % (3.0-13.0); NEUTROPHILS % (AUTO) 68.3 % (40.0-77.0); PLATELET COUNT (AUTO) 163 K/uL (130-400); RED BLOOD CELL COUNT(AUTO) 2.42 MIL/uL (4.00-5.50); RED CELL DISTRIBUTION WIDTH 17.2 % (11.0-15.5); WHITE BLOOD COUNT (AUTO) 7.7 K/uL (4.8-10.8)
[2022-01-27 04:41] VITALS: BP 127/85
[2022-01-27] MEDS: OCTREOTIDE ACETATE 100 MCG/ML AMP SQ SCH ×3 (05:14→21:15)
[2022-01-27] MEDS: METRONIDAZOLE 500MG/100ML BAG 100 ML IVPB SCH ×3 (05:14→21:15)
[2022-01-27] MEDS: INSULIN HUMULIN R 100 UNIT/ML 3ML SQ SCH ×3 (06:00→18:26)
[2022-01-27 06:22] LABS: ALANINE AMINOTRANSFERASE 55 U/L (12-78); ALBUMIN 1.4 g/dL (3.5-5.0); ASPARTATE AMINOTRANSFERASE 39 U/L (10-37); CARBON DIOXIDE 25 mmol/L (21-32); CHLORIDE 102 mmol/L (101-111); CHOLESTEROL 106 mg/dL (<200); CREATININE 0.6 mg/dL (0.5-1.5); DIGOXIN < 0.20 ng/mL (0.50-2.00); GLOMERULAR FILTR. RATE CALC 105 mL/min (>60); GLUCOSE,RANDOM 181 mg/dL (70-105); HDL CHOLESTEROL 11 mg/dL (35-85); LDL DIRECT 64 mg/dL (0-99); SODIUM SERUM 132 mmol/L (136-145); TOTAL PROTEIN, SERUM 5.4 g/dL (6.0-8.3); TRIGLYCERIDES 201 mg/dL (30-200); UREA NITROGEN, BLOOD 24 mg/dL (7-18)
[2022-01-27 07:00] VITALS: BP 121/60
[2022-01-27] MEDS ORDERED: IOHEXOL 350 MG/ML 100ML INFUS..BTL IV ONE (08:57)
[2022-01-27 11:00] VITALS: BP 111/72
[2022-01-27] MEDS: ENOXAPARIN SODIUM 60 MG/0.6 ML SQ SCH ×2 (11:30→21:06)
[2022-01-27] MEDS: FAMOTIDINE 20MG VIAL IV SCH ×2 (11:30→21:05)
[2022-01-27] MEDS: FLUCONAZOLE 400 MG/NS 200 ML 200 ML IV SCH (15:12)
[2022-01-27] MEDS: AMIODARONE 540 MG/D5W 300ML (0.5MG/MIN) IV SCH ×2 (15:23)
[2022-01-27 16:00] VITALS: BP 107/67
[2022-01-27] MEDS: 0.9%NACL 1000ML 1,000 ML IV SCH (17:15)
[2022-01-27] MEDS: LEVOFLOXACIN 750 MG/D5W 150ML BAG IVPB SCH (18:18)
[2022-01-27 19:58] VITALS: BP 124/54
[2022-01-27 20:56] LABS: INR 1.08 (0.85-1.15); PROTHROMBIN TIME 11.7 SEC (9.6-11.6)
[2022-01-27] MEDS: ONDANSETRON 4MG INJ IVP PRN (21:07)
[2022-01-27] MEDS: M.V.I. IV [ADULT] 10 ML in CLINIMIX-E4.25%AA/D5+LYT2000ML 2,000 ML IV NR (21:17)
[2022-01-27 22:46] VITALS: BP 116/68
[2022-01-28] MEDS: 0.9%NACL 1000ML 1,000 ML IV SCH ×2 (01:10→23:41)
[2022-01-28 03:06] VITALS: BP 95/59
[2022-01-28 03:59] LABS: BASOPHILS % (AUTO) 0.5 % (0.0-5.0); EOSINOPHILS % (AUTO) 1.2 % (0.0-8.0); HEMATOCRIT 23.5 % (36-48); LYMPHOCYTES % (AUTO) 13.4 % (21.0-51.0); MEAN CORPUSCULAR HEMOGLOBIN 29.9 pg (27.0-33.0); MEAN CORPUSCULAR HGB CONC 30.6 g/dL (32.0-36.0); MEAN CORPUSCULAR VOLUME 97.5 fL (79-99); MONOCYTES % (AUTO) 6.2 % (3.0-13.0); NEUTROPHILS % (AUTO) 72.4 % (40.0-77.0); PLATELET COUNT (AUTO) 178 K/uL (130-400); RED BLOOD CELL COUNT(AUTO) 2.41 MIL/uL (4.00-5.50); RED CELL DISTRIBUTION WIDTH 17.2 % (11.0-15.5); WHITE BLOOD COUNT (AUTO) 8.2 K/uL (4.8-10.8)
[2022-01-28 04:04] LABS: INR 1.11 (0.85-1.15)
[2022-01-28 04:06] LABS: PARTIAL THROMBOPLASTIN TIME 38.9 SEC (26.3-35.5)
[2022-01-28] MEDS: METRONIDAZOLE 500MG/100ML BAG 100 ML IVPB SCH ×3 (05:13→20:54)
[2022-01-28] MEDS: OCTREOTIDE ACETATE 100 MCG/ML AMP SQ SCH ×3 (05:13→20:54)
[2022-01-28 05:38] LABS: CREATININE 0.5 mg/dL (0.5-1.5); MAGNESIUM 1.6 mg/dL (1.80-2.40); POTASSIUM 3.8 mmol/L (3.5-5.1)
[2022-01-28 05:54] VITALS: BP 110/45
[2022-01-28] MEDS: INSULIN HUMULIN R 100 UNIT/ML 3ML SQ SCH ×4 (06:25→16:14)
[2022-01-28 07:00] VITALS: BP 106/45
[2022-01-28] MEDS: FAMOTIDINE 20MG VIAL IV SCH ×2 (08:53→20:54)
[2022-01-28] MEDS: ENOXAPARIN SODIUM 60 MG/0.6 ML SQ SCH ×2 (08:53→20:53)
[2022-01-28 11:00] VITALS: BP 126/60
[2022-01-28] MEDS: FLUCONAZOLE 400 MG/NS 200 ML 200 ML IV SCH (13:14)
[2022-01-28] MEDS: LEVOFLOXACIN 750 MG/D5W 150ML BAG IVPB SCH (13:19)
[2022-01-28 16:00] VITALS: BP 143/58
[2022-01-28 19:12] VITALS: BP 120/70
[2022-01-28] MEDS: AMIODARONE 540 MG/D5W 300ML (0.5MG/MIN) IV SCH ×2 (20:56)
[2022-01-28] MEDS: METOPROLOL TARTRATE 1 MG/ML 5ML VIAL IV SCH (22:30)
[2022-01-29] VITALS (7 sets, daily range): BP systolic 105–145; BP diastolic 56–74
[2022-01-29] MEDS: ONDANSETRON 4MG INJ IVP PRN ×2 (01:54→19:40)
[2022-01-29 04:01] LABS: BASOPHILS % (AUTO) 0.3 % (0.0-5.0); EOSINOPHILS % (AUTO) 1.1 % (0.0-8.0); HEMATOCRIT 23.6 % (36-48); LYMPHOCYTES % (AUTO) 10.9 % (21.0-51.0); MEAN CORPUSCULAR HGB CONC 33.1 g/dL (32.0-36.0); MEAN CORPUSCULAR VOLUME 93.7 fL (79-99); MONOCYTES % (AUTO) 5.5 % (3.0-13.0); PLATELET COUNT (AUTO) 193 K/uL (130-400); RED BLOOD CELL COUNT(AUTO) 2.52 MIL/uL (4.00-5.50); RED CELL DISTRIBUTION WIDTH 17.2 % (11.0-15.5); WHITE BLOOD COUNT (AUTO) 10.2 K/uL (4.8-10.8)
[2022-01-29 04:17] LABS: ALBUMIN 1.4 g/dL (3.5-5.0); CREATININE 0.5 mg/dL (0.5-1.5); MAGNESIUM 1.4 mg/dL (1.80-2.40); PHOSPHORUS 3.2 mg/dL (2.5-4.9); POTASSIUM 3.7 mmol/L (3.5-5.1); TOTAL PROTEIN, SERUM 5.5 g/dL (6.0-8.3)
[2022-01-29] MEDS: OCTREOTIDE ACETATE 100 MCG/ML AMP SQ SCH ×2 (05:19→14:40)
[2022-01-29] MEDS: METRONIDAZOLE 500MG/100ML BAG 100 ML IVPB SCH ×3 (05:19→21:36)
[2022-01-29] MEDS: INSULIN HUMULIN R 100 UNIT/ML 3ML SQ SCH ×4 (06:00→16:49)
[2022-01-29] MEDS: METOPROLOL TARTRATE 1 MG/ML 5ML VIAL IV SCH ×4 (06:30→21:36)
[2022-01-29] MEDS: FAMOTIDINE 20MG VIAL IV SCH ×2 (09:47→21:35)
[2022-01-29] MEDS: ENOXAPARIN SODIUM 60 MG/0.6 ML SQ SCH ×2 (09:48→21:38)
[2022-01-29] MEDS: M.V.I. IV [ADULT] 10 ML in CLINIMIX-E4.25%AA/D5+LYT2000ML 2,000 ML IV NR (10:31)
[2022-01-29] MEDS: FLUCONAZOLE 400 MG/NS 200 ML 200 ML IV SCH (12:21)
[2022-01-29] MEDS: LEVOFLOXACIN 750 MG/D5W 150ML BAG IVPB SCH (14:39)
[2022-01-30 00:12] VITALS: BP 133/55
[2022-01-30 03:12] VITALS: BP 136/68
[2022-01-30 03:47] LABS: BASOPHILS % (AUTO) 0.3 % (0.0-5.0); EOSINOPHILS % (AUTO) 1.2 % (0.0-8.0); HEMATOCRIT 24.6 % (36-48); LYMPHOCYTES % (AUTO) 15.5 % (21.0-51.0); MEAN CORPUSCULAR HEMOGLOBIN 30.6 pg (27.0-33.0); MEAN CORPUSCULAR HGB CONC 32.1 g/dL (32.0-36.0); MEAN CORPUSCULAR VOLUME 95.3 fL (79-99); MONOCYTES % (AUTO) 6.1 % (3.0-13.0); NEUTROPHILS % (AUTO) 72.2 % (40.0-77.0); PLATELET COUNT (AUTO) 195 K/uL (130-400); RED BLOOD CELL COUNT(AUTO) 2.58 MIL/uL (4.00-5.50); RED CELL DISTRIBUTION WIDTH 17.8 % (11.0-15.5); WHITE BLOOD COUNT (AUTO) 9.8 K/uL (4.8-10.8)
[2022-01-30 04:04] LABS: POTASSIUM 3.6 mmol/L (3.5-5.1)
[2022-01-30 04:16] LABS: CREATININE 0.5 mg/dL (0.5-1.5)
[2022-01-30] MEDS: METOPROLOL TARTRATE 1 MG/ML 5ML VIAL IV SCH ×4 (04:20→22:13)
[2022-01-30] MEDS: 0.9%NACL 1000ML 1,000 ML IV SCH (04:55)
[2022-01-30] MEDS: INSULIN HUMULIN R 100 UNIT/ML 3ML SQ SCH ×4 (06:00→18:00)
[2022-01-30] MEDS: METRONIDAZOLE 500MG/100ML BAG 100 ML IVPB SCH ×3 (06:10→22:14)
[2022-01-30 08:06] VITALS: BP 133/65
[2022-01-30] MEDS: FAMOTIDINE 20MG VIAL IV SCH ×2 (08:40→22:14)
[2022-01-30] MEDS: ENOXAPARIN SODIUM 60 MG/0.6 ML SQ SCH ×2 (08:40→22:14)
[2022-01-30] MEDS ORDERED: FAT EMULSIONS 20% 250ML 250 ML IV SCH (09:00)
[2022-01-30] MEDS: ONDANSETRON 4MG INJ IVP PRN (09:33)
[2022-01-30] MEDS: FLUCONAZOLE 400 MG/NS 200 ML 200 ML IV SCH (11:07)
[2022-01-30 11:54] VITALS: BP 110/56
[2022-01-30] MEDS: LEVOFLOXACIN 750 MG/D5W 150ML BAG IVPB SCH (13:27)
[2022-01-30] MEDS: M.V.I. IV [ADULT] 10 ML in CLINIMIX-E4.25%AA/D5+LYT2000ML 2,000 ML IV NR (15:34)
[2022-01-30 16:34] VITALS: BP 127/69
[2022-01-30 20:42] VITALS: BP 117/63
[2022-01-31] VITALS (7 sets, daily range): BP systolic 102–130; BP diastolic 52–68
[2022-01-31] MEDS: 0.9%NACL 1000ML 1,000 ML IV SCH ×2 (01:00→20:56)
[2022-01-31] MEDS: METOPROLOL TARTRATE 1 MG/ML 5ML VIAL IV SCH ×3 (04:11→16:53)
[2022-01-31] MEDS: METRONIDAZOLE 500MG/100ML BAG 100 ML IVPB SCH ×3 (04:11→20:56)
[2022-01-31 04:22] LABS: BASOPHILS % (AUTO) 0.3 % (0.0-5.0); EOSINOPHILS % (AUTO) 1.2 % (0.0-8.0); LYMPHOCYTES % (AUTO) 15.5 % (21.0-51.0); MEAN CORPUSCULAR HEMOGLOBIN 30.7 pg (27.0-33.0); MEAN CORPUSCULAR HGB CONC 32.5 g/dL (32.0-36.0); MEAN CORPUSCULAR VOLUME 94.5 fL (79-99); MONOCYTES % (AUTO) 6.2 % (3.0-13.0); NEUTROPHILS % (AUTO) 74.5 % (40.0-77.0); PLATELET COUNT (AUTO) 201 K/uL (130-400); RED BLOOD CELL COUNT(AUTO) 2.54 MIL/uL (4.00-5.50); WHITE BLOOD COUNT (AUTO) 9.2 K/uL (4.8-10.8)
[2022-01-31 04:39] LABS: ALBUMIN 1.5 g/dL (3.5-5.0); CREATININE 0.5 mg/dL (0.5-1.5); MAGNESIUM 1.5 mg/dL (1.80-2.40); PHOSPHORUS 3.2 mg/dL (2.5-4.9); POTASSIUM 3.6 mmol/L (3.5-5.1); TOTAL PROTEIN, SERUM 5.5 g/dL (6.0-8.3)
[2022-01-31] MEDS: INSULIN HUMULIN R 100 UNIT/ML 3ML SQ SCH ×4 (06:00→20:00)
[2022-01-31] MEDS: ENOXAPARIN SODIUM 60 MG/0.6 ML SQ SCH ×2 (08:03→20:18)
[2022-01-31] MEDS: FAMOTIDINE 20MG VIAL IV SCH ×2 (08:03→20:18)
[2022-01-31] MEDS: FLUCONAZOLE 400 MG/NS 200 ML 200 ML IV SCH (11:20)
[2022-01-31] MEDS: LEVOFLOXACIN 750 MG/D5W 150ML BAG IVPB SCH (12:49)
[2022-01-31] MEDS: M.V.I. IV [ADULT] 10 ML in CLINIMIX-E4.25%AA/D5+LYT2000ML 2,000 ML IV NR (15:11)
[2022-02-01 04:11] LABS: BASOPHILS % (AUTO) 0.2 % (0.0-5.0); EOSINOPHILS % (AUTO) 1.4 % (0.0-8.0); HEMATOCRIT 25.5 % (36-48); LYMPHOCYTES % (AUTO) 17.1 % (21.0-51.0); MEAN CORPUSCULAR HEMOGLOBIN 30.5 pg (27.0-33.0); MEAN CORPUSCULAR HGB CONC 31.8 g/dL (32.0-36.0); MEAN CORPUSCULAR VOLUME 95.9 fL (79-99); MONOCYTES % (AUTO) 7.3 % (3.0-13.0); NEUTROPHILS % (AUTO) 72.4 % (40.0-77.0); PLATELET COUNT (AUTO) 193 K/uL (130-400); RED BLOOD CELL COUNT(AUTO) 2.66 MIL/uL (4.00-5.50); RED CELL DISTRIBUTION WIDTH 18.4 % (11.0-15.5)
[2022-02-01 04:16] VITALS: BP 120/68
[2022-02-01 04:23] LABS: CREATININE 0.5 mg/dL (0.5-1.5); POTASSIUM 3.6 mmol/L (3.5-5.1)
[2022-02-01] MEDS: INSULIN HUMULIN R 100 UNIT/ML 3ML SQ SCH ×3 (06:00→18:00)
[2022-02-01 07:00] VITALS: BP 110/63
[2022-02-01] MEDS: METRONIDAZOLE 500MG/100ML BAG 100 ML IVPB SCH ×3 (08:43→22:50)
[2022-02-01] MEDS: FAMOTIDINE 20MG VIAL IV SCH ×2 (08:43→21:21)
[2022-02-01] MEDS: ENOXAPARIN SODIUM 60 MG/0.6 ML SQ SCH ×2 (08:44→21:21)
[2022-02-01 11:00] VITALS: BP 154/75
[2022-02-01] MEDS ORDERED: METOPROLOL TARTRATE 1 MG/ML 5ML VIAL IV PRN (11:30)
[2022-02-01] MEDS: FLUCONAZOLE 400 MG/NS 200 ML 200 ML IV SCH (12:22)
[2022-02-01] MEDS: LEVOFLOXACIN 750 MG/D5W 150ML BAG IVPB SCH (14:05)
[2022-02-01] MEDS: M.V.I. IV [ADULT] 10 ML in CLINIMIX-E4.25%AA/D5+LYT2000ML 2,000 ML IV NR (14:19)
[2022-02-01 16:00] VITALS: BP 138/72
[2022-02-01] MEDS: 0.9%NACL 1000ML 1,000 ML IV SCH (17:09)
[2022-02-01 20:44] VITALS: BP 129/66
[2022-02-02] VITALS (7 sets, daily range): BP systolic 103–139; BP diastolic 52–72
[2022-02-02 03:47] LABS: BASOPHILS % (AUTO) 0.2 % (0.0-5.0); EOSINOPHILS % (AUTO) 1.1 % (0.0-8.0); HEMATOCRIT 27.5 % (36-48); LYMPHOCYTES % (AUTO) 13.1 % (21.0-51.0); MEAN CORPUSCULAR HGB CONC 32.4 g/dL (32.0-36.0); MEAN CORPUSCULAR VOLUME 95.8 fL (79-99); MONOCYTES % (AUTO) 5.2 % (3.0-13.0); NEUTROPHILS % (AUTO) 79.3 % (40.0-77.0); PLATELET COUNT (AUTO) 216 K/uL (130-400); RED BLOOD CELL COUNT(AUTO) 2.87 MIL/uL (4.00-5.50); RED CELL DISTRIBUTION WIDTH 18.6 % (11.0-15.5); WHITE BLOOD COUNT (AUTO) 9.3 K/uL (4.8-10.8)
[2022-02-02 03:58] LABS: ALBUMIN 1.9 g/dL (3.5-5.0); CREATININE 0.5 mg/dL (0.5-1.5); MAGNESIUM 1.8 mg/dL (1.80-2.40); PHOSPHORUS 3.9 mg/dL (2.5-4.9); POTASSIUM 4.1 mmol/L (3.5-5.1); TOTAL PROTEIN, SERUM 6.5 g/dL (6.0-8.3)
[2022-02-02] MEDS: INSULIN HUMULIN R 100 UNIT/ML 3ML SQ SCH ×5 (06:00→19:51)
[2022-02-02] MEDS: METRONIDAZOLE 500MG/100ML BAG 100 ML IVPB SCH ×3 (06:30→20:57)
[2022-02-02] MEDS: FAMOTIDINE 20MG VIAL IV SCH ×2 (09:36→20:57)
[2022-02-02] MEDS: ENOXAPARIN SODIUM 60 MG/0.6 ML SQ SCH ×2 (09:38→20:57)
[2022-02-02] MEDS: FLUCONAZOLE 400 MG/NS 200 ML 200 ML IV SCH (12:38)
[2022-02-02] MEDS: 0.9%NACL 1000ML 1,000 ML IV SCH (12:38)
[2022-02-02] MEDS: BALSAM PERU/CASTOR OIL 60 GM TUBE TP SCH ×2 (15:32→20:58)
[2022-02-02] MEDS: LEVOFLOXACIN 750 MG/D5W 150ML BAG IVPB SCH (15:49)
[2022-02-02] MEDS: ACETAMINOPHEN 500 MG TABLET PO PRN (16:52)
[2022-02-02] MEDS ORDERED: LIDOCAINE HCL-MPF 1% 2ML VIAL IV PRN (17:00)
[2022-02-02] MEDS ORDERED: POTASSIUM CHLORIDE 20MEQ/100ML 100 ML IV PRN (17:00)
[2022-02-02] MEDS: M.V.I. IV [ADULT] 10 ML in CLINIMIX-E4.25%AA/D5+LYT2000ML 2,000 ML IV NR (17:12)
[2022-02-02] MEDS: MAGNESIUM 2GM PREMIX 50ML 50 ML IV PRN (17:56)
[2022-02-02] MEDS ORDERED: HYDROMORPHONE 0.5 MG SYG (0.5MG/0.5ML) IVP PRN ×2 (18:00)
[2022-02-02] MEDS: ONDANSETRON 4MG INJ IVP PRN (23:28)
[2022-02-03 04:03] VITALS: BP 120/65
[2022-02-03 04:10] LABS: CHOLESTEROL 69 mg/dL (<200); HDL CHOLESTEROL 18 mg/dL (35-85); LDL DIRECT 37 mg/dL (0-99); TRIGLYCERIDES 93 mg/dL (30-200)
[2022-02-03] MEDS: INSULIN HUMULIN R 100 UNIT/ML 3ML SQ SCH ×3 (05:38→16:42)
[2022-02-03] MEDS: METRONIDAZOLE 500MG/100ML BAG 100 ML IVPB SCH ×3 (05:51→22:21)
[2022-02-03 08:55] VITALS: BP 83/49
[2022-02-03] MEDS: FAMOTIDINE 20MG VIAL IV SCH ×2 (09:15→22:20)
[2022-02-03] MEDS: ENOXAPARIN SODIUM 60 MG/0.6 ML SQ SCH ×2 (09:15→22:21)
[2022-02-03] MEDS: BALSAM PERU/CASTOR OIL 60 GM TUBE TP SCH ×2 (09:16→22:21)
[2022-02-03] MEDS: 0.9%NACL 1000ML 1,000 ML IV SCH ×2 (09:16→12:07)
[2022-02-03 09:24] VITALS: BP 95/54
[2022-02-03] MEDS: FLUCONAZOLE 400 MG/NS 200 ML 200 ML IV SCH (12:07)
[2022-02-03] MEDS ORDERED: CLINIMIX-E 5%AA /D15%W 2000ML 2,000 ML IV SCH (12:30)
[2022-02-03 12:45] VITALS: BP 129/38
[2022-02-03] MEDS: LEVOFLOXACIN 750 MG/D5W 150ML BAG IVPB SCH (13:41)
[2022-02-03] MEDS ORDERED: M.V.I. IV [ADULT] 10 ML in CLINIMIX-E 5%AA /D15%W 2000ML 2,000 ML IV SCH (14:00)
[2022-02-03 16:51] VITALS: BP 108/60
[2022-02-03 20:00] VITALS: BP 117/67
[2022-02-04] VITALS: BP 126/54
[2022-02-04] MEDS: INSULIN HUMULIN R 100 UNIT/ML 3ML SQ SCH ×4 (00:25→18:24)
[2022-02-04 03:54] LABS: BASOPHILS % (AUTO) 0.4 % (0.0-5.0); EOSINOPHILS % (AUTO) 0.7 % (0.0-8.0); HEMATOCRIT 27.6 % (36-48); MEAN CORPUSCULAR HEMOGLOBIN 31.4 pg (27.0-33.0); MEAN CORPUSCULAR HGB CONC 31.5 g/dL (32.0-36.0); MEAN CORPUSCULAR VOLUME 99.6 fL (79-99); MONOCYTES % (AUTO) 8.3 % (3.0-13.0); NEUTROPHILS % (AUTO) 79.8 % (40.0-77.0); PLATELET COUNT (AUTO) 184 K/uL (130-400); RED BLOOD CELL COUNT(AUTO) 2.77 MIL/uL (4.00-5.50); WHITE BLOOD COUNT (AUTO) 7.5 K/uL (4.8-10.8)
[2022-02-04 04:00] VITALS: BP 102/48
[2022-02-04] MEDS: 0.9%NACL 1000ML 1,000 ML IV SCH (05:00)
[2022-02-04 05:35] LABS: B-TYPE NATRIURETIC PEPTIDE 153 pg/mL (0-100)
[2022-02-04] MEDS: METRONIDAZOLE 500MG/100ML BAG 100 ML IVPB SCH ×3 (05:44→21:37)
[2022-02-04] MEDS ORDERED: M.V.I. IV [ADULT] 10 ML in CLINIMIX-E 5%AA /D15%W 2000ML 2,000 ML IV SCH (08:00)
[2022-02-04 08:50] VITALS: BP 129/67
[2022-02-04] MEDS: FAMOTIDINE 20MG VIAL IV SCH ×2 (09:11→21:37)
[2022-02-04] MEDS: BALSAM PERU/CASTOR OIL 60 GM TUBE TP SCH ×2 (09:11→21:37)
[2022-02-04] MEDS: ENOXAPARIN SODIUM 60 MG/0.6 ML SQ SCH ×2 (09:11→21:37)
[2022-02-04 11:29] LABS: CREATININE 0.5 mg/dL (0.5-1.5); POTASSIUM 4.2 mmol/L (3.5-5.1)
[2022-02-04 12:49] VITALS: BP 108/47
[2022-02-04] MEDS: FLUCONAZOLE 400 MG/NS 200 ML 200 ML IV SCH (13:43)
[2022-02-04 16:37] VITALS: BP 121/60
[2022-02-04 20:00] VITALS: BP 124/59
[2022-02-05] VITALS: BP 108/58
[2022-02-05] MEDS: INSULIN HUMULIN R 100 UNIT/ML 3ML SQ SCH ×4 (00:41→16:40)
[2022-02-05] MEDS: 0.9%NACL 1000ML 1,000 ML IV SCH ×2 (01:16→20:22)
[2022-02-05 04:00] VITALS: BP 118/65
[2022-02-05 04:34] LABS: BASOPHILS % (AUTO) 0.4 % (0.0-5.0); EOSINOPHILS % (AUTO) 1.1 % (0.0-8.0); HEMATOCRIT 25.2 % (36-48); LYMPHOCYTES % (AUTO) 17.8 % (21.0-51.0); MEAN CORPUSCULAR HEMOGLOBIN 31.9 pg (27.0-33.0); MEAN CORPUSCULAR HGB CONC 31.3 g/dL (32.0-36.0); MEAN CORPUSCULAR VOLUME 101.6 fL (79-99); MONOCYTES % (AUTO) 10.7 % (3.0-13.0); NEUTROPHILS % (AUTO) 69.6 % (40.0-77.0); PLATELET COUNT (AUTO) 168 K/uL (130-400); RED BLOOD CELL COUNT(AUTO) 2.48 MIL/uL (4.00-5.50); RED CELL DISTRIBUTION WIDTH 20.3 % (11.0-15.5); WHITE BLOOD COUNT (AUTO) 5.4 K/uL (4.8-10.8)
[2022-02-05 04:51] LABS: CREATININE 0.5 mg/dL (0.5-1.5); POTASSIUM 3.9 mmol/L (3.5-5.1)
[2022-02-05] MEDS: METRONIDAZOLE 500MG/100ML BAG 100 ML IVPB SCH ×3 (05:51→22:03)
[2022-02-05 08:30] VITALS: BP 96/60
[2022-02-05] MEDS ORDERED: M.V.I. IV [ADULT] 10 ML in CLINIMIX-E 5%AA /D15%W 2000ML 2,000 ML IV SCH (08:30)
[2022-02-05] MEDS: ENOXAPARIN SODIUM 60 MG/0.6 ML SQ SCH ×2 (09:58→20:20)
[2022-02-05] MEDS: BALSAM PERU/CASTOR OIL 60 GM TUBE TP SCH ×2 (10:00→20:22)
[2022-02-05] MEDS: FLUCONAZOLE 400 MG/NS 200 ML 200 ML IV SCH (12:15)
[2022-02-05 12:27] VITALS: BP 122/53
[2022-02-05 16:16] VITALS: BP 146/61
[2022-02-05 19:12] VITALS: BP 98/54
[2022-02-06 00:12] VITALS: BP 107/58
[2022-02-06] MEDS: INSULIN HUMULIN R 100 UNIT/ML 3ML SQ SCH ×4 (00:46→18:04)
[2022-02-06 03:12] VITALS: BP 107/56
[2022-02-06] MEDS: METRONIDAZOLE 500MG/100ML BAG 100 ML IVPB SCH ×3 (06:12→22:14)
[2022-02-06 07:00] VITALS: BP 121/63
[2022-02-06] MEDS ORDERED: M.V.I. IV [ADULT] 10 ML in CLINIMIX-E 5%AA /D15%W 2000ML 2,000 ML IV SCH (08:30)
[2022-02-06] MEDS: BALSAM PERU/CASTOR OIL 60 GM TUBE TP SCH ×2 (09:17→20:24)
[2022-02-06] MEDS: FAT EMULSIONS 20% 250ML 250 ML IV SCH (09:55)
[2022-02-06] MEDS: ENOXAPARIN SODIUM 60 MG/0.6 ML SQ SCH ×2 (09:56→20:24)
[2022-02-06 11:00] VITALS: BP 119/59
[2022-02-06] MEDS: FLUCONAZOLE 400 MG/NS 200 ML 200 ML IV SCH (12:16)
[2022-02-06 16:00] VITALS: BP 96/57
[2022-02-06 19:12] VITALS: BP 123/65
[2022-02-06] MEDS: 0.9%NACL 1000ML 1,000 ML IV SCH (20:24)
[2022-02-07] MEDS: INSULIN HUMULIN R 100 UNIT/ML 3ML SQ SCH ×4 (00:09→18:00)
[2022-02-07 00:12] VITALS: BP 113/64
[2022-02-07 03:12] VITALS: BP 97/54
[2022-02-07] MEDS: METRONIDAZOLE 500MG/100ML BAG 100 ML IVPB SCH ×3 (06:09→21:15)
[2022-02-07 07:00] VITALS: BP 108/56
[2022-02-07 07:13] LABS: HEMATOCRIT 23.8 % (36-48); MEAN CORPUSCULAR HEMOGLOBIN 31.9 pg (27.0-33.0); MEAN CORPUSCULAR HGB CONC 31.5 g/dL (32.0-36.0); MEAN CORPUSCULAR VOLUME 101.3 fL (79-99); RED BLOOD CELL COUNT(AUTO) 2.35 MIL/uL (4.00-5.50); RED CELL DISTRIBUTION WIDTH 20.8 % (11.0-15.5)
[2022-02-07 07:31] LABS: INR 1.01 (0.85-1.15)
[2022-02-07 07:33] LABS: PARTIAL THROMBOPLASTIN TIME 27.2 SEC (26.3-35.5)
[2022-02-07 07:45] LABS: ALBUMIN 1.6 g/dL (3.5-5.0); CREATININE 0.6 mg/dL (0.5-1.5); POTASSIUM 4.1 mmol/L (3.5-5.1); TOTAL PROTEIN, SERUM 6.1 g/dL (6.0-8.3)
[2022-02-07] MEDS: ENOXAPARIN SODIUM 60 MG/0.6 ML SQ SCH ×2 (09:00→21:16)
[2022-02-07] MEDS: BALSAM PERU/CASTOR OIL 60 GM TUBE TP SCH (09:17)
[2022-02-07 11:00] VITALS: BP 104/51
[2022-02-07] MEDS: FLUCONAZOLE 400 MG/NS 200 ML 200 ML IV SCH (11:54)
[2022-02-07] MEDS: 0.9%NACL 1000ML 1,000 ML IV SCH (12:00)
[2022-02-07] MEDS ORDERED: CLINIMIX-E 5%AA /D15%W 2000ML 2,000 ML IV SCH (13:00)
[2022-02-07 16:00] VITALS: BP 104/56
[2022-02-07 20:49] VITALS: BP 108/64
[2022-02-08] VITALS (7 sets, daily range): BP systolic 87–124; BP diastolic 47–66
[2022-02-08] MEDS: ONDANSETRON 4MG INJ IVP PRN (01:44)
[2022-02-08] MEDS: INSULIN HUMULIN R 100 UNIT/ML 3ML SQ SCH ×4 (01:50→16:15)
[2022-02-08] MEDS: BALSAM PERU/CASTOR OIL 60 GM TUBE TP SCH ×3 (05:00→21:13)
[2022-02-08] MEDS: METRONIDAZOLE 500MG/100ML BAG 100 ML IVPB SCH ×3 (05:02→21:13)
[2022-02-08] MEDS: ENOXAPARIN SODIUM 60 MG/0.6 ML SQ SCH ×2 (09:20→21:13)
[2022-02-08] MEDS: 0.9%NACL 1000ML 1,000 ML IV SCH (09:20)
[2022-02-08] MEDS ORDERED: SODIUM CHLORIDE 3% FOR INHALATION 4 ML/AMP VIAL.NEB IH ONE ×2 (10:52→18:40)
[2022-02-08] MEDS: FLUCONAZOLE 400 MG/NS 200 ML 200 ML IV SCH (13:00)
[2022-02-08] MEDS ORDERED: CLINIMIX-E 5%AA /D15%W 2000ML 2,000 ML IV SCH (14:00)
[2022-02-08] MEDS ORDERED: VANCOMYCIN PROTOCOL PER PHARMACY IV SCH (16:00)
[2022-02-08] MEDS: VANCOMYCIN 1G/250ML KIT 250 ML IV SCH (18:22)
[2022-02-08 18:39] LABS: APPEARANCE,URINE CLOUDY (CLEAR); BILIRUBIN,URINE NEGATIVE (NEGATIVE); COLOR,URINE YELLOW (YELLOW); GLUCOSE, URINE (UA) 50 mg/dL (NEGATIVE); KETONES,URINE NEGATIVE (NEGATIVE); LEUKOCYTE ESTERASE ,URINE 500 Leu/uL (NEGATIVE); NITRATE,URINE NEGATIVE (NEGATIVE); OCCULT BLOOD,URINE MODERATE (NEGATIVE); PROTEIN,URINE 10 mg/dL (NEGATIVE); UROBILINOGEN,URINE 0.2 mg/dL (0.2-1.0)
[2022-02-08 18:50] LABS: BACTERIA,URINE RARE /HPF (None Seen); MUCUS,URINE RARE LPF (None Seen); RBC,URINE 26-50 /HPF (0-1); WBC,URINE >100 /HPF (0-1); YEAST,URINE BUDDING MOD /HPF (None Seen)
[2022-02-09] MEDS: INSULIN HUMULIN R 100 UNIT/ML 3ML SQ SCH ×4 (00:34→17:13)
[2022-02-09 04:35] VITALS: BP 110/57
[2022-02-09 04:36] LABS: ALBUMIN 1.5 g/dL (3.5-5.0); CREATININE 0.5 mg/dL (0.5-1.5); MAGNESIUM 1.6 mg/dL (1.80-2.40); TOTAL PROTEIN, SERUM 5.9 g/dL (6.0-8.3)
[2022-02-09 04:56] LABS: BASOPHILS % (AUTO) 0.4 % (0.0-5.0); EOSINOPHILS % (AUTO) 2.5 % (0.0-8.0); HEMATOCRIT 21.6 % (36-48); LYMPHOCYTES % (AUTO) 23.3 % (21.0-51.0); MEAN CORPUSCULAR HEMOGLOBIN 32.9 pg (27.0-33.0); MEAN CORPUSCULAR HGB CONC 32.4 g/dL (32.0-36.0); MEAN CORPUSCULAR VOLUME 101.4 fL (79-99); MONOCYTES % (AUTO) 10.8 % (3.0-13.0); NEUTROPHILS % (AUTO) 61.9 % (40.0-77.0); PLATELET COUNT (AUTO) 168 K/uL (130-400); RED BLOOD CELL COUNT(AUTO) 2.13 MIL/uL (4.00-5.50); WHITE BLOOD COUNT (AUTO) 2.8 K/uL (4.8-10.8)
[2022-02-09] MEDS: 0.9%NACL 1000ML 1,000 ML IV SCH (05:35)
[2022-02-09 05:45] LABS: BAND NEUTROPHILS % (MANUAL) 6 % (0-2); EOSINOPHILS % (MANUAL) 6 % (1-6); LYMPHOCYTES % (MANUAL) 18 % (22-44); MAN.DIFF COMMENT-IMPRESSION MANUAL DIFFERENTIAL; MONOCYTES % (MANUAL) 4 % (2-9); PLATELET MORPHOLOGY COMMENT ADEQUATE; REACTIVE LYMPHOCYTES 4 % (0-0); SEGMENTED NEUTROPHILS % 62 % (40-70)
[2022-02-09 07:45] VITALS: BP 111/62
[2022-02-09] MEDS: METRONIDAZOLE 500MG/100ML BAG 100 ML IVPB SCH ×3 (07:56→20:47)
[2022-02-09] MEDS: VANCOMYCIN 1G/250ML KIT 250 ML IV SCH ×2 (07:57→20:47)
[2022-02-09] MEDS: ENOXAPARIN SODIUM 60 MG/0.6 ML SQ SCH ×2 (07:57→20:48)
[2022-02-09] MEDS: MAGNESIUM 2GM PREMIX 50ML 50 ML IV PRN (08:00)
[2022-02-09] MEDS: BALSAM PERU/CASTOR OIL 60 GM TUBE TP SCH ×2 (08:14→20:50)
[2022-02-09 12:01] VITALS: BP 109/57
[2022-02-09] MEDS: FLUCONAZOLE 400 MG/NS 200 ML 200 ML IV SCH (12:13)
[2022-02-09] MEDS ORDERED: CLINIMIX-E 5%AA /D15%W 2000ML 2,000 ML IV SCH (15:00)
[2022-02-09 15:46] VITALS: BP 99/49
[2022-02-09 19:25] VITALS: BP 112/51
[2022-02-10 00:05] VITALS: BP 134/103
[2022-02-10] MEDS: INSULIN HUMULIN R 100 UNIT/ML 3ML SQ SCH ×4 (00:29→17:48)
[2022-02-10 04:42] VITALS: BP 107/55
[2022-02-10] MEDS: 0.9%NACL 1000ML 1,000 ML IV SCH ×2 (05:14→20:37)
[2022-02-10 08:00] VITALS: BP 101/63
[2022-02-10] MEDS: BALSAM PERU/CASTOR OIL 60 GM TUBE TP SCH ×2 (09:21→20:36)
[2022-02-10] MEDS: ENOXAPARIN SODIUM 60 MG/0.6 ML SQ SCH ×2 (09:22→20:35)
[2022-02-10 11:25] LABS: BASOPHILS % (AUTO) 0.4 % (0.0-5.0); EOSINOPHILS % (AUTO) 2.2 % (0.0-8.0); HEMATOCRIT 22.6 % (36-48); LYMPHOCYTES % (AUTO) 22.4 % (21.0-51.0); MEAN CORPUSCULAR HEMOGLOBIN 32.4 pg (27.0-33.0); MEAN CORPUSCULAR VOLUME 104.6 fL (79-99); MONOCYTES % (AUTO) 10.5 % (3.0-13.0); NEUTROPHILS % (AUTO) 63.6 % (40.0-77.0); PLATELET COUNT (AUTO) 202 K/uL (130-400); RED BLOOD CELL COUNT(AUTO) 2.16 MIL/uL (4.00-5.50); RED CELL DISTRIBUTION WIDTH 19.9 % (11.0-15.5); WHITE BLOOD COUNT (AUTO) 2.3 K/uL (4.8-10.8)
[2022-02-10 11:32] LABS: INR 1.07 (0.85-1.15); PROTHROMBIN TIME 11.6 SEC (9.6-11.6)
[2022-02-10] MEDS: FLUCONAZOLE 400 MG/NS 200 ML 200 ML IV SCH (11:32)
[2022-02-10 11:33] VITALS: BP 108/58
[2022-02-10 11:36] LABS: CREATININE 0.5 mg/dL (0.5-1.5); POTASSIUM 3.9 mmol/L (3.5-5.1)
[2022-02-10 11:41] LABS: ALBUMIN 1.5 g/dL (3.5-5.0); TOTAL PROTEIN, SERUM 5.9 g/dL (6.0-8.3)
[2022-02-10 11:59] LABS: LYMPHOCYTES % (MANUAL) 31 % (22-44); MAN.DIFF COMMENT-IMPRESSION MANUAL DIFFERENTIAL; MONOCYTES % (MANUAL) 11 % (2-9); SEGMENTED NEUTROPHILS % 58 % (40-70)
[2022-02-10 12:01] LABS: PLATELET MORPHOLOGY COMMENT ADEQUATE
[2022-02-10] MEDS ORDERED: CLINIMIX-E 5%AA /D15%W 2000ML 2,000 ML IV ONE (13:00)
[2022-02-10 16:00] VITALS: BP 129/62
[2022-02-10] MEDS: VANCOMYCIN 750MG VIAL IVPB SCH (17:47)
[2022-02-10 19:59] VITALS: BP 113/61
[2022-02-11] VITALS: BP 120/58
[2022-02-11 04:00] VITALS: BP 111/50
[2022-02-11 04:07] LABS: BASOPHILS % (AUTO) 0.4 % (0.0-5.0); EOSINOPHILS % (AUTO) 1.2 % (0.0-8.0); HEMATOCRIT 22.5 % (36-48); LYMPHOCYTES % (AUTO) 26.1 % (21.0-51.0); MEAN CORPUSCULAR HEMOGLOBIN 32.4 pg (27.0-33.0); MEAN CORPUSCULAR VOLUME 101.4 fL (79-99); MONOCYTES % (AUTO) 11.6 % (3.0-13.0); NEUTROPHILS % (AUTO) 59.9 % (40.0-77.0); PLATELET COUNT (AUTO) 195 K/uL (130-400); RED BLOOD CELL COUNT(AUTO) 2.22 MIL/uL (4.00-5.50); RED CELL DISTRIBUTION WIDTH 19.4 % (11.0-15.5); WHITE BLOOD COUNT (AUTO) 2.5 K/uL (4.8-10.8)
[2022-02-11 04:21] LABS: ALBUMIN 1.5 g/dL (3.5-5.0); CREATININE 0.5 mg/dL (0.5-1.5); MAGNESIUM 1.7 mg/dL (1.80-2.40); TOTAL PROTEIN, SERUM 5.9 g/dL (6.0-8.3)
[2022-02-11] MEDS: VANCOMYCIN 750MG VIAL IVPB SCH ×2 (05:21→17:37)
[2022-02-11] MEDS: MAGNESIUM 2GM PREMIX 50ML 50 ML IV PRN (05:22)
[2022-02-11] MEDS: INSULIN HUMULIN R 100 UNIT/ML 3ML SQ SCH ×4 (06:54→16:14)
[2022-02-11 07:37] VITALS: BP 111/53
[2022-02-11] MEDS: ENOXAPARIN SODIUM 60 MG/0.6 ML SQ SCH ×2 (09:11→20:50)
[2022-02-11] MEDS: BALSAM PERU/CASTOR OIL 60 GM TUBE TP SCH ×2 (09:58→20:50)
[2022-02-11 12:15] VITALS: BP 97/59
[2022-02-11] MEDS: CLINIMIX-E 5%AA /D15%W 2000ML 2,000 ML IV NR (13:25)
[2022-02-11] MEDS: FLUCONAZOLE 400 MG/NS 200 ML 200 ML IV SCH (13:30)
[2022-02-11 15:32] VITALS: BP 103/55
[2022-02-11 19:12] VITALS: BP 117/63
[2022-02-12 00:12] VITALS: BP_SYST 115; BP_SYST 118; BP_DIAS 57; BP_DIAS 66
[2022-02-12] MEDS: INSULIN HUMULIN R 100 UNIT/ML 3ML SQ SCH ×4 (01:24→18:00)
[2022-02-12 03:12] VITALS: BP 115/57
[2022-02-12] MEDS: VANCOMYCIN 750MG VIAL IVPB SCH (06:00)
[2022-02-12] MEDS: 0.9%NACL 1000ML 1,000 ML IV SCH ×2 (06:08→13:00)
[2022-02-12 08:30] VITALS: BP 129/60
[2022-02-12] MEDS: ENOXAPARIN SODIUM 60 MG/0.6 ML SQ SCH ×2 (08:32→20:26)
[2022-02-12] MEDS: BALSAM PERU/CASTOR OIL 60 GM TUBE TP SCH ×2 (08:36→20:47)
[2022-02-12] MEDS: FLUCONAZOLE 400 MG/NS 200 ML 200 ML IV SCH (12:09)
[2022-02-12] MEDS: ACETAMINOPHEN 500 MG TABLET PO PRN (12:09)
[2022-02-12] MEDS: ACETAMINOPHEN 650 MG SUPPOSITORY RC PRN (12:10)
[2022-02-12 12:41] VITALS: BP 118/66
[2022-02-12] MEDS: CLINIMIX-E 5%AA /D15%W 2000ML 2,000 ML IV NR (14:48)
[2022-02-12 16:26] VITALS: BP 107/66
[2022-02-12] MEDS ORDERED: 0.9%NACL 100ML 100 ML ONE (18:23)
[2022-02-12] MEDS: VANCOMYCIN 500MG+NS 100ML 100 ML IV SCH (18:26)
[2022-02-12 19:12] VITALS: BP 156/81
[2022-02-12] MEDS: MEROPENEM 1 GM VIAL IVP SCH (20:25)
[2022-02-13 00:12] VITALS: BP 122/56
[2022-02-13] MEDS: INSULIN HUMULIN R 100 UNIT/ML 3ML SQ SCH ×4 (00:49→18:00)
[2022-02-13] MEDS: ACETAMINOPHEN 650 MG SUPPOSITORY RC PRN (00:53)
[2022-02-13 03:12] VITALS: BP 107/52
[2022-02-13] MEDS: MEROPENEM 1 GM VIAL IVP SCH ×3 (03:48→21:26)
[2022-02-13 03:59] LABS: BASOPHILS % (AUTO) 0.3 % (0.0-5.0); EOSINOPHILS % (AUTO) 0.3 % (0.0-8.0); HEMATOCRIT 24.2 % (36-48); LYMPHOCYTES % (AUTO) 21.6 % (21.0-51.0); MEAN CORPUSCULAR HEMOGLOBIN 32.5 pg (27.0-33.0); MEAN CORPUSCULAR HGB CONC 31.4 g/dL (32.0-36.0); MEAN CORPUSCULAR VOLUME 103.4 fL (79-99); MONOCYTES % (AUTO) 12.1 % (3.0-13.0); NEUTROPHILS % (AUTO) 64.8 % (40.0-77.0); PLATELET COUNT (AUTO) 231 K/uL (130-400); RED BLOOD CELL COUNT(AUTO) 2.34 MIL/uL (4.00-5.50); RED CELL DISTRIBUTION WIDTH 18.7 % (11.0-15.5); WHITE BLOOD COUNT (AUTO) 3.5 K/uL (4.8-10.8)
[2022-02-13 04:20] LABS: ALBUMIN 1.6 g/dL (3.5-5.0); CREATININE 0.7 mg/dL (0.5-1.5); MAGNESIUM 1.8 mg/dL (1.80-2.40); POTASSIUM 4.1 mmol/L (3.5-5.1); TOTAL PROTEIN, SERUM 6.4 g/dL (6.0-8.3)
[2022-02-13] MEDS: VANCOMYCIN 500MG+NS 100ML 100 ML IV SCH (06:40)
[2022-02-13 07:00] VITALS: BP 112/64
[2022-02-13] MEDS: FAT EMULSIONS 20% 250ML 250 ML IV SCH (08:44)
[2022-02-13] MEDS: BALSAM PERU/CASTOR OIL 60 GM TUBE TP SCH ×2 (08:44→21:26)
[2022-02-13] MEDS: ENOXAPARIN SODIUM 60 MG/0.6 ML SQ SCH ×2 (08:44→21:26)
[2022-02-13] MEDS: 0.9%NACL 1000ML 1,000 ML IV SCH ×2 (09:00→22:31)
[2022-02-13] MEDS: CLINIMIX-E 5%AA /D15%W 2000ML 2,000 ML IV NR (09:00)
[2022-02-13] MEDS: FLUCONAZOLE 400 MG/NS 200 ML 200 ML IV SCH (11:44)
[2022-02-13 11:51] VITALS: BP 121/51
[2022-02-13 15:52] VITALS: BP 104/57
[2022-02-13 20:00] VITALS: BP 110/57
[2022-02-13] MEDS ORDERED: VANCOMYCIN 500MG+NS 100ML 100 ML IV SCH (21:00)
[2022-02-14 00:39] VITALS: BP 116/51
[2022-02-14] MEDS: INSULIN HUMULIN R 100 UNIT/ML 3ML SQ SCH ×4 (01:10→18:50)
[2022-02-14 03:32] VITALS: BP 109/53
[2022-02-14] MEDS: MEROPENEM 1 GM VIAL IVP SCH ×3 (03:39→21:06)
[2022-02-14] MEDS ORDERED: 0.9%NACL 100ML 100 ML ONE ×2 (05:15→17:40)
[2022-02-14] MEDS: VANCOMYCIN 500MG+NS 100ML 100 ML IV SCH ×2 (06:05→17:52)
[2022-02-14 08:39] VITALS: BP 108/59
[2022-02-14] MEDS: ENOXAPARIN SODIUM 60 MG/0.6 ML SQ SCH ×2 (09:09→21:07)
[2022-02-14] MEDS: FLUCONAZOLE 400 MG/NS 200 ML 200 ML IV SCH (12:07)
[2022-02-14] MEDS: BALSAM PERU/CASTOR OIL 60 GM TUBE TP SCH ×2 (12:07→21:08)
[2022-02-14] MEDS: CLINIMIX-E 5%AA /D15%W 2000ML 2,000 ML IV NR (12:09)
[2022-02-14 12:52] VITALS: BP 112/69
[2022-02-14] MEDS: MICAFUNGIN 100MG+NS 100ML 100 ML IV SCH (14:56)
[2022-02-14] MEDS ORDERED: PHARMACY COMMUNICATION MISC SCH (15:00)
[2022-02-14 16:22] VITALS: BP 111/64
[2022-02-14 20:34] VITALS: BP 117/64
[2022-02-15 00:24] VITALS: BP 129/75
[2022-02-15] MEDS: 0.9%NACL 1000ML 1,000 ML IV SCH ×2 (01:40→21:00)
[2022-02-15] MEDS: INSULIN HUMULIN R 100 UNIT/ML 3ML SQ SCH ×4 (01:50→17:45)
[2022-02-15 04:01] VITALS: BP 113/95
[2022-02-15 04:07] LABS: BASOPHILS % (AUTO) 0.2 % (0.0-5.0); EOSINOPHILS % (AUTO) 2.1 % (0.0-8.0); HEMATOCRIT 27.2 % (36-48); LYMPHOCYTES % (AUTO) 14.3 % (21.0-51.0); MEAN CORPUSCULAR HEMOGLOBIN 32.2 pg (27.0-33.0); MEAN CORPUSCULAR HGB CONC 31.3 g/dL (32.0-36.0); MONOCYTES % (AUTO) 7.6 % (3.0-13.0); NEUTROPHILS % (AUTO) 74.6 % (40.0-77.0); PLATELET COUNT (AUTO) 265 K/uL (130-400); RED BLOOD CELL COUNT(AUTO) 2.64 MIL/uL (4.00-5.50); RED CELL DISTRIBUTION WIDTH 17.2 % (11.0-15.5); WHITE BLOOD COUNT (AUTO) 4.3 K/uL (4.8-10.8)
[2022-02-15 04:21] LABS: ALBUMIN 1.8 g/dL (3.5-5.0); CREATININE 0.6 mg/dL (0.5-1.5); MAGNESIUM 1.7 mg/dL (1.80-2.40); POTASSIUM 4.7 mmol/L (3.5-5.1); TOTAL PROTEIN, SERUM 7.1 g/dL (6.0-8.3)
[2022-02-15] MEDS: MEROPENEM 1 GM VIAL IVP SCH ×3 (04:27→21:00)
[2022-02-15] MEDS: VANCOMYCIN 500MG+NS 100ML 100 ML IV SCH ×2 (05:07→17:26)
[2022-02-15] MEDS: ACETAMINOPHEN 325 MG SUPPOSITORY RC PRN (05:59)
[2022-02-15 07:00] VITALS: BP 131/83
[2022-02-15] MEDS: MAGNESIUM 2GM PREMIX 50ML 50 ML IV PRN (09:11)
[2022-02-15] MEDS: BALSAM PERU/CASTOR OIL 60 GM TUBE TP SCH ×2 (09:11→20:53)
[2022-02-15] MEDS: ENOXAPARIN SODIUM 60 MG/0.6 ML SQ SCH ×2 (09:12→20:57)
[2022-02-15 11:00] VITALS: BP 95/55
[2022-02-15] MEDS: M.V.I. IV [ADULT] 10 ML in CLINIMIX-E 5%AA /D15%W 2000ML 2,000 ML IV NR (11:54)
[2022-02-15 16:00] VITALS: BP 123/64
[2022-02-15] MEDS: MICAFUNGIN 100MG+NS 100ML 100 ML IV SCH (16:06)
[2022-02-15] MEDS ORDERED: 0.9%NACL 100ML 100 ML ONE ×2 (17:20→20:58)
[2022-02-15 20:04] VITALS: BP 94/55
[2022-02-15] MEDS ORDERED: OCTREOTIDE ACETATE 100 MCG/ML AMP ONE (20:48)
[2022-02-15] MEDS: OCTREOTIDE ACETATE 100 MCG/ML AMP SQ SCH (20:51)
[2022-02-16] VITALS (7 sets, daily range): BP systolic 95–129; BP diastolic 44–66
[2022-02-16] MEDS: INSULIN HUMULIN R 100 UNIT/ML 3ML SQ SCH ×4 (01:30→17:14)
[2022-02-16] MEDS: OCTREOTIDE ACETATE 100 MCG/ML AMP SQ SCH ×3 (04:56→21:09)
[2022-02-16] MEDS: MEROPENEM 1 GM VIAL IVP SCH ×3 (04:58→21:10)
[2022-02-16] MEDS ORDERED: 0.9%NACL 100ML 100 ML ONE ×3 (06:27→18:12)
[2022-02-16] MEDS: VANCOMYCIN 500MG+NS 100ML 100 ML IV SCH ×2 (06:30→18:18)
[2022-02-16] MEDS: BALSAM PERU/CASTOR OIL 60 GM TUBE TP SCH ×2 (09:25→21:10)
[2022-02-16] MEDS: ENOXAPARIN SODIUM 60 MG/0.6 ML SQ SCH ×2 (09:25→21:08)
[2022-02-16] MEDS: ACETAMINOPHEN 325 MG SUPPOSITORY RC PRN (11:49)
[2022-02-16] MEDS: MICAFUNGIN 100MG+NS 100ML 100 ML IV SCH (14:08)
[2022-02-16] MEDS: D5 NS WITH 20 mEq KCl 1000ML 1,000 ML IV SCH (18:17)
[2022-02-16] MEDS: ACETAMINOPHEN 650 MG SUPPOSITORY RC PRN (21:04)
[2022-02-17] VITALS (7 sets, daily range): BP systolic 86–104; BP diastolic 48–63
[2022-02-17] MEDS: INSULIN HUMULIN R 100 UNIT/ML 3ML SQ SCH ×4 (01:53→17:38)
[2022-02-17 03:36] LABS: BASOPHILS % (AUTO) 0.3 % (0.0-5.0); EOSINOPHILS % (AUTO) 1.5 % (0.0-8.0); HEMATOCRIT 23.2 % (36-48); LYMPHOCYTES % (AUTO) 27.8 % (21.0-51.0); MEAN CORPUSCULAR HEMOGLOBIN 32.7 pg (27.0-33.0); MEAN CORPUSCULAR HGB CONC 31.9 g/dL (32.0-36.0); MEAN CORPUSCULAR VOLUME 102.7 fL (79-99); MONOCYTES % (AUTO) 12.1 % (3.0-13.0); NEUTROPHILS % (AUTO) 57.3 % (40.0-77.0); PLATELET COUNT (AUTO) 206 K/uL (130-400); RED BLOOD CELL COUNT(AUTO) 2.26 MIL/uL (4.00-5.50); RED CELL DISTRIBUTION WIDTH 17.1 % (11.0-15.5); WHITE BLOOD COUNT (AUTO) 3.9 K/uL (4.8-10.8)
[2022-02-17 03:51] LABS: INR 1.05 (0.85-1.15); PROTHROMBIN TIME 11.4 SEC (9.6-11.6)
[2022-02-17 03:53] LABS: PARTIAL THROMBOPLASTIN TIME 35.3 SEC (26.3-35.5)
[2022-02-17 03:58] LABS: ALBUMIN 1.5 g/dL (3.5-5.0); CREATININE 0.6 mg/dL (0.5-1.5); POTASSIUM 4.6 mmol/L (3.5-5.1); TOTAL PROTEIN, SERUM 5.8 g/dL (6.0-8.3)
[2022-02-17] MEDS: MEROPENEM 1 GM VIAL IVP SCH ×3 (04:19→20:58)
[2022-02-17] MEDS ORDERED: 0.9%NACL 100ML 100 ML ONE ×3 (05:18→20:51)
[2022-02-17] MEDS: OCTREOTIDE ACETATE 100 MCG/ML AMP SQ SCH ×3 (05:23→20:58)
[2022-02-17] MEDS: VANCOMYCIN 500MG+NS 100ML 100 ML IV SCH ×2 (05:24→17:31)
[2022-02-17] MEDS: ENOXAPARIN SODIUM 60 MG/0.6 ML SQ SCH (07:32)
[2022-02-17] MEDS: M.V.I. IV [ADULT] 10 ML in CLINIMIX-E 5%AA /D15%W 2000ML 2,000 ML IV NR (07:33)
[2022-02-17 09:16] LABS: HEMATOCRIT 27.5 % (36-48)
[2022-02-17] MEDS: BALSAM PERU/CASTOR OIL 60 GM TUBE TP SCH ×2 (09:20→21:01)
[2022-02-17 12:59] LABS: HEMATOCRIT 30.2 % (36-48)
[2022-02-17] MEDS: D5 NS WITH 20 mEq KCl 1000ML 1,000 ML IV SCH (13:36)
[2022-02-17] MEDS: MICAFUNGIN 100MG+NS 100ML 100 ML IV SCH (14:56)
[2022-02-17 20:50] LABS: HEMATOCRIT 29.2 % (36-48)
[2022-02-18 03:39] LABS: BASOPHILS % (AUTO) 0.3 % (0.0-5.0); EOSINOPHILS % (AUTO) 3.1 % (0.0-8.0); HEMATOCRIT 29.8 % (36-48); LYMPHOCYTES % (AUTO) 31.2 % (21.0-51.0); MEAN CORPUSCULAR HEMOGLOBIN 31.1 pg (27.0-33.0); MEAN CORPUSCULAR HGB CONC 31.9 g/dL (32.0-36.0); MEAN CORPUSCULAR VOLUME 97.7 fL (79-99); MONOCYTES % (AUTO) 12.8 % (3.0-13.0); NEUTROPHILS % (AUTO) 51.1 % (40.0-77.0); PLATELET COUNT (AUTO) 243 K/uL (130-400); RED BLOOD CELL COUNT(AUTO) 3.05 MIL/uL (4.00-5.50); RED CELL DISTRIBUTION WIDTH 20.6 % (11.0-15.5); WHITE BLOOD COUNT (AUTO) 3.3 K/uL (4.8-10.8)
[2022-02-18 04:05] LABS: CREATININE 0.6 mg/dL (0.5-1.5); POTASSIUM 4.4 mmol/L (3.5-5.1)
[2022-02-18 04:11] VITALS: BP 119/58
[2022-02-18] MEDS ORDERED: 0.9%NACL 100ML 100 ML ONE ×2 (05:00→05:01)
[2022-02-18] MEDS: MEROPENEM 1 GM VIAL IVP SCH ×3 (05:05→21:00)
[2022-02-18] MEDS: OCTREOTIDE ACETATE 100 MCG/ML AMP SQ SCH ×3 (05:06→21:00)
[2022-02-18] MEDS: D5 NS WITH 20 mEq KCl 1000ML 1,000 ML IV SCH ×3 (05:07→21:01)
[2022-02-18] MEDS: VANCOMYCIN 500MG+NS 100ML 100 ML IV SCH (05:48)
[2022-02-18] MEDS: INSULIN HUMULIN R 100 UNIT/ML 3ML SQ SCH ×5 (05:49→23:29)
[2022-02-18] MEDS: M.V.I. IV [ADULT] 10 ML in CLINIMIX-E 5%AA /D15%W 2000ML 2,000 ML IV NR (07:22)
[2022-02-18] MEDS: BALSAM PERU/CASTOR OIL 60 GM TUBE TP SCH ×2 (07:24→21:01)
[2022-02-18 07:55] VITALS: BP 118/62
[2022-02-18 11:53] VITALS: BP 109/62
[2022-02-18] MEDS: MICAFUNGIN 100MG+NS 100ML 100 ML IV SCH (14:21)
[2022-02-18 16:14] VITALS: BP 128/70
[2022-02-18 20:06] VITALS: BP 142/68
[2022-02-19] VITALS: BP 95/50
[2022-02-19] MEDS: MEROPENEM 1 GM VIAL IVP SCH ×3 (03:44→21:16)
[2022-02-19 04:47] VITALS: BP 119/68
[2022-02-19] MEDS: INSULIN HUMULIN R 100 UNIT/ML 3ML SQ SCH ×3 (06:00→18:00)
[2022-02-19] MEDS: OCTREOTIDE ACETATE 100 MCG/ML AMP SQ SCH ×3 (06:16→21:16)
[2022-02-19 07:20] VITALS: BP 102/61
[2022-02-19] MEDS ORDERED: 0.9%NACL 100ML 100 ML ONE (08:33)
[2022-02-19] MEDS: VANCOMYCIN 500MG+NS 100ML 100 ML IV SCH ×2 (08:42→21:16)
[2022-02-19] MEDS: BALSAM PERU/CASTOR OIL 60 GM TUBE TP SCH ×2 (08:47→21:17)
[2022-02-19] MEDS: D5 NS WITH 20 mEq KCl 1000ML 1,000 ML IV SCH (08:54)
[2022-02-19] MEDS: M.V.I. IV [ADULT] 10 ML in CLINIMIX-E 5%AA /D15%W 2000ML 2,000 ML IV NR (09:00)
[2022-02-19 11:20] VITALS: BP 132/65
[2022-02-19 15:15] VITALS: BP 133/77
[2022-02-19] MEDS: MICAFUNGIN 100MG+NS 100ML 100 ML IV SCH (16:54)
[2022-02-19 20:00] VITALS: BP 115/64
[2022-02-19] MEDS: ENOXAPARIN SODIUM 60 MG/0.6 ML SQ SCH (21:16)
[2022-02-20] VITALS: BP 147/74
[2022-02-20] MEDS: D5 NS WITH 20 mEq KCl 1000ML 1,000 ML IV SCH ×2 (01:30→14:50)
[2022-02-20 04:00] VITALS: BP 141/74
[2022-02-20 04:16] LABS: BASOPHILS % (AUTO) 0.5 % (0.0-5.0); EOSINOPHILS % (AUTO) 2.5 % (0.0-8.0); HEMATOCRIT 30.8 % (36-48); LYMPHOCYTES % (AUTO) 32.8 % (21.0-51.0); MEAN CORPUSCULAR HEMOGLOBIN 30.6 pg (27.0-33.0); MEAN CORPUSCULAR HGB CONC 31.8 g/dL (32.0-36.0); MEAN CORPUSCULAR VOLUME 96.3 fL (79-99); MONOCYTES % (AUTO) 7.6 % (3.0-13.0); NEUTROPHILS % (AUTO) 55.9 % (40.0-77.0); PLATELET COUNT (AUTO) 271 K/uL (130-400); RED CELL DISTRIBUTION WIDTH 18.5 % (11.0-15.5); WHITE BLOOD COUNT (AUTO) 4.1 K/uL (4.8-10.8)
[2022-02-20] MEDS: MEROPENEM 1 GM VIAL IVP SCH ×3 (04:21→20:39)
[2022-02-20 04:27] LABS: CREATININE 0.5 mg/dL (0.5-1.5); POTASSIUM 4.1 mmol/L (3.5-5.1)
[2022-02-20] MEDS: INSULIN HUMULIN R 100 UNIT/ML 3ML SQ SCH ×4 (06:00→18:00)
[2022-02-20] MEDS: OCTREOTIDE ACETATE 100 MCG/ML AMP SQ SCH ×3 (06:12→22:59)
[2022-02-20 07:00] VITALS: BP 127/72
[2022-02-20] MEDS: M.V.I. IV [ADULT] 10 ML in CLINIMIX-E 5%AA /D15%W 2000ML 2,000 ML IV NR (09:09)
[2022-02-20] MEDS: BALSAM PERU/CASTOR OIL 60 GM TUBE TP SCH ×2 (09:10→20:39)
[2022-02-20] MEDS: ENOXAPARIN SODIUM 60 MG/0.6 ML SQ SCH ×2 (09:10→20:39)
[2022-02-20] MEDS: FAT EMULSIONS 20% 250ML 250 ML IV SCH (09:10)
[2022-02-20] MEDS: VANCOMYCIN 500MG+NS 100ML 100 ML IV SCH ×2 (09:12→20:52)
[2022-02-20 11:00] VITALS: BP 130/70
[2022-02-20] MEDS: MICAFUNGIN 100MG+NS 100ML 100 ML IV SCH (15:25)
[2022-02-20 16:00] VITALS: BP 133/59
[2022-02-20 20:05] VITALS: BP_SYST 110; BP_SYST 149; BP_DIAS 66; BP_DIAS 81
[2022-02-21 00:27] VITALS: BP 145/68
[2022-02-21] MEDS: D5 NS WITH 20 mEq KCl 1000ML 1,000 ML IV SCH ×2 (02:33→17:18)
[2022-02-21 04:00] VITALS: BP 117/69
[2022-02-21] MEDS: MEROPENEM 1 GM VIAL IVP SCH ×3 (04:29→20:40)
[2022-02-21] MEDS: INSULIN HUMULIN R 100 UNIT/ML 3ML SQ SCH ×4 (06:00→17:16)
[2022-02-21] MEDS: OCTREOTIDE ACETATE 100 MCG/ML AMP SQ SCH ×3 (06:17→20:42)
[2022-02-21 07:35] VITALS: BP 149/81
[2022-02-21] MEDS ORDERED: LINEZOLID 600 MG/ISO-OSM 300 ML IV SCH (08:00)
[2022-02-21] MEDS: M.V.I. IV [ADULT] 10 ML in CLINIMIX-E 5%AA /D15%W 2000ML 2,000 ML IV NR (09:31)
[2022-02-21] MEDS: VANCOMYCIN 500MG+NS 100ML 100 ML IV SCH (09:34)
[2022-02-21] MEDS: ENOXAPARIN SODIUM 60 MG/0.6 ML SQ SCH ×2 (09:35→20:41)
[2022-02-21] MEDS: BALSAM PERU/CASTOR OIL 60 GM TUBE TP SCH ×2 (09:37→20:41)
[2022-02-21 11:39] VITALS: BP 127/61
[2022-02-21] MEDS: MICAFUNGIN 100MG+NS 100ML 100 ML IV SCH (15:09)
[2022-02-21 15:37] VITALS: BP 113/60
[2022-02-21 19:00] VITALS: BP 125/74
[2022-02-21] MEDS ORDERED: 0.9%NACL 100ML 100 ML ONE (20:32)
[2022-02-22] VITALS: BP 140/84
[2022-02-22] MEDS ORDERED: 0.9%NACL 100ML 100 ML ONE ×2 (03:58→20:57)
[2022-02-22 04:00] VITALS: BP 122/73
[2022-02-22] MEDS: MEROPENEM 1 GM VIAL IVP SCH ×3 (04:04→21:00)
[2022-02-22] MEDS: INSULIN HUMULIN R 100 UNIT/ML 3ML SQ SCH ×2 (06:00)
[2022-02-22] MEDS: OCTREOTIDE ACETATE 100 MCG/ML AMP SQ SCH ×3 (06:02→23:17)
[2022-02-22] MEDS: M.V.I. IV [ADULT] 10 ML in CLINIMIX-E 5%AA /D15%W 2000ML 2,000 ML IV NR (06:59)
[2022-02-22] MEDS: D5 NS WITH 20 mEq KCl 1000ML 1,000 ML IV SCH ×2 (06:59→21:00)
[2022-02-22] MEDS: BALSAM PERU/CASTOR OIL 60 GM TUBE TP SCH ×2 (07:50→21:01)
[2022-02-22] MEDS: ENOXAPARIN SODIUM 60 MG/0.6 ML SQ SCH ×2 (07:50→21:01)
[2022-02-22 08:00] VITALS: BP 133/77
[2022-02-22 11:47] VITALS: BP 139/77
[2022-02-22] MEDS: MICAFUNGIN 100MG+NS 100ML 100 ML IV SCH (14:39)
[2022-02-22 15:58] LABS: INR 1.1 (0.85-1.15); PROTHROMBIN TIME 11.9 SEC (9.6-11.6)
[2022-02-22 15:59] LABS: PARTIAL THROMBOPLASTIN TIME 35.2 SEC (26.3-35.5)
[2022-02-22 16:00] VITALS: BP 150/80
[2022-02-22 19:29] VITALS: BP 146/66
[2022-02-23 00:14] VITALS: BP 139/80
[2022-02-23 03:40] VITALS: BP 140/72
[2022-02-23 03:48] LABS: BASOPHILS % (AUTO) 0.5 % (0.0-5.0); EOSINOPHILS % (AUTO) 1.6 % (0.0-8.0); HEMATOCRIT 30.7 % (36-48); LYMPHOCYTES % (AUTO) 27.4 % (21.0-51.0); MEAN CORPUSCULAR HEMOGLOBIN 30.4 pg (27.0-33.0); MEAN CORPUSCULAR HGB CONC 31.3 g/dL (32.0-36.0); MEAN CORPUSCULAR VOLUME 97.2 fL (79-99); MONOCYTES % (AUTO) 7.3 % (3.0-13.0); NEUTROPHILS % (AUTO) 62.9 % (40.0-77.0); PLATELET COUNT (AUTO) 282 K/uL (130-400); RED BLOOD CELL COUNT(AUTO) 3.16 MIL/uL (4.00-5.50); RED CELL DISTRIBUTION WIDTH 17.2 % (11.0-15.5); WHITE BLOOD COUNT (AUTO) 3.7 K/uL (4.8-10.8)
[2022-02-23 03:59] LABS: CREATININE 0.5 mg/dL (0.5-1.5); POTASSIUM 3.8 mmol/L (3.5-5.1)
[2022-02-23] MEDS ORDERED: 0.9%NACL 100ML 100 ML ONE ×2 (05:42→20:44)
[2022-02-23] MEDS: MEROPENEM 1 GM VIAL IVP SCH ×3 (05:47→21:37)
[2022-02-23] MEDS: OCTREOTIDE ACETATE 100 MCG/ML AMP SQ SCH ×3 (05:48→21:38)
[2022-02-23] MEDS: M.V.I. IV [ADULT] 10 ML in CLINIMIX-E 5%AA /D15%W 2000ML 2,000 ML IV NR (07:30)
[2022-02-23] MEDS: ENOXAPARIN SODIUM 60 MG/0.6 ML SQ SCH ×2 (07:30→21:38)
[2022-02-23] MEDS: BALSAM PERU/CASTOR OIL 60 GM TUBE TP SCH ×2 (07:30→21:38)
[2022-02-23 08:00] VITALS: BP 133/77
[2022-02-23] MEDS: D5 NS WITH 20 mEq KCl 1000ML 1,000 ML IV SCH (09:23)
[2022-02-23] MEDS ORDERED: [UNRECOGNIZED DRUG - NUTRITION] IV SCH (11:00)
[2022-02-23 11:20] VITALS: BP 150/85
[2022-02-23] MEDS: MICAFUNGIN 100MG+NS 100ML 100 ML IV SCH (14:02)
[2022-02-23 15:20] VITALS: BP 139/76
[2022-02-23 19:43] VITALS: BP 150/88
[2022-02-24 00:15] VITALS: BP 139/72
[2022-02-24 04:01] LABS: HEMATOCRIT 29.7 % (36-48); MEAN CORPUSCULAR HEMOGLOBIN 30.6 pg (27.0-33.0); MEAN CORPUSCULAR HGB CONC 31.6 g/dL (32.0-36.0); MEAN CORPUSCULAR VOLUME 96.7 fL (79-99); RED BLOOD CELL COUNT(AUTO) 3.07 MIL/uL (4.00-5.50); RED CELL DISTRIBUTION WIDTH 16.9 % (11.0-15.5); WHITE BLOOD COUNT (AUTO) 4.2 K/uL (4.8-10.8)
[2022-02-24 04:15] LABS: INR 1.11 (0.85-1.15)
[2022-02-24 04:26] LABS: ALBUMIN 1.8 g/dL (3.5-5.0); CREATININE 0.4 mg/dL (0.5-1.5); MAGNESIUM 1.6 mg/dL (1.80-2.40); PHOSPHORUS 2.7 mg/dL (2.5-4.9); POTASSIUM 4.1 mmol/L (3.5-5.1); TOTAL PROTEIN, SERUM 6.1 g/dL (6.0-8.3)
[2022-02-24] MEDS ORDERED: 0.9%NACL 100ML 100 ML ONE ×2 (04:39→12:13)
[2022-02-24 04:47] VITALS: BP 142/79
[2022-02-24] MEDS: MEROPENEM 1 GM VIAL IVP SCH ×3 (04:47→21:40)
[2022-02-24] MEDS: OCTREOTIDE ACETATE 100 MCG/ML AMP SQ SCH ×3 (05:50→21:41)
[2022-02-24 08:00] VITALS: BP 131/73
[2022-02-24] MEDS ORDERED: FAT EMULSIONS 20% 250ML 250 ML IV SCH (10:00)
[2022-02-24] MEDS: ENOXAPARIN SODIUM 60 MG/0.6 ML SQ SCH ×2 (10:36→21:40)
[2022-02-24] MEDS: BALSAM PERU/CASTOR OIL 60 GM TUBE TP SCH ×2 (10:36→21:43)
[2022-02-24 11:25] VITALS: BP 130/81
[2022-02-24] MEDS ORDERED: MAGNESIUM 2GM PREMIX 50ML 50 ML IV SCH (12:30)
[2022-02-24] MEDS ORDERED: COMPOUND IV REFRIGERATED 1 EACH MISC ONE (13:39)
[2022-02-24] MEDS ORDERED: CLINIMIX-E 5%AA /D15%W 2000ML 2,000 ML IV ONE (14:00)
[2022-02-24 16:00] VITALS: BP 121/68
[2022-02-24] MEDS ORDERED: FLUCONAZOLE 400 MG/NS 200 ML 200 ML ONE (16:59)
[2022-02-24] MEDS: FLUCONAZOLE 400 MG/NS 200 ML 200 ML IV SCH ×2 (17:03→17:46)
[2022-02-24 19:38] VITALS: BP 130/66
[2022-02-25] VITALS (7 sets, daily range): BP systolic 120–148; BP diastolic 62–80
[2022-02-25] MEDS: MEROPENEM 1 GM VIAL IVP SCH ×3 (04:01→20:58)
[2022-02-25] MEDS: OCTREOTIDE ACETATE 100 MCG/ML AMP SQ SCH ×3 (05:33→21:00)
[2022-02-25] MEDS: ENOXAPARIN SODIUM 60 MG/0.6 ML SQ SCH ×2 (09:05→20:59)
[2022-02-25] MEDS: BALSAM PERU/CASTOR OIL 60 GM TUBE TP SCH ×2 (09:05→21:04)
[2022-02-25] MEDS ORDERED: CLINIMIX-E 5%AA /D15%W 2000ML 2,000 ML IV ONE (16:00)
[2022-02-26 02:00] VITALS: BP 119/61
[2022-02-26] MEDS: MEROPENEM 1 GM VIAL IVP SCH ×3 (04:12→19:55)
[2022-02-26] MEDS: OCTREOTIDE ACETATE 100 MCG/ML AMP SQ SCH ×3 (04:18→21:42)
[2022-02-26 08:35] VITALS: BP 108/48
[2022-02-26] MEDS: ENOXAPARIN SODIUM 60 MG/0.6 ML SQ SCH ×2 (09:58→19:57)
[2022-02-26 12:33] VITALS: BP 116/69
[2022-02-26] MEDS: BALSAM PERU/CASTOR OIL 60 GM TUBE TP SCH ×2 (12:48→20:03)
[2022-02-26] MEDS: FLUCONAZOLE 400 MG/NS 200 ML 200 ML IV SCH (15:27)
[2022-02-26 16:16] VITALS: BP 103/64
[2022-02-26] MEDS ORDERED: CLINIMIX-E4.25%AA/D5+LYT2000ML 2,000 ML IV ONE (18:00)
[2022-02-26 20:00] VITALS: BP 107/47
[2022-02-26] MEDS ORDERED: CLINIMIX-E 5%AA /D15%W 2000ML 2,000 ML IV ONE (20:00)
[2022-02-26 23:50] VITALS: BP 107/62
[2022-02-27 03:35] VITALS: BP 105/64
[2022-02-27] MEDS: MEROPENEM 1 GM VIAL IVP SCH ×2 (03:57→12:38)
[2022-02-27 05:04] LABS: BASOPHILS % (AUTO) 0.6 % (0.0-5.0); EOSINOPHILS % (AUTO) 1.9 % (0.0-8.0); HEMATOCRIT 28.5 % (36-48); LYMPHOCYTES % (AUTO) 28.5 % (21.0-51.0); MEAN CORPUSCULAR HEMOGLOBIN 30.5 pg (27.0-33.0); MEAN CORPUSCULAR HGB CONC 31.6 g/dL (32.0-36.0); MEAN CORPUSCULAR VOLUME 96.6 fL (79-99); MONOCYTES % (AUTO) 8.9 % (3.0-13.0); NEUTROPHILS % (AUTO) 59.5 % (40.0-77.0); PLATELET COUNT (AUTO) 225 K/uL (130-400); RED BLOOD CELL COUNT(AUTO) 2.95 MIL/uL (4.00-5.50); RED CELL DISTRIBUTION WIDTH 16.1 % (11.0-15.5); WHITE BLOOD COUNT (AUTO) 4.6 K/uL (4.8-10.8)
[2022-02-27 05:25] LABS: ALBUMIN 1.6 g/dL (3.5-5.0); CREATININE 0.5 mg/dL (0.5-1.5); POTASSIUM 3.9 mmol/L (3.5-5.1); TOTAL PROTEIN, SERUM 5.8 g/dL (6.0-8.3)
[2022-02-27] MEDS: OCTREOTIDE ACETATE 100 MCG/ML AMP SQ SCH ×3 (05:44→21:16)
[2022-02-27 07:16] VITALS: BP 102/63
[2022-02-27] MEDS: BALSAM PERU/CASTOR OIL 60 GM TUBE TP SCH ×2 (08:36→21:17)
[2022-02-27] MEDS: ENOXAPARIN SODIUM 60 MG/0.6 ML SQ SCH ×2 (08:36→21:16)
[2022-02-27] MEDS ORDERED: FAT EMULSIONS 20% 250ML 250 ML IV SCH (10:00)
[2022-02-27 12:19] VITALS: BP 115/67
[2022-02-27 16:05] VITALS: BP 130/60
[2022-02-27] MEDS: FLUCONAZOLE 400 MG/NS 200 ML 200 ML IV SCH (16:19)
[2022-02-27] MEDS: ONDANSETRON 4MG INJ IVP PRN (18:18)
[2022-02-27 19:00] VITALS: BP 133/85
[2022-02-27] MEDS ORDERED: CLINIMIX-E 5%AA /D15%W 2000ML 2,000 ML IV ONE (22:00)
[2022-02-28] VITALS (7 sets, daily range): BP systolic 95–130; BP diastolic 53–73
[2022-02-28] MEDS: OCTREOTIDE ACETATE 100 MCG/ML AMP SQ SCH ×3 (05:26→22:19)
[2022-02-28] MEDS: ENOXAPARIN SODIUM 60 MG/0.6 ML SQ SCH ×2 (09:14→20:26)
[2022-02-28] MEDS: BALSAM PERU/CASTOR OIL 60 GM TUBE TP SCH ×2 (09:42→20:28)
[2022-02-28] MEDS: FLUCONAZOLE 400 MG/NS 200 ML 200 ML IV SCH (14:11)
[2022-02-28] MEDS ORDERED: ACETAMINOPHEN 120 MG SUPPOSITORY RC PRN (16:30)
[2022-02-28] MEDS ORDERED: CLINIMIX-E 5%AA /D15%W 2000ML 2,000 ML IV ONE (20:30)
[2022-03-01 03:37] VITALS: BP 130/76
[2022-03-01] MEDS: OCTREOTIDE ACETATE 100 MCG/ML AMP SQ SCH ×3 (05:21→22:17)
[2022-03-01 07:00] VITALS: BP 136/69
[2022-03-01] MEDS: BALSAM PERU/CASTOR OIL 60 GM TUBE TP SCH ×2 (09:08→22:17)
[2022-03-01] MEDS: ENOXAPARIN SODIUM 60 MG/0.6 ML SQ SCH ×2 (09:08→19:57)
[2022-03-01 11:00] VITALS: BP 127/78
[2022-03-01] MEDS: KETOROLAC 15MG/ML VIAL (15MG/ML) IM PRN (11:20)
[2022-03-01] MEDS: FLUCONAZOLE 400 MG/NS 200 ML 200 ML IV SCH (14:16)
[2022-03-01 15:00] VITALS: BP 136/67
[2022-03-01 20:00] VITALS: BP 124/74
[2022-03-01] MEDS ORDERED: CLINIMIX-E 5%AA /D15%W 2000ML 2,000 ML IV ONE (20:00)
[2022-03-02] VITALS (7 sets, daily range): BP systolic 104–139; BP diastolic 60–74
[2022-03-02 03:57] LABS: BASOPHILS % (AUTO) 0.6 % (0.0-5.0); EOSINOPHILS % (AUTO) 2.3 % (0.0-8.0); HEMATOCRIT 30.3 % (36-48); LYMPHOCYTES % (AUTO) 24.8 % (21.0-51.0); MEAN CORPUSCULAR HEMOGLOBIN 30.4 pg (27.0-33.0); NEUTROPHILS % (AUTO) 63.5 % (40.0-77.0); PLATELET COUNT (AUTO) 242 K/uL (130-400); RED BLOOD CELL COUNT(AUTO) 3.19 MIL/uL (4.00-5.50); WHITE BLOOD COUNT (AUTO) 5.2 K/uL (4.8-10.8)
[2022-03-02 04:13] LABS: ALBUMIN 1.8 g/dL (3.5-5.0); CREATININE 0.4 mg/dL (0.5-1.5); POTASSIUM 5.1 mmol/L (3.5-5.1); TOTAL PROTEIN, SERUM 6.3 g/dL (6.0-8.3)
[2022-03-02] MEDS: OCTREOTIDE ACETATE 100 MCG/ML AMP SQ SCH ×3 (05:19→21:38)
[2022-03-02] MEDS: ENOXAPARIN SODIUM 60 MG/0.6 ML SQ SCH (08:40)
[2022-03-02] MEDS: KETOROLAC 15MG/ML VIAL (15MG/ML) IM PRN ×2 (09:56→17:59)
[2022-03-02] MEDS: BALSAM PERU/CASTOR OIL 60 GM TUBE TP SCH ×2 (09:56→21:37)
[2022-03-02] MEDS: FLUCONAZOLE 400 MG/NS 200 ML 200 ML IV SCH (17:59)
[2022-03-02] MEDS ORDERED: CLINIMIX-E 5%AA /D15%W 2000ML 2,000 ML IV ONE (20:00)
[2022-03-03 04:37] VITALS: BP 96/46
[2022-03-03 04:52] LABS: HEMATOCRIT 25.8 % (36-48); MEAN CORPUSCULAR HGB CONC 32.2 g/dL (32.0-36.0); MEAN CORPUSCULAR VOLUME 96.3 fL (79-99); RED BLOOD CELL COUNT(AUTO) 2.68 MIL/uL (4.00-5.50); RED CELL DISTRIBUTION WIDTH 15.9 % (11.0-15.5); WHITE BLOOD COUNT (AUTO) 6.4 K/uL (4.8-10.8)
[2022-03-03 05:14] LABS: ALBUMIN 1.7 g/dL (3.5-5.0); CREATININE 0.6 mg/dL (0.5-1.5); POTASSIUM 5.6 mmol/L (3.5-5.1); TOTAL PROTEIN, SERUM 5.9 g/dL (6.0-8.3)
[2022-03-03] MEDS: OCTREOTIDE ACETATE 100 MCG/ML AMP SQ SCH ×2 (06:44→14:24)
[2022-03-03] MEDS: BALSAM PERU/CASTOR OIL 60 GM TUBE TP SCH (08:18)
[2022-03-03] MEDS ORDERED: FUROSEMIDE 20MG VIAL IV SCH (09:00)
[2022-03-03] MEDS ORDERED: 0.9%NACL 50ML IV SCH (09:00)
[2022-03-03] MEDS ORDERED: CALCIUM GLUC 1GM 1 GM in 0.9%NACL 100ML 100 ML IV SCH (09:00)
[2022-03-03] MEDS ORDERED: CALCIUM GLUC 1GM/10ML VIAL IVPB SCH (09:00)
[2022-03-03 09:49] VITALS: BP_SYST 118; BP_SYST 152; BP_DIAS 66; BP_DIAS 70
[2022-03-03 10:42] LABS: INR 1.05 (0.85-1.15); PROTHROMBIN TIME 11.4 SEC (9.6-11.6)
[2022-03-03 11:48] VITALS: BP 128/70
[2022-03-03] MEDS: FLUCONAZOLE 400 MG/NS 200 ML 200 ML IV SCH (14:24)
== END 2022-03-03 17:30 | DRG 856 ==
LOC: 2AH 22:31 → 2DH 10-25 14:32 → 4BH 10-25 17:27 → 2DH 11-04 10:15 → 3CH 11-22 20:52 → 2DH 11-28 11:36 → 2CH 12-07 17:41 → 2DH 12-21 16:00 → 4BH 02-26 01:22
PROVIDERS: ADMIT Internal Medicine; ATTEND Internal Medicine
PROC: 30233N1 Transfusion of Nonautologous Red Blood Cells into Peripheral Vein, Percutaneous Approach (ICD-10-PCS; 2021-10-21)
PROC: 0WBF0ZZ Excision of Abdominal Wall, Open Approach (ICD-10-PCS; principal; 2021-11-13 10:19)
PROC: 0W9F30Z Drainage of Abdominal Wall with Drainage Device, Percutaneous Approach (ICD-10-PCS; 2021-11-20)
PROC: 0W9F0ZZ Drainage of Abdominal Wall, Open Approach (ICD-10-PCS; 2021-12-07)
PROC: 0W9F30Z Drainage of Abdominal Wall with Drainage Device, Percutaneous Approach (ICD-10-PCS; 2021-12-15)
DX: T81.49XA Infection following a procedure, other surgical site, initial encounter (principal); A41.81 Sepsis due to Enterococcus; K65.1 Peritoneal abscess; R65.21 Severe sepsis with septic shock; K65.9 Peritonitis, unspecified; J18.9 Pneumonia, unspecified organism; J96.01 Acute respiratory failure with hypoxia; E46 Unspecified protein-calorie malnutrition; K63.2 Fistula of intestine; N39.0 Urinary tract infection, site not specified; Z16.24 Resistance to multiple antibiotics; G72.81 Critical illness myopathy; J90 Pleural effusion, not elsewhere classified; I48.20 Chronic atrial fibrillation, unspecified; K81.0 Acute cholecystitis; J81.1 Chronic pulmonary edema; M62.82 Rhabdomyolysis; J91.8 Pleural effusion in other conditions classified elsewhere; Z20.822 Contact with and (suspected) exposure to COVID-19; I48.91 Unspecified atrial fibrillation; E11.65 Type 2 diabetes mellitus with hyperglycemia; E78.5 Hyperlipidemia, unspecified; E66.01 Morbid (severe) obesity due to excess calories; L89.152 Pressure ulcer of sacral region, stage 2; L89.322 Pressure ulcer of left buttock, stage 2; L89.312 Pressure ulcer of right buttock, stage 2; F32.A Depression, unspecified; B37.9 Candidiasis, unspecified; I10 Essential (primary) hypertension; Z68.30 Body mass index [BMI] 30.0-30.9, adult; I44.1 Atrioventricular block, second degree; B96.5 Pseudomonas (aeruginosa) (mallei) (pseudomallei) as the cause of diseases classified elsewhere; D63.8 Anemia in other chronic diseases classified elsewhere; R58 Hemorrhage, not elsewhere classified; D69.6 Thrombocytopenia, unspecified; E11.40 Type 2 diabetes mellitus with diabetic neuropathy, unspecified; E11.649 Type 2 diabetes mellitus with hypoglycemia without coma; Y83.8 Other surgical procedures as the cause of abnormal reaction of the patient, or of later complication, without mention of misadventure at the time of the procedure; E86.0 Dehydration; R13.12 Dysphagia, oropharyngeal phase; Z74.01 Bed confinement status; Z87.440 Personal history of urinary (tract) infections; Z90.49 Acquired absence of other specified parts of digestive tract; Z93.1 Gastrostomy status; Z93.2 Ileostomy status; Z93.3 Colostomy status
CPT/HCPCS: 10030; 36415; 36600; 71045; 71270; 74018; 74176; 74177; 74178; 76705; 76942; 80048; 80053; 80061; 80076; 80162; 80202; 81001; 82040; 82306; 82435; 82533; 82550; 82803; 82947; 82948; 83605; 83615; 83735; 83874; 83880; 84100; 84132; 84134; 84145; 84295; 84443; 84484; 85014; 85018; 85025; 85027; 85378; 85610; 85730; 86850; 86900; 86901; 86923; 87040; 87070; 87071; 87076; 87077; 87088; 87186; 87205; 87635; 87804; 92610; 93005; 93306; 93356; 93970; 94002; 94003; 94150; 94640; 94664; 94667; 94668; 97039; 99152; 99153; C1729; C1751; C1894; C9113; G0378; J0282; J0330; J0610; J0690; J0692; J0713; J1100; J1170; J1450; J1610; J1650; J1815; J1885; J1940; J1956; J2001; J2185; J2248; J2250; J2354; J2405; J2543; J2704; J2710; J2997; J3010; J3370; J3475; J3480; J3490; J7030; J7040; J7050; J7060; J7070; J7131; J7608; P9016; P9046; Q9963; Q9967